=== PATIENT | male | born 1960 | race Hispanic/Latino ===

== ENCOUNTER 2017-04-25 16:45 | Emergency (ER) | payer OTHER ==
[~2017-04-25 16:45] MED LIST: ALBU4TAB6 PO; ASPI-1197 PO; ESOM20CA34 PO; FLUT1DIS3 IH; HYDR200T82 PO; ISOS20TA9 PO; ISOS60TA4 PO; LISI-617 PO; METF10004 PO; METH2.5T6 PO; METO-408 PO; NAPR-1180 PO; NITR0.4T50 SL; NITRS4 SL; OLME20TA10 PO; PRED20TA3 PO; RANO500T2 PO; SIMV40TA5 PO; SIMV40TA59 PO
[2017-04-25 17:13] LABS: BASOPHILS % (AUTO) 0.7 % (0.0-5.0); EOSINOPHILS % (AUTO) 1.1 % (0.0-8.0); HEMATOCRIT 40.9 % (42-54); LYMPHOCYTES % (AUTO) 21.1 % (21.0-51.0); MEAN CORPUSCULAR HEMOGLOBIN 31.1 pg (27.0-33.0); MEAN CORPUSCULAR HGB CONC 33.9 g/dL (32.0-36.0); MEAN CORPUSCULAR VOLUME 91.7 fL (79-99); MONOCYTES % (AUTO) 6.2 % (3.0-13.0); NEUTROPHILS % (AUTO) 70.9 % (40.0-77.0); PLATELET COUNT (AUTO) 237 K/uL (130-400); RED BLOOD CELL COUNT(AUTO) 4.46 MIL/uL (4.50-6.20); RED CELL DISTRIBUTION WIDTH 14.8 % (11.0-15.5); WHITE BLOOD COUNT (AUTO) 11.9 K/uL (4.8-10.8)
[2017-04-25] MEDS ORDERED: METHYLPREDNISOLONE SOD SUCC 125MG/2ML VIAL ONE (17:13)
[2017-04-25] MEDS ORDERED: IPRATROPIUM/ALBUTEROL SULFATE 3 ML SOLUTION IH ONE (17:27)
[2017-04-25 17:30] LABS: CREATININE 1.4 mg/dL (0.5-1.5); POTASSIUM 3.4 mmol/L (3.5-5.1)
[2017-04-25 17:38] LABS: B-TYPE NATRIURETIC PEPTIDE 83 pg/mL (0-100)
[2017-04-25] MEDS ORDERED: ACETAMINOPHEN-CODEINE ELIXIR 5 ML UDCUP ONE (19:05)
[2017-04-25] MEDS ORDERED: LEVOFLOXACIN 500 MG/D5W 100 ML 100 ML ONE (19:13)
== END 2017-04-25 21:18 | disposition home or self-care (01) ==
LOC: EDH 16:45
DX: J44.1 Chronic obstructive pulmonary disease with (acute) exacerbation (principal); E78.5 Hyperlipidemia, unspecified; I10 Essential (primary) hypertension; Z88.0 Allergy status to penicillin
CPT/HCPCS: 36415; 71045; 80048; 83880; 84484; 85025; 87804 ×2; 94640; 96365; 96375; 99285; J1956; J2930

== ENCOUNTER → 2017-05-21 | Outpatient (CLI) | payer OTHER ==
[~2017-05-21] MED LIST changes: +VERA180T8 PO
== END | disposition home or self-care (01) ==
LOC: SHCH 10:32
PROVIDERS: ATTEND Internal Medicine Cardiovascular Disease
DX: I87.2 Venous insufficiency (chronic) (peripheral) (principal)
CPT/HCPCS: 93970

== ENCOUNTER 2017-08-15 15:35 | Emergency (ER) | payer OTHER ==
[~2017-08-15 15:35] MED LIST changes: -VERA180T8 PO
[2017-08-15 16:54] LABS: BASOPHILS % (AUTO) 0.8 % (0.0-5.0); EOSINOPHILS % (AUTO) 3.1 % (0.0-8.0); HEMATOCRIT 41.9 % (42-54); LYMPHOCYTES % (AUTO) 19.8 % (21.0-51.0); MEAN CORPUSCULAR HEMOGLOBIN 32.3 pg (27.0-33.0); MEAN CORPUSCULAR HGB CONC 35.5 g/dL (32.0-36.0); MONOCYTES % (AUTO) 8.3 % (3.0-13.0); PLATELET COUNT (AUTO) 278 K/uL (130-400); RED CELL DISTRIBUTION WIDTH 15.1 % (11.0-15.5); WHITE BLOOD COUNT (AUTO) 9.4 K/uL (4.8-10.8)
[2017-08-15 17:11] LABS: INR 1.01 (0.85-1.15); PARTIAL THROMBOPLASTIN TIME 24.7 SEC (26.3-35.5); PROTHROMBIN TIME 10.6 SEC (9.6-11.6)
[2017-08-15 17:12] LABS: CREATININE 1.3 mg/dL (0.5-1.5); POTASSIUM 4.3 mmol/L (3.5-5.1)
[2017-08-15 17:27] LABS: ALBUMIN 3.4 g/dL (3.5-5.0); BILIRUBIN,TOTAL 0.4 mg/dL (0.2-1.0); CREATINE KINASE MB 1.5 ng/mL (0.5-3.6); TOTAL PROTEIN, SERUM 6.6 g/dL (6.0-8.3)
[2017-08-15] MEDS ORDERED: SODIUM CHLORIDE 0.9% 1000ML 1,000 ML IV ONE (17:31)
== END 2017-08-15 19:56 | disposition home or self-care (01) ==
LOC: EDH 15:35
DX: R42 Dizziness and giddiness (principal); J44.9 Chronic obstructive pulmonary disease, unspecified; E78.5 Hyperlipidemia, unspecified; I10 Essential (primary) hypertension; E11.9 Type 2 diabetes mellitus without complications; R79.1 Abnormal coagulation profile; Z79.4 Long term (current) use of insulin; Z95.1 Presence of aortocoronary bypass graft; Z88.0 Allergy status to penicillin; Z88.8 Allergy status to other drugs, medicaments and biological substances
CPT/HCPCS: 36415; 70450; 80053; 82550; 82553; 85025; 85610; 85730; 93005; 93880; 99285; J7030

== ENCOUNTER → 2017-09-23 | Outpatient (CLI) | payer OTHER ==
[~2017-09-23] MED LIST changes: +ISOVUE-370 50ML VIAL IV ONE; +VERA180T8 PO
== END | disposition home or self-care (01) ==
LOC: OIH 10:44
PROVIDERS: ATTEND Nurse Practitioner Family
DX: R91.1 Solitary pulmonary nodule (principal); K44.9 Diaphragmatic hernia without obstruction or gangrene; E65 Localized adiposity
CPT/HCPCS: 71260; Q9967

== ENCOUNTER 2017-10-12 01:42 | Emergency (ER) | payer OTHER ==
[~2017-10-12 01:42] MED LIST changes: -ISOVUE-370 50ML VIAL IV ONE; -VERA180T8 PO
[2017-10-12 02:44] LABS: BASOPHILS % (AUTO) 0.6 % (0.0-5.0); EOSINOPHILS % (AUTO) 1.8 % (0.0-8.0); HEMATOCRIT 40.8 % (42-54); LYMPHOCYTES % (AUTO) 11.5 % (21.0-51.0); MEAN CORPUSCULAR HGB CONC 33.9 g/dL (32.0-36.0); MEAN CORPUSCULAR VOLUME 88.5 fL (79-99); MONOCYTES % (AUTO) 9.6 % (3.0-13.0); NEUTROPHILS % (AUTO) 76.5 % (40.0-77.0); NUCLEATED RED BLOOD CELLS 0.1 % (0.0-0.19); PLATELET COUNT (AUTO) 285 K/uL (130-400); RED BLOOD CELL COUNT(AUTO) 4.61 MIL/uL (4.50-6.20); RED CELL DISTRIBUTION WIDTH 14.7 % (11.0-15.5); WHITE BLOOD COUNT (AUTO) 12.8 K/uL (4.8-10.8)
[2017-10-12 02:52] LABS: INR 1.02 (0.85-1.15); PARTIAL THROMBOPLASTIN TIME 26.9 SEC (26.3-35.5); PROTHROMBIN TIME 10.7 SEC (9.6-11.6)
[2017-10-12 03:16] LABS: CREATININE 1.2 mg/dL (0.5-1.5); POTASSIUM 3.6 mmol/L (3.5-5.1)
[2017-10-12 03:30] LABS: ALBUMIN 3.3 g/dL (3.5-5.0); BILIRUBIN,TOTAL 0.5 mg/dL (0.2-1.0); CREATINE KINASE MB 0.8 ng/mL (0.5-3.6); TOTAL PROTEIN, SERUM 6.8 g/dL (6.0-8.3)
[2017-10-12 03:36] LABS: APPEARANCE,URINE Clear (CLEAR); BILIRUBIN,URINE Negative (NEGATIVE); COLOR,URINE Yellow (YELLOW); GLUCOSE, URINE (UA) Negative (NEGATIVE); KETONES,URINE 15 mg/dL (NEGATIVE); LEUKOCYTE ESTERASE ,URINE Negative (NEGATIVE); NITRATE,URINE Negative (NEGATIVE); OCCULT BLOOD,URINE Negative (NEGATIVE); PH,URINE 7.5 (5.0-8.0); PROTEIN,URINE Negative (NEGATIVE)
[2017-10-12] MEDS ORDERED: LEVOFLOXACIN 500 MG TABLET ONE (03:59)
== END 2017-10-12 04:10 | disposition home or self-care (01) ==
LOC: EDH 01:42 → UNDOADMOB 02:55 → EDHIP 02:55 → EDH 04:10
DX: J20.9 Acute bronchitis, unspecified (principal); D86.9 Sarcoidosis, unspecified; J44.9 Chronic obstructive pulmonary disease, unspecified; E11.9 Type 2 diabetes mellitus without complications; E78.5 Hyperlipidemia, unspecified; I10 Essential (primary) hypertension; Z79.4 Long term (current) use of insulin; Z87.891 Personal history of nicotine dependence; Z88.0 Allergy status to penicillin; Z88.8 Allergy status to other drugs, medicaments and biological substances
CPT/HCPCS: 36415; 71045; 80053; 81003; 82150; 82550; 82553; 83605; 83690; 83880; 84484; 85025; 85610; 85730; 87040; 93005

== ENCOUNTER 2017-10-15 12:38 | Inpatient (IN) | payer OTHER ==
[~2017-10-15] VITALS: Ht 172.7 cm; Wt 88.9 kg
[2017-10-15 13:38] LABS: APPEARANCE,URINE Clear (CLEAR); BILIRUBIN,URINE Negative (NEGATIVE); COLOR,URINE Yellow (YELLOW); GLUCOSE, URINE (UA) Negative (NEGATIVE); KETONES,URINE Trace mg/dL (NEGATIVE); LEUKOCYTE ESTERASE ,URINE Negative (NEGATIVE); NITRATE,URINE Negative (NEGATIVE); OCCULT BLOOD,URINE Trace (NEGATIVE); PROTEIN,URINE POS 1+ (NEGATIVE)
[2017-10-15 13:40] LABS: BASOPHILS % (AUTO) 0.3 % (0.0-5.0); EOSINOPHILS % (AUTO) 0.9 % (0.0-8.0); HEMATOCRIT 38.9 % (42-54); LYMPHOCYTES % (AUTO) 7.7 % (21.0-51.0); MEAN CORPUSCULAR HEMOGLOBIN 30.3 pg (27.0-33.0); MEAN CORPUSCULAR HGB CONC 34.4 g/dL (32.0-36.0); MEAN CORPUSCULAR VOLUME 88.1 fL (79-99); MONOCYTES % (AUTO) 9.9 % (3.0-13.0); NEUTROPHILS % (AUTO) 81.2 % (40.0-77.0); PLATELET COUNT (AUTO) 288 K/uL (130-400); RED BLOOD CELL COUNT(AUTO) 4.42 MIL/uL (4.50-6.20); RED CELL DISTRIBUTION WIDTH 14.6 % (11.0-15.5); WHITE BLOOD COUNT (AUTO) 12.4 K/uL (4.8-10.8)
[2017-10-15] MEDS ORDERED: SODIUM CHLORIDE 0.9% 1000ML 1,000 ML IV ONE ×3 (13:42→17:07)
[2017-10-15] MEDS ORDERED: MEROPENEM 1 GM VIAL ONE (13:42)
[2017-10-15 13:51] LABS: CREATININE 1.3 mg/dL (0.5-1.5); POTASSIUM 5.9 mmol/L (3.5-5.1)
[2017-10-15 13:58] LABS: BACTERIA,URINE Rare /HPF (None Seen); MUCUS,URINE Rare LPF (None Seen); SQUAMOUS EPITHELIAL CELL,UR Rare /HPF (0-2); WBC,URINE 0-1 /HPF (0-1)
[2017-10-15 13:58] LABS: INR 1.02 (0.85-1.15); PROTHROMBIN TIME 10.7 SEC (9.6-11.6)
[2017-10-15 14:04] LABS: ALBUMIN 2.9 g/dL (3.5-5.0); BILIRUBIN,TOTAL 0.8 mg/dL (0.2-1.0); CREATINE KINASE MB 0.7 ng/mL (0.5-3.6); TOTAL PROTEIN, SERUM 7.3 g/dL (6.0-8.3)
[2017-10-15 19:53] VITALS: BP 139/81
[2017-10-15] MEDS ORDERED: ONDANSETRON HCL 4 MG/2 ML VIAL IVP PRN (21:00)
[2017-10-15] MEDS ORDERED: HYDRALAZINE HCL 20 MG/ML VIAL IV PRN (21:00)
[2017-10-15] MEDS ORDERED: GLUCAGON 1MG KIT 1 MG ML IM PRN (21:00)
[2017-10-15] MEDS ORDERED: ACETAMINOPHEN 325 MG TAB PO PRN (21:00)
[2017-10-15] MEDS ORDERED: DEXTROSE 50%-WATER 50 ML DISP.SYRIN IV PRN (21:00)
[2017-10-15 21:53] VITALS: BP 139/81
[2017-10-15] MEDS ORDERED: SODIUM POLYSTYRENE SULFONATE 15 GM/60 ML ML ONE (22:34)
[2017-10-16] MEDS: SODIUM CHLORIDE 0.9% 1000ML 1,000 ML IV SCH ×3 (00:34→15:52)
[2017-10-16] MEDS: SODIUM POLYSTYRENE SULFONATE 15 GM/60 ML ML PO SCH ×2 (00:35→21:00)
[2017-10-16] MEDS: FAMOTIDINE 20MG TAB 20 MG TAB PO SCH ×3 (00:35→22:24)
[2017-10-16] MEDS: INSULIN HUMULIN R 100 UNIT/ML 3ML SQ SCH ×5 (00:35→21:00)
[2017-10-16] MEDS ORDERED: ALBUTEROL SULFATE 4 MG PO SCH (02:30)
[2017-10-16] MEDS ORDERED: PHARMACY COMMUNICATION MISC SCH (04:00)
[2017-10-16 04:20] VITALS: BP 135/80
[2017-10-16 05:14] LABS: BASOPHILS % (AUTO) 0.6 % (0.0-5.0); EOSINOPHILS % (AUTO) 2.8 % (0.0-8.0); HEMATOCRIT 35.3 % (42-54); LYMPHOCYTES % (AUTO) 12.6 % (21.0-51.0); MEAN CORPUSCULAR HEMOGLOBIN 31.5 pg (27.0-33.0); MEAN CORPUSCULAR HGB CONC 35.4 g/dL (32.0-36.0); MEAN CORPUSCULAR VOLUME 88.9 fL (79-99); PLATELET COUNT (AUTO) 291 K/uL (130-400); RED BLOOD CELL COUNT(AUTO) 3.98 MIL/uL (4.50-6.20); RED CELL DISTRIBUTION WIDTH 14.7 % (11.0-15.5)
[2017-10-16 05:33] LABS: ALBUMIN 2.5 g/dL (3.5-5.0); BILIRUBIN,TOTAL 0.5 mg/dL (0.2-1.0); CREATININE 1.3 mg/dL (0.5-1.5); POTASSIUM 3.6 mmol/L (3.5-5.1); TOTAL PROTEIN, SERUM 6.1 g/dL (6.0-8.3)
[2017-10-16 07:54] VITALS: BP 134/85
[2017-10-16] MEDS ORDERED: PREDNISONE 20 MG TABLET PO SCH (09:00)
[2017-10-16] MEDS ORDERED: ISOSORBIDE MONO 60 MG TAB.SR PO SCH (09:00)
[2017-10-16] MEDS ORDERED: METHOTREXATE SODIUM 2.5 MG TABLET PO SCH (09:00)
[2017-10-16] MEDS ORDERED: ISOSORBIDE DINITRATE 20 MG TABLET PO SCH (09:00)
[2017-10-16] MEDS: LEVOFLOXACIN 500 MG/D5W 100 ML 100 ML IV SCH (11:20)
[2017-10-16] MEDS: ASPIRIN 81MG TAB.CHEW PO SCH (11:20)
[2017-10-16] MEDS: LISINOPRIL 5 MG TABLET PO SCH (11:21)
[2017-10-16] MEDS: LOSARTAN 100 MG TABLET PO SCH (11:21)
[2017-10-16] MEDS: NAPROXEN 500 MG TABLET PO SCH ×2 (11:21→22:24)
[2017-10-16] MEDS: METOPROLOL TARTRATE 25 MG TAB PO SCH ×2 (11:21→22:25)
[2017-10-16] MEDS: HYDROXYCHLOROQUINE SULFATE 200 MG TAB PO SCH (11:22)
[2017-10-16] MEDS: RANOLAZINE 500 MG TAB.SR.12H PO SCH ×2 (11:22→22:24)
[2017-10-16] MEDS: ENOXAPARIN SODIUM 40 MG/0.4 ML SYRINGE SQ SCH (11:24)
[2017-10-16 11:38] VITALS: BP 134/77
[2017-10-16] MEDS ORDERED: VERA180T8 PO (14:01)
[2017-10-16] MEDS ORDERED: IOPAMIDOL-370 100 ML VIAL IV ONE (15:01)
[2017-10-16 16:04] VITALS: BP 134/84
[2017-10-16] MEDS ORDERED: KETOROLAC TROMETHAMINE 30MG/ML IV PRN (19:45)
[2017-10-16 20:03] VITALS: BP 139/83
[2017-10-16] MEDS: ZOCOR 40 MG PO SCH (21:00)
[2017-10-17] VITALS (7 sets, daily range): BP systolic 128–143; BP diastolic 74–91
[2017-10-17 04:16] LABS: MEAN CORPUSCULAR HEMOGLOBIN 30.8 pg (27.0-33.0); MEAN CORPUSCULAR HGB CONC 34.8 g/dL (32.0-36.0); MEAN CORPUSCULAR VOLUME 88.4 fL (79-99); PLATELET COUNT (AUTO) 292 K/uL (130-400); RED BLOOD CELL COUNT(AUTO) 4.08 MIL/uL (4.50-6.20); RED CELL DISTRIBUTION WIDTH 14.3 % (11.0-15.5); WHITE BLOOD COUNT (AUTO) 8.4 K/uL (4.8-10.8)
[2017-10-17 04:32] LABS: CREATININE 1.1 mg/dL (0.5-1.5); POTASSIUM 3.5 mmol/L (3.5-5.1)
[2017-10-17] MEDS: INSULIN HUMULIN R 100 UNIT/ML 3ML SQ SCH ×4 (07:30→20:54)
[2017-10-17] MEDS: LEVOFLOXACIN 500 MG/D5W 100 ML 100 ML IV SCH (10:41)
[2017-10-17] MEDS: ASPIRIN 81MG TAB.CHEW PO SCH (10:41)
[2017-10-17] MEDS: RANOLAZINE 500 MG TAB.SR.12H PO SCH ×2 (10:41→20:53)
[2017-10-17] MEDS: LISINOPRIL 5 MG TABLET PO SCH (10:42)
[2017-10-17] MEDS: LOSARTAN 100 MG TABLET PO SCH (10:42)
[2017-10-17] MEDS: NAPROXEN 500 MG TABLET PO SCH ×2 (10:42→20:53)
[2017-10-17] MEDS: METOPROLOL TARTRATE 25 MG TAB PO SCH ×2 (10:42→20:53)
[2017-10-17] MEDS: HYDROXYCHLOROQUINE SULFATE 200 MG TAB PO SCH (10:42)
[2017-10-17] MEDS: FAMOTIDINE 20MG TAB 20 MG TAB PO SCH ×2 (10:43→20:53)
[2017-10-17] MEDS: ENOXAPARIN SODIUM 40 MG/0.4 ML SYRINGE SQ SCH (10:43)
[2017-10-17] MEDS: SODIUM CHLORIDE 0.9% 1000ML 1,000 ML IV SCH (12:20)
[2017-10-17] MEDS: ALBUTEROL SULFATE 0.042% 1.25 MG/3 ML INH IH SCH ×2 (19:01→23:39)
[2017-10-17] MEDS: ZOCOR 40 MG PO SCH (20:56)
[2017-10-18] MEDS: SODIUM CHLORIDE 0.9% 1000ML 1,000 ML IV SCH ×3 (03:00→17:05)
[2017-10-18 04:23] VITALS: BP 127/86
[2017-10-18 05:11] LABS: HEMATOCRIT 32.4 % (42-54); MEAN CORPUSCULAR HEMOGLOBIN 32.9 pg (27.0-33.0); MEAN CORPUSCULAR HGB CONC 37.4 g/dL (32.0-36.0); MEAN CORPUSCULAR VOLUME 87.8 fL (79-99); PLATELET COUNT (AUTO) 318 K/uL (130-400); RED BLOOD CELL COUNT(AUTO) 3.69 MIL/uL (4.50-6.20); RED CELL DISTRIBUTION WIDTH 14.8 % (11.0-15.5); WHITE BLOOD COUNT (AUTO) 7.7 K/uL (4.8-10.8)
[2017-10-18 05:27] LABS: ALBUMIN 2.2 g/dL (3.5-5.0); BILIRUBIN,TOTAL 0.3 mg/dL (0.2-1.0); CREATININE 1.2 mg/dL (0.5-1.5); POTASSIUM 3.6 mmol/L (3.5-5.1); TOTAL PROTEIN, SERUM 5.7 g/dL (6.0-8.3)
[2017-10-18] MEDS: INSULIN HUMULIN R 100 UNIT/ML 3ML SQ SCH ×3 (06:58→16:30)
[2017-10-18] MEDS: ALBUTEROL SULFATE 0.042% 1.25 MG/3 ML INH IH SCH ×4 (07:01→23:15)
[2017-10-18 07:30] VITALS: BP 128/69
[2017-10-18] MEDS: NAPROXEN 500 MG TABLET PO SCH ×2 (08:15→20:40)
[2017-10-18] MEDS: LISINOPRIL 5 MG TABLET PO SCH (08:15)
[2017-10-18] MEDS: PREDNISONE 10 MG TABLET PO SCH (08:15)
[2017-10-18] MEDS: FAMOTIDINE 20MG TAB 20 MG TAB PO SCH ×2 (08:15→20:40)
[2017-10-18] MEDS: RANOLAZINE 500 MG TAB.SR.12H PO SCH ×2 (08:16→20:40)
[2017-10-18] MEDS: METOPROLOL TARTRATE 25 MG TAB PO SCH ×2 (08:16→20:41)
[2017-10-18] MEDS: ENOXAPARIN SODIUM 40 MG/0.4 ML SYRINGE SQ SCH (08:16)
[2017-10-18] MEDS: ASPIRIN 81MG TAB.CHEW PO SCH (08:16)
[2017-10-18] MEDS: LEVOFLOXACIN 500 MG/D5W 100 ML 100 ML IV SCH (08:16)
[2017-10-18] MEDS: LOSARTAN 100 MG TABLET PO SCH (08:16)
[2017-10-18] MEDS: HYDROXYCHLOROQUINE SULFATE 200 MG TAB PO SCH (08:28)
[2017-10-18 11:00] VITALS: BP 125/71
[2017-10-18] MEDS ORDERED: MAG HYDROX/AL HYDROX/SIMETH ES 30 ML SUSP UDCUP PO PRN (15:45)
[2017-10-18] MEDS ORDERED: MAG HYDROX/AL HYDROX/SIMETH ES 30 ML SUSP UDCUP ONE (15:47)
[2017-10-18 16:00] VITALS: BP 147/84
[2017-10-18 19:46] VITALS: BP 127/72
[2017-10-18] MEDS: ZOCOR 40 MG PO SCH (20:42)
[2017-10-18 23:59] VITALS: BP 137/77
[2017-10-19] MEDS: INSULIN HUMULIN R 100 UNIT/ML 3ML SQ SCH ×5 (00:29→20:59)
[2017-10-19 03:46] VITALS: BP 147/89
[2017-10-19 05:37] LABS: HEMATOCRIT 32.8 % (42-54); MEAN CORPUSCULAR HEMOGLOBIN 30.8 pg (27.0-33.0); MEAN CORPUSCULAR HGB CONC 34.9 g/dL (32.0-36.0); MEAN CORPUSCULAR VOLUME 88.5 fL (79-99); PLATELET COUNT (AUTO) 375 K/uL (130-400); RED BLOOD CELL COUNT(AUTO) 3.71 MIL/uL (4.50-6.20); RED CELL DISTRIBUTION WIDTH 14.7 % (11.0-15.5); WHITE BLOOD COUNT (AUTO) 9.3 K/uL (4.8-10.8)
[2017-10-19 05:49] LABS: CREATININE 1.3 mg/dL (0.5-1.5); MAGNESIUM 1.8 mg/dL (1.80-2.40); PHOSPHORUS 3.9 mg/dL (2.5-4.9); POTASSIUM 3.4 mmol/L (3.5-5.1)
[2017-10-19] MEDS: ALBUTEROL SULFATE 0.042% 1.25 MG/3 ML INH IH SCH ×4 (06:40→23:23)
[2017-10-19 08:00] VITALS: BP 139/79
[2017-10-19] MEDS: LISINOPRIL 5 MG TABLET PO SCH (08:56)
[2017-10-19] MEDS: LOSARTAN 100 MG TABLET PO SCH (08:56)
[2017-10-19] MEDS: LEVOFLOXACIN 500 MG/D5W 100 ML 100 ML IV SCH (08:56)
[2017-10-19] MEDS: RANOLAZINE 500 MG TAB.SR.12H PO SCH ×2 (08:57→20:52)
[2017-10-19] MEDS: PREDNISONE 10 MG TABLET PO SCH (08:57)
[2017-10-19] MEDS: FAMOTIDINE 20MG TAB 20 MG TAB PO SCH ×2 (08:58→20:52)
[2017-10-19] MEDS: ASPIRIN 81MG TAB.CHEW PO SCH (08:58)
[2017-10-19] MEDS: METOPROLOL TARTRATE 25 MG TAB PO SCH ×2 (08:58→20:52)
[2017-10-19] MEDS: HYDROXYCHLOROQUINE SULFATE 200 MG TAB PO SCH (08:58)
[2017-10-19] MEDS: NAPROXEN 500 MG TABLET PO SCH ×2 (08:59→20:52)
[2017-10-19] MEDS: ENOXAPARIN SODIUM 40 MG/0.4 ML SYRINGE SQ SCH (08:59)
[2017-10-19] MEDS: SODIUM CHLORIDE 0.9% 1000ML 1,000 ML IV SCH ×3 (09:10→23:30)
[2017-10-19 11:00] VITALS: BP 130/79
[2017-10-19 13:33] LABS: ABG BASE EXCESS -3.1 mmol/L (-2.0-3.0); ABG OXYGEN SATURATION 98.1 % (95.0-99.0); ABG PCO2 27 mmHg (35-48)
[2017-10-19] MEDS: METHYLPREDNISOLONE SOD SUCC 125MG/2ML VIAL IVP SCH (13:44)
[2017-10-19 16:00] VITALS: BP 157/91
[2017-10-19] MEDS: POTASSIUM CHLORIDE 20 MEQ ERTAB PO SCH ×2 (17:44→20:53)
[2017-10-19 20:00] VITALS: BP 136/80
[2017-10-19] MEDS: ZOCOR 40 MG PO SCH (20:53)
[2017-10-20] VITALS: BP 150/76
[2017-10-20] MEDS ORDERED: METHYLPREDNISOLONE SOD SUCC 125MG/2ML VIAL ONE (01:14)
[2017-10-20] MEDS: METHYLPREDNISOLONE SOD SUCC 125MG/2ML VIAL IVP SCH (01:15)
[2017-10-20 04:00] VITALS: BP 138/80
[2017-10-20] MEDS: ALBUTEROL SULFATE 0.042% 1.25 MG/3 ML INH IH SCH ×2 (06:19→11:28)
[2017-10-20 06:46] LABS: HEMATOCRIT 32.8 % (42-54); MEAN CORPUSCULAR HEMOGLOBIN 30.7 pg (27.0-33.0); MEAN CORPUSCULAR HGB CONC 34.7 g/dL (32.0-36.0); MEAN CORPUSCULAR VOLUME 88.3 fL (79-99); PLATELET COUNT (AUTO) 425 K/uL (130-400); RED BLOOD CELL COUNT(AUTO) 3.71 MIL/uL (4.50-6.20); RED CELL DISTRIBUTION WIDTH 14.8 % (11.0-15.5); WHITE BLOOD COUNT (AUTO) 14.1 K/uL (4.8-10.8)
[2017-10-20 06:54] LABS: CREATININE 1.3 mg/dL (0.5-1.5); POTASSIUM 4.1 mmol/L (3.5-5.1)
[2017-10-20] MEDS: INSULIN HUMULIN R 100 UNIT/ML 3ML SQ SCH ×2 (07:14→12:11)
[2017-10-20] MEDS: LEVOFLOXACIN 500 MG/D5W 100 ML 100 ML IV SCH (07:42)
[2017-10-20] MEDS: PREDNISONE 10 MG TABLET PO SCH (07:43)
[2017-10-20] MEDS: HYDROXYCHLOROQUINE SULFATE 200 MG TAB PO SCH (07:43)
[2017-10-20] MEDS: LISINOPRIL 5 MG TABLET PO SCH (07:43)
[2017-10-20] MEDS: ENOXAPARIN SODIUM 40 MG/0.4 ML SYRINGE SQ SCH (07:43)
[2017-10-20] MEDS: NAPROXEN 500 MG TABLET PO SCH (07:43)
[2017-10-20] MEDS: ASPIRIN 81MG TAB.CHEW PO SCH (07:44)
[2017-10-20] MEDS: LOSARTAN 100 MG TABLET PO SCH (07:44)
[2017-10-20] MEDS: METOPROLOL TARTRATE 25 MG TAB PO SCH (07:44)
[2017-10-20] MEDS: FAMOTIDINE 20MG TAB 20 MG TAB PO SCH (07:44)
[2017-10-20 08:00] VITALS: BP 147/77
[2017-10-20 11:00] VITALS: BP 134/78
[2017-10-20] MEDS: RANOLAZINE 500 MG TAB.SR.12H PO SCH (12:09)
[2017-10-20] MEDS: SODIUM CHLORIDE 0.9% 1000ML 1,000 ML IV SCH (12:09)
== END 2017-10-20 16:24 | disposition home or self-care (01) | DRG 871 ==
LOC: EDH 12:38 → EDHIP 17:35 → 3CH 21:32
PROVIDERS: ADMIT Family Medicine; ATTEND Family Medicine
PROC: 5A09357 Assistance with Respiratory Ventilation, Less than 24 Consecutive Hours, Continuous Positive Airway Pressure (ICD-10-PCS; principal; 2017-10-16)
PROC: 5A09357 Assistance with Respiratory Ventilation, Less than 24 Consecutive Hours, Continuous Positive Airway Pressure (ICD-10-PCS; 2017-10-18)
PROC: 5A09357 Assistance with Respiratory Ventilation, Less than 24 Consecutive Hours, Continuous Positive Airway Pressure (ICD-10-PCS; 2017-10-19)
DX: A41.9 Sepsis, unspecified organism (principal); J18.9 Pneumonia, unspecified organism; E43 Unspecified severe protein-calorie malnutrition; J96.20 Acute and chronic respiratory failure, unspecified whether with hypoxia or hypercapnia; J44.0 Chronic obstructive pulmonary disease with (acute) lower respiratory infection; J90 Pleural effusion, not elsewhere classified; E87.5 Hyperkalemia; J20.6 Acute bronchitis due to rhinovirus; I10 Essential (primary) hypertension; E78.5 Hyperlipidemia, unspecified; E11.9 Type 2 diabetes mellitus without complications; D86.9 Sarcoidosis, unspecified; D64.9 Anemia, unspecified; D63.8 Anemia in other chronic diseases classified elsewhere; E66.9 Obesity, unspecified; B97.10 Unspecified enterovirus as the cause of diseases classified elsewhere; B97.89 Other viral agents as the cause of diseases classified elsewhere; J84.10 Pulmonary fibrosis, unspecified; Z95.1 Presence of aortocoronary bypass graft; Z88.0 Allergy status to penicillin; Z99.81 Dependence on supplemental oxygen; Z88.8 Allergy status to other drugs, medicaments and biological substances; Z79.4 Long term (current) use of insulin; Z68.29 Body mass index [BMI] 29.0-29.9, adult
CPT/HCPCS: 36415; 36600; 71046; 71275; 76705; 80048; 80053; 81001; 82550; 82553; 82803; 82948; 83605; 83735; 84100; 84484; 85025; 85027; 85610; 85730; 87040; 87088; 87633; 93005; 94640; 94664; J1650; J1815; J1956; J2185; J2930; J7030; J7512; J8610; Q9967

== ENCOUNTER 2018-05-23 20:45 | Observation (INO) | payer OTHER ==
[~2018-05-23] VITALS: Ht 172.7 cm; Wt 88.9 kg
[~2018-05-23 20:45] MED LIST changes: -ALBU4TAB6 PO; -FLUT1DIS3 IH; -ISOS20TA9 PO; -ISOS60TA4 PO; -LISI-617 PO; +METF-446 PO; -METF10004 PO; -NITRS4 SL; -SIMV40TA59 PO; +VERA180T8 PO
[2018-05-23 21:04] LABS: BASOPHILS % (AUTO) 0.9 % (0.0-5.0); EOSINOPHILS % (AUTO) 2.7 % (0.0-8.0); HEMATOCRIT 39.8 % (42-54); LYMPHOCYTES % (AUTO) 21.3 % (21.0-51.0); MEAN CORPUSCULAR HEMOGLOBIN 27.6 pg (27.0-33.0); MEAN CORPUSCULAR VOLUME 83.5 fL (79-99); MONOCYTES % (AUTO) 9.7 % (3.0-13.0); NEUTROPHILS % (AUTO) 65.4 % (40.0-77.0); NUCLEATED RED BLOOD CELLS 0.1 % (0.0-0.19); PLATELET COUNT (AUTO) 300 K/uL (130-400); RED BLOOD CELL COUNT(AUTO) 4.77 MIL/uL (4.50-6.20); RED CELL DISTRIBUTION WIDTH 15.6 % (11.0-15.5); WHITE BLOOD COUNT (AUTO) 12.2 K/uL (4.8-10.8)
[2018-05-23] MEDS ORDERED: ASPIRIN 325 MG TABLET ONE (21:05)
[2018-05-23 21:25] LABS: CREATININE 1.5 mg/dL (0.5-1.5); INR 0.97 (0.85-1.15); PARTIAL THROMBOPLASTIN TIME 25.1 SEC (26.3-35.5); POTASSIUM 4.3 mmol/L (3.5-5.1); PROTHROMBIN TIME 10.2 SEC (9.6-11.6)
[2018-05-23 21:35] LABS: ALBUMIN 3.5 g/dL (3.5-5.0); BILIRUBIN,TOTAL 0.2 mg/dL (0.2-1.0); TOTAL PROTEIN, SERUM 6.9 g/dL (6.0-8.3)
[2018-05-23 23:17] LABS: APPEARANCE,URINE Clear (CLEAR); BILIRUBIN,URINE Negative (NEGATIVE); COLOR,URINE Yellow (YELLOW); GLUCOSE, URINE (UA) Negative (NEGATIVE); KETONES,URINE Trace mg/dL (NEGATIVE); LEUKOCYTE ESTERASE ,URINE Negative (NEGATIVE); NITRATE,URINE Negative (NEGATIVE); OCCULT BLOOD,URINE Negative (NEGATIVE); PROTEIN,URINE Negative (NEGATIVE)
[2018-05-24] MEDS ORDERED: ACETAMINOPHEN 325 MG TAB PO PRN (00:15)
[2018-05-24] MEDS ORDERED: ONDANSETRON HCL 4 MG/2 ML VIAL IV PRN (00:15)
[2018-05-24] MEDS: NITROGLYCERIN 1GM/1 INCH PACKET TD SCH ×3 (00:15→16:15)
[2018-05-24] MEDS ORDERED: MORPHINE SULFATE 2 MG/ML 1ML SYG IV PRN (00:15)
[2018-05-24] MEDS ORDERED: NITROGLYCERIN 1GM/1 INCH PACKET TD ONE (00:43)
--- NOTE | 2018-05-24 01:30 | NUR ---
Patient arrived on unit. Alert and oriented. Chest pressure 1/10 radiating to R side and to the back. States it originated in epigastric area. States he experiences SOB when ambulating and at rest. Also states he occasionally has episodes of dizziness with change in position and while ambulating. Patient is on 2L NC, 02 Sats at 98%. Patient is 02 dependent at home. Advised patient to use urinal and or to call for assistance. Oriented patient to call light and oriented to new environment. at bedside. Will continue to monitor labs. New Consult for Dr Leeann Wadsworth for 0800, Steel Finisher aware.
[2018-05-24 01:32] VITALS: BP 121/74
[2018-05-24 03:41] VITALS: BP 124/65
[2018-05-24] MEDS ORDERED: GLUCAGON 1MG KIT 1 MG ML IM PRN (04:00)
[2018-05-24] MEDS ORDERED: DEXTROSE 50%-WATER 50 ML DISP.SYRIN IV PRN (04:00)
[2018-05-24] MEDS: INSULIN HUMULIN R 100 UNIT/ML 3ML SQ SCH ×3 (07:30→16:29)
[2018-05-24 07:38] VITALS: BP 124/73
[2018-05-24] MEDS ORDERED: ENOXAPARIN SODIUM 30 MG/0.3 ML SQ SCH (09:00)
[2018-05-24] MEDS ORDERED: ASPIRIN 325 MG TABLET PO SCH (09:00)
[2018-05-24] MEDS ORDERED: PREDNISONE 10 MG TABLET PO SCH (09:00)
[2018-05-24] MEDS ORDERED: PANTOPRAZOLE SODIUM 40 MG TABLET.DR PO SCH (09:00)
[2018-05-24] MEDS ORDERED: METHOTREXATE SODIUM 2.5 MG TABLET PO SCH (09:00)
[2018-05-24] MEDS ORDERED: METOPROLOL TARTRATE 25 MG TAB PO SCH (09:00)
[2018-05-24] MEDS ORDERED: VERAPAMIL 180 MG PO SCH (09:00)
[2018-05-24] MEDS ORDERED: RANOLAZINE 500 MG TAB.SR.12H PO SCH (09:00)
[2018-05-24] MEDS ORDERED: HYDROXYCHLOROQUINE SULFATE 200 MG TAB PO SCH (09:00)
[2018-05-24] MEDS ORDERED: ***HM***Metoprolol Succinate 25 MG PO SCH (09:00)
[2018-05-24] MEDS ORDERED: OLMESARTAN MEDOXOMIL 20 MG PO SCH (09:00)
--- NOTE | 2018-05-24 11:40 | NUR ---
Altagracia BUCHANAN NP, IN ROOM FOR CONSULT ASSESSING/SPEAKING WITH PT. QUESTIONS ANSWERED BY MAIL MESSENGER.
[2018-05-24 11:57] VITALS: BP 126/84
--- NOTE | 2018-05-24 14:45 | NUR ---
DR. Carolyn ZHAO IN ROOM WITH PT. FOR CONSULT; PT.'S FAMILY MEMBERS AT BEDSIDE.
[2018-05-24 16:14] VITALS: BP 105/64
--- NOTE | 2018-05-24 16:16 | NUR ---
Status Notified PMD that cardio cleared patient. CT of Chest negative. CD
--- NOTE | 2018-05-24 16:45 | NUR ---
DR. CHARLES, AT NURSE'S STATION, MADE AWARE OF CT CHEST RESULTS AND [facility] ORDER FOR DISCHARGE; VERBALIZED UNDERSTANDING AND STATES WILL PLACE ORDERS.
--- NOTE | 2018-05-24 17:53 | NUR ---
GIVEN DISMISSAL INSTRUCTIONS, NO NEW SCRIPTS. VERBALIZED UNDERSTANDING. REMOVED SALINE LOCK FROM RIGHT HAND, IV SITE WITHOUT REDNESS NOTED. REMOVED TELE PACK. WENT HOME TO [employer] CLOTHES FOR PATIENT. INSTRUCTED TO CALL ONCE HE'S READY AND WILL BE TAKEN TO PRIVATE CAR VIA WHEELCHAIR.
[2018-05-24] MEDS ORDERED: SIMVASTATIN 40 MG PO SCH (21:00)
[2018-05-26] MEDS ORDERED: METHOTREXATE SODIUM 2.5 MG TABLET PO SCH (09:00)
== END 2018-05-24 18:50 | disposition home or self-care (01) ==
LOC: EDH 20:45 → EDHIP 23:20 → 2AH 05-24 01:42
PROVIDERS: ADMIT Hospitalist; ATTEND Hospitalist
DX: I25.110 Atherosclerotic heart disease of native coronary artery with unstable angina pectoris (principal); D86.0 Sarcoidosis of lung; E11.9 Type 2 diabetes mellitus without complications; E78.5 Hyperlipidemia, unspecified; G47.33 Obstructive sleep apnea (adult) (pediatric); I10 Essential (primary) hypertension; I45.10 Unspecified right bundle-branch block; I47.1 Supraventricular tachycardia; I51.7 Cardiomegaly; I87.2 Venous insufficiency (chronic) (peripheral); J44.9 Chronic obstructive pulmonary disease, unspecified; Z99.81 Dependence on supplemental oxygen; Z95.1 Presence of aortocoronary bypass graft; Z79.899 Other long term (current) drug therapy; Z80.1 Family history of malignant neoplasm of trachea, bronchus and lung; Z80.3 Family history of malignant neoplasm of breast; Z82.0 Family history of epilepsy and other diseases of the nervous system; Z82.49 Family history of ischemic heart disease and other diseases of the circulatory system; Z82.5 Family history of asthma and other chronic lower respiratory diseases; Z83.3 Family history of diabetes mellitus; Z82.3 Family history of stroke
CPT/HCPCS: 36415 ×2; 71045; 71250; 76705; 80053; 81003; 82550; 82948 ×3; 83690 ×2; 83874; 84484 ×3; 85025; 85610; 85730; 93005; 96372; 99284; G0378 ×19; J1650; J8610

== ENCOUNTER → 2018-07-08 | Outpatient (CLI) | payer OTHER | END | disposition home or self-care (01) | LOC: SHCH 13:34 | PROVIDERS: ATTEND Internal Medicine Cardiovascular Disease | DX: R06.02 Shortness of breath (principal) | CPT/HCPCS: 93306 ==

== ENCOUNTER 2018-09-22 18:05 | Emergency (ER) | payer OTHER ==
[~2018-09-22 18:05] MED LIST changes: -METH2.5T6 PO; -NAPR-1180 PO; +PRED10TA3 PO; -PRED20TA3 PO; -RANO500T2 PO; +VERA180T12 PO; -VERA180T8 PO
[2018-09-22 18:53] LABS: BASOPHILS % (AUTO) 0.3 % (0.0-5.0); EOSINOPHILS % (AUTO) 1.8 % (0.0-8.0); HEMATOCRIT 36.5 % (42-54); LYMPHOCYTES % (AUTO) 14.6 % (21.0-51.0); MEAN CORPUSCULAR HGB CONC 33.3 g/dL (32.0-36.0); MEAN CORPUSCULAR VOLUME 84.1 fL (79-99); MONOCYTES % (AUTO) 6.5 % (3.0-13.0); NEUTROPHILS % (AUTO) 76.8 % (40.0-77.0); PLATELET COUNT (AUTO) 300 K/uL (130-400); RED BLOOD CELL COUNT(AUTO) 4.34 MIL/uL (4.50-6.20); RED CELL DISTRIBUTION WIDTH 16.6 % (11.0-15.5); WHITE BLOOD COUNT (AUTO) 14.5 K/uL (4.8-10.8)
[2018-09-22 19:01] LABS: CREATININE 1.4 mg/dL (0.5-1.5); POTASSIUM 3.8 mmol/L (3.5-5.1)
== END 2018-09-22 19:45 | disposition home or self-care (01) ==
LOC: EDH 18:05
DX: I95.2 Hypotension due to drugs (principal); R42 Dizziness and giddiness; E11.9 Type 2 diabetes mellitus without complications; E78.5 Hyperlipidemia, unspecified; J44.9 Chronic obstructive pulmonary disease, unspecified; Z88.0 Allergy status to penicillin; Z88.8 Allergy status to other drugs, medicaments and biological substances; Z79.4 Long term (current) use of insulin
CPT/HCPCS: 36415; 80048; 82948; 85025; 93005

== ENCOUNTER 2019-01-03 18:22 | Emergency (ER) | payer OTHER ==
[2019-01-03 20:12] LABS: BASOPHILS % (AUTO) 0.2 % (0.0-5.0); EOSINOPHILS % (AUTO) 0.1 % (0.0-8.0); HEMATOCRIT 37.4 % (42-54); LYMPHOCYTES % (AUTO) 4.8 % (21.0-51.0); MEAN CORPUSCULAR HEMOGLOBIN 27.6 pg (27.0-33.0); MEAN CORPUSCULAR HGB CONC 32.8 g/dL (32.0-36.0); MEAN CORPUSCULAR VOLUME 84.1 fL (79-99); MONOCYTES % (AUTO) 4.8 % (3.0-13.0); NEUTROPHILS % (AUTO) 90.1 % (40.0-77.0); PLATELET COUNT (AUTO) 249 K/uL (130-400); RED BLOOD CELL COUNT(AUTO) 4.44 MIL/uL (4.50-6.20); RED CELL DISTRIBUTION WIDTH 16.5 % (11.0-15.5); WHITE BLOOD COUNT (AUTO) 13.8 K/uL (4.8-10.8)
[2019-01-03 20:30] LABS: CREATININE 1.9 mg/dL (0.5-1.5); POTASSIUM 5.2 mmol/L (3.5-5.1)
[2019-01-03 20:37] LABS: APPEARANCE,URINE Clear (CLEAR); BILIRUBIN,URINE Negative (NEGATIVE); COLOR,URINE Dark Yellow (YELLOW); GLUCOSE, URINE (UA) Negative (NEGATIVE); KETONES,URINE Trace mg/dL (NEGATIVE); LEUKOCYTE ESTERASE ,URINE Trace (NEGATIVE); NITRATE,URINE Negative (NEGATIVE); OCCULT BLOOD,URINE Negative (NEGATIVE); PROTEIN,URINE POS 1+ mg/dL (NEGATIVE)
[2019-01-03 20:38] LABS: ALBUMIN 3.5 g/dL (3.5-5.0); BILIRUBIN,TOTAL 0.2 mg/dL (0.2-1.0); TOTAL PROTEIN, SERUM 6.7 g/dL (6.0-8.3)
[2019-01-03 20:58] LABS: BACTERIA,URINE Few /HPF (None Seen); MUCUS,URINE Few LPF (None Seen)
== END 2019-01-03 21:35 | disposition home or self-care (01) ==
LOC: EDH 18:22
DX: S20.211A Contusion of right front wall of thorax, initial encounter (principal); M54.6 Pain in thoracic spine; R42 Dizziness and giddiness; W18.39XA Other fall on same level, initial encounter; Y93.89 Activity, other specified; Y92.89 Other specified places as the place of occurrence of the external cause; Y99.8 Other external cause status
CPT/HCPCS: 36415; 71045; 71250; 80053; 81001; 84484; 85025; 93005

== ENCOUNTER 2019-01-19 16:50 | Inpatient (IN) | payer OTHER ==
[~2019-01-19] VITALS: Ht 172.7 cm; Wt 84.9 kg
[2019-01-19] MEDS ORDERED: ZOSYN 3.375GM+NS 50ML 50 ML IV ONE (17:34)
[2019-01-19 17:35] LABS: BASOPHILS % (AUTO) 0.6 % (0.0-5.0); EOSINOPHILS % (AUTO) 0.8 % (0.0-8.0); HEMATOCRIT 37.4 % (42-54); LYMPHOCYTES % (AUTO) 12.7 % (21.0-51.0); MEAN CORPUSCULAR HEMOGLOBIN 27.9 pg (27.0-33.0); MEAN CORPUSCULAR HGB CONC 33.6 g/dL (32.0-36.0); MONOCYTES % (AUTO) 4.8 % (3.0-13.0); NEUTROPHILS % (AUTO) 81.1 % (40.0-77.0); PLATELET COUNT (AUTO) 255 K/uL (130-400); RED CELL DISTRIBUTION WIDTH 16.7 % (11.0-15.5); WHITE BLOOD COUNT (AUTO) 16.2 K/uL (4.8-10.8)
[2019-01-19 17:47] LABS: CARBON DIOXIDE 25 mmol/L (21-32); CHLORIDE 101 mmol/L (101-111); CREATININE 1.4 mg/dL (0.5-1.5); GLOMERULAR FILTR. RATE CALC 55 mL/min (>60); GLUCOSE,RANDOM 98 mg/dL (70-105); SODIUM SERUM 138 mmol/L (136-145); UREA NITROGEN, BLOOD 21 mg/dL (7-18)
[2019-01-19 17:51] LABS: INR 1.01 (0.85-1.15); PARTIAL THROMBOPLASTIN TIME 23.2 SEC (26.3-35.5); PROTHROMBIN TIME 10.6 SEC (9.6-11.6)
[2019-01-19 17:58] LABS: ALANINE AMINOTRANSFERASE 27 U/L (12-78); ALBUMIN 3.5 g/dL (3.5-5.0); ASPARTATE AMINOTRANSFERASE 15 U/L (10-37); BILIRUBIN,TOTAL 0.4 mg/dL (0.2-1.0); CREATINE KINASE, TOTAL 109 U/L (21-232); MYOGLOBIN 81 ng/mL (10-92); TOTAL PROTEIN, SERUM 7.5 g/dL (6.0-8.3); TROPONIN I < 0.04 ng/mL (0.00-0.06)
[2019-01-19 18:03] LABS: APPEARANCE,URINE Clear (CLEAR); BILIRUBIN,URINE Negative (NEGATIVE); COLOR,URINE Yellow (YELLOW); GLUCOSE, URINE (UA) Negative (NEGATIVE); KETONES,URINE Negative (NEGATIVE); LEUKOCYTE ESTERASE ,URINE Negative (NEGATIVE); NITRATE,URINE Negative (NEGATIVE); OCCULT BLOOD,URINE Negative (NEGATIVE); PROTEIN,URINE Negative (NEGATIVE)
[2019-01-19] MEDS ORDERED: VANCOMYCIN 1GM+NS 250ML 250 ML IV ONE (18:25)
[2019-01-19] MEDS ORDERED: METHYLPREDNISOLONE SOD SUCC 125MG/2ML VIAL ONE (18:25)
[2019-01-19] MEDS ORDERED: IPRATROPIUM/ALBUTEROL SULFATE 3 ML SOLUTION IH ONE ×2 (18:49→20:16)
[2019-01-19] MEDS ORDERED: VANCOMYCIN 1GM+NS 250ML 250 ML IV SCH (21:15)
[2019-01-19] MEDS ORDERED: ONDANSETRON HCL 4 MG/2 ML VIAL IV PRN (21:15)
[2019-01-19] MEDS ORDERED: GUAIFENESIN-DM 200/20 MG 10 ML PO PRN (21:15)
[2019-01-19] MEDS ORDERED: ACETAMINOPHEN 325 MG TAB PO PRN ×2 (21:15)
[2019-01-19] MEDS ORDERED: VANCOMYCIN PROTOCOL PER PHARMACY IV SCH (21:45)
[2019-01-19 22:45] VITALS: BP 109/70
[2019-01-20] MEDS ORDERED: GUAIFENESIN-CODEINE 5 ML SYRUP PO PRN (00:45)
[2019-01-20 04:00] VITALS: BP 116/74
[2019-01-20] MEDS: METHYLPREDNISOLONE SOD SUCC 40MG/ML 1ML IVP SCH ×3 (05:16→20:58)
[2019-01-20 06:16] LABS: BASOPHILS % (AUTO) 0.3 % (0.0-5.0); HEMATOCRIT 36.9 % (42-54); LYMPHOCYTES % (AUTO) 3.5 % (21.0-51.0); MEAN CORPUSCULAR HEMOGLOBIN 27.7 pg (27.0-33.0); MEAN CORPUSCULAR HGB CONC 32.5 g/dL (32.0-36.0); MEAN CORPUSCULAR VOLUME 85.2 fL (79-99); MONOCYTES % (AUTO) 1.7 % (3.0-13.0); NEUTROPHILS % (AUTO) 94.5 % (40.0-77.0); PLATELET COUNT (AUTO) 241 K/uL (130-400); RED BLOOD CELL COUNT(AUTO) 4.33 MIL/uL (4.50-6.20); RED CELL DISTRIBUTION WIDTH 17.4 % (11.0-15.5); WHITE BLOOD COUNT (AUTO) 12.3 K/uL (4.8-10.8)
[2019-01-20 06:28] LABS: ALBUMIN 3.2 g/dL (3.5-5.0); BILIRUBIN,TOTAL 0.4 mg/dL (0.2-1.0); CREATININE 1.3 mg/dL (0.5-1.5); TOTAL PROTEIN, SERUM 6.9 g/dL (6.0-8.3)
[2019-01-20] MEDS ORDERED: COMPOUND IV REFRIGERATED 1 EACH IVSOLN MISC PRN (06:30)
[2019-01-20] MEDS: INSULIN HUMULIN R 100 UNIT/ML 3ML SQ SCH ×4 (06:49→19:57)
[2019-01-20 07:00] VITALS: BP 126/80
[2019-01-20] MEDS: VANCOMYCIN 1.25 GM in SODIUM CHLORIDE 0.9% 250 ML IV SCH ×2 (08:44→19:19)
--- NOTE | 2019-01-20 08:46 | NUR ---
NOTIFIED MARCO ANTONIO MADDOX NP OF [facility] OF THE CONSULT FOR THE PATIENT.
[2019-01-20] MEDS: FAMOTIDINE/PF 20 MG/2 ML VIAL IV SCH ×2 (09:43→20:58)
[2019-01-20] MEDS: ENOXAPARIN SODIUM 30 MG/0.3 ML SQ SCH (09:43)
[2019-01-20 11:00] VITALS: BP 128/76
[2019-01-20] MEDS: LEVOFLOXACIN 750 MG/D5W 150 ML 150 ML IV SCH (11:50)
--- NOTE | 2019-01-20 12:25 | NUR ---
DCP CM met with pt discussed dc plans. Pt is independent prior to admission, lives at home w/spouse. Pt has oxygen equipments stationary and portable at home, nebulizer machine. Denies any other equipments/services. Pt feels safe to go back home, spouse able to assist with transportation and needs as necessary. DC plan to home once stable. CM to cont to follow up. Addendum: 01/20/19 at 1227 by SINA LI LVN CM Amended: Links added.
[2019-01-20 16:00] VITALS: BP 136/72
[2019-01-20] MEDS ORDERED: SITA50TA PO (18:45)
[2019-01-20] MEDS ORDERED: TRAM50TA4 PO (18:45)
[2019-01-20] MEDS ORDERED: ERGO800010 PO (18:45)
[2019-01-20] MEDS ORDERED: ALEN70TA10 PO (18:45)
[2019-01-20] MEDS ORDERED: PRED20TA3 PO (18:45)
[2019-01-20] MEDS ORDERED: INSU100V12 SQ (18:45)
[2019-01-20] MEDS ORDERED: OMEP40CA13 PO (18:45)
[2019-01-20 20:00] VITALS: BP 140/84
[2019-01-21] VITALS (7 sets, daily range): BP systolic 118–157; BP diastolic 67–92
[2019-01-21] MEDS ORDERED: TRAMADOL HCL 50 MG TABLET PO PRN (02:00)
[2019-01-21 05:54] LABS: HEMATOCRIT 35.1 % (42-54); MEAN CORPUSCULAR HEMOGLOBIN 27.6 pg (27.0-33.0); MEAN CORPUSCULAR HGB CONC 32.9 g/dL (32.0-36.0); MEAN CORPUSCULAR VOLUME 83.9 fL (79-99); PLATELET COUNT (AUTO) 263 K/uL (130-400); RED BLOOD CELL COUNT(AUTO) 4.18 MIL/uL (4.50-6.20); RED CELL DISTRIBUTION WIDTH 16.9 % (11.0-15.5); WHITE BLOOD COUNT (AUTO) 18.1 K/uL (4.8-10.8)
[2019-01-21 06:13] LABS: CREATININE 1.4 mg/dL (0.5-1.5); POTASSIUM 4.7 mmol/L (3.5-5.1)
[2019-01-21] MEDS: ALENDRONATE SODIUM 35 MG TAB PO SCH (06:41)
[2019-01-21] MEDS: INSULIN HUMULIN R 100 UNIT/ML 3ML SQ SCH ×4 (06:42→22:05)
[2019-01-21] MEDS: VANCOMYCIN 1.25 GM in SODIUM CHLORIDE 0.9% 250 ML IV SCH ×2 (07:00→20:53)
[2019-01-21] MEDS: FAMOTIDINE/PF 20 MG/2 ML VIAL IV SCH ×2 (08:52→22:04)
[2019-01-21] MEDS: PANTOPRAZOLE SODIUM 40 MG TABLET.DR PO SCH (08:52)
[2019-01-21] MEDS: LINAGLIPTIN 5 MG TABLET PO SCH (08:52)
[2019-01-21] MEDS: ASPIRIN 81MG TAB.CHEW PO SCH (08:52)
[2019-01-21] MEDS: METHYLPREDNISOLONE SOD SUCC 40MG/ML 1ML IVP SCH (08:52)
[2019-01-21] MEDS: ENOXAPARIN SODIUM 30 MG/0.3 ML SQ SCH (08:52)
[2019-01-21] MEDS: METFORMIN HCL 500 MG TABLET PO SCH ×2 (08:52→17:00)
[2019-01-21] MEDS: LEVOFLOXACIN 750 MG/D5W 150 ML 150 ML IV SCH (08:53)
[2019-01-21] MEDS: VERAPAMIL 180 MG PO SCH (09:00)
[2019-01-21] MEDS: OLMESARTAN MEDOXOMIL 20 MG PO SCH (09:00)
[2019-01-21] MEDS ORDERED: ERGOCALCIFEROL (VITAMIN D2) 50,000 UNIT CAPSULE PO SCH (09:00)
[2019-01-21] MEDS: HYDROXYCHLOROQUINE SULFATE 200 MG TAB PO SCH ×2 (09:21→22:04)
[2019-01-21 13:32] LABS: ABG BASE EXCESS -4.7 mmol/L (-2.0-3.0); ABG HCO3 18.6 mmol/L (21.0-28.0); ABG OXYGEN SATURATION 98.2 % (95.0-99.0); ABG PCO2 29 mmHg (35-48)
[2019-01-21] MEDS ORDERED: SIMVASTATIN 20 MG TABLET PO SCH (21:00)
[2019-01-22 04:33] VITALS: BP 136/77
[2019-01-22] MEDS: INSULIN HUMULIN R 100 UNIT/ML 3ML SQ SCH ×3 (06:10→16:30)
[2019-01-22] MEDS: VANCOMYCIN 1.25 GM in SODIUM CHLORIDE 0.9% 250 ML IV SCH (06:21)
[2019-01-22] MEDS: ALENDRONATE SODIUM 35 MG TAB PO SCH ×2 (06:22→06:23)
[2019-01-22 08:00] VITALS: BP 143/90
[2019-01-22] MEDS ORDERED: PREDNISONE 20 MG TABLET PO SCH (09:00)
[2019-01-22] MEDS: VERAPAMIL 180 MG PO SCH (09:00)
[2019-01-22] MEDS: OLMESARTAN MEDOXOMIL 20 MG PO SCH (09:00)
[2019-01-22] MEDS: ENOXAPARIN SODIUM 30 MG/0.3 ML SQ SCH (09:00)
[2019-01-22] MEDS ORDERED: METHYLPREDNISOLONE SOD SUCC 40MG/ML 1ML IVP SCH (09:00)
[2019-01-22] MEDS: ASPIRIN 81MG TAB.CHEW PO SCH (09:24)
[2019-01-22] MEDS: LINAGLIPTIN 5 MG TABLET PO SCH (09:24)
[2019-01-22] MEDS: HYDROXYCHLOROQUINE SULFATE 200 MG TAB PO SCH (09:24)
[2019-01-22] MEDS: PANTOPRAZOLE SODIUM 40 MG TABLET.DR PO SCH (09:24)
[2019-01-22] MEDS: FAMOTIDINE/PF 20 MG/2 ML VIAL IV SCH (09:24)
[2019-01-22] MEDS: METFORMIN HCL 500 MG TABLET PO SCH ×2 (09:24→17:03)
[2019-01-22] MEDS: LEVOFLOXACIN 750 MG/D5W 150 ML 150 ML IV SCH (09:31)
[2019-01-22 12:00] VITALS: BP 127/75
[2019-01-22] MEDS ORDERED: BENZ-17 PO (15:18)
[2019-01-22] MEDS ORDERED: LEVO500T89 PO (15:18)
[2019-01-22 16:00] VITALS: BP 102/60
[2019-01-23] MEDS ORDERED: ALENDRONATE SODIUM 35 MG TAB PO SCH (07:30)
== END 2019-01-22 18:10 | disposition home or self-care (01) | DRG 189 ==
LOC: EDH 16:50 → EDHIP 21:51 → 3CH 22:48
PROVIDERS: ADMIT Internal Medicine; ATTEND Internal Medicine
PROC: 5A09357 Assistance with Respiratory Ventilation, Less than 24 Consecutive Hours, Continuous Positive Airway Pressure (ICD-10-PCS; principal; 2019-01-20)
PROC: 5A09357 Assistance with Respiratory Ventilation, Less than 24 Consecutive Hours, Continuous Positive Airway Pressure (ICD-10-PCS; 2019-01-21)
DX: J96.01 Acute respiratory failure with hypoxia (principal); J44.1 Chronic obstructive pulmonary disease with (acute) exacerbation; D72.829 Elevated white blood cell count, unspecified; E11.9 Type 2 diabetes mellitus without complications; E78.5 Hyperlipidemia, unspecified; I10 Essential (primary) hypertension; I25.10 Atherosclerotic heart disease of native coronary artery without angina pectoris; Z80.1 Family history of malignant neoplasm of trachea, bronchus and lung; Z99.81 Dependence on supplemental oxygen; Z87.01 Personal history of pneumonia (recurrent); Z80.3 Family history of malignant neoplasm of breast; Z82.0 Family history of epilepsy and other diseases of the nervous system; Z82.3 Family history of stroke; Z82.49 Family history of ischemic heart disease and other diseases of the circulatory system; Z82.5 Family history of asthma and other chronic lower respiratory diseases; Z83.3 Family history of diabetes mellitus; Z95.1 Presence of aortocoronary bypass graft; Z88.0 Allergy status to penicillin; Z88.8 Allergy status to other drugs, medicaments and biological substances
CPT/HCPCS: 36415; 36600; 71045; 80048; 80053; 80202; 81003; 82435; 82550; 82803; 82947; 82948; 83605; 83874; 84132; 84145; 84295; 84484; 85018; 85025; 85027; 85610; 85730; 87040; 87088; 87804; 93005; 94640; 94660; G0378; J1650; J1815; J1956; J2543; J2920; J2930; J3370; J3490; J7030

== ENCOUNTER → 2019-02-15 | Outpatient (CLI) | payer OTHER ==
[~2019-02-15] MED LIST changes: +ALEN70TA10 PO; +BENZ-17 PO; +ERGO800010 PO; -ESOM20CA34 PO; +INSU100V12 SQ; +LEVO500T89 PO; -METO-408 PO; +OMEP40CA13 PO; -PRED10TA3 PO; +PRED20TA3 PO; +SITA50TA PO; +TRAM50TA4 PO
[2019-02-15 16:59] LABS: ABG BASE EXCESS -0.6 mmol/L (-2.0-3.0); ABG HCO3 21.9 mmol/L (21.0-28.0); ABG OXYGEN SATURATION 98.3 % (95.0-99.0); ABG PCO2 30 mmHg (35-48)
== END | disposition home or self-care (01) ==
LOC: LAB 14:42
PROVIDERS: ATTEND Internal Medicine
DX: J44.9 Chronic obstructive pulmonary disease, unspecified (principal)
CPT/HCPCS: 36600; 82803

== ENCOUNTER 2019-02-24 14:03 | Observation (INO) | payer OTHER ==
[~2019-02-24] VITALS: Ht 172.7 cm; Wt 82.1 kg
[~2019-02-24 14:03] MED LIST changes: -LEVO500T89 PO; +SIMV-46 PO; -SIMV40TA5 PO
[2019-02-24 14:55] LABS: BASOPHILS % (AUTO) 0.8 % (0.0-5.0); HEMATOCRIT 32.2 % (42-54); LYMPHOCYTES % (AUTO) 15.4 % (21.0-51.0); MEAN CORPUSCULAR HEMOGLOBIN 27.5 pg (27.0-33.0); MEAN CORPUSCULAR HGB CONC 33.1 g/dL (32.0-36.0); MEAN CORPUSCULAR VOLUME 83.3 fL (79-99); MONOCYTES % (AUTO) 7.4 % (3.0-13.0); NEUTROPHILS % (AUTO) 75.4 % (40.0-77.0); NUCLEATED RED BLOOD CELLS 0.1 % (0.0-0.19); PLATELET COUNT (AUTO) 233 K/uL (130-400); RED BLOOD CELL COUNT(AUTO) 3.87 MIL/uL (4.50-6.20); RED CELL DISTRIBUTION WIDTH 16.3 % (11.0-15.5); WHITE BLOOD COUNT (AUTO) 10.1 K/uL (4.8-10.8)
[2019-02-24 15:09] LABS: CARBON DIOXIDE 27 mmol/L (21-32); CHLORIDE 104 mmol/L (101-111); CREATININE 1.2 mg/dL (0.5-1.5); GLOMERULAR FILTR. RATE CALC 66 mL/min (>60); GLUCOSE,RANDOM 106 mg/dL (70-105); POTASSIUM 3.8 mmol/L (3.5-5.1); SODIUM SERUM 142 mmol/L (136-145); UREA NITROGEN, BLOOD 18 mg/dL (7-18)
[2019-02-24 15:11] LABS: INR 1.04 (0.85-1.15); PARTIAL THROMBOPLASTIN TIME 23.4 SEC (26.3-35.5); PROTHROMBIN TIME 10.9 SEC (9.6-11.6)
[2019-02-24 15:13] LABS: ALANINE AMINOTRANSFERASE 33 U/L (12-78); ALBUMIN 3.7 g/dL (3.5-5.0); ASPARTATE AMINOTRANSFERASE 14 U/L (10-37); BILIRUBIN,DIRECT < 0.1 mg/dL (0.0-0.3); BILIRUBIN,TOTAL 0.3 mg/dL (0.2-1.0); CREATINE KINASE, TOTAL 82 U/L (21-232); LIPASE 261 U/L (114-286); TOTAL PROTEIN, SERUM 7.3 g/dL (6.0-8.3)
[2019-02-24] MEDS ORDERED: HYDRALAZINE HCL 20 MG/ML VIAL IV PRN (18:30)
[2019-02-24] MEDS ORDERED: ACETAMINOPHEN 325 MG TAB PO PRN (18:30)
[2019-02-24] MEDS ORDERED: ONDANSETRON HCL 4 MG/2 ML VIAL IV PRN (18:30)
[2019-02-24] MEDS ORDERED: ACETAMINOPHEN 325 MG TAB ONE ×2 (18:42→23:13)
[2019-02-24 18:54] LABS: HEMOGLOBIN A1C 7.6 % (4.0-6.0)
[2019-02-24 18:56] LABS: MAGNESIUM 1.4 mg/dL (1.80-2.40); PHOSPHORUS 4.1 mg/dL (2.5-4.9)
[2019-02-24] MEDS ORDERED: PHARMACY COMMUNICATION MISC SCH (19:00)
[2019-02-24] MEDS ORDERED: IOHEXOL-350 75 ML VIAL IV ONE (19:21)
[2019-02-24] MEDS ORDERED: ATORVASTATIN CALCIUM 20 MG TABLET PO SCH (21:00)
[2019-02-24] MEDS ORDERED: FAMOTIDINE/PF 20 MG/2 ML VIAL IV ONE (22:36)
[2019-02-25 07:02] LABS: CHOLESTEROL 138 mg/dL (<200); HDL CHOLESTEROL 39 mg/dL (29-71); LDL DIRECT 79 mg/dL (0-99); TRIGLYCERIDES 146 mg/dL (30-200)
[2019-02-25] MEDS ORDERED: ASPIRIN 81MG TAB.CHEW ONE (08:14)
[2019-02-25] MEDS ORDERED: FAMOTIDINE/PF 20 MG/2 ML VIAL IV ONE (08:15)
[2019-02-25] MEDS ORDERED: LEVAHFA IH (08:31)
[2019-02-25] MEDS ORDERED: LATA2.5D15 OU (08:31)
[2019-02-25] MEDS ORDERED: ERGO500014 PO (08:31)
[2019-02-25] MEDS ORDERED: FAMOTIDINE/PF 20 MG/2 ML VIAL IV SCH (09:00)
[2019-02-25] MEDS: ASPIRIN 325 MG TABLET PO SCH (09:00)
[2019-02-25] MEDS ORDERED: BUTALB/ACETAMINOPHEN/CAFFEINE 1 EACH TABLET PO ONE (13:07)
[2019-02-25 14:22] LABS: APPEARANCE,URINE Clear (CLEAR); BILIRUBIN,URINE Negative (NEGATIVE); COLOR,URINE Yellow (YELLOW); GLUCOSE, URINE (UA) Negative (NEGATIVE); KETONES,URINE Negative (NEGATIVE); LEUKOCYTE ESTERASE ,URINE Moderate (NEGATIVE); NITRATE,URINE Positive (NEGATIVE); OCCULT BLOOD,URINE Negative (NEGATIVE); PROTEIN,URINE Negative (NEGATIVE); UROBILINOGEN,URINE 0.2 mg/dL (0.2-1.0)
[2019-02-25 14:33] LABS: BACTERIA,URINE Many /HPF (None Seen); RBC,URINE 0-1 /HPF (0-1); WBC,URINE 0-1 /HPF (0-1)
[2019-02-25 14:50] VITALS: BP 185/82
[2019-02-25 16:00] VITALS: BP 129/81
[2019-02-25 19:31] VITALS: BP 127/78
[2019-02-25 23:26] VITALS: BP 115/80
[2019-02-26] MEDS ORDERED: FAMOTIDINE/PF 20 MG/2 ML VIAL IV ONE (00:23)
[2019-02-26] MEDS ORDERED: FAMOTIDINE/PF 20 MG/2 ML VIAL IV SCH ×2 (00:30→09:00)
[2019-02-26 03:43] VITALS: BP 127/74
[2019-02-26] MEDS: ACETAMINOPHEN 325 MG TAB PO PRN ×2 (05:11→13:33)
[2019-02-26] MEDS ORDERED: BUTALB/ACETAMINOPHEN/CAFFEINE 1 EACH TABLET PO PRN (05:15)
--- NOTE | 2019-02-26 07:00 | NUR ---
AM NOTE Awake, alert, and oriented x3. Does not appear in distress. NIH 0. Instructed on use of call light for any assistance, verbalized understanding. Plan of care discussed, spouse at bedside.
[2019-02-26 07:55] VITALS: BP 137/98
[2019-02-26] MEDS: ASPIRIN 325 MG TABLET PO SCH ×2 (08:17→08:30)
[2019-02-26] MEDS ORDERED: PREDNISONE 20 MG TABLET PO SCH (09:00)
[2019-02-26 11:36] VITALS: BP 124/87
[2019-02-26] MEDS ORDERED: TRAMADOL HCL 50 MG TABLET PO PRN (12:30)
[2019-02-26] MEDS ORDERED: NITROGLYCERIN 0.4 MG SL TAB SL SCH (12:30)
[2019-02-26] MEDS ORDERED: LINAGLIPTIN 5 MG TABLET PO SCH (13:00)
[2019-02-26 15:33] VITALS: BP 132/76
[2019-02-26] MEDS ORDERED: METFORMIN HCL 500 MG TABLET PO SCH (17:00)
--- NOTE | 2019-02-26 17:32 | NUR ---
DISCHARGE Pt is discharged as ordered by , IV catheter removed, intact upon removal. Telemetry discontinued. All belongings given to pt. Awaiting family to pick him up.
[2019-02-26] MEDS ORDERED: HYDROXYCHLOROQUINE SULFATE 200 MG TAB PO SCH (21:00)
[2019-02-26] MEDS ORDERED: INSULIN GLARGINE 100 UNITS/ML 10 ML VIAL SQ SCH (21:00)
[2019-02-26] MEDS ORDERED: SIMVASTATIN 20 MG TABLET PO SCH (21:00)
[2019-02-26] MEDS ORDERED: LATANOPROST 2.5 ML DROPS OU SCH (21:00)
[2019-02-27] MEDS ORDERED: ERGOCALCIFEROL (VITAMIN D2) 50,000 UNIT CAPSULE PO SCH (08:00)
[2019-02-27] MEDS ORDERED: PANTOPRAZOLE SODIUM 40 MG TABLET.DR PO SCH (09:00)
[2019-02-27] MEDS ORDERED: LEVALBUTEROL TARTRATE IH SCH (09:00)
[2019-02-27] MEDS ORDERED: VERAPAMIL HCL 180 MG PO SCH (09:00)
[2019-02-27] MEDS ORDERED: LOSARTAN 50 MG TABLET PO SCH (09:00)
[2019-02-27] MEDS ORDERED: ASPIRIN 325 MG TABLET PO SCH (14:00)
[2019-03-06] MEDS ORDERED: ASPIRIN 325 MG TABLET PO SCH (09:00)
== END 2019-02-26 18:34 | disposition home or self-care (01) ==
LOC: EDH 14:03 → EDHIP 18:16 → 2CH 02-25 14:38
PROVIDERS: ADMIT Internal Medicine; ATTEND Internal Medicine
DX: R20.2 Paresthesia of skin (principal); R51 Headache; R53.1 Weakness; M54.2 Cervicalgia; E11.9 Type 2 diabetes mellitus without complications; I10 Essential (primary) hypertension; E78.5 Hyperlipidemia, unspecified; D86.9 Sarcoidosis, unspecified; J44.9 Chronic obstructive pulmonary disease, unspecified; Z95.1 Presence of aortocoronary bypass graft; Z87.891 Personal history of nicotine dependence; Z79.4 Long term (current) use of insulin; Z98.890 Other specified postprocedural states; Z88.0 Allergy status to penicillin; Z88.8 Allergy status to other drugs, medicaments and biological substances
CPT/HCPCS: 36415 ×2; 70450; 70490; 70496; 70498; 70551; 71046; 80048; 80061; 80076; 81001; 82550; 82948 ×3; 83036; 83690; 83735; 84100; 84484; 85025; 85610; 85651; 85730; 93005; 93306; 93971; 96374; 96376; 99284; G0378 ×48; J3490 ×4; Q9967

== ENCOUNTER → 2019-03-01 | Outpatient (CLI) | payer OTHER ==
[~2019-03-01] VITALS: Ht 172.7 cm; Wt 87.6 kg
[~2019-03-01] MED LIST changes: +ERGO500014 PO; -ERGO800010 PO; +LATA2.5D15 OU; +LEVAHFA IH; +SODIUM CHLORIDE 0.9% 1000ML 1,000 ML IV SCH
[2019-03-01 14:15] VITALS: BP 114/64
[2019-03-01 14:20] LABS: BASOPHILS % (AUTO) 0.5 % (0.0-5.0); EOSINOPHILS % (AUTO) 1.5 % (0.0-8.0); HEMATOCRIT 37.1 % (42-54); LYMPHOCYTES % (AUTO) 17.9 % (21.0-51.0); MEAN CORPUSCULAR HEMOGLOBIN 27.4 pg (27.0-33.0); MEAN CORPUSCULAR HGB CONC 32.8 g/dL (32.0-36.0); MEAN CORPUSCULAR VOLUME 83.5 fL (79-99); MONOCYTES % (AUTO) 9.3 % (3.0-13.0); NEUTROPHILS % (AUTO) 70.8 % (40.0-77.0); PLATELET COUNT (AUTO) 307 K/uL (130-400); RED BLOOD CELL COUNT(AUTO) 4.44 MIL/uL (4.50-6.20); RED CELL DISTRIBUTION WIDTH 16.9 % (11.0-15.5); WHITE BLOOD COUNT (AUTO) 12.6 K/uL (4.8-10.8)
[2019-03-01 14:27] LABS: CREATININE 1.4 mg/dL (0.5-1.5); POTASSIUM 4.3 mmol/L (3.5-5.1)
[2019-03-01 14:29] LABS: INR 0.98 (0.85-1.15); PARTIAL THROMBOPLASTIN TIME 23.1 SEC (26.3-35.5); PROTHROMBIN TIME 10.3 SEC (9.6-11.6)
[2019-03-01 15:31] LABS: APPEARANCE,URINE Clear (CLEAR); BILIRUBIN,URINE Negative (NEGATIVE); COLOR,URINE Yellow (YELLOW); GLUCOSE, URINE (UA) TRACE mg/dL (NEGATIVE); KETONES,URINE Negative (NEGATIVE); LEUKOCYTE ESTERASE ,URINE Negative (NEGATIVE); NITRATE,URINE Negative (NEGATIVE); OCCULT BLOOD,URINE Negative (NEGATIVE); PROTEIN,URINE Negative (NEGATIVE); UROBILINOGEN,URINE 0.2 mg/dL (0.2-1.0)
[2019-03-01 15:56] LABS: BACTERIA,URINE Rare /HPF (None Seen); MUCUS,URINE Few LPF (None Seen); SQUAMOUS EPITHELIAL CELL,UR 0-2 /HPF (0-2)
== END ==
LOC: DAH 10:00 → EDSTATUS 13:00
PROVIDERS: ATTEND Internal Medicine Cardiovascular Disease
DX: Z01.818 Encounter for other preprocedural examination (principal); I25.118 Atherosclerotic heart disease of native coronary artery with other forms of angina pectoris; I10 Essential (primary) hypertension; Z88.0 Allergy status to penicillin; Z88.8 Allergy status to other drugs, medicaments and biological substances; Z79.82 Long term (current) use of aspirin; Z79.899 Other long term (current) drug therapy; Z79.4 Long term (current) use of insulin; Z87.891 Personal history of nicotine dependence; Z82.5 Family history of asthma and other chronic lower respiratory diseases; Z82.49 Family history of ischemic heart disease and other diseases of the circulatory system
CPT/HCPCS: 36415; 80048; 81001; 85025; 85610; 85730; 93005

== ENCOUNTER 2019-04-11 20:29 | Emergency (ER) | payer OTHER ==
[~2019-04-11 20:29] MED LIST changes: -SODIUM CHLORIDE 0.9% 1000ML 1,000 ML IV SCH
[2019-04-11 22:03] LABS: BASOPHILS % (AUTO) 0.2 % (0.0-5.0); EOSINOPHILS % (AUTO) 0.2 % (0.0-8.0); HEMATOCRIT 35.2 % (42-54); LYMPHOCYTES % (AUTO) 5.5 % (21.0-51.0); MEAN CORPUSCULAR HEMOGLOBIN 26.3 pg (27.0-33.0); MEAN CORPUSCULAR HGB CONC 31.8 g/dL (32.0-36.0); MEAN CORPUSCULAR VOLUME 82.6 fL (79-99); MONOCYTES % (AUTO) 2.8 % (3.0-13.0); NEUTROPHILS % (AUTO) 90.8 % (40.0-77.0); PLATELET COUNT (AUTO) 326 K/uL (130-400); RED BLOOD CELL COUNT(AUTO) 4.26 MIL/uL (4.50-6.20); RED CELL DISTRIBUTION WIDTH 14.7 % (11.0-15.5); WHITE BLOOD COUNT (AUTO) 8.7 K/uL (4.8-10.8)
[2019-04-11 22:16] LABS: CREATININE 1.5 mg/dL (0.5-1.5); POTASSIUM 4.7 mmol/L (3.5-5.1)
[2019-04-11 22:20] LABS: ALBUMIN 3.8 g/dL (3.5-5.0); BILIRUBIN,TOTAL 0.2 mg/dL (0.2-1.0); TOTAL PROTEIN, SERUM 7.4 g/dL (6.0-8.3)
== END 2019-04-11 22:33 | disposition home or self-care (01) ==
LOC: EDH 20:29
DX: B35.3 Tinea pedis (principal); J44.9 Chronic obstructive pulmonary disease, unspecified; E11.9 Type 2 diabetes mellitus without complications; I10 Essential (primary) hypertension; E78.5 Hyperlipidemia, unspecified; Z88.0 Allergy status to penicillin; Z88.8 Allergy status to other drugs, medicaments and biological substances; Z95.1 Presence of aortocoronary bypass graft
CPT/HCPCS: 36415; 80053; 85025

== ENCOUNTER 2019-05-16 08:14 | Day surgery (SDC) | payer OTHER ==
[2019-05-11 11:55] LABS: BASOPHILS % (AUTO) 0.2 % (0.0-5.0); EOSINOPHILS % (AUTO) 0.8 % (0.0-8.0); HEMATOCRIT 37.3 % (42-54); LYMPHOCYTES % (AUTO) 20.1 % (21.0-51.0); MEAN CORPUSCULAR HEMOGLOBIN 25.3 pg (27.0-33.0); MEAN CORPUSCULAR HGB CONC 30.3 g/dL (32.0-36.0); MEAN CORPUSCULAR VOLUME 83.4 fL (79-99); MONOCYTES % (AUTO) 7.5 % (3.0-13.0); NEUTROPHILS % (AUTO) 70.6 % (40.0-77.0); PLATELET COUNT (AUTO) 301 K/uL (130-400); RED BLOOD CELL COUNT(AUTO) 4.47 MIL/uL (4.50-6.20); RED CELL DISTRIBUTION WIDTH 15.5 % (11.0-15.5); WHITE BLOOD COUNT (AUTO) 16.2 K/uL (4.8-10.8)
[2019-05-11 12:01] LABS: APPEARANCE,URINE Clear (CLEAR); BILIRUBIN,URINE Negative (NEGATIVE); COLOR,URINE Yellow (YELLOW); GLUCOSE, URINE (UA) Negative (NEGATIVE); KETONES,URINE Negative (NEGATIVE); LEUKOCYTE ESTERASE ,URINE Negative (NEGATIVE); NITRATE,URINE Negative (NEGATIVE); OCCULT BLOOD,URINE Negative (NEGATIVE); PROTEIN,URINE Negative (NEGATIVE)
[2019-05-11 12:05] LABS: CREATININE 1.5 mg/dL (0.5-1.5); POTASSIUM 3.8 mmol/L (3.5-5.1)
[2019-05-11 12:16] LABS: INR 1.01 (0.85-1.15); PARTIAL THROMBOPLASTIN TIME 22.7 SEC (26.3-35.5); PROTHROMBIN TIME 10.6 SEC (9.6-11.6)
[2019-05-11 12:48] VITALS: BP 147/69
--- NOTE | 2019-05-13 20:14 | NUR ---
NOTIFIED DR. KIM OF PT ABNORMAL LABS NO NEW ORDERS, OK TO PROCEED.
[~2019-05-16] VITALS: Ht 172.7 cm; Wt 88.6 kg
[2019-05-16] VITALS (10 sets, daily range): BP systolic 111–137; BP diastolic 65–78
[~2019-05-16 08:14] MED LIST changes: +SODIUM CHLORIDE 0.9% 1000ML 1,000 ML IV ONE; +SODIUM CHLORIDE 0.9% 500ML 500 ML IV SCH
[2019-05-16] MEDS ORDERED: CHOL400C9 PO (09:41)
[2019-05-16] MEDS ORDERED: PRED10TA3 PO (09:41)
[2019-05-16] MEDS ORDERED: SIMV80TA91 PO (09:41)
[2019-05-16] MEDS ORDERED: OXAPROZIN PO (09:41)
--- NOTE | 2019-05-16 09:42 | NUR ---
PROCEDURE PT HERE FOR PROCEDURE. DENIES ANY PAIN.
[2019-05-16] MEDS ORDERED: NITROGLYCERIN 1 MG/VIAL VIAL IV ONE (10:20)
[2019-05-16] MEDS ORDERED: IOHEXOL 350 MG/ML 100ML INFUS..BTL IV ONE (10:20)
[2019-05-16] MEDS ORDERED: FENTANYL CITRATE PF 50 MCG/1 ML 2ML VIAL ONE (10:20)
[2019-05-16] MEDS ORDERED: MIDAZOLAM HCL 1 MG/ML 2ML VIAL ONE (10:20)
[2019-05-16] MEDS ORDERED: HEPARIN SODIUM 1000UNIT/ML 10ML VIAL ONE (10:20)
[2019-05-16] MEDS ORDERED: IOHEXOL-350 50ML VIAL IV ONE ×2 (10:20→11:10)
[2019-05-16] MEDS ORDERED: LIDOCAINE HCL 2% 20ML ONE (10:22)
[2019-05-16] MEDS ORDERED: SODIUM CHLORIDE 0.9% 1000ML 1,000 ML IV SCH (11:38)
[2019-05-16] MEDS ORDERED: GLUCAGON 1MG KIT 1 MG ML IM PRN (11:45)
[2019-05-16] MEDS ORDERED: DEXTROSE 50%-WATER 50 ML DISP.SYRIN IV PRN (11:45)
[2019-05-16] MEDS ORDERED: HYDRALAZINE HCL 20 MG/ML VIAL IV PRN (11:45)
[2019-05-16] MEDS ORDERED: METOPROLOL TARTRATE 1 MG/ML 5ML VIAL IV PRN (11:45)
[2019-05-16] MEDS ORDERED: NITROGLYCERIN 0.4 MG SL TAB SL PRN (11:45)
--- NOTE | 2019-05-16 14:52 | NUR ---
DISCHARGE ORAL AND WRITTEN DISCHARGE INSTRUCTIONS GIVEN TO PT AND PTS ALONG WITH PRESCRIPTION. INSTRUCTED ON IMPORTANCE OF FOLLOWING INSTRUCTIONS GIVEN BY DR. KIM. VERBALIZED UNDERSTANDING.
--- NOTE | 2019-05-16 16:15 | NUR ---
DISCHARGE PT DISCHARGED VIA WHEELCHAIR WITH , PT STABLE. NO COMPLAINTS MADE. CATH SITE REMAINS SOFT, DRESSING DRY AND INTACT, NO OOZING NO HEMATOMA NOTED. VOIDED PRIOR TO DISCHARGE, TOLERATED DIET WELL.
[2019-05-16] MEDS ORDERED: INSULIN HUMULIN R 100 UNIT/ML 3ML SQ SCH (16:30)
== END 2019-05-16 16:15 | disposition home or self-care (01) ==
LOC: DAH 08:14
PROVIDERS: ATTEND Internal Medicine Cardiovascular Disease
DX: I25.810 Atherosclerosis of coronary artery bypass graft(s) without angina pectoris (principal); I10 Essential (primary) hypertension; E78.5 Hyperlipidemia, unspecified; J44.9 Chronic obstructive pulmonary disease, unspecified; Z98.890 Other specified postprocedural states; Z87.891 Personal history of nicotine dependence; Z88.0 Allergy status to penicillin; Z88.8 Allergy status to other drugs, medicaments and biological substances; Z79.4 Long term (current) use of insulin; Z79.01 Long term (current) use of anticoagulants; Z79.899 Other long term (current) drug therapy; Z79.82 Long term (current) use of aspirin; Z82.49 Family history of ischemic heart disease and other diseases of the circulatory system; Z83.3 Family history of diabetes mellitus
CPT/HCPCS: 36415; 71045; 80048; 81003; 82948 ×2; 85025; 85610; 85730; 93005; 93461; A4215; A4216; A4221; A4222; A4223 ×3; A4606; A4615; A4663; C1760; C1769; C1894 ×3; J1644; J2250; J3010; J3490 ×2; J7030; Q9965; Q9967 ×2; 99156; 99157

== ENCOUNTER 2019-05-22 18:30 | Observation (INO) | payer OTHER ==
[~2019-05-22 18:30] MED LIST changes: -ALEN70TA10 PO; -BENZ-17 PO; +CHOL400C9 PO; -ERGO500014 PO; -LATA2.5D15 OU; -LEVAHFA IH; +OXAPROZIN PO; +PRED10TA3 PO; -PRED20TA3 PO; -SIMV-46 PO; +SIMV80TA91 PO; -SODIUM CHLORIDE 0.9% 1000ML 1,000 ML IV ONE; -SODIUM CHLORIDE 0.9% 500ML 500 ML IV SCH
[2019-05-22] MEDS ORDERED: IOHEXOL-350 75 ML VIAL IV ONE (18:50)
[2019-05-22 19:00] LABS: BASOPHILS % (AUTO) 0.3 % (0.0-5.0); EOSINOPHILS % (AUTO) 0.6 % (0.0-8.0); HEMATOCRIT 34.9 % (42-54); LYMPHOCYTES % (AUTO) 6.6 % (21.0-51.0); MEAN CORPUSCULAR HEMOGLOBIN 25.4 pg (27.0-33.0); MEAN CORPUSCULAR HGB CONC 30.9 g/dL (32.0-36.0); MEAN CORPUSCULAR VOLUME 82.1 fL (79-99); MONOCYTES % (AUTO) 4.5 % (3.0-13.0); NEUTROPHILS % (AUTO) 87.2 % (40.0-77.0); PLATELET COUNT (AUTO) 312 K/uL (130-400); RED BLOOD CELL COUNT(AUTO) 4.25 MIL/uL (4.50-6.20); RED CELL DISTRIBUTION WIDTH 16.1 % (11.0-15.5); WHITE BLOOD COUNT (AUTO) 10.6 K/uL (4.8-10.8)
[2019-05-22 19:11] LABS: POTASSIUM 4.2 mmol/L (3.5-5.1)
[2019-05-22 19:17] LABS: ALBUMIN 3.4 g/dL (3.5-5.0); BILIRUBIN,TOTAL 0.2 mg/dL (0.2-1.0)
[2019-05-22 19:49] LABS: INR 1.01 (0.85-1.15); PARTIAL THROMBOPLASTIN TIME 22.7 SEC (26.3-35.5); PROTHROMBIN TIME 10.6 SEC (9.6-11.6)
[2019-05-22 22:28] LABS: APPEARANCE,URINE Clear (CLEAR); BILIRUBIN,URINE Negative (NEGATIVE); COLOR,URINE Yellow (YELLOW); GLUCOSE, URINE (UA) TRACE mg/dL (NEGATIVE); KETONES,URINE Trace mg/dL (NEGATIVE); LEUKOCYTE ESTERASE ,URINE Negative (NEGATIVE); NITRATE,URINE Negative (NEGATIVE); OCCULT BLOOD,URINE Negative (NEGATIVE); PH,URINE 6.5 (5.0-8.0); PROTEIN,URINE Negative (NEGATIVE)
[2019-05-22] MEDS ORDERED: DEXTROSE 50%-WATER 50 ML DISP.SYRIN IV PRN (22:30)
[2019-05-22] MEDS ORDERED: GLUCAGON 1MG KIT 1 MG ML IM PRN (22:30)
[2019-05-22 22:36] LABS: AMPHET/METH SCREEN,URINE NEGATIVE (NEGATIVE); BARBITURATE SCREEN, URINE NEGATIVE (NEGATIVE); BENZODIAZEPINES SCREEN,URINE POSITIVE (NEGATIVE); CANNABINOID SCREEN,URINE NEGATIVE (NEGATIVE); COCAINE SCREEN,URINE NEGATIVE (NEGATIVE); OPIATE SCREEN,URINE NEGATIVE (NEGATIVE); PHENCYCLIDINE SCREEN,URINE NEGATIVE (NEGATIVE)
[2019-05-22 22:42] LABS: BACTERIA,URINE None Seen /HPF (None Seen); RBC,URINE 0-1 /HPF (0-1); SQUAMOUS EPITHELIAL CELL,UR 0-2 /HPF (0-2); WBC,URINE 0-1 /HPF (0-1)
[2019-05-22] MEDS ORDERED: HYDRALAZINE HCL 20 MG/ML VIAL IV PRN (23:45)
[2019-05-22] MEDS ORDERED: ONDANSETRON HCL 4 MG/2 ML VIAL IVP PRN (23:45)
[2019-05-23] MEDS ORDERED: SIMV-46 PO (04:04)
[2019-05-23] MEDS ORDERED: PRED20TA3 PO (04:04)
[2019-05-23 04:38] VITALS: BP 146/87
[2019-05-23 06:14] LABS: BASOPHILS % (AUTO) 0.2 % (0.0-5.0); EOSINOPHILS % (AUTO) 0.9 % (0.0-8.0); HEMATOCRIT 33.6 % (42-54); LYMPHOCYTES % (AUTO) 10.1 % (21.0-51.0); MEAN CORPUSCULAR HEMOGLOBIN 25.3 pg (27.0-33.0); MEAN CORPUSCULAR VOLUME 81.8 fL (79-99); MONOCYTES % (AUTO) 7.9 % (3.0-13.0); NEUTROPHILS % (AUTO) 80.3 % (40.0-77.0); PLATELET COUNT (AUTO) 273 K/uL (130-400); RED BLOOD CELL COUNT(AUTO) 4.11 MIL/uL (4.50-6.20); RED CELL DISTRIBUTION WIDTH 15.9 % (11.0-15.5); WHITE BLOOD COUNT (AUTO) 10.4 K/uL (4.8-10.8)
[2019-05-23] MEDS: INSULIN HUMULIN R 100 UNIT/ML 3ML SQ SCH ×2 (06:23→11:30)
[2019-05-23 06:56] LABS: ALBUMIN 3.3 g/dL (3.5-5.0); BILIRUBIN,TOTAL 0.2 mg/dL (0.2-1.0); CREATININE 1.5 mg/dL (0.5-1.5); POTASSIUM 4.1 mmol/L (3.5-5.1); TOTAL PROTEIN, SERUM 6.4 g/dL (6.0-8.3)
[2019-05-23 07:00] VITALS: BP 118/73
[2019-05-23] MEDS ORDERED: TRAMADOL HCL 50 MG TABLET PO PRN (08:45)
[2019-05-23] MEDS ORDERED: NITROGLYCERIN 0.4 MG SL TAB SL SCH (08:45)
[2019-05-23] MEDS ORDERED: HYDROXYCHLOROQUINE SULFATE 200 MG TAB PO SCH (09:00)
[2019-05-23] MEDS ORDERED: CHOLECALCIFEROL 400 UNIT PO SCH (09:00)
[2019-05-23] MEDS ORDERED: ASPIRIN 81MG TAB.CHEW PO SCH ×2 (09:00→21:00)
[2019-05-23] MEDS ORDERED: FAMOTIDINE/PF 20 MG/2 ML VIAL IV SCH (09:00)
[2019-05-23] MEDS ORDERED: PANTOPRAZOLE SODIUM 40 MG TABLET.DR PO SCH (09:10)
[2019-05-23] MEDS ORDERED: LINAGLIPTIN 5 MG TABLET PO SCH (09:15)
[2019-05-23 10:55] VITALS: BP 124/73
[2019-05-23 10:56] VITALS: BP 122/77
[2019-05-23 10:57] VITALS: BP 116/79
--- NOTE | 2019-05-23 13:39 | NUR ---
Initial Assessment BO spoke with patient and spouse. Patient lives with spouse. No home services. DME: BPM, glucometer (uses insulin), CPAP, cane, shower chair, nebulizer, O2 concentrator/portable. O2 is thru [facility] with [facility]. Patient needs help with ADL's but is able to drive. PCP is [facility] , Dr. Laughlin. Patient is on the Gold Team. Pharmacy is [facility] and [facility] located on [address] [place] [address]. Patient is not Service Connected for SNF placement as per [facility] Inpatient Contract Anjana SORIANO. DCP is home. Patient informed BO that he is still completing tests and paperwork to be referred for a Lung Transplant thru [facility]. He is pending a psychiatric evaluation and other exams. Addendum: 05/23/19 at 1345 by BERYL BENTON SS Amended: Links added.
[2019-05-23] MEDS ORDERED: SIMVASTATIN 20 MG TABLET PO SCH (17:00)
[2019-05-23] MEDS ORDERED: METFORMIN HCL 500 MG TABLET PO SCH (17:00)
[2019-05-23] MEDS ORDERED: PREDNISONE 20 MG TABLET PO SCH (17:00)
[2019-05-23] MEDS ORDERED: VERAPAMIL 180 MG PO SCH (21:00)
[2019-05-24] MEDS ORDERED: LOSARTAN 100 MG TABLET PO SCH (09:00)
== END 2019-05-23 14:10 | disposition home or self-care (01) ==
LOC: EDH 18:30 → EDHIP 22:17 → INTOOBSV 22:17 → 2AH 05-23 02:19
PROVIDERS: ADMIT Internal Medicine; ATTEND Internal Medicine
DX: G45.9 Transient cerebral ischemic attack, unspecified (principal); I10 Essential (primary) hypertension; I45.10 Unspecified right bundle-branch block; E11.65 Type 2 diabetes mellitus with hyperglycemia; N17.9 Acute kidney failure, unspecified; E66.9 Obesity, unspecified; D86.9 Sarcoidosis, unspecified; I25.10 Atherosclerotic heart disease of native coronary artery without angina pectoris; E78.5 Hyperlipidemia, unspecified; J44.9 Chronic obstructive pulmonary disease, unspecified; D68.9 Coagulation defect, unspecified; Z87.891 Personal history of nicotine dependence; Z95.1 Presence of aortocoronary bypass graft; Z99.81 Dependence on supplemental oxygen; Z79.82 Long term (current) use of aspirin; Z79.84 Long term (current) use of oral hypoglycemic drugs; Z79.899 Other long term (current) drug therapy; Z79.4 Long term (current) use of insulin; Z88.0 Allergy status to penicillin; Z88.8 Allergy status to other drugs, medicaments and biological substances
CPT/HCPCS: 36415 ×2; 70450; 70496; 70498; 70551; 71045; 80053 ×2; 80061; 80305; 81001; 82550; 82607; 82948 ×2; 83036; 83721; 84443; 84484 ×2; 85025 ×2; 85610; 85730; 93005; 96374; 97161; 99284; G0378 ×14; G8978; G8979; G8980; G8981; G8982; G8983; J3490; Q9967

== ENCOUNTER 2019-07-25 15:54 | Observation (INO) | payer OTHER ==
[~2019-07-25] VITALS: Ht 172.7 cm; Wt 86.2 kg
[~2019-07-25 15:54] MED LIST changes: +INSLAN SQ; -INSU100V12 SQ; +LEVO500T2 PO; -OLME20TA10 PO; +OLME20TA22 PO; -OXAPROZIN PO; -PRED10TA3 PO; +PRED20TA3 PO; +SIMV-46 PO; -SIMV80TA91 PO
[2019-07-25 16:50] VITALS: BP 106/64
[2019-07-25] MEDS ORDERED: LACTATED RINGERS 1000ML 1,000 ML IV SCH (17:00)
[2019-07-25] MEDS ORDERED: DEXTROSE 50%-WATER 50 ML DISP.SYRIN IV PRN (17:15)
[2019-07-25] MEDS ORDERED: GLUCAGON 1MG KIT 1 MG ML IM PRN (17:15)
[2019-07-25] MEDS ORDERED: DIATR MEGLU/DIATRIZOATE SODIUM 30 ML BOTTLE ONE (17:29)
[2019-07-25] MEDS ORDERED: PHARMACY COMMUNICATION MISC SCH (17:30)
[2019-07-25 17:31] LABS: BASOPHILS % (AUTO) 0.2 % (0.0-5.0); EOSINOPHILS % (AUTO) 0.1 % (0.0-8.0); HEMATOCRIT 34.7 % (42-54); LYMPHOCYTES % (AUTO) 4.9 % (21.0-51.0); MEAN CORPUSCULAR HEMOGLOBIN 25.2 pg (27.0-33.0); MEAN CORPUSCULAR HGB CONC 30.5 g/dL (32.0-36.0); MEAN CORPUSCULAR VOLUME 82.6 fL (79-99); MONOCYTES % (AUTO) 3.6 % (3.0-13.0); NEUTROPHILS % (AUTO) 89.5 % (40.0-77.0); NUCLEATED RED BLOOD CELLS 0.2 % (0.0-0.19); PLATELET COUNT (AUTO) 303 K/uL (130-400); RED CELL DISTRIBUTION WIDTH 17.1 % (11.0-15.5); WHITE BLOOD COUNT (AUTO) 13.2 K/uL (4.8-10.8)
--- NOTE | 2019-07-25 17:35 | NUR ---
LACTIC ACID 5.1 REPORTED LACTIC ACID TO [facility], NO NEW ORDERS AT THIS TIME.
[2019-07-25 17:37] LABS: INR 0.99 (0.85-1.15); PARTIAL THROMBOPLASTIN TIME 22.1 SEC (26.3-35.5); PROTHROMBIN TIME 10.7 SEC (9.6-11.6)
[2019-07-25 17:42] LABS: ABG HCO3 16.7 mmol/L (21.0-28.0); ABG OXYGEN SATURATION 98.9 % (95.0-99.0); ABG PCO2 24 mmHg (35-48)
[2019-07-25 17:47] LABS: APPEARANCE,URINE Clear (CLEAR); BILIRUBIN,URINE Negative (NEGATIVE); COLOR,URINE Yellow (YELLOW); GLUCOSE, URINE (UA) 250 mg/dL (NEGATIVE); KETONES,URINE Trace mg/dL (NEGATIVE); LEUKOCYTE ESTERASE ,URINE Negative (NEGATIVE); NITRATE,URINE Negative (NEGATIVE); OCCULT BLOOD,URINE Negative (NEGATIVE); PROTEIN,URINE Trace mg/dL (NEGATIVE)
[2019-07-25 17:54] LABS: ALANINE AMINOTRANSFERASE 35 U/L (12-78); ALBUMIN 3.6 g/dL (3.5-5.0); ASPARTATE AMINOTRANSFERASE 17 U/L (10-37); B-TYPE NATRIURETIC PEPTIDE 108 pg/mL (0-100); BILIRUBIN,TOTAL 0.2 mg/dL (0.2-1.0); CARBON DIOXIDE 24 mmol/L (21-32); CHLORIDE 102 mmol/L (101-111); CREATININE 1.7 mg/dL (0.5-1.5); GLOMERULAR FILTR. RATE CALC 44 mL/min (>60); GLUCOSE,RANDOM 171 mg/dL (70-105); POTASSIUM 4.6 mmol/L (3.5-5.1); SODIUM SERUM 139 mmol/L (136-145); TOTAL PROTEIN, SERUM 6.8 g/dL (6.0-8.3); UREA NITROGEN, BLOOD 22 mg/dL (7-18)
[2019-07-25 17:58] LABS: BACTERIA,URINE Rare /HPF (None Seen); MUCUS,URINE Few LPF (None Seen); RBC,URINE 0-1 /HPF (0-1); SQUAMOUS EPITHELIAL CELL,UR Rare /HPF (0-2); WBC,URINE 0-1 /HPF (0-1)
[2019-07-25] MEDS ORDERED: LEVOFLOXACIN 500 MG/D5W 100 ML 100 ML IV SCH (18:00)
[2019-07-25] MEDS ORDERED: MORPHINE SULFATE 2 MG/ML 1ML SYG IM PRN (18:00)
[2019-07-25 18:03] LABS: BILIRUBIN,DIRECT < 0.1 mg/dL (0.0-0.3)
--- NOTE | 2019-07-25 19:00 | NUR ---
CLARIFICATION FOR ZOSYN DR SANCHEZ SAID TO HOLD ZOSYN PATIENT HAS ALLERGY TO PENICILLIN.
[2019-07-25 20:00] VITALS: BP 120/76
--- NOTE | 2019-07-25 20:32 | NUR ---
RADIOLOGY CALLED THAT PT'S CREATINE IS TOO ELEVATED TO HAVE CONTRAST. INFORMED TECH THAT I AM PENDING A CALL BACK FROM THE DR TO SEE IF IT CAN BE DONE WITHOUT CONTRAST.
[2019-07-25] MEDS ORDERED: METHYLPREDNISOLONE SOD SUCC 40MG/ML 1ML IVP SCH (21:00)
[2019-07-25] MEDS: HYDROXYCHLOROQUINE 200 MG PO SCH (21:00)
[2019-07-25] MEDS: INSULIN REGULAR SQ SCH (21:00)
--- NOTE | 2019-07-25 21:02 | NUR ---
PAGE RETURNED ESTHER RETURNED PAGE FOR [facility]. INFORMED HIM OF CR 1.[address] ORDERED WITH CONTRAST. HE SAID TO DO THE CT WITHOUT CONTRAST. UPDATED THE ORDER IN [facility] AND CALLED RADIOLOGY TO INFORM THEM OF THE CHANGE.
[2019-07-25] MEDS: FAMOTIDINE/PF 20 MG/2 ML VIAL IV SCH (22:16)
[2019-07-26] VITALS: BP 125/78
[2019-07-26 04:00] VITALS: BP 120/70
[2019-07-26] MEDS ORDERED: FERR325T22 PO (06:05)
[2019-07-26] MEDS ORDERED: SITA50TA PO (06:05)
[2019-07-26] MEDS ORDERED: FOLI0.8T PO (06:05)
[2019-07-26] MEDS ORDERED: CYAN100099 PO (06:05)
[2019-07-26] MEDS: INSULIN REGULAR SQ SCH ×4 (06:30→21:00)
[2019-07-26 07:30] VITALS: BP 170/82
--- NOTE | 2019-07-26 07:53 | NUR ---
PAGED [facility] TO UPDATE ON CT RESULTS. SPOKE WITH MER VANCE. SHE STATED SHE WOULD BE IN TO VISIT WITH THE PATIENT THIS AM.
[2019-07-26] MEDS ORDERED: SODIUM CHLORIDE 0.9% 1000ML 1,000 ML IV SCH (08:30)
[2019-07-26] MEDS ORDERED: METHYLPREDNISOLONE SOD SUCC 40MG/ML 1ML ONE (08:31)
[2019-07-26] MEDS: FAMOTIDINE/PF 20 MG/2 ML VIAL IV SCH ×2 (08:35→21:37)
[2019-07-26] MEDS: HYDROXYCHLOROQUINE 200 MG PO SCH ×2 (08:56→21:00)
[2019-07-26] MEDS ORDERED: CYANOCOBALAMIN (VITAMIN B-12) 1,000 MCG TABLET PO SCH (09:00)
[2019-07-26] MEDS ORDERED: PREDNISONE 10 MG TABLET PO SCH ×2 (09:00)
[2019-07-26] MEDS ORDERED: FOLIC ACID 1 MG TABLET PO SCH (09:00)
--- NOTE | 2019-07-26 09:59 | NUR ---
INITIAL Patient lives with spouse, Jeanne Bruner, [phone]. No home services. DME: BPM, glucometer (uses insulin), shower chair, walker with a seat, CPAP, nebulizer, cane, O2 concentrator/portable. All DME arranged thru [place]. Patient states he needs help to complete ADL's. Patient does drive. PCP is Dr. Rubi [place] at [facility]. [facility]acy [facility]. DCP is home. Patient was last in the hospital from 06/11/2019-06/15/2019. Addendum: 07/26/19 at 1000 by BERYL BENTON SS Amended: Links added.
[2019-07-26 11:00] VITALS: BP 122/76
--- NOTE | 2019-07-26 12:53 | NUR ---
NOTIFIED KRISTINE THAT DR. GARDNER WILL SEE PT. IN 1 WEEK IN OFFICE. NO NEED OR REASON TO SEE IN HOSP.
[2019-07-26] MEDS ORDERED: METR500T PO (14:45)
[2019-07-26 16:00] VITALS: BP 134/72
--- NOTE | 2019-07-26 16:05 | NUR ---
DISCHARGE ORDERS NOW IN PLACE.
--- NOTE | 2019-07-26 19:10 | NUR ---
UNABLE TO PICK PT. UP UNTIL 10PM TRACY. DISCHARGE PAPERS IN CHART AND REPORT HAS BEEN ENDORSED TO PM NURSE.
[2019-07-26 20:00] VITALS: BP 130/82
--- NOTE | 2019-07-26 21:52 | NUR ---
DISCHARGE: 2137:REMOVED SALINE LOCK WITH CATHETER INTACT, PATIENT TOLERATED WELL. AGAIN WITH OVER DISCHARGE INSTRUCTIONS WITH PATIENT, VERBALIZED UNDERSTANDING 2151: TAKEN VIA W/C TO PRIVATE CAR, WAITING FOR PATIENT DOWNSTAIRS, TAKEN DOWN BY SYED THOMSON.
== END 2019-07-26 21:55 | disposition home or self-care (01) ==
LOC: EDH 15:54 → INTOOBSV 15:55 → EDHIP 15:55 → 3DH 16:44
PROVIDERS: ADMIT Internal Medicine Critical Care Medicine; ATTEND Internal Medicine Critical Care Medicine
DX: K63.1 Perforation of intestine (nontraumatic) (principal); D72.829 Elevated white blood cell count, unspecified; I25.810 Atherosclerosis of coronary artery bypass graft(s) without angina pectoris; E11.9 Type 2 diabetes mellitus without complications; E78.5 Hyperlipidemia, unspecified; Z87.891 Personal history of nicotine dependence; Z88.0 Allergy status to penicillin; Z79.52 Long term (current) use of systemic steroids; Z79.4 Long term (current) use of insulin
CPT/HCPCS: 36415 ×2; 36600; 71046; 74176; 80048; 80076; 81001; 82803; 82948 ×5; 83605 ×2; 83880; 85025; 85610; 85730; 87040 ×2; 87077 ×2; 87088; 87186 ×2; 93005; 96365; 96372; 96375; 96376; 99285; G0378 ×10; J1815; J1956; J2920 ×2; J3490 ×3; J7120; J7512; Q9963

== ENCOUNTER 2020-06-15 18:44 | Inpatient (IN) | payer MEDICARE, OTHER ==
[~2020-06-15] VITALS: Ht 172.7 cm; Wt 82.1 kg
[~2020-06-15 18:44] MED LIST changes: +CYAN100099 PO; +FERR325T22 PO; +FOLI0.8T3 PO; +METR500T PO; -OMEP40CA13 PO; +OMEP40CA21 PO; -VERA180T12 PO; +VERA180T61 PO
[2020-06-15 19:15] LABS: BASOPHILS % (AUTO) 0.3 % (0.0-5.0); HEMATOCRIT 39.8 % (42-54); LYMPHOCYTES % (AUTO) 8.3 % (21.0-51.0); MEAN CORPUSCULAR HEMOGLOBIN 29.8 pg (27.0-33.0); MEAN CORPUSCULAR HGB CONC 32.4 g/dL (32.0-36.0); MEAN CORPUSCULAR VOLUME 91.9 fL (79-99); MONOCYTES % (AUTO) 4.2 % (3.0-13.0); NEUTROPHILS % (AUTO) 86.1 % (40.0-77.0); PLATELET COUNT (AUTO) 285 K/uL (130-400); RED BLOOD CELL COUNT(AUTO) 4.33 MIL/uL (4.50-6.20); RED CELL DISTRIBUTION WIDTH 14.7 % (11.0-15.5); WHITE BLOOD COUNT (AUTO) 11.8 K/uL (4.8-10.8)
[2020-06-15 19:22] LABS: INR 1.06 (0.85-1.15); PROTHROMBIN TIME 11.5 SEC (9.6-11.6)
[2020-06-15 19:23] LABS: PARTIAL THROMBOPLASTIN TIME 23.4 SEC (26.3-35.5)
[2020-06-15 19:28] LABS: CREATININE 1.3 mg/dL (0.5-1.5); POTASSIUM 4.7 mmol/L (3.5-5.1)
[2020-06-15 19:38] LABS: ALBUMIN 3.4 g/dL (3.5-5.0); BILIRUBIN,TOTAL 0.2 mg/dL (0.2-1.0); TOTAL PROTEIN, SERUM 6.7 g/dL (6.0-8.3)
[2020-06-15 19:46] LABS: B-TYPE NATRIURETIC PEPTIDE 59 pg/mL (0-100)
[2020-06-15 21:39] LABS: APPEARANCE,URINE Clear (CLEAR); BILIRUBIN,URINE Negative (NEGATIVE); COLOR,URINE Yellow (YELLOW); GLUCOSE, URINE (UA) Negative (NEGATIVE); KETONES,URINE Negative (NEGATIVE); LEUKOCYTE ESTERASE ,URINE Negative (NEGATIVE); NITRATE,URINE Negative (NEGATIVE); OCCULT BLOOD,URINE Negative (NEGATIVE); PROTEIN,URINE Negative (NEGATIVE); UROBILINOGEN,URINE 0.2 mg/dL (0.2-1.0)
[2020-06-15] MEDS ORDERED: ACETAMINOPHEN 500 MG TABLET ONE (23:04)
[2020-06-15] MEDS ORDERED: ACETAMINOPHEN 325 MG TAB PO PRN ×2 (23:30)
[2020-06-15] MEDS ORDERED: NITROGLYCERIN 0.4 MG SL TAB SL PRN (23:30)
[2020-06-15] MEDS ORDERED: LACTULOSE 20 GM/30 ML UDCUP PO PRN (23:30)
[2020-06-15] MEDS ORDERED: ONDANSETRON 4MG INJ IV PRN (23:30)
[2020-06-16 00:06] LABS: AMPHET/METH SCREEN,URINE NEGATIVE (NEGATIVE); BARBITURATE SCREEN, URINE NEGATIVE (NEGATIVE); BENZODIAZEPINES SCREEN,URINE NEGATIVE (NEGATIVE); CANNABINOID SCREEN,URINE NEGATIVE (NEGATIVE); COCAINE SCREEN,URINE NEGATIVE (NEGATIVE); OPIATE SCREEN,URINE NEGATIVE (NEGATIVE); PHENCYCLIDINE SCREEN,URINE NEGATIVE (NEGATIVE)
[2020-06-16 00:09] LABS: CRP QUANTITATIVE 14.4 mg/L (0.00-9.0); MAGNESIUM 1.5 mg/dL (1.80-2.40); PHOSPHORUS 2.9 mg/dL (2.5-4.9); THYROID STIMULATING HORMONE 0.64 uIU/mL (0.36-3.74)
[2020-06-16 00:16] LABS: HEMOGLOBIN A1C 7.8 % (4.0-6.0)
[2020-06-16 01:37] LABS: CREATINE KINASE, TOTAL 105 U/L (21-232); MYOGLOBIN 81 ng/mL (10-92); TROPONIN I < 0.04 ng/mL (0.00-0.06)
[2020-06-16 03:50] VITALS: BP 141/79
[2020-06-16 08:00] VITALS: BP 134/76
[2020-06-16] MEDS ORDERED: IOHEXOL-350 75 ML VIAL IV ONE (08:06)
[2020-06-16] MEDS ORDERED: ASPIRIN 81MG CHEW TAB PO SCH (09:00)
[2020-06-16] MEDS ORDERED: METOPROLOL TARTRATE 25 MG TAB PO SCH (09:00)
[2020-06-16 09:06] LABS: CREATINE KINASE, TOTAL 103 U/L (21-232); MYOGLOBIN 125 ng/mL (10-92); TROPONIN I < 0.04 ng/mL (0.00-0.06)
[2020-06-16 09:07] LABS: CHOLESTEROL 113 mg/dL (<200); HDL CHOLESTEROL 90 mg/dL (29-71); LDL DIRECT 54 mg/dL (0-99); TRIGLYCERIDES 133 mg/dL (30-200)
[2020-06-16] MEDS: ASPIRIN 81 MG EC TAB PO SCH (09:36)
[2020-06-16] MEDS: METOPROLOL TARTRATE 25 MG TAB PO SCH ×2 (09:36→20:30)
[2020-06-16] MEDS: PREDNISONE 20 MG TABLET PO SCH (09:36)
[2020-06-16] MEDS: HYDROXYCHLOROQUINE SULFATE 200 MG TAB PO SCH ×2 (09:36→20:24)
[2020-06-16] MEDS: FAMOTIDINE 20MG VIAL IV SCH ×2 (09:36→20:25)
[2020-06-16] MEDS: LOSARTAN 50 MG TABLET PO SCH (09:37)
[2020-06-16] MEDS: 0.9%NACL 1000ML 1,000 ML IV SCH ×2 (09:39→20:30)
[2020-06-16 12:00] VITALS: BP 142/81
[2020-06-16 16:00] VITALS: BP 124/93
[2020-06-16 17:00] LABS: CREATINE KINASE, TOTAL 103 U/L (21-232); MYOGLOBIN 103 ng/mL (10-92); TROPONIN I < 0.04 ng/mL (0.00-0.06)
[2020-06-16] MEDS: IPRATROPIUM/ALBUTEROL SULFATE 3 ML SOLUTION IH SCH (19:36)
[2020-06-16 20:05] VITALS: BP 126/72
[2020-06-16] MEDS: SIMVASTATIN 20 MG TABLET PO SCH (20:29)
[2020-06-16] MEDS: INSULIN GLARGINE 100 UNITS/ML 10 ML VIAL SQ SCH (23:00)
[2020-06-16 23:54] VITALS: BP 130/80
[2020-06-17] MEDS: IPRATROPIUM/ALBUTEROL SULFATE 3 ML SOLUTION IH SCH ×4 (00:08→19:22)
[2020-06-17 04:00] VITALS: BP 125/74
[2020-06-17] MEDS: 0.9%NACL 1000ML 1,000 ML IV SCH ×2 (04:38→23:34)
[2020-06-17] MEDS: INSULIN HUMULIN R 100 UNIT/ML 3ML SQ SCH ×4 (05:35→20:39)
[2020-06-17 06:57] LABS: BASOPHILS % (AUTO) 0.3 % (0.0-5.0); EOSINOPHILS % (AUTO) 0.7 % (0.0-8.0); HEMATOCRIT 36.4 % (42-54); LYMPHOCYTES % (AUTO) 21.8 % (21.0-51.0); MEAN CORPUSCULAR HEMOGLOBIN 29.5 pg (27.0-33.0); MEAN CORPUSCULAR HGB CONC 32.7 g/dL (32.0-36.0); MEAN CORPUSCULAR VOLUME 90.1 fL (79-99); MONOCYTES % (AUTO) 8.5 % (3.0-13.0); NEUTROPHILS % (AUTO) 68.1 % (40.0-77.0); PLATELET COUNT (AUTO) 234 K/uL (130-400); RED BLOOD CELL COUNT(AUTO) 4.04 MIL/uL (4.50-6.20); RED CELL DISTRIBUTION WIDTH 14.7 % (11.0-15.5)
[2020-06-17 07:09] LABS: CREATININE 1.2 mg/dL (0.5-1.5); POTASSIUM 3.6 mmol/L (3.5-5.1)
[2020-06-17 08:03] VITALS: BP 129/67
[2020-06-17] MEDS: HYDROXYCHLOROQUINE SULFATE 200 MG TAB PO SCH ×2 (08:52→20:40)
[2020-06-17] MEDS: LEVOFLOXACIN 500 MG TABLET PO SCH (08:52)
[2020-06-17] MEDS: ASPIRIN 81 MG EC TAB PO SCH (08:52)
[2020-06-17] MEDS: METOPROLOL TARTRATE 25 MG TAB PO SCH ×2 (08:52→20:40)
[2020-06-17] MEDS: PREDNISONE 20 MG TABLET PO SCH (08:53)
[2020-06-17] MEDS: CYANOCOBALAMIN (VITAMIN B-12) 1,000 MCG TABLET PO SCH (08:53)
[2020-06-17] MEDS: FOLIC ACID 1 MG TABLET PO SCH (08:53)
[2020-06-17] MEDS: LOSARTAN 50 MG TABLET PO SCH (08:53)
[2020-06-17] MEDS: FAMOTIDINE 20MG VIAL IV SCH ×2 (08:53→20:40)
[2020-06-17 11:38] VITALS: BP 124/78
[2020-06-17] MEDS: ZINC SULFATE 220 CAPSULE PO SCH (11:56)
[2020-06-17 16:00] VITALS: BP 124/70
[2020-06-17 19:00] VITALS: BP 136/80
[2020-06-17] MEDS: INSULIN GLARGINE 100 UNITS/ML 10 ML VIAL SQ SCH (20:38)
[2020-06-17] MEDS: SIMVASTATIN 20 MG TABLET PO SCH (20:40)
[2020-06-18] VITALS (7 sets, daily range): BP systolic 102–131; BP diastolic 64–77
[2020-06-18] MEDS: IPRATROPIUM/ALBUTEROL SULFATE 3 ML SOLUTION IH SCH ×4 (01:27→18:53)
[2020-06-18] MEDS: INSULIN HUMULIN R 100 UNIT/ML 3ML SQ SCH ×4 (06:26→20:55)
[2020-06-18 08:26] LABS: BASOPHILS % (AUTO) 0.4 % (0.0-5.0); EOSINOPHILS % (AUTO) 1.3 % (0.0-8.0); HEMATOCRIT 38.2 % (42-54); LYMPHOCYTES % (AUTO) 22.2 % (21.0-51.0); MEAN CORPUSCULAR HEMOGLOBIN 28.9 pg (27.0-33.0); MEAN CORPUSCULAR HGB CONC 31.9 g/dL (32.0-36.0); MEAN CORPUSCULAR VOLUME 90.5 fL (79-99); MONOCYTES % (AUTO) 7.2 % (3.0-13.0); NEUTROPHILS % (AUTO) 67.9 % (40.0-77.0); PLATELET COUNT (AUTO) 255 K/uL (130-400); RED BLOOD CELL COUNT(AUTO) 4.22 MIL/uL (4.50-6.20); WHITE BLOOD COUNT (AUTO) 10.6 K/uL (4.8-10.8)
[2020-06-18 08:35] LABS: CREATININE 1.3 mg/dL (0.5-1.5); POTASSIUM 3.2 mmol/L (3.5-5.1)
[2020-06-18] MEDS: ASPIRIN 81 MG EC TAB PO SCH (09:01)
[2020-06-18] MEDS: METOPROLOL TARTRATE 25 MG TAB PO SCH ×2 (09:01→20:57)
[2020-06-18] MEDS: PREDNISONE 20 MG TABLET PO SCH (09:02)
[2020-06-18] MEDS: LOSARTAN 50 MG TABLET PO SCH (09:02)
[2020-06-18] MEDS: HYDROXYCHLOROQUINE SULFATE 200 MG TAB PO SCH ×2 (09:02→20:57)
[2020-06-18] MEDS: FAMOTIDINE 20MG VIAL IV SCH ×2 (09:02→20:57)
[2020-06-18] MEDS: LEVOFLOXACIN 500 MG TABLET PO SCH (09:02)
[2020-06-18] MEDS: CYANOCOBALAMIN (VITAMIN B-12) 1,000 MCG TABLET PO SCH (09:02)
[2020-06-18] MEDS: FOLIC ACID 1 MG TABLET PO SCH (09:02)
[2020-06-18] MEDS: ZINC SULFATE 220 CAPSULE PO SCH (11:42)
[2020-06-18] MEDS ORDERED: HEPARIN 10,000 UNIT/10ML (1,000 UNIT/ML) VIAL IV SCH (12:15)
[2020-06-18] MEDS: SIMVASTATIN 20 MG TABLET PO SCH (20:57)
[2020-06-18] MEDS: INSULIN GLARGINE 100 UNITS/ML 10 ML VIAL SQ SCH (20:58)
[2020-06-19] MEDS: IPRATROPIUM/ALBUTEROL SULFATE 3 ML SOLUTION IH SCH ×3 (00:01→11:07)
[2020-06-19] MEDS: INSULIN HUMULIN R 100 UNIT/ML 3ML SQ SCH ×2 (05:41→11:30)
[2020-06-19 06:23] VITALS: BP 140/77
[2020-06-19 07:43] VITALS: BP 131/71
[2020-06-19] MEDS: METOPROLOL TARTRATE 25 MG TAB PO SCH (09:09)
[2020-06-19] MEDS: FOLIC ACID 1 MG TABLET PO SCH (09:10)
[2020-06-19] MEDS: PREDNISONE 20 MG TABLET PO SCH (09:10)
[2020-06-19] MEDS: FAMOTIDINE 20MG VIAL IV SCH (09:10)
[2020-06-19] MEDS: LEVOFLOXACIN 500 MG TABLET PO SCH (09:10)
[2020-06-19] MEDS: LOSARTAN 50 MG TABLET PO SCH (09:10)
[2020-06-19] MEDS: ASPIRIN 81 MG EC TAB PO SCH (09:10)
[2020-06-19] MEDS: HYDROXYCHLOROQUINE SULFATE 200 MG TAB PO SCH (09:10)
[2020-06-19] MEDS: CYANOCOBALAMIN (VITAMIN B-12) 1,000 MCG TABLET PO SCH (09:10)
[2020-06-19 11:30] VITALS: BP 113/72
[2020-06-19] MEDS: ZINC SULFATE 220 CAPSULE PO SCH (12:36)
[2020-06-22] MEDS ORDERED: METHOTREXATE SODIUM 2.5 MG TABLET PO SCH (09:00)
== END 2020-06-19 15:26 | disposition home or self-care (01) | DRG 69 ==
LOC: EDH 18:44 → OBSVTOIN 23:16 → EDHIP 23:16 → 4DH 06-16 03:56
PROVIDERS: ADMIT Internal Medicine; ATTEND Internal Medicine
DX: G45.9 Transient cerebral ischemic attack, unspecified (principal); J15.6 Pneumonia due to other Gram-negative bacteria; E87.2 Acidosis; J96.11 Chronic respiratory failure with hypoxia; R47.01 Aphasia; I25.10 Atherosclerotic heart disease of native coronary artery without angina pectoris; R47.1 Dysarthria and anarthria; D86.9 Sarcoidosis, unspecified; Z20.822 Contact with and (suspected) exposure to COVID-19; E11.9 Type 2 diabetes mellitus without complications; E66.9 Obesity, unspecified; E78.5 Hyperlipidemia, unspecified; G47.33 Obstructive sleep apnea (adult) (pediatric); I11.9 Hypertensive heart disease without heart failure; M47.815 Spondylosis without myelopathy or radiculopathy, thoracolumbar region; J44.9 Chronic obstructive pulmonary disease, unspecified; D86.0 Sarcoidosis of lung; Z79.82 Long term (current) use of aspirin; Z79.84 Long term (current) use of oral hypoglycemic drugs; Z79.899 Other long term (current) drug therapy; Z80.1 Family history of malignant neoplasm of trachea, bronchus and lung; Z80.3 Family history of malignant neoplasm of breast; Z82.0 Family history of epilepsy and other diseases of the nervous system; Z82.3 Family history of stroke; Z82.49 Family history of ischemic heart disease and other diseases of the circulatory system; Z82.5 Family history of asthma and other chronic lower respiratory diseases; Z83.3 Family history of diabetes mellitus; Z87.891 Personal history of nicotine dependence; Z95.1 Presence of aortocoronary bypass graft; Z99.81 Dependence on supplemental oxygen; Z88.0 Allergy status to penicillin; Z88.8 Allergy status to other drugs, medicaments and biological substances; Z68.27 Body mass index [BMI] 27.0-27.9, adult
CPT/HCPCS: 36415; 70450; 70496; 70498; 70551; 71045; 80048; 80053; 80061; 80305; 81003; 82550; 82948; 83036; 83605; 83735; 83874; 83880; 84100; 84145; 84443; 84484; 85025; 85610; 85651; 85730; 86140; 87426; 87804; 92522; 92610; 93005; 93306; 93356; 94640; 94664; 94667; 94668; 97039; 99291; G0378; J1644; J1815; J3490; Q9967; U0003

== ENCOUNTER 2020-07-30 16:27 | Inpatient (IN) | payer OTHER ==
[~2020-07-30] VITALS: Ht 172.7 cm; Wt 80.0 kg
[~2020-07-30 16:27] MED LIST changes: -LEVO500T2 PO; -METR500T PO
[2020-07-30 18:00] VITALS: BP 113/65
[2020-07-30 19:56] VITALS: BP 118/66
[2020-07-30] MEDS ORDERED: METH2.5T7 PO (22:47)
[2020-07-30] MEDS ORDERED: IPRNEB NEB (22:47)
[2020-07-30] MEDS ORDERED: ASPI-1012 PO (22:47)
[2020-07-30] MEDS ORDERED: BUSP15 PO (22:47)
[2020-07-30] MEDS ORDERED: FAMO40TA7 PO (22:47)
[2020-07-30] MEDS ORDERED: EMPA10TA PO (22:47)
[2020-07-30] MEDS ORDERED: BRIM5DRO4 OU (22:47)
[2020-07-30] MEDS ORDERED: IBUP-2076 PO (22:47)
[2020-07-30] MEDS ORDERED: LIRA0.6P SQ (22:47)
[2020-07-30] MEDS ORDERED: METO25 PO (22:47)
[2020-07-30 23:14] LABS: HEMATOCRIT 38.6 % (42-54); MEAN CORPUSCULAR HEMOGLOBIN 28.7 pg (27.0-33.0); MEAN CORPUSCULAR HGB CONC 32.4 g/dL (32.0-36.0); MEAN CORPUSCULAR VOLUME 88.7 fL (79-99); RED BLOOD CELL COUNT(AUTO) 4.35 MIL/uL (4.50-6.20); WHITE BLOOD COUNT (AUTO) 10.4 K/uL (4.8-10.8)
[2020-07-30 23:21] LABS: CARBON DIOXIDE 29 mmol/L (21-32); CHLORIDE 103 mmol/L (101-111); CREATININE 1.5 mg/dL (0.5-1.5); GLOMERULAR FILTR. RATE CALC 51 mL/min (>60); GLUCOSE,RANDOM 106 mg/dL (70-105); POTASSIUM 4.2 mmol/L (3.5-5.1); SODIUM SERUM 141 mmol/L (136-145); UREA NITROGEN, BLOOD 14 mg/dL (7-18)
[2020-07-30 23:33] LABS: ALANINE AMINOTRANSFERASE 37 U/L (12-78); ALBUMIN 3.4 g/dL (3.5-5.0); ASPARTATE AMINOTRANSFERASE 18 U/L (10-37); BILIRUBIN,TOTAL 1.6 mg/dL (0.2-1.0); CHOLESTEROL 107 mg/dL (<200); CREATINE KINASE, TOTAL 121 U/L (21-232); HDL CHOLESTEROL 42 mg/dL (29-71); LDL DIRECT 56 mg/dL (0-99); MYOGLOBIN 112 ng/mL (10-92); THYROID STIMULATING HORMONE 0.91 uIU/mL (0.36-3.74); TOTAL PROTEIN, SERUM 6.7 g/dL (6.0-8.3); TRIGLYCERIDES 120 mg/dL (30-200); TROPONIN I < 0.04 ng/mL (0.00-0.06)
[2020-07-30 23:41] VITALS: BP 148/71
[2020-07-30 23:42] LABS: HEMOGLOBIN A1C 7.6 % (4.0-6.0)
[2020-07-30] MEDS ORDERED: BENZONATATE 100 MG CAPSULE PO PRN (23:45)
[2020-07-30] MEDS ORDERED: HYDRALAZINE 20MG/ML VIAL IV PRN (23:45)
[2020-07-30] MEDS ORDERED: ACETAMINOPHEN 325 MG TAB PO PRN (23:45)
[2020-07-31] MEDS ORDERED: NITROGLYCERIN 0.4 MG SL TAB SL SCH (00:15)
[2020-07-31] MEDS ORDERED: TRAMADOL HCL 50 MG TABLET PO PRN (00:15)
[2020-07-31] MEDS ORDERED: DEXTROSE 50%-WATER 50 ML DISP.SYRIN IV PRN (00:15)
[2020-07-31] MEDS ORDERED: IBUPROFEN 400 MG TABLET PO PRN (00:15)
[2020-07-31] MEDS ORDERED: GLUCAGON 1MG KIT 1 MG ML IM PRN (00:15)
[2020-07-31 03:18] VITALS: BP 117/64
[2020-07-31] MEDS: INSULIN HUMULIN R 100 UNIT/ML 3ML SQ SCH ×4 (06:37→20:54)
[2020-07-31] MEDS: FERROUS SULFATE 325 MG TABLET.DR PO SCH ×3 (06:37→18:38)
[2020-07-31] MEDS: IPRATROPIUM 0.5 MG/2.5 ML INH IH SCH ×4 (07:02→19:08)
[2020-07-31 07:38] VITALS: BP 121/81
[2020-07-31] MEDS ORDERED: METOPROLOL TARTRATE 25 MG TAB PO SCH (09:00)
[2020-07-31] MEDS ORDERED: ENOXAPARIN SODIUM 40 MG/0.4 ML SYRINGE SQ SCH (09:00)
[2020-07-31] MEDS: EMPAGLIFLOZIN 10 MG PO SCH (09:00)
[2020-07-31] MEDS: BRIMONIDINE TARTRATE 0.2% 5 ML BOTTLE OU SCH ×2 (09:00→20:54)
[2020-07-31] MEDS ORDERED: METHOTREXATE SODIUM 2.5 MG TABLET PO SCH (09:00)
[2020-07-31] MEDS: ***HM***Cholecalciferol (Vitamin D3) 400 UNIT PO SCH (09:00)
[2020-07-31] MEDS: LIRAGLUTIDE 1.8 MG SQ SCH (09:00)
[2020-07-31] MEDS: METFORMIN HCL 500 MG TABLET PO SCH ×2 (10:31→18:38)
[2020-07-31] MEDS: ASPIRIN 325 MG TABLET PO SCH (10:32)
[2020-07-31] MEDS: LOSARTAN 50 MG TABLET PO SCH (10:32)
[2020-07-31] MEDS: BUSPIRONE HCL 5 MG TABLET PO SCH ×2 (10:32→20:54)
[2020-07-31] MEDS: FOLIC ACID 1 MG TABLET PO SCH (10:32)
[2020-07-31] MEDS: PANTOPRAZOLE 40 MG TAB DR PO SCH (10:33)
[2020-07-31] MEDS: METOPROLOL TARTRATE 25 MG TAB PO SCH ×2 (10:33→20:54)
[2020-07-31] MEDS: HYDROXYCHLOROQUINE SULFATE 200 MG TAB PO SCH ×2 (10:33→20:54)
[2020-07-31 10:53] VITALS: BP 104/75
[2020-07-31 16:18] VITALS: BP 114/61
[2020-07-31] MEDS: PREDNISONE 20 MG TABLET PO SCH (18:38)
[2020-07-31 20:00] VITALS: BP 105/61
[2020-07-31] MEDS: SIMVASTATIN 20 MG TABLET PO SCH (20:54)
[2020-07-31] MEDS: INSULIN GLARGINE 100 UNITS/ML 10 ML VIAL SQ SCH (20:55)
[2020-07-31] MEDS: ENOXAPARIN SODIUM 80 MG/0.8 ML SQ SCH (20:56)
[2020-08-01] VITALS: BP 111/60
[2020-08-01 03:54] VITALS: BP 142/85
[2020-08-01] MEDS: IPRATROPIUM 0.5 MG/2.5 ML INH IH SCH ×4 (06:32→19:11)
[2020-08-01] MEDS: FERROUS SULFATE 325 MG TABLET.DR PO SCH ×3 (07:19→15:53)
[2020-08-01] MEDS: INSULIN HUMULIN R 100 UNIT/ML 3ML SQ SCH ×4 (07:20→21:00)
[2020-08-01 08:45] LABS: BASOPHILS % (AUTO) 0.4 % (0.0-5.0); EOSINOPHILS % (AUTO) 1.5 % (0.0-8.0); HEMATOCRIT 42.8 % (42-54); LYMPHOCYTES % (AUTO) 13.1 % (21.0-51.0); MEAN CORPUSCULAR HEMOGLOBIN 28.6 pg (27.0-33.0); MEAN CORPUSCULAR HGB CONC 31.8 g/dL (32.0-36.0); MEAN CORPUSCULAR VOLUME 89.9 fL (79-99); MONOCYTES % (AUTO) 7.3 % (3.0-13.0); NEUTROPHILS % (AUTO) 77.2 % (40.0-77.0); PLATELET COUNT (AUTO) 248 K/uL (130-400); RED BLOOD CELL COUNT(AUTO) 4.76 MIL/uL (4.50-6.20); RED CELL DISTRIBUTION WIDTH 15.2 % (11.0-15.5); WHITE BLOOD COUNT (AUTO) 10.5 K/uL (4.8-10.8)
[2020-08-01 08:47] VITALS: BP 128/71
[2020-08-01 08:56] LABS: CREATININE 1.5 mg/dL (0.5-1.5); POTASSIUM 4.7 mmol/L (3.5-5.1)
[2020-08-01 08:59] LABS: MAGNESIUM 1.7 mg/dL (1.80-2.40)
[2020-08-01] MEDS: ENOXAPARIN SODIUM 80 MG/0.8 ML SQ SCH ×2 (09:24→21:35)
[2020-08-01] MEDS: METFORMIN HCL 500 MG TABLET PO SCH ×2 (09:24→15:54)
[2020-08-01] MEDS: FOLIC ACID 1 MG TABLET PO SCH (09:25)
[2020-08-01] MEDS: PANTOPRAZOLE 40 MG TAB DR PO SCH (09:25)
[2020-08-01] MEDS: LOSARTAN 50 MG TABLET PO SCH (09:25)
[2020-08-01] MEDS: ASPIRIN 325 MG TABLET PO SCH (09:25)
[2020-08-01] MEDS: BUSPIRONE HCL 5 MG TABLET PO SCH ×2 (09:26→21:35)
[2020-08-01] MEDS: HYDROXYCHLOROQUINE SULFATE 200 MG TAB PO SCH ×2 (09:26→21:35)
[2020-08-01] MEDS: METOPROLOL TARTRATE 25 MG TAB PO SCH ×2 (09:26→21:35)
[2020-08-01] MEDS ORDERED: MAGNESIUM 2GM PREMIX 50ML 50 ML IV SCH (09:30)
[2020-08-01] MEDS: LIRAGLUTIDE 1.8 MG SQ SCH (09:33)
[2020-08-01] MEDS: EMPAGLIFLOZIN 10 MG PO SCH (11:50)
[2020-08-01] MEDS: BRIMONIDINE TARTRATE 0.2% 5 ML BOTTLE OU SCH ×2 (11:50→21:00)
[2020-08-01 12:09] VITALS: BP 135/76
[2020-08-01] MEDS: ***HM***Cholecalciferol (Vitamin D3) 400 UNIT PO SCH (12:51)
[2020-08-01] MEDS: PREDNISONE 20 MG TABLET PO SCH (15:54)
[2020-08-01 16:49] VITALS: BP 116/75
[2020-08-01 20:13] VITALS: BP 103/71
[2020-08-01] MEDS: SIMVASTATIN 20 MG TABLET PO SCH (21:35)
[2020-08-01] MEDS: INSULIN GLARGINE 100 UNITS/ML 10 ML VIAL SQ SCH (22:14)
[2020-08-02 00:04] VITALS: BP 102/64
[2020-08-02 04:16] VITALS: BP 106/77
[2020-08-02] MEDS: IPRATROPIUM 0.5 MG/2.5 ML INH IH SCH ×2 (06:00→10:00)
[2020-08-02] MEDS: FERROUS SULFATE 325 MG TABLET.DR PO SCH ×2 (06:01→10:55)
[2020-08-02] MEDS: INSULIN HUMULIN R 100 UNIT/ML 3ML SQ SCH ×2 (06:01→11:30)
[2020-08-02 06:23] LABS: BASOPHILS % (AUTO) 0.5 % (0.0-5.0); EOSINOPHILS % (AUTO) 2.4 % (0.0-8.0); HEMATOCRIT 41.9 % (42-54); LYMPHOCYTES % (AUTO) 13.1 % (21.0-51.0); MEAN CORPUSCULAR HEMOGLOBIN 28.9 pg (27.0-33.0); MEAN CORPUSCULAR VOLUME 90.3 fL (79-99); MONOCYTES % (AUTO) 10.9 % (3.0-13.0); NEUTROPHILS % (AUTO) 72.4 % (40.0-77.0); PLATELET COUNT (AUTO) 263 K/uL (130-400); RED BLOOD CELL COUNT(AUTO) 4.64 MIL/uL (4.50-6.20); RED CELL DISTRIBUTION WIDTH 15.3 % (11.0-15.5); WHITE BLOOD COUNT (AUTO) 10.4 K/uL (4.8-10.8)
[2020-08-02 06:40] LABS: CREATININE 1.6 mg/dL (0.5-1.5); POTASSIUM 4.5 mmol/L (3.5-5.1)
[2020-08-02 07:30] VITALS: BP 124/81
[2020-08-02] MEDS: EMPAGLIFLOZIN 10 MG PO SCH (09:00)
[2020-08-02] MEDS: ASPIRIN 325 MG TABLET PO SCH (10:53)
[2020-08-02] MEDS: FOLIC ACID 1 MG TABLET PO SCH (10:53)
[2020-08-02] MEDS: METFORMIN HCL 500 MG TABLET PO SCH (10:53)
[2020-08-02] MEDS: PREDNISONE 20 MG TABLET PO SCH (10:54)
[2020-08-02] MEDS: HYDROXYCHLOROQUINE SULFATE 200 MG TAB PO SCH (10:54)
[2020-08-02] MEDS: PANTOPRAZOLE 40 MG TAB DR PO SCH (10:54)
[2020-08-02] MEDS: METOPROLOL TARTRATE 25 MG TAB PO SCH (10:54)
[2020-08-02] MEDS: BUSPIRONE HCL 5 MG TABLET PO SCH (10:55)
[2020-08-02 11:00] VITALS: BP 108/78
[2020-08-02] MEDS: ***HM***Cholecalciferol (Vitamin D3) 400 UNIT PO SCH (11:03)
[2020-08-02] MEDS: LIRAGLUTIDE 1.8 MG SQ SCH (11:06)
[2020-08-02] MEDS: BRIMONIDINE TARTRATE 0.2% 5 ML BOTTLE OU SCH (11:07)
[2020-08-02] MEDS: LOSARTAN 50 MG TABLET PO SCH (11:08)
== END 2020-08-02 16:53 | disposition home or self-care (01) | DRG 206 ==
LOC: 4CH 17:43
PROVIDERS: ADMIT Internal Medicine; ATTEND Internal Medicine
DX: M94.0 Chondrocostal junction syndrome [Tietze] (principal); D86.0 Sarcoidosis of lung; M19.90 Unspecified osteoarthritis, unspecified site; K29.70 Gastritis, unspecified, without bleeding; M81.0 Age-related osteoporosis without current pathological fracture; E78.5 Hyperlipidemia, unspecified; I25.10 Atherosclerotic heart disease of native coronary artery without angina pectoris; E11.22 Type 2 diabetes mellitus with diabetic chronic kidney disease; I12.9 Hypertensive chronic kidney disease with stage 1 through stage 4 chronic kidney disease, or unspecified chronic kidney disease; N18.30 Chronic kidney disease, stage 3 unspecified; I69.321 Dysphasia following cerebral infarction; Z99.81 Dependence on supplemental oxygen; Z95.1 Presence of aortocoronary bypass graft; Z88.0 Allergy status to penicillin; Z88.8 Allergy status to other drugs, medicaments and biological substances; Z80.3 Family history of malignant neoplasm of breast; Z82.5 Family history of asthma and other chronic lower respiratory diseases; Z83.3 Family history of diabetes mellitus; Z82.3 Family history of stroke; Z80.1 Family history of malignant neoplasm of trachea, bronchus and lung; Z82.0 Family history of epilepsy and other diseases of the nervous system; Z82.49 Family history of ischemic heart disease and other diseases of the circulatory system; R09.1 Pleurisy
CPT/HCPCS: 36415; 71046; 78582; 80048; 80053; 80061; 82550; 82948; 83036; 83735; 83874; 83880; 84443; 84484; 85025; 85027; 85378; 93970; 94640; 94664; A9540; A9558; G0378; J1650; J3475; J8610

== ENCOUNTER 2020-11-10 20:42 | Emergency (ER) | payer OTHER ==
[~2020-11-10] VITALS: Ht 172.7 cm; Wt 81.6 kg
[~2020-11-10 20:42] MED LIST changes: +ASPI-1012 PO; -ASPI-1197 PO; +BRIM5DRO4 OU; +BUSP15 PO; -CYAN100099 PO; +EMPA10TA PO; +FAMO40TA7 PO; +IPRNEB NEB; +LIRA0.6P SQ; -METF-446 PO; +METH2.5T7 PO; +METO25 PO; -VERA180T61 PO
[2020-11-10 21:54] VITALS: BP 169/81
[2020-11-10 22:05] LABS: BASOPHILS % (AUTO) 0.3 % (0.0-5.0); HEMATOCRIT 44.6 % (42-54); LYMPHOCYTES % (AUTO) 18.2 % (21.0-51.0); MEAN CORPUSCULAR HEMOGLOBIN 29.1 pg (27.0-33.0); MEAN CORPUSCULAR HGB CONC 32.3 g/dL (32.0-36.0); MEAN CORPUSCULAR VOLUME 90.3 fL (79-99); MONOCYTES % (AUTO) 8.2 % (3.0-13.0); NEUTROPHILS % (AUTO) 71.5 % (40.0-77.0); PLATELET COUNT (AUTO) 164 K/uL (130-400); RED BLOOD CELL COUNT(AUTO) 4.94 MIL/uL (4.50-6.20); RED CELL DISTRIBUTION WIDTH 15.7 % (11.0-15.5)
[2020-11-10 22:15] LABS: CREATININE 1.3 mg/dL (0.5-1.5); POTASSIUM 3.8 mmol/L (3.5-5.1)
[2020-11-10 22:26] LABS: ALBUMIN 3.9 g/dL (3.5-5.0); BILIRUBIN,TOTAL 0.4 mg/dL (0.2-1.0); TOTAL PROTEIN, SERUM 7.3 g/dL (6.0-8.3)
[2020-11-10 22:28] LABS: AMPHET/METH SCREEN,URINE NEGATIVE (NEGATIVE); BARBITURATE SCREEN, URINE NEGATIVE (NEGATIVE); BENZODIAZEPINES SCREEN,URINE NEGATIVE (NEGATIVE); CANNABINOID SCREEN,URINE NEGATIVE (NEGATIVE); COCAINE SCREEN,URINE NEGATIVE (NEGATIVE); OPIATE SCREEN,URINE NEGATIVE (NEGATIVE); PHENCYCLIDINE SCREEN,URINE NEGATIVE (NEGATIVE)
[2020-11-10 23:55] VITALS: BP 129/82
== END 2020-11-11 01:41 | disposition home or self-care (01) ==
LOC: EDH 20:42
DX: R07.89 Other chest pain (principal); R51.9 Headache, unspecified; R42 Dizziness and giddiness; I10 Essential (primary) hypertension; J44.9 Chronic obstructive pulmonary disease, unspecified; E11.9 Type 2 diabetes mellitus without complications; Z79.52 Long term (current) use of systemic steroids; Z79.899 Other long term (current) drug therapy; Z79.82 Long term (current) use of aspirin; Z88.0 Allergy status to penicillin; Z86.73 Personal history of transient ischemic attack (TIA), and cerebral infarction without residual deficits
CPT/HCPCS: 36415; 71045; 80053; 80305; 82550; 84484; 85025; 93005

== ENCOUNTER 2020-12-25 06:54 | Day surgery (SDC) | payer OTHER ==
[~2020-12-25] VITALS: Ht 172.7 cm; Wt 80.3 kg
[2020-12-25 07:30] VITALS: BP 135/77
[2020-12-25] MEDS ORDERED: INSU100V12 SQ (08:41)
[2020-12-25] MEDS ORDERED: vitamin d PO (08:41)
[2020-12-25] MEDS ORDERED: EMPA25TA PO (08:41)
[2020-12-25] MEDS ORDERED: SEMA1PEN3 SQ (08:41)
[2020-12-25] MEDS ORDERED: BIFI4CAP PO (08:41)
[2020-12-25] MEDS ORDERED: PRED5DRO25 OD (08:41)
[2020-12-25] MEDS ORDERED: SIMV-46 PO (08:41)
[2020-12-25] MEDS ORDERED: ASPI-1026 PO (08:41)
[2020-12-25] MEDS ORDERED: methotrexate PO (08:41)
[2020-12-25] MEDS ORDERED: METF-446 PO (08:41)
[2020-12-25] MEDS ORDERED: LATA2.5D14 OD (08:41)
[2020-12-25] MEDS ORDERED: METO-408 PO (08:41)
[2020-12-25] MEDS ORDERED: benefiber PO (08:41)
[2020-12-25] MEDS ORDERED: VIT1CAPS5 PO (08:41)
[2020-12-25] MEDS ORDERED: OMEP40CA21 PO (08:41)
[2020-12-25] MEDS ORDERED: PROPOFOL 10 MG/ML 20ML VIAL IV ONE (09:45)
[2020-12-25 09:55] VITALS: BP 103/53
[2020-12-25 10:00] VITALS: BP 113/59
[2020-12-25 10:05] VITALS: BP 119/63
[2020-12-25 10:10] VITALS: BP 123/67
[2020-12-25 10:25] VITALS: BP 136/76
== END 2020-12-25 10:40 | disposition home or self-care (01) ==
LOC: ENDO 06:54 → DAH 06:54 → ENDO 10:40
PROVIDERS: ATTEND Internal Medicine Gastroenterology
DX: K21.9 Gastro-esophageal reflux disease without esophagitis (principal); K31.89 Other diseases of stomach and duodenum; Z20.822 Contact with and (suspected) exposure to COVID-19; K29.50 Unspecified chronic gastritis without bleeding; K76.0 Fatty (change of) liver, not elsewhere classified; R19.4 Change in bowel habit; I10 Essential (primary) hypertension; J44.9 Chronic obstructive pulmonary disease, unspecified; E11.9 Type 2 diabetes mellitus without complications; E78.5 Hyperlipidemia, unspecified; D86.0 Sarcoidosis of lung; I25.2 Old myocardial infarction; Z79.899 Other long term (current) drug therapy; Z98.890 Other specified postprocedural states; Z88.0 Allergy status to penicillin; Z95.1 Presence of aortocoronary bypass graft; Z86.73 Personal history of transient ischemic attack (TIA), and cerebral infarction without residual deficits; Z79.82 Long term (current) use of aspirin
CPT/HCPCS: 43239; 82948 ×2; 87635; 88305; 88342; 93005; A4215 ×2; A4221; A4222; A4223; A4606; A4620; A4657; A4663; C9803; J2704

== ENCOUNTER 2022-01-03 13:18 | Emergency (ER) | payer OTHER ==
[~2022-01-03] VITALS: Ht 172.7 cm; Wt 74.4 kg
[~2022-01-03 13:18] MED LIST changes: +ASPI-1026 PO; +BIFI4CAP PO; -BRIM5DRO4 OU; -BUSP15 PO; -CHOL400C9 PO; -EMPA10TA PO; +EMPA25TA PO; -FAMO40TA7 PO; -FERR325T22 PO; -FOLI0.8T3 PO; -INSLAN SQ; +INSU100V12 SQ; +LATA2.5D14 OD; -LIRA0.6P SQ; +METF-446 PO; +METO-408 PO; +PRED5DRO25 OD; +SEMA1PEN3 SQ; -SITA50TA PO; +VIT1CAPS5 PO; +benefiber PO; +methotrexate PO; +vitamin d PO
[2022-01-03 13:42] LABS: BASOPHILS % (AUTO) 0.2 % (0.0-5.0); EOSINOPHILS % (AUTO) 0.3 % (0.0-8.0); HEMATOCRIT 41.8 % (42-54); LYMPHOCYTES % (AUTO) 8.8 % (21.0-51.0); MEAN CORPUSCULAR HEMOGLOBIN 28.5 pg (27.0-33.0); MEAN CORPUSCULAR VOLUME 86.4 fL (79-99); MONOCYTES % (AUTO) 5.6 % (3.0-13.0); NEUTROPHILS % (AUTO) 84.3 % (40.0-77.0); PLATELET COUNT (AUTO) 232 K/uL (130-400); RED BLOOD CELL COUNT(AUTO) 4.84 MIL/uL (4.50-6.20); RED CELL DISTRIBUTION WIDTH 16.8 % (11.0-15.5)
[2022-01-03 13:54] LABS: CREATININE 1.2 mg/dL (0.5-1.5); POTASSIUM 3.5 mmol/L (3.5-5.1)
[2022-01-03 13:58] LABS: APPEARANCE,URINE CLEAR (CLEAR); BILIRUBIN,URINE NEGATIVE (NEGATIVE); COLOR,URINE LIGHT-YELLOW (YELLOW); GLUCOSE, URINE (UA) >=1000 mg/dL (NEGATIVE); KETONES,URINE NEGATIVE (NEGATIVE); LEUKOCYTE ESTERASE ,URINE NEGATIVE Leu/uL (NEGATIVE); NITRATE,URINE NEGATIVE (NEGATIVE); PH,URINE 5.5 (5.0-8.0); PROTEIN,URINE NEGATIVE (NEGATIVE); UROBILINOGEN,URINE 0.2 mg/dL (0.2-1.0)
[2022-01-03 13:58] LABS: ALBUMIN 3.6 g/dL (3.5-5.0); TOTAL PROTEIN, SERUM 6.9 g/dL (6.0-8.3)
[2022-01-03 14:33] LABS: MUCUS,URINE RARE LPF (None Seen); SQUAMOUS EPITHELIAL CELL,UR RARE /HPF (0-2)
[2022-01-03] MEDS ORDERED: MAGNESIUM 2GM PREMIX 50ML 50 ML IV ONE ×2 (16:00)
[2022-01-03] MEDS ORDERED: MAGN400T51 PO (16:17)
[2022-01-03 16:57] VITALS: BP 150/77
== END 2022-01-03 18:25 | disposition home or self-care (01) ==
LOC: EDH 13:18
DX: R20.2 Paresthesia of skin (principal); E83.42 Hypomagnesemia; I11.0 Hypertensive heart disease with heart failure; I50.9 Heart failure, unspecified; J44.9 Chronic obstructive pulmonary disease, unspecified; E11.9 Type 2 diabetes mellitus without complications; I25.2 Old myocardial infarction; F43.10 Post-traumatic stress disorder, unspecified; Z86.73 Personal history of transient ischemic attack (TIA), and cerebral infarction without residual deficits; Z79.899 Other long term (current) drug therapy; Z79.82 Long term (current) use of aspirin; Z88.0 Allergy status to penicillin; Z88.8 Allergy status to other drugs, medicaments and biological substances
CPT/HCPCS: 99285; 96365; 70450; 96366; 83735; 84484; 80053; 85025; 81001; 36415; 93005; J3475

== ENCOUNTER 2022-01-26 23:21 | Emergency (ER) | payer OTHER ==
[~2022-01-26] VITALS: Ht 172.7 cm; Wt 75.7 kg
[~2022-01-26 23:21] MED LIST changes: +MAGN400T51 PO
[2022-01-26 23:58] LABS: BASOPHILS % (AUTO) 0.1 % (0.0-5.0); HEMATOCRIT 43.3 % (42-54); LYMPHOCYTES % (AUTO) 6.2 % (21.0-51.0); MEAN CORPUSCULAR HEMOGLOBIN 28.6 pg (27.0-33.0); MEAN CORPUSCULAR HGB CONC 32.3 g/dL (32.0-36.0); MEAN CORPUSCULAR VOLUME 88.5 fL (79-99); MONOCYTES % (AUTO) 5.9 % (3.0-13.0); NEUTROPHILS % (AUTO) 87.1 % (40.0-77.0); PLATELET COUNT (AUTO) 228 K/uL (130-400); RED BLOOD CELL COUNT(AUTO) 4.89 MIL/uL (4.50-6.20); RED CELL DISTRIBUTION WIDTH 17.4 % (11.0-15.5); WHITE BLOOD COUNT (AUTO) 8.9 K/uL (4.8-10.8)
[2022-01-27] MEDS ORDERED: IPRATROPIUM/ALBUTEROL SULFATE 3 ML SOLUTION IH ONE
[2022-01-27] MEDS ORDERED: SOLU-MEDROL 125MG VIAL IVP ONE
[2022-01-27 00:19] LABS: CREATININE 1.2 mg/dL (0.5-1.5); POTASSIUM 4.6 mmol/L (3.5-5.1)
[2022-01-27 00:23] LABS: ALBUMIN 3.5 g/dL (3.5-5.0); MAGNESIUM 1.8 mg/dL (1.80-2.40); TOTAL PROTEIN, SERUM 7.1 g/dL (6.0-8.3)
[2022-01-27 00:52] LABS: B-TYPE NATRIURETIC PEPTIDE 83 pg/mL (0-100)
[2022-01-27 01:13] VITALS: BP 132/73
[2022-01-27] MEDS ORDERED: PRED20TA3 PO (01:47)
[2022-01-30] MEDS ORDERED: NITR0.4T50 SL (15:10)
[2022-01-30] MEDS ORDERED: BENZ-70 PO (15:10)
[2022-01-30] MEDS ORDERED: PRED20TA3 PO (15:10)
[2022-01-30] MEDS ORDERED: BUSP15TA3 PO (15:10)
[2022-01-30] MEDS ORDERED: GABA600T10 PO (15:10)
[2022-01-30] MEDS ORDERED: METO-391 PO (15:10)
[2022-01-30] MEDS ORDERED: ROPI0.257 PO (15:10)
[2022-01-30] MEDS ORDERED: METF-446 PO (15:10)
[2022-01-30] MEDS ORDERED: FOLI0.8T43 PO (15:10)
[2022-01-30] MEDS ORDERED: OMEP40CA21 PO (15:10)
[2022-01-30] MEDS ORDERED: METH2.5T7 PO (15:10)
[2022-02-02] MEDS ORDERED: PRED20TA3 PO (21:22)
[2022-02-02] MEDS ORDERED: LEVO750T68 PO (21:31)
[2022-02-02] MEDS ORDERED: DOXY100T2 PO (21:31)
== END 2022-01-27 02:00 | disposition home or self-care (01) ==
LOC: EDH 23:21
DX: J44.1 Chronic obstructive pulmonary disease with (acute) exacerbation (principal); E11.9 Type 2 diabetes mellitus without complications; I11.0 Hypertensive heart disease with heart failure; I50.9 Heart failure, unspecified; Z79.52 Long term (current) use of systemic steroids; Z79.82 Long term (current) use of aspirin; Z79.84 Long term (current) use of oral hypoglycemic drugs; Z86.73 Personal history of transient ischemic attack (TIA), and cerebral infarction without residual deficits; Z88.0 Allergy status to penicillin; Z95.1 Presence of aortocoronary bypass graft
CPT/HCPCS: 99285; 71045; 83735; 84484; 80053; 83880; 85025; 87804 ×2; 36415; 93005; 96374; 94640; J2930

== ENCOUNTER 2022-04-27 16:16 | Emergency (ER) | payer OTHER ==
[~2022-04-27] VITALS: Ht 172.7 cm; Wt 75.7 kg
[~2022-04-27 16:16] MED LIST changes: -ASPI-1012 PO; +BENZ-70 PO; +BUSP15TA3 PO; +DOXY100T2 PO; +FOLI0.8T43 PO; +GABA600T10 PO; +LEVO750T68 PO; -MAGN400T51 PO; +METO-391 PO; -METO-408 PO; -METO25 PO; -OLME20TA22 PO; +ROPI0.257 PO; -methotrexate PO
[2022-04-27 16:35] LABS: BASOPHILS % (AUTO) 0.3 % (0.0-5.0); EOSINOPHILS % (AUTO) 1.1 % (0.0-8.0); HEMATOCRIT 40.3 % (42-54); LYMPHOCYTES % (AUTO) 18.7 % (21.0-51.0); MEAN CORPUSCULAR HEMOGLOBIN 28.4 pg (27.0-33.0); MEAN CORPUSCULAR HGB CONC 32.5 g/dL (32.0-36.0); MEAN CORPUSCULAR VOLUME 87.2 fL (79-99); MONOCYTES % (AUTO) 8.6 % (3.0-13.0); NEUTROPHILS % (AUTO) 70.7 % (40.0-77.0); PLATELET COUNT (AUTO) 247 K/uL (130-400); RED BLOOD CELL COUNT(AUTO) 4.62 MIL/uL (4.50-6.20)
[2022-04-27 17:10] LABS: CREATININE 1.3 mg/dL (0.5-1.5); POTASSIUM 3.4 mmol/L (3.5-5.1)
[2022-04-27 17:14] LABS: ALBUMIN 3.5 g/dL (3.5-5.0); TOTAL PROTEIN, SERUM 6.3 g/dL (6.0-8.3)
[2022-04-27] MEDS ORDERED: ACETAMINOPHEN 500 MG TABLET ONE (18:09)
[2022-04-27 18:39] VITALS: BP 122/70
[2022-04-27] MEDS ORDERED: POTASSIUM BICARB/CIT AC 25 MEQ TABLET.EFF PO STA (18:42)
== END 2022-04-27 19:00 | disposition home or self-care (01) ==
LOC: EDH 16:16
DX: M25.551 Pain in right hip (principal); I50.9 Heart failure, unspecified; E78.00 Pure hypercholesterolemia, unspecified; E11.9 Type 2 diabetes mellitus without complications; J44.9 Chronic obstructive pulmonary disease, unspecified; Z88.0 Allergy status to penicillin; Z79.52 Long term (current) use of systemic steroids; Z79.899 Other long term (current) drug therapy; Z79.84 Long term (current) use of oral hypoglycemic drugs; Z86.73 Personal history of transient ischemic attack (TIA), and cerebral infarction without residual deficits
CPT/HCPCS: 36415; 71045; 73501; 80053; 84484; 85025; 93005

== ENCOUNTER → 2022-07-15 | Outpatient (CLI) | payer OTHER ==
[~2022-07-15] MED LIST changes: +BENZ-226 PO; -BENZ-70 PO; +IOHEXOL 350 MG/ML 100ML INFUS..BTL IV ONE
[2022-07-15 11:16] LABS: CREATININE 1.1 mg/dL (0.5-1.5)
== END | disposition home or self-care (01) ==
LOC: RAH 10:00
PROVIDERS: ATTEND Internal Medicine
DX: K44.9 Diaphragmatic hernia without obstruction or gangrene (principal); J44.9 Chronic obstructive pulmonary disease, unspecified; I25.9 Chronic ischemic heart disease, unspecified; G47.33 Obstructive sleep apnea (adult) (pediatric); I10 Essential (primary) hypertension
CPT/HCPCS: 71275; 84520; 82565; 36415; Q9967

== ENCOUNTER 2022-09-10 20:30 | Observation (INO) | payer OTHER ==
[~2022-09-10] VITALS: Ht 172.7 cm; Wt 77.8 kg
[~2022-09-10 20:30] MED LIST changes: -ASPI-1026 PO; +ASPI-1197 PO; -BIFI4CAP PO; +BRIM5DRO5 OU; +CARB15DR81 OU; +CLOP-31 PO; +CYAN100084 PO; +DORZ10DR19 OU; -DOXY100T2 PO; +FERR-72 PO; +FLUT1BLS12 IH; +FOLI0.8T41 PO; -FOLI0.8T43 PO; -HYDR200T82 PO; -IOHEXOL 350 MG/ML 100ML INFUS..BTL IV ONE; -LATA2.5D14 OD; +LEVA1.255 IH; +LEVALBUTEROL IH; -LEVO750T68 PO; +LOSA25TA41 PO; -METH2.5T7 PO; -PRED5DRO25 OD; +SERT-440 PO; -SIMV-46 PO; +SIMV80TA91 PO; +TIOT4MIS5 IH; -TRAM50TA4 PO; +TRIA15CR48 TP; -VIT1CAPS5 PO; +XALA2.5OS OU; +[UNRECOGNIZED DRUG - CODE] PO; +[UNRECOGNIZED DRUG - OTHER]; -benefiber PO; +menthol/m-salicylate TP; -vitamin d PO
[2022-09-10 21:11] LABS: APPEARANCE,URINE CLEAR (CLEAR); BILIRUBIN,URINE NEGATIVE (NEGATIVE); COLOR,URINE COLORLESS (YELLOW); GLUCOSE, URINE (UA) >=1000 mg/dL (NEGATIVE); KETONES,URINE NEGATIVE (NEGATIVE); LEUKOCYTE ESTERASE ,URINE 250 Leu/uL (NEGATIVE); NITRATE,URINE NEGATIVE (NEGATIVE); OCCULT BLOOD,URINE NEGATIVE (NEGATIVE); PROTEIN,URINE NEGATIVE (NEGATIVE); UROBILINOGEN,URINE 0.2 mg/dL (0.2-1.0)
[2022-09-10 21:21] LABS: BACTERIA,URINE RARE /HPF (None Seen); YEAST,URINE BUDDING FEW /HPF (None Seen)
[2022-09-10 21:32] LABS: BASOPHILS % (AUTO) 0.2 % (0.0-5.0); EOSINOPHILS % (AUTO) 0.2 % (0.0-8.0); HEMATOCRIT 43.7 % (42-54); LYMPHOCYTES % (AUTO) 6.8 % (21.0-51.0); MEAN CORPUSCULAR HEMOGLOBIN 28.2 pg (27.0-33.0); MEAN CORPUSCULAR HGB CONC 31.8 g/dL (32.0-36.0); MEAN CORPUSCULAR VOLUME 88.6 fL (79-99); MONOCYTES % (AUTO) 3.9 % (3.0-13.0); NEUTROPHILS % (AUTO) 88.1 % (40.0-77.0); PLATELET COUNT (AUTO) 317 K/uL (130-400); RED BLOOD CELL COUNT(AUTO) 4.93 MIL/uL (4.50-6.20); RED CELL DISTRIBUTION WIDTH 15.8 % (11.0-15.5); WHITE BLOOD COUNT (AUTO) 11.8 K/uL (4.8-10.8)
[2022-09-10 21:44] LABS: INR 0.98 (0.85-1.15); PROTHROMBIN TIME 10.7 SEC (9.6-11.6)
[2022-09-10 21:45] LABS: CREATININE 1.5 mg/dL (0.5-1.5); POTASSIUM 4.7 mmol/L (3.5-5.1)
[2022-09-10 21:55] LABS: ALBUMIN 3.7 g/dL (3.5-5.0); MAGNESIUM 1.7 mg/dL (1.80-2.40); TOTAL PROTEIN, SERUM 7.1 g/dL (6.0-8.3)
[2022-09-10 21:58] LABS: B-TYPE NATRIURETIC PEPTIDE 76 pg/mL (0-100)
[2022-09-10] MEDS ORDERED: CEFTRIAXONE 1G VIAL IVPB ONE (22:30)
[2022-09-10] MEDS ORDERED: IPRATROPIUM/ALBUTEROL SULFATE 3 ML SOLUTION IH PRN (23:30)
[2022-09-10] MEDS ORDERED: ACETAMINOPHEN 325 MG TAB PO PRN ×2 (23:30)
[2022-09-10] MEDS ORDERED: GLUCAGON 1MG KIT 1 MG ML IM PRN (23:30)
[2022-09-10] MEDS ORDERED: DEXTROSE 50%-WATER 50 ML DISP.SYRIN IV PRN (23:30)
[2022-09-10] MEDS ORDERED: NITROGLYCERIN 0.4 MG SL TAB SL PRN (23:30)
[2022-09-10] MEDS: INSULIN HUMULIN R 100 UNIT/ML 3ML SQ SCH (23:30)
[2022-09-10] MEDS ORDERED: ONDANSETRON 4MG INJ IV PRN (23:30)
[2022-09-10] MEDS ORDERED: MAGNESIUM 2GM PREMIX 50ML 50 ML IV ONE (23:30)
[2022-09-11] MEDS: IPRATROPIUM/ALBUTEROL SULFATE 3 ML SOLUTION IH SCH ×3 (01:07→10:06)
[2022-09-11 03:10] VITALS: BP 129/70
[2022-09-11] MEDS: INSULIN HUMULIN R 100 UNIT/ML 3ML SQ SCH (05:50)
[2022-09-11 06:38] LABS: BASOPHILS % (AUTO) 0.4 % (0.0-5.0); EOSINOPHILS % (AUTO) 0.4 % (0.0-8.0); HEMATOCRIT 41.4 % (42-54); LYMPHOCYTES % (AUTO) 14.2 % (21.0-51.0); MEAN CORPUSCULAR HEMOGLOBIN 28.1 pg (27.0-33.0); MEAN CORPUSCULAR HGB CONC 31.6 g/dL (32.0-36.0); MEAN CORPUSCULAR VOLUME 88.7 fL (79-99); MONOCYTES % (AUTO) 8.7 % (3.0-13.0); NEUTROPHILS % (AUTO) 75.5 % (40.0-77.0); PLATELET COUNT (AUTO) 250 K/uL (130-400); RED BLOOD CELL COUNT(AUTO) 4.67 MIL/uL (4.50-6.20); RED CELL DISTRIBUTION WIDTH 15.8 % (11.0-15.5); WHITE BLOOD COUNT (AUTO) 11.2 K/uL (4.8-10.8)
[2022-09-11 06:47] LABS: MAGNESIUM 2.3 mg/dL (1.80-2.40)
[2022-09-11 07:09] LABS: ALBUMIN 3.2 g/dL (3.5-5.0); CREATININE 1.2 mg/dL (0.5-1.5); POTASSIUM 3.8 mmol/L (3.5-5.1); TOTAL PROTEIN, SERUM 6.5 g/dL (6.0-8.3)
[2022-09-11 07:59] VITALS: BP 128/76
[2022-09-11] MEDS ORDERED: ENOXAPARIN SODIUM 40 MG/0.4 ML SYRINGE SQ SCH (09:00)
[2022-09-11] MEDS ORDERED: ASPIRIN 325MG EC TAB PO SCH (09:00)
[2022-09-11] MEDS ORDERED: METOPROLOL SUCCINATE 50 MG TAB.SR.24H PO SCH (09:00)
[2022-09-11] MEDS ORDERED: ASPIRIN 81 MG EC TAB PO SCH (09:00)
[2022-09-11] MEDS ORDERED: NITROFURANTOIN MONOHYD/M-CRYST 100 MG CAPSULE PO SCH (09:00)
[2022-09-11] MEDS ORDERED: FAMOTIDINE 20MG TAB PO SCH (09:00)
[2022-09-11] MEDS ORDERED: CLOPIDOGREL 75MG TAB PO SCH (09:00)
[2022-09-11] MEDS ORDERED: NITR100C PO (09:45)
[2022-09-11] MEDS ORDERED: SIMVASTATIN 20 MG TABLET PO SCH (21:00)
== END 2022-09-11 10:40 | disposition home or self-care (01) ==
LOC: EDH 20:30 → INTOOBSV 23:30 → EDHIP 23:30 → 4CH 09-11 02:50
PROVIDERS: ADMIT Internal Medicine; ATTEND Internal Medicine
DX: I25.110 Atherosclerotic heart disease of native coronary artery with unstable angina pectoris (principal); Z20.822 Contact with and (suspected) exposure to COVID-19; N39.0 Urinary tract infection, site not specified; D72.829 Elevated white blood cell count, unspecified; E83.42 Hypomagnesemia; E78.00 Pure hypercholesterolemia, unspecified; F43.10 Post-traumatic stress disorder, unspecified; G47.33 Obstructive sleep apnea (adult) (pediatric); I11.0 Hypertensive heart disease with heart failure; I50.32 Chronic diastolic (congestive) heart failure; E11.9 Type 2 diabetes mellitus without complications; F41.9 Anxiety disorder, unspecified; Z87.891 Personal history of nicotine dependence; Z79.82 Long term (current) use of aspirin; Z86.73 Personal history of transient ischemic attack (TIA), and cerebral infarction without residual deficits; Z88.0 Allergy status to penicillin; Z99.81 Dependence on supplemental oxygen; Z95.1 Presence of aortocoronary bypass graft; Z79.52 Long term (current) use of systemic steroids; Z79.899 Other long term (current) drug therapy
CPT/HCPCS: 99285; 83036; 83735 ×2; 84484 ×2; 80053 ×2; 83880; 85025 ×2; 85610; 87040 ×2; 87088; 81001; 36415 ×2; 87635; 71045; 93005; 84145; 82550; 83874; 80061; 82948 ×2; 94640 ×3; 94664; G0378 ×11; J0696; J3475; J1650; 96365; 96366; 96367; 96372

== ENCOUNTER → 2022-10-09 | Outpatient (CLI) | payer OTHER ==
[~2022-10-09] MED LIST changes: +IOHEXOL 350 MG/ML 100ML INFUS..BTL IV ONE; +METOPROLOL TARTRATE 1 MG/ML 5ML VIAL IV ONE; +NITR100C PO
== END | disposition home or self-care (01) ==
LOC: RAH 13:18
PROVIDERS: ATTEND Internal Medicine Cardiovascular Disease
DX: K44.9 Diaphragmatic hernia without obstruction or gangrene (principal); I25.10 Atherosclerotic heart disease of native coronary artery without angina pectoris; M47.815 Spondylosis without myelopathy or radiculopathy, thoracolumbar region
CPT/HCPCS: 75574; J3490 ×2; Q9967

== ENCOUNTER 2022-10-19 16:43 | Emergency (ER) | payer OTHER ==
[~2022-10-19] VITALS: Ht 172.7 cm; Wt 76.7 kg
[~2022-10-19 16:43] MED LIST changes: -IOHEXOL 350 MG/ML 100ML INFUS..BTL IV ONE; -METOPROLOL TARTRATE 1 MG/ML 5ML VIAL IV ONE; +ROPI0.2535 PO; -ROPI0.257 PO
[2022-10-19] MEDS ORDERED: FLUORESCEIN SODIUM 1 STRIP STRIP OP SCH (17:30)
[2022-10-19] MEDS ORDERED: TETRACAINE HCL 0.5% 4 ML OPHTH SOLN OU ONE (17:30)
[2022-10-19] MEDS ORDERED: ERYT1OIN7 OP (18:18)
[2022-10-19] MEDS ORDERED: ERYTHROMYCIN BASE 0.5% OPHTH OINT 1 GM TUBE OU ONE (18:30)
[2022-10-19 18:54] VITALS: BP 128/71
== END 2022-10-19 18:55 | disposition home or self-care (01) ==
LOC: EDH 16:43
DX: H10.9 Unspecified conjunctivitis (principal); E11.9 Type 2 diabetes mellitus without complications; I50.9 Heart failure, unspecified; E78.00 Pure hypercholesterolemia, unspecified; I25.10 Atherosclerotic heart disease of native coronary artery without angina pectoris; J44.9 Chronic obstructive pulmonary disease, unspecified; Z79.02 Long term (current) use of antithrombotics/antiplatelets; Z79.4 Long term (current) use of insulin; Z79.51 Long term (current) use of inhaled steroids; Z79.52 Long term (current) use of systemic steroids; Z79.82 Long term (current) use of aspirin; Z79.84 Long term (current) use of oral hypoglycemic drugs; Z79.899 Other long term (current) drug therapy; Z86.73 Personal history of transient ischemic attack (TIA), and cerebral infarction without residual deficits; Z88.0 Allergy status to penicillin; Z95.1 Presence of aortocoronary bypass graft

== ENCOUNTER 2023-02-27 20:51 | Observation (INO) | payer OTHER ==
[~2023-02-27] VITALS: Ht 172.7 cm; Wt 76.3 kg
[~2023-02-27 20:51] MED LIST changes: +ERYT1OIN7 OP
[2023-02-27 21:25] LABS: BASOPHILS # (AUTO) 0.05 K/uL (0.00-0.20); BASOPHILS % (AUTO) 0.2 % (0.0-5.0); EOSINOPHILS # (AUTO) 0.02 K/uL (0.00-0.70); EOSINOPHILS % (AUTO) 0.1 % (0.0-8.0); HEMATOCRIT 45.9 % (42-54); IMMATURE GRANULOCYTE ABSOLUTE 0.17 K/uL (0-1); LYMPHOCYTES # (AUTO) 0.8 K/uL (1.0-4.8); LYMPHOCYTES % (AUTO) 3.6 % (21.0-51.0); MEAN CORPUSCULAR HEMOGLOBIN 28.2 pg (27.0-33.0); MEAN CORPUSCULAR HGB CONC 32.7 g/dL (32.0-36.0); MEAN CORPUSCULAR VOLUME 86.3 fL (79-99); MONOCYTES # (AUTO) 0.9 K/uL (0.1-1.0); MONOCYTES % (AUTO) 4.1 % (3.0-13.0); NEUTROPHILS % (AUTO) 91.2 % (40.0-77.0); PLATELET COUNT (AUTO) 322 K/uL (130-400); RED BLOOD CELL COUNT(AUTO) 5.32 MIL/uL (4.50-6.20); RED CELL DISTRIBUTION WIDTH 16.3 % (11.0-15.5); WHITE BLOOD COUNT (AUTO) 20.8 K/uL (4.8-10.8)
[2023-02-27 21:33] LABS: CREATININE 1.3 mg/dL (0.5-1.5); POTASSIUM 4.5 mmol/L (3.5-5.1)
[2023-02-27 21:35] LABS: INR < 0.93 (0.85-1.15); PROTHROMBIN TIME 10.8 SEC (9.6-11.6)
[2023-02-27 21:40] LABS: MAGNESIUM 1.6 mg/dL (1.80-2.40)
[2023-02-27 21:48] LABS: B-TYPE NATRIURETIC PEPTIDE 50 pg/mL (0-100)
[2023-02-27] MEDS ORDERED: LEVOFLOXACIN 750 MG/D5W 150ML BAG IV ONE (22:00)
[2023-02-27] MEDS ORDERED: 0.9%NACL 1000ML 2,052 ML IV ONE (22:00)
[2023-02-27] MEDS ORDERED: ASPIRIN 325MG TAB PO ONE (22:30)
[2023-02-27 22:49] LABS: PARTIAL THROMBOPLASTIN TIME 25.3 SEC (26.3-35.5)
[2023-02-27] MEDS ORDERED: MAGNESIUM OXIDE 400 MG TABLET PO ONE (23:00)
[2023-02-27 23:02] LABS: ADD UA MICROSCOPIC YES; APPEARANCE,URINE CLEAR (CLEAR); BILIRUBIN,URINE NEGATIVE (NEGATIVE); COLOR,URINE LIGHT-YELLOW (YELLOW); GLUCOSE, URINE (UA) >=1000 mg/dL (NEGATIVE); KETONES,URINE NEGATIVE (NEGATIVE); LEUKOCYTE ESTERASE ,URINE 500 Leu/uL (NEGATIVE); NITRATE,URINE NEGATIVE (NEGATIVE); PROTEIN,URINE NEGATIVE (NEGATIVE); UROBILINOGEN,URINE 0.2 mg/dL (0.2-1.0)
[2023-02-27 23:17] LABS: BACTERIA,URINE RARE /HPF (None Seen); MUCUS,URINE RARE LPF (None Seen); SQUAMOUS EPITHELIAL CELL,UR FEW /HPF (0-2)
[2023-02-27 23:18] LABS: YEAST,URINE BUDDING Rare /HPF (None Seen)
[2023-02-27] MEDS ORDERED: ACETAMINOPHEN 325 MG TAB PO PRN ×2 (23:30)
[2023-02-27] MEDS ORDERED: ONDANSETRON 4MG INJ IV PRN (23:30)
[2023-02-27] MEDS: 0.9%NACL 1000ML 1,000 ML IV SCH (23:39)
[2023-02-28] VITALS (10 sets, daily range): BP systolic 93–126; BP diastolic 45–74; PULSE 72–83; RESP 16–20; O2SAT 98–99
[2023-02-28] MEDS ORDERED: NITROGLYCERIN 0.4 MG SL TAB SL PRN (00:30)
[2023-02-28 05:51] LABS: BASOPHILS # (AUTO) 0.03 K/uL (0.00-0.20); BASOPHILS % (AUTO) 0.2 % (0.0-5.0); EOSINOPHILS # (AUTO) 0.07 K/uL (0.00-0.70); EOSINOPHILS % (AUTO) 0.5 % (0.0-8.0); HEMATOCRIT 43.3 % (42-54); IMMATURE GRANULOCYTE ABSOLUTE 0.09 K/uL (0-1); LYMPHOCYTES # (AUTO) 1.6 K/uL (1.0-4.8); LYMPHOCYTES % (AUTO) 11.8 % (21.0-51.0); MEAN CORPUSCULAR HEMOGLOBIN 27.8 pg (27.0-33.0); MEAN CORPUSCULAR HGB CONC 31.9 g/dL (32.0-36.0); MEAN CORPUSCULAR VOLUME 87.3 fL (79-99); MONOCYTES # (AUTO) 0.9 K/uL (0.1-1.0); MONOCYTES % (AUTO) 6.5 % (3.0-13.0); NEUTROPHILS # (AUTO) 10.6 K/uL (1.8-7.7); NEUTROPHILS % (AUTO) 80.3 % (40.0-77.0); PLATELET COUNT (AUTO) 257 K/uL (130-400); RED BLOOD CELL COUNT(AUTO) 4.96 MIL/uL (4.50-6.20); RED CELL DISTRIBUTION WIDTH 16.3 % (11.0-15.5); WHITE BLOOD COUNT (AUTO) 13.2 K/uL (4.8-10.8)
[2023-02-28] MEDS: INSULIN HUMULIN R 100 UNIT/ML 3ML SQ SCH ×4 (06:00→20:55)
[2023-02-28] MEDS ORDERED: METRONIDAZOLE 500MG/100ML BAG 100 ML IVPB SCH (06:00)
[2023-02-28] MEDS ORDERED: DEXTROSE 50%-WATER 50 ML DISP.SYRIN IV PRN (06:00)
[2023-02-28] MEDS ORDERED: GLUCAGON 1MG KIT 1 MG ML IM PRN (06:00)
[2023-02-28 06:18] LABS: ALBUMIN 3.1 g/dL (3.5-5.0); BILIRUBIN,TOTAL 0.6 mg/dL (0.2-1.0); CREATININE 1.2 mg/dL (0.5-1.5); MAGNESIUM 1.6 mg/dL (1.80-2.40); POTASSIUM 3.6 mmol/L (3.5-5.1); TOTAL PROTEIN, SERUM 6.7 g/dL (6.0-8.3)
[2023-02-28] MEDS ORDERED: ALBUTEROL 0.083% 2.5 MG/3 ML INH IH PRN (08:30)
[2023-02-28] MEDS ORDERED: FLUTICASONE PROPIONATE 50MCG/SPRAY 16 GM BOTTLE EN PRN (09:00)
[2023-02-28] MEDS: TIOTROPIUM BROMIDE 5 MCG IH SCH (09:00)
[2023-02-28] MEDS ORDERED: LEVOFLOXACIN 750 MG/D5W 150 ML 150 ML IV SCH (09:00)
[2023-02-28] MEDS ORDERED: ASPIRIN 81 MG EC TAB PO SCH (09:00)
[2023-02-28] MEDS: INSULIN GLARGINE 100 UNITS/ML 10 ML VIAL SQ SCH (09:00)
[2023-02-28] MEDS: BUSPIRONE HCL 5 MG TABLET PO SCH ×2 (09:19→21:02)
[2023-02-28] MEDS: ROPINIROLE HCL 0.25 MG TABLET PO SCH ×3 (09:19→21:03)
[2023-02-28] MEDS: SERTRALINE HCL 50 MG TABLET PO SCH ×2 (09:20→21:02)
[2023-02-28] MEDS: METOPROLOL SUCCINATE 50 MG TAB.SR.24H PO SCH (09:20)
[2023-02-28] MEDS: FAMOTIDINE 20MG VIAL IV SCH ×2 (09:20→21:01)
[2023-02-28] MEDS: PREDNISONE 20 MG TABLET PO SCH (09:20)
[2023-02-28] MEDS: CLOPIDOGREL 75MG TAB PO SCH (09:20)
[2023-02-28] MEDS: GABAPENTIN 300 MG CAPSULE PO SCH ×3 (09:20→21:02)
[2023-02-28] MEDS: BRIMONIDINE TARTRATE 0.2% 5 ML BOTTLE OU SCH ×2 (09:22→21:05)
[2023-02-28] MEDS: LEVOFLOXACIN 500 MG/D5W 100 ML 100 ML IV SCH (09:22)
[2023-02-28] MEDS: MAGNESIUM 2GM PREMIX 50ML 50 ML IV PRN ×2 (15:42→15:55)
[2023-02-28] MEDS: 0.9%NACL 1000ML 1,000 ML IV SCH (15:56)
[2023-02-28] MEDS ORDERED: LOSARTAN 25 MG TABLET PO SCH (21:00)
[2023-02-28] MEDS ORDERED: LATANOPROST 2.5 ML DROPS OU SCH (21:00)
[2023-03-01] MEDS: 0.9%NACL 1000ML 1,000 ML IV SCH ×2 (01:26→05:30)
[2023-03-01 04:21] VITALS: BP 116/70; PULSE 66; RESP 18
[2023-03-01 04:45] LABS: BASOPHILS # (AUTO) 0.01 K/uL (0.00-0.20); BASOPHILS % (AUTO) 0.1 % (0.0-5.0); EOSINOPHILS # (AUTO) 0.11 K/uL (0.00-0.70); EOSINOPHILS % (AUTO) 1.4 % (0.0-8.0); HEMATOCRIT 41.1 % (42-54); IMMATURE GRANULOCYTE ABSOLUTE 0.08 K/uL (0-1); LYMPHOCYTES # (AUTO) 1.2 K/uL (1.0-4.8); LYMPHOCYTES % (AUTO) 15.2 % (21.0-51.0); MEAN CORPUSCULAR HGB CONC 32.1 g/dL (32.0-36.0); MEAN CORPUSCULAR VOLUME 87.1 fL (79-99); MONOCYTES # (AUTO) 0.9 K/uL (0.1-1.0); NEUTROPHILS # (AUTO) 5.5 K/uL (1.8-7.7); NEUTROPHILS % (AUTO) 71.3 % (40.0-77.0); PLATELET COUNT (AUTO) 219 K/uL (130-400); RED BLOOD CELL COUNT(AUTO) 4.72 MIL/uL (4.50-6.20); RED CELL DISTRIBUTION WIDTH 16.3 % (11.0-15.5); WHITE BLOOD COUNT (AUTO) 7.7 K/uL (4.8-10.8)
[2023-03-01 05:00] LABS: CREATININE 1.2 mg/dL (0.5-1.5); MAGNESIUM 2.2 mg/dL (1.80-2.40); PHOSPHORUS 3.1 mg/dL (2.5-4.9); POTASSIUM 3.8 mmol/L (3.5-5.1)
[2023-03-01] MEDS: INSULIN HUMULIN R 100 UNIT/ML 3ML SQ SCH ×2 (05:57→11:30)
[2023-03-01 07:41] VITALS: PULSE 74; RESP 18; O2SAT 96
[2023-03-01 08:00] VITALS: BP 108/64; PULSE 65; RESP 18; O2SAT 97
[2023-03-01] MEDS: CLOPIDOGREL 75MG TAB PO SCH (08:47)
[2023-03-01] MEDS: LEVOFLOXACIN 500 MG/D5W 100 ML 100 ML IV SCH (08:47)
[2023-03-01] MEDS: BUSPIRONE HCL 5 MG TABLET PO SCH (08:47)
[2023-03-01] MEDS: METOPROLOL SUCCINATE 50 MG TAB.SR.24H PO SCH (08:47)
[2023-03-01] MEDS: ROPINIROLE HCL 0.25 MG TABLET PO SCH ×2 (08:47→14:27)
[2023-03-01] MEDS: PREDNISONE 20 MG TABLET PO SCH (08:47)
[2023-03-01] MEDS: SERTRALINE HCL 50 MG TABLET PO SCH (08:47)
[2023-03-01] MEDS: GABAPENTIN 300 MG CAPSULE PO SCH ×2 (08:47→14:27)
[2023-03-01] MEDS: FAMOTIDINE 20MG VIAL IV SCH (08:48)
[2023-03-01] MEDS: INSULIN GLARGINE 100 UNITS/ML 10 ML VIAL SQ SCH (08:48)
[2023-03-01] MEDS: TIOTROPIUM BROMIDE 5 MCG IH SCH (08:49)
[2023-03-01] MEDS: BRIMONIDINE TARTRATE 0.2% 5 ML BOTTLE OU SCH (08:50)
[2023-03-01 12:00] VITALS: BP 97/58; PULSE 74; RESP 18
[2023-03-01] MEDS ORDERED: LEVO-70 PO (13:58)
== END 2023-03-01 16:15 | disposition home or self-care (01) ==
LOC: EDH 20:51 → EDHIP 23:24 → 3BH 02-28 00:54
PROVIDERS: ADMIT Hospitalist; ATTEND Hospitalist
DX: A41.9 Sepsis, unspecified organism (principal); N39.0 Urinary tract infection, site not specified; E83.42 Hypomagnesemia; D72.829 Elevated white blood cell count, unspecified; E86.0 Dehydration; E11.9 Type 2 diabetes mellitus without complications; I25.10 Atherosclerotic heart disease of native coronary artery without angina pectoris; J44.9 Chronic obstructive pulmonary disease, unspecified; E78.00 Pure hypercholesterolemia, unspecified; I95.1 Orthostatic hypotension; K44.9 Diaphragmatic hernia without obstruction or gangrene; I45.10 Unspecified right bundle-branch block; K21.9 Gastro-esophageal reflux disease without esophagitis; I11.0 Hypertensive heart disease with heart failure; I50.9 Heart failure, unspecified; G47.33 Obstructive sleep apnea (adult) (pediatric); F43.10 Post-traumatic stress disorder, unspecified; Z86.73 Personal history of transient ischemic attack (TIA), and cerebral infarction without residual deficits; Z95.1 Presence of aortocoronary bypass graft; Z88.0 Allergy status to penicillin; Z88.8 Allergy status to other drugs, medicaments and biological substances; Z79.84 Long term (current) use of oral hypoglycemic drugs; Z79.4 Long term (current) use of insulin; Z79.82 Long term (current) use of aspirin
CPT/HCPCS: 96376 ×4; 96361 ×4; 99285; 82550; 83735 ×3; 84484 ×4; 80048 ×2; 83880; 85025 ×3; 85610; 85730; 87040 ×2; 87088; 83605 ×3; 81001; 36415 ×3; 71045; 93005; 96365; 96366; 96375; 96367 ×2; 80053; 82948 ×6; 93880; 97161; 97116 ×2; 94664; 84145; 96372; 84100; 92610; G0378 ×39; J1956 ×3; J3475; J3490 ×4

== ENCOUNTER → 2023-03-18 | Outpatient (CLI) | payer OTHER ==
[~2023-03-18] MED LIST changes: +ALBUTEROL 0.083% 2.5 MG/3 ML INH IH ONE; +ALEN70SO4 PO; +APIX5TAB PO; +CEFD300C3 PO; +CHOLECALCIFEROL; -EMPA25TA PO; -ERYT1OIN7 OP; +ESOM20CA31 PO; +HYDR200T75 PO; +ISOS10TA8 PO; +LEVO-70 PO; -NITR100C PO; +OLME20TA68 PO; +SIMV40TA59 PO; -SIMV80TA91 PO; +SITA50TA PO; +TRAM50TA4 PO
== END | disposition home or self-care (01) ==
LOC: RESP 08:42
PROVIDERS: ATTEND Chiropractor
DX: J44.9 Chronic obstructive pulmonary disease, unspecified (principal); D86.9 Sarcoidosis, unspecified; K44.9 Diaphragmatic hernia without obstruction or gangrene; Z98.890 Other specified postprocedural states
CPT/HCPCS: 71046; 94060

== ENCOUNTER 2023-03-23 18:42 | Emergency (ER) | payer OTHER ==
[~2023-03-23 18:42] MED LIST changes: -ALBUTEROL 0.083% 2.5 MG/3 ML INH IH ONE; -ALEN70SO4 PO; -APIX5TAB PO; -ASPI-1197 PO; -CEFD300C3 PO; -CHOLECALCIFEROL; -ESOM20CA31 PO; -HYDR200T75 PO; -ISOS10TA8 PO; -OLME20TA68 PO; -OMEP40CA21 PO; -SIMV40TA59 PO; -SITA50TA PO; -TRAM50TA4 PO
[2023-03-26] MEDS ORDERED: APIX5TAB PO (21:00)
[2023-03-26] MEDS ORDERED: ALEN70SO4 PO (21:00)
[2023-03-26] MEDS ORDERED: ASPI-1197 PO (21:00)
[2023-03-26] MEDS ORDERED: CEFD300C3 PO (21:00)
[2023-03-26] MEDS ORDERED: CHOLECALCIFEROL (21:00)
[2023-03-26] MEDS ORDERED: TRAM50TA4 PO (21:12)
[2023-03-26] MEDS ORDERED: SIMV40TA59 PO (21:12)
[2023-03-26] MEDS ORDERED: ISOS10TA8 PO (21:12)
[2023-03-26] MEDS ORDERED: OMEP40CA21 PO (21:12)
[2023-03-26] MEDS ORDERED: OLME20TA68 PO (21:12)
[2023-03-26] MEDS ORDERED: HYDR200T75 PO (21:12)
[2023-03-26] MEDS ORDERED: SITA50TA PO (21:12)
[2023-03-26] MEDS ORDERED: ESOM20CA31 PO (21:12)
[2023-03-30] MEDS ORDERED: PRED20TA3 PO (10:08)
== END 2023-03-23 19:11 | disposition left against medical advice (07) ==
LOC: EDH 18:42
DX: R50.9 Fever, unspecified (principal); R06.02 Shortness of breath; Z53.21 Procedure and treatment not carried out due to patient leaving prior to being seen by health care provider

== ENCOUNTER 2023-04-27 23:48 | Emergency (ER) | payer OTHER ==
[~2023-04-27] VITALS: Ht 172.7 cm; Wt 77.1 kg
[~2023-04-27 23:48] MED LIST changes: +ALEN70SO4 PO; +APIX5TAB PO; +ASPI-1197 PO; -BENZ-226 PO; -CLOP-31 PO; +ESOM20CA31 PO; -FERR-72 PO; -FLUT1BLS12 IH; -GABA600T10 PO; +HYDR200T75 PO; -INSU100V12 SQ; -IPRNEB NEB; +ISOS10TA8 PO; -LEVA1.255 IH; -LEVALBUTEROL IH; -LEVO-70 PO; -LOSA25TA41 PO; -METF-446 PO; -METO-391 PO; -NITR0.4T50 SL; +OLME20TA68 PO; -ROPI0.2535 PO; -SEMA1PEN3 SQ; -SERT-440 PO; +SIMV40TA59 PO; -TIOT4MIS5 IH; +TRAM50TA4 PO; -TRIA15CR48 TP; -[UNRECOGNIZED DRUG - CODE] PO; -[UNRECOGNIZED DRUG - OTHER]; -menthol/m-salicylate TP
[2023-04-28] MEDS ORDERED: HYDROCODONE/ACETAMINOPHEN 5/325 MG TAB PO ONE (00:30)
[2023-04-28] MEDS ORDERED: TRAM50TA4 PO (02:23)
[2023-04-28 02:33] VITALS: BP 124/64; PULSE 68; RESP 16; O2SAT 98
== END 2023-04-28 02:34 | disposition home or self-care (01) ==
LOC: EDH 23:48
DX: M79.651 Pain in right thigh (principal); M25.551 Pain in right hip; I10 Essential (primary) hypertension; E11.9 Type 2 diabetes mellitus without complications; E78.00 Pure hypercholesterolemia, unspecified; J44.9 Chronic obstructive pulmonary disease, unspecified; Z79.82 Long term (current) use of aspirin; Z79.899 Other long term (current) drug therapy; Z98.890 Other specified postprocedural states; Z88.0 Allergy status to penicillin; Z91.010 Allergy to peanuts; Z88.8 Allergy status to other drugs, medicaments and biological substances
CPT/HCPCS: 73502; 73552

== ENCOUNTER 2023-07-30 04:00 | Emergency (ER) | payer OTHER ==
[~2023-07-30] VITALS: Ht 172.7 cm; Wt 78.9 kg
[2023-07-30 04:47] LABS: BASOPHILS % (AUTO) 0.4 % (0.0-5.0); EOSINOPHILS # (AUTO) 0.03 K/uL (0.00-0.70); EOSINOPHILS % (AUTO) 0.1 % (0.0-8.0); HEMATOCRIT 48.7 % (42-54); IMMATURE GRANULOCYTE ABSOLUTE 0.27 K/uL (0-1); LYMPHOCYTES # (AUTO) 0.7 K/uL (1.0-4.8); MEAN CORPUSCULAR HEMOGLOBIN 26.2 pg (27.0-33.0); MEAN CORPUSCULAR HGB CONC 31.6 g/dL (32.0-36.0); MEAN CORPUSCULAR VOLUME 82.8 fL (79-99); MONOCYTES # (AUTO) 1.1 K/uL (0.1-1.0); MONOCYTES % (AUTO) 4.3 % (3.0-13.0); NEUTROPHILS # (AUTO) 22.5 K/uL (1.8-7.7); NEUTROPHILS % (AUTO) 91.1 % (40.0-77.0); PLATELET COUNT (AUTO) 327 K/uL (130-400); RED BLOOD CELL COUNT(AUTO) 5.88 MIL/uL (4.50-6.20); RED CELL DISTRIBUTION WIDTH 16.9 % (11.0-15.5); WHITE BLOOD COUNT (AUTO) 24.6 K/uL (4.8-10.8)
[2023-07-30 04:56] LABS: POTASSIUM 5.1 mmol/L (3.5-5.1)
[2023-07-30 05:00] LABS: RAPID GROUP A STREP negative (NEGATIVE)
[2023-07-30] MEDS: LACTATED RINGERS 1000ML 2,052 ML IV ONE (05:01)
[2023-07-30] MEDS: ONDANSETRON 4MG INJ IVP ONE (05:02)
[2023-07-30] MEDS: FAMOTIDINE 20MG VIAL IV ONE (05:02)
[2023-07-30] MEDS: METRONIDAZOLE 500MG/100ML BAG 100 ML IVPB SCH (05:03)
[2023-07-30 05:08] LABS: COVID19 (SARS ANTIGEN RAPID) PRESUMPTIVE NEGATIVE (NEGATIVE); INFLUENZA TYPE A Negative For Type A (NEGATIVE); INFLUENZA TYPE B Negative For Type B (NEGATIVE)
[2023-07-30 06:17] LABS: APPEARANCE,URINE CLOUDY (CLEAR); BILIRUBIN,URINE NEGATIVE (NEGATIVE); COLOR,URINE YELLOW (YELLOW); GLUCOSE, URINE (UA) 50 mg/dL (NEGATIVE); KETONES,URINE NEGATIVE (NEGATIVE); LEUKOCYTE ESTERASE ,URINE 500 Leu/uL (NEGATIVE); NITRATE,URINE NEGATIVE (NEGATIVE); OCCULT BLOOD,URINE SMALL (NEGATIVE); PH,URINE 5.5 (5.0-8.0); PROTEIN,URINE 100 mg/dL (NEGATIVE)
[2023-07-30 06:27] LABS: ADD UA MICROSCOPIC YES
[2023-07-30] MEDS ORDERED: IOHEXOL 350 MG/ML 100ML INFUS..BTL IV ONE (06:36)
[2023-07-30 06:40] LABS: BACTERIA,URINE RARE /HPF (None Seen); MUCUS,URINE RARE LPF (None Seen); OTHER CASTS, URINE 5 /LPF (None Seen); SQUAMOUS EPITHELIAL CELL,UR MOD /HPF (0-2); UNCLASSIFIED CRYSTAL 2 /HPF (None Seen)
[2023-07-30 06:47] LABS: ALBUMIN 4.1 g/dL (3.5-5.0); BILIRUBIN,DIRECT 0.1 mg/dL (0.0-0.3); BILIRUBIN,TOTAL 0.5 mg/dL (0.2-1.0); TOTAL PROTEIN, SERUM 8.4 g/dL (6.0-8.3)
[2023-07-30] MEDS: LEVOFLOXACIN 750 MG/D5W 150ML BAG IV ONE (09:42)
[2023-07-30] MEDS ORDERED: ONDA4TAB10 PO (10:04)
[2023-07-30] MEDS ORDERED: CIPR750T17 PO (10:04)
[2023-07-30] MEDS ORDERED: LOPE2TAB26 PO (10:04)
[2023-07-30 10:34] VITALS: BP 98/56; PULSE 78; RESP 18; O2SAT 100
== END 2023-07-30 10:44 | disposition home or self-care (01) ==
LOC: EDH 04:00
DX: K52.9 Noninfective gastroenteritis and colitis, unspecified (principal); I10 Essential (primary) hypertension; E11.9 Type 2 diabetes mellitus without complications; J44.9 Chronic obstructive pulmonary disease, unspecified; Z20.822 Contact with and (suspected) exposure to COVID-19; Z79.82 Long term (current) use of aspirin; Z79.84 Long term (current) use of oral hypoglycemic drugs; Z79.899 Other long term (current) drug therapy; Z98.890 Other specified postprocedural states; Z88.0 Allergy status to penicillin; Z91.010 Allergy to peanuts; Z88.8 Allergy status to other drugs, medicaments and biological substances
CPT/HCPCS: 99285; 74178; 96365; 96366; 96375; 96367; 87426; 82550; 80076; 80048; 85025; 87077; 87088; 87186; 87880; 87420; 87804 ×2; 83605 ×2; 81001; 36415; J7120; J1956; J2405; J3490; Q9967

== ENCOUNTER 2023-08-05 17:46 | Inpatient (IN) | payer OTHER ==
[~2023-08-05] VITALS: Ht 172.7 cm; Wt 73.8 kg
[~2023-08-05 17:46] MED LIST changes: +CIPR750T17 PO; +LOPE2TAB26 PO; +ONDA4TAB10 PO
[2023-08-05 18:25] LABS: BASOPHILS # (AUTO) 0.02 K/uL (0.00-0.20); BASOPHILS % (AUTO) 0.1 % (0.0-5.0); EOSINOPHILS # (AUTO) 0.01 K/uL (0.00-0.70); EOSINOPHILS % (AUTO) 0.1 % (0.0-8.0); HEMATOCRIT 38.1 % (42-54); IMMATURE GRANULOCYTE ABSOLUTE 0.14 K/uL (0-1); LYMPHOCYTES # (AUTO) 0.8 K/uL (1.0-4.8); LYMPHOCYTES % (AUTO) 5.3 % (21.0-51.0); MEAN CORPUSCULAR HEMOGLOBIN 25.9 pg (27.0-33.0); MEAN CORPUSCULAR HGB CONC 32.3 g/dL (32.0-36.0); MEAN CORPUSCULAR VOLUME 80.4 fL (79-99); MONOCYTES # (AUTO) 0.6 K/uL (0.1-1.0); MONOCYTES % (AUTO) 3.8 % (3.0-13.0); NEUTROPHILS % (AUTO) 89.8 % (40.0-77.0); PLATELET COUNT (AUTO) 271 K/uL (130-400); RED BLOOD CELL COUNT(AUTO) 4.74 MIL/uL (4.50-6.20); RED CELL DISTRIBUTION WIDTH 16.5 % (11.0-15.5); WHITE BLOOD COUNT (AUTO) 15.6 K/uL (4.8-10.8)
[2023-08-05 18:48] LABS: CREATININE 1.3 mg/dL (0.5-1.3); POTASSIUM 3.8 mmol/L (3.5-5.1)
[2023-08-05 18:53] LABS: ALBUMIN 3.3 g/dL (3.5-5.0); BILIRUBIN,TOTAL 0.4 mg/dL (0.2-1.0); TOTAL PROTEIN, SERUM 6.7 g/dL (6.0-8.3)
[2023-08-05 20:18] LABS: APPEARANCE,URINE CLEAR (CLEAR); BILIRUBIN,URINE NEGATIVE (NEGATIVE); COLOR,URINE LIGHT-YELLOW (YELLOW); GLUCOSE, URINE (UA) >=1000 mg/dL (NEGATIVE); KETONES,URINE NEGATIVE (NEGATIVE); LEUKOCYTE ESTERASE ,URINE 500 Leu/uL (NEGATIVE); NITRATE,URINE NEGATIVE (NEGATIVE); OCCULT BLOOD,URINE SMALL (NEGATIVE); PROTEIN,URINE NEGATIVE (NEGATIVE); UROBILINOGEN,URINE 0.2 mg/dL (0.2-1.0)
[2023-08-05 20:19] LABS: ADD UA MICROSCOPIC YES
[2023-08-05 20:25] LABS: BACTERIA,URINE FEW /HPF (None Seen); MUCUS,URINE RARE LPF (None Seen); OTHER CASTS, URINE 1 /LPF (None Seen); SQUAMOUS EPITHELIAL CELL,UR RARE /HPF (0-2); WBC,URINE 26-50 /HPF (0-1); YEAST,URINE BUDDING RARE /HPF (None Seen); YEAST,URINE HYPHAE RARE /HPF (None Seen)
[2023-08-05] MEDS: CEFTRIAXONE 1G VIAL IVPB ONE (21:29)
[2023-08-06] VITALS (8 sets, daily range): BP systolic 114–133; BP diastolic 61–78; PULSE 64–81; RESP 16–20; O2SAT 98–99
[2023-08-06] MEDS ORDERED: ACETAMINOPHEN 325 MG TAB PO PRN ×2
[2023-08-06] MEDS ORDERED: MORPHINE 2 MG SYG IV PRN
[2023-08-06] MEDS ORDERED: NITROGLYCERIN 0.4 MG SL TAB SL PRN
[2023-08-06] MEDS ORDERED: ONDANSETRON 4MG INJ IV PRN
[2023-08-06] MEDS: 0.9%NACL 1000ML 1,000 ML IV SCH (00:26)
[2023-08-06 01:42] LABS: HEMOGLOBIN A1C 7.2 % (4.0-6.0)
[2023-08-06] MEDS: LEVOFLOXACIN 750 MG/D5W 150ML BAG IV SCH (03:42)
[2023-08-06 04:37] LABS: BASOPHILS # (AUTO) 0.01 K/uL (0.00-0.20); BASOPHILS % (AUTO) 0.1 % (0.0-5.0); EOSINOPHILS # (AUTO) 0.07 K/uL (0.00-0.70); EOSINOPHILS % (AUTO) 0.7 % (0.0-8.0); HEMATOCRIT 40.3 % (42-54); IMMATURE GRANULOCYTE ABSOLUTE 0.09 K/uL (0-1); LYMPHOCYTES # (AUTO) 1.8 K/uL (1.0-4.8); LYMPHOCYTES % (AUTO) 16.7 % (21.0-51.0); MEAN CORPUSCULAR HEMOGLOBIN 26.5 pg (27.0-33.0); MEAN CORPUSCULAR HGB CONC 31.5 g/dL (32.0-36.0); MEAN CORPUSCULAR VOLUME 84.1 fL (79-99); MONOCYTES # (AUTO) 0.8 K/uL (0.1-1.0); MONOCYTES % (AUTO) 7.2 % (3.0-13.0); NEUTROPHILS # (AUTO) 7.8 K/uL (1.8-7.7); NEUTROPHILS % (AUTO) 74.4 % (40.0-77.0); PLATELET COUNT (AUTO) 236 K/uL (130-400); RED BLOOD CELL COUNT(AUTO) 4.79 MIL/uL (4.50-6.20); RED CELL DISTRIBUTION WIDTH 16.4 % (11.0-15.5); WHITE BLOOD COUNT (AUTO) 10.5 K/uL (4.8-10.8)
[2023-08-06 05:05] LABS: ALBUMIN 2.8 g/dL (3.5-5.0); BILIRUBIN,TOTAL 0.3 mg/dL (0.2-1.0); CREATININE 1.2 mg/dL (0.5-1.3); POTASSIUM 3.7 mmol/L (3.5-5.1); TOTAL PROTEIN, SERUM 6.3 g/dL (6.0-8.3)
[2023-08-06] MEDS: INSULIN HUMULIN R 100 UNIT/ML 3ML SQ SCH (05:40)
[2023-08-06 06:38] LABS: ERYTHROCYTE SEDIMENTATION RATE 19 MM/HR (0-20)
[2023-08-06] MEDS ORDERED: CHOL-34 PO (07:00)
[2023-08-06] MEDS ORDERED: LOSA25TA41 PO (07:00)
[2023-08-06] MEDS ORDERED: INSU100V51 SQ (07:00)
[2023-08-06] MEDS ORDERED: TIOT18CA3 IH (07:00)
[2023-08-06] MEDS ORDERED: METO-391 PO (07:00)
[2023-08-06] MEDS ORDERED: SERT-440 PO (07:00)
[2023-08-06] MEDS ORDERED: LACT-461 PO (07:00)
[2023-08-06] MEDS ORDERED: FLUT1BLS12 IH (07:00)
[2023-08-06] MEDS ORDERED: FOLI0.8T43 PO (07:00)
[2023-08-06] MEDS ORDERED: FAMO40TA7 PO (07:00)
[2023-08-06] MEDS ORDERED: ROSU20TA73 PO (07:00)
[2023-08-06] MEDS ORDERED: PANT40TA54 PO (07:00)
[2023-08-06] MEDS ORDERED: ROPI0.2535 PO (07:00)
[2023-08-06] MEDS ORDERED: LATA2.5D14 OP (07:00)
[2023-08-06] MEDS ORDERED: CICL15CR15 TP (07:00)
[2023-08-06] MEDS ORDERED: MENT120C2 TP (07:00)
[2023-08-06] MEDS ORDERED: SEMA1PEN3 SQ (07:00)
[2023-08-06] MEDS ORDERED: LEVA15HF3 IH (07:00)
[2023-08-06] MEDS ORDERED: IPRA0.2S54 IH (07:00)
[2023-08-06] MEDS ORDERED: METF-446 PO (07:00)
[2023-08-06] MEDS ORDERED: CLOP75TA32 PO (07:00)
[2023-08-06] MEDS ORDERED: PSYL0.4C7 PO (07:00)
[2023-08-06] MEDS ORDERED: EMPA25TA PO (07:00)
[2023-08-06] MEDS ORDERED: CEFTRIAXONE 1G VIAL 1 GM in 0.9%NACL 50ML 50 ML IV SCH (09:00)
[2023-08-06] MEDS: INSULIN GLARGINE 100 UNITS/ML 10 ML VIAL SQ SCH (09:00)
[2023-08-06] MEDS: CLOPIDOGREL 75MG TAB PO SCH (09:04)
[2023-08-06] MEDS: PREDNISONE 20 MG TABLET PO SCH (09:04)
[2023-08-06] MEDS: METOPROLOL SUCCINATE 50 MG TAB.SR.24H PO SCH (09:04)
[2023-08-06] MEDS: LOSARTAN 25 MG TABLET PO SCH (09:04)
[2023-08-06] MEDS: CEFTRIAXONE 1G VIAL IVPB SCH (09:04)
[2023-08-06] MEDS: FAMOTIDINE 20MG VIAL IV SCH (09:04)
[2023-08-06] MEDS: ENOXAPARIN SODIUM 30 MG/0.3 ML SQ SCH (09:04)
[2023-08-06] MEDS: APIXABAN 5 MG TABLET PO SCH (19:51)
[2023-08-07 03:33] VITALS: BP 118/74; PULSE 64; RESP 18
[2023-08-07 04:54] LABS: BASOPHILS # (AUTO) 0.03 K/uL (0.00-0.20); BASOPHILS % (AUTO) 0.3 % (0.0-5.0); EOSINOPHILS % (AUTO) 0.9 % (0.0-8.0); HEMATOCRIT 38.3 % (42-54); LYMPHOCYTES % (AUTO) 18.8 % (21.0-51.0); MEAN CORPUSCULAR HGB CONC 32.9 g/dL (32.0-36.0); MEAN CORPUSCULAR VOLUME 82.2 fL (79-99); MONOCYTES # (AUTO) 0.8 K/uL (0.1-1.0); MONOCYTES % (AUTO) 7.4 % (3.0-13.0); NEUTROPHILS # (AUTO) 7.8 K/uL (1.8-7.7); NEUTROPHILS % (AUTO) 71.7 % (40.0-77.0); PLATELET COUNT (AUTO) 245 K/uL (130-400); RED BLOOD CELL COUNT(AUTO) 4.66 MIL/uL (4.50-6.20); RED CELL DISTRIBUTION WIDTH 16.8 % (11.0-15.5); WHITE BLOOD COUNT (AUTO) 10.9 K/uL (4.8-10.8)
[2023-08-07 05:13] LABS: CREATININE 1.1 mg/dL (0.5-1.3); MAGNESIUM 1.7 mg/dL (1.80-2.40); POTASSIUM 3.4 mmol/L (3.5-5.1)
[2023-08-07] MEDS: KCL 20 MEQ ERTAB PO ONE (05:57)
[2023-08-07] MEDS: MAGNESIUM 2GM PREMIX 50ML 50 ML IV ONE (05:57)
[2023-08-07] MEDS ORDERED: POTASSIUM CHLORIDE 20MEQ/100ML 100 ML IV PRN (06:00)
[2023-08-07] MEDS ORDERED: POTASSIUM CHLORIDE 10% ELIXIR 20 MEQ/15 ML UDCUP PO PRN (06:00)
[2023-08-07] MEDS ORDERED: MAGNESIUM 2GM PREMIX 50ML 50 ML IV PRN (06:00)
[2023-08-07 07:54] VITALS: BP 132/77; PULSE 84; RESP 18
[2023-08-07] MEDS ORDERED: CIPR500T10 PO (07:55)
[2023-08-07] MEDS: KCL 20 MEQ ERTAB PO PRN (09:11)
[2023-08-07 10:30] VITALS: O2SAT 99
[2023-08-07] MEDS ORDERED: NITR100C PO (11:00)
== END 2023-08-07 12:34 | disposition home or self-care (01) | DRG 638 ==
LOC: EDH 17:46 → EDHIP 23:52 → 4CH 08-06 01:32
PROVIDERS: ADMIT Internal Medicine; ATTEND Internal Medicine
DX: E11.65 Type 2 diabetes mellitus with hyperglycemia (principal); D68.59 Other primary thrombophilia; N39.0 Urinary tract infection, site not specified; E44.1 Mild protein-calorie malnutrition; J96.11 Chronic respiratory failure with hypoxia; I50.32 Chronic diastolic (congestive) heart failure; D84.9 Immunodeficiency, unspecified; I24.9 Acute ischemic heart disease, unspecified; D86.0 Sarcoidosis of lung; G47.33 Obstructive sleep apnea (adult) (pediatric); R07.89 Other chest pain; J44.9 Chronic obstructive pulmonary disease, unspecified; E78.5 Hyperlipidemia, unspecified; F43.10 Post-traumatic stress disorder, unspecified; I11.0 Hypertensive heart disease with heart failure; T38.0X5A Adverse effect of glucocorticoids and synthetic analogues, initial encounter; I25.10 Atherosclerotic heart disease of native coronary artery without angina pectoris; Z99.81 Dependence on supplemental oxygen; Z95.1 Presence of aortocoronary bypass graft; I25.2 Old myocardial infarction; Z88.0 Allergy status to penicillin; Z79.01 Long term (current) use of anticoagulants; Z79.4 Long term (current) use of insulin; Z79.52 Long term (current) use of systemic steroids; Z86.73 Personal history of transient ischemic attack (TIA), and cerebral infarction without residual deficits; Y92.89 Other specified places as the place of occurrence of the external cause; Z79.899 Other long term (current) drug therapy; Z68.24 Body mass index [BMI] 24.0-24.9, adult
CPT/HCPCS: 36415; 71045; 76705; 80048; 80053; 81001; 82948; 83036; 83735; 84484; 85025; 85651; 87088; 93005; 93306; 96365; G0378; J0696; J1650; J1956; J3475; J3490; J7030

== ENCOUNTER 2023-11-21 13:28 | Emergency (ER) | payer OTHER ==
[~2023-11-21] VITALS: Ht 172.7 cm; Wt 54.4 kg
[~2023-11-21 13:28] MED LIST changes: -ALEN70SO4 PO; -ASPI-1197 PO; -BRIM5DRO5 OU; +CHOL-34 PO; +CICL15CR15 TP; -CIPR750T17 PO; +CLOP75TA32 PO; -DORZ10DR19 OU; +EMPA25TA PO; -ESOM20CA31 PO; +FAMO40TA7 PO; +FLUT1BLS12 IH; -FOLI0.8T41 PO; +FOLI0.8T43 PO; -HYDR200T75 PO; +INSU100V51 SQ; +IPRA0.2S54 IH; -ISOS10TA8 PO; +LACT-461 PO; +LATA2.5D14 OP; +LEVA15HF3 IH; -LOPE2TAB26 PO; +LOSA25TA41 PO; +MENT120C2 TP; +METF-446 PO; +METO-391 PO; +NITR100C PO; -OLME20TA68 PO; -ONDA4TAB10 PO; +PANT40TA54 PO; -PRED20TA3 PO; +PSYL0.4C7 PO; +ROPI0.2535 PO; +ROSU20TA73 PO; +SEMA1PEN3 SQ; +SERT-440 PO; -SIMV40TA59 PO; +TIOT18CA3 IH; -TRAM50TA4 PO; -XALA2.5OS OU
[2023-11-21 14:41] LABS: BASOPHILS # (AUTO) 0.07 K/uL (0.00-0.20); BASOPHILS % (AUTO) 0.5 % (0.0-5.0); EOSINOPHILS # (AUTO) 0.04 K/uL (0.00-0.70); EOSINOPHILS % (AUTO) 0.3 % (0.0-8.0); HEMATOCRIT 49.8 % (42-54); IMMATURE GRANULOCYTE ABSOLUTE 0.08 K/uL (0-1); LYMPHOCYTES # (AUTO) 0.7 K/uL (1.0-4.8); LYMPHOCYTES % (AUTO) 4.4 % (21.0-51.0); MEAN CORPUSCULAR HEMOGLOBIN 28.4 pg (27.0-33.0); MEAN CORPUSCULAR HGB CONC 32.7 g/dL (32.0-36.0); MEAN CORPUSCULAR VOLUME 86.8 fL (79-99); MONOCYTES # (AUTO) 0.7 K/uL (0.1-1.0); MONOCYTES % (AUTO) 4.8 % (3.0-13.0); NEUTROPHILS # (AUTO) 13.5 K/uL (1.8-7.7); NEUTROPHILS % (AUTO) 89.5 % (40.0-77.0); PLATELET COUNT (AUTO) 215 K/uL (130-400); RED BLOOD CELL COUNT(AUTO) 5.74 MIL/uL (4.50-6.20); WHITE BLOOD COUNT (AUTO) 15.1 K/uL (4.8-10.8)
[2023-11-21 14:51] LABS: CREATININE 1.5 mg/dL (0.5-1.3); POTASSIUM 4.5 mmol/L (3.5-5.1)
[2023-11-21 14:55] LABS: ALBUMIN 3.5 g/dL (3.5-5.0); BILIRUBIN,TOTAL 0.3 mg/dL (0.2-1.0); TOTAL PROTEIN, SERUM 7.4 g/dL (6.0-8.3)
[2023-11-21 15:06] LABS: BAND NEUTROPHILS % (MANUAL) 24 % (0-2); LYMPHOCYTES % (MANUAL) 7 % (22-44); MAN.DIFF COMMENT-IMPRESSION MANUAL DIFFERENTIAL; MONOCYTES % (MANUAL) 2 % (2-9); PLATELET MORPHOLOGY COMMENT ADEQUATE; SEGMENTED NEUTROPHILS % 67 % (40-70); TOTAL CELLS COUNTED 100
[2023-11-21 15:07] LABS: WBC MORPHOLOGY CONSISTENT W/DIFF
[2023-11-21 16:30] LABS: ADD UA MICROSCOPIC YES; APPEARANCE,URINE CLEAR (CLEAR); BILIRUBIN,URINE NEGATIVE (NEGATIVE); COLOR,URINE YELLOW (YELLOW); GLUCOSE, URINE (UA) >=1000 mg/dL (NEGATIVE); KETONES,URINE NEGATIVE (NEGATIVE); LEUKOCYTE ESTERASE ,URINE 75 Leu/uL (NEGATIVE); NITRATE,URINE NEGATIVE (NEGATIVE); PH,URINE 5.5 (5.0-8.0); PROTEIN,URINE 30 mg/dL (NEGATIVE); UROBILINOGEN,URINE 0.2 mg/dL (0.2-1.0)
[2023-11-21 16:32] LABS: BACTERIA,URINE FEW /HPF (None Seen); MUCUS,URINE RARE LPF (None Seen); SQUAMOUS EPITHELIAL CELL,UR FEW /HPF (0-2)
[2023-11-21] MEDS: DiphenhydrAMINE HCL 50 MG/ML VIAL ONE (18:51)
[2023-11-21] MEDS: EPINEPHRINE PF 1MG (1:1,000) 1 MG/ML AMP ONE (18:51)
[2023-11-21] MEDS: SOLU-MEDROL 125MG VIAL ONE (18:51)
[2023-11-21] MEDS: ONDANSETRON 4MG INJ IV ONE (18:56)
[2023-11-21] MEDS: 0.9%NACL 1000ML 1,000 ML IV ONE (18:56)
[2023-11-21] MEDS: DEXAMETHASONE SOD PHOSPHATE 4 MG/ML 1ML VIAL IVP ONE (18:56)
[2023-11-21] MEDS ORDERED: LEVOFLOXACIN 500 MG/D5W 100 ML 100 ML IV ONE (19:00)
[2023-11-21] MEDS: METRONIDAZOLE 500MG/100ML BAG IV SCH (19:05)
[2023-11-21 19:30] VITALS: BP 100/55; PULSE 97; RESP 18; O2SAT 98
[2023-11-21] MEDS ORDERED: METR-172 PO (19:35)
[2023-11-21] MEDS ORDERED: CIPR-278 PO (19:35)
[2023-11-21] MEDS ORDERED: PROM25TA7 PO (19:35)
== END 2023-11-21 20:03 | disposition home or self-care (01) ==
LOC: EDH 13:28
DX: A09 Infectious gastroenteritis and colitis, unspecified (principal); D86.0 Sarcoidosis of lung; I25.10 Atherosclerotic heart disease of native coronary artery without angina pectoris; J44.9 Chronic obstructive pulmonary disease, unspecified; E11.9 Type 2 diabetes mellitus without complications; E78.00 Pure hypercholesterolemia, unspecified; I10 Essential (primary) hypertension; Z88.0 Allergy status to penicillin; Z88.8 Allergy status to other drugs, medicaments and biological substances; Z91.010 Allergy to peanuts; Z79.2 Long term (current) use of antibiotics; Z79.899 Other long term (current) drug therapy; Z79.4 Long term (current) use of insulin; Z79.84 Long term (current) use of oral hypoglycemic drugs; Z79.01 Long term (current) use of anticoagulants; Z79.02 Long term (current) use of antithrombotics/antiplatelets; Z95.1 Presence of aortocoronary bypass graft; Z86.73 Personal history of transient ischemic attack (TIA), and cerebral infarction without residual deficits; Z98.890 Other specified postprocedural states; Z86.711 Personal history of pulmonary embolism; R11.2 Nausea with vomiting, unspecified
CPT/HCPCS: 99285; 74176; 96365; 96375; 80053; 83690; 85025; 87086; 81001; 36415; J1100; J1200; J7030; J2919; J0171; J2405; J3490; 96374

== ENCOUNTER 2023-12-16 09:22 | Day surgery (SDC) | payer OTHER ==
[~2023-12-16] VITALS: Ht 172.7 cm; Wt 75.7 kg
[2023-12-16] VITALS (17 sets, daily range): BP systolic 102–122; BP diastolic 43–66; PULSE 84–94; RESP 14–18; TEMP 98.1–98.4
[~2023-12-16 09:22] MED LIST changes: +CIPR-278 PO; +METR-172 PO; +PROM25TA7 PO
[2023-12-16] MEDS: 0.9%NACL 1000ML 1,000 ML IV ONE (11:52)
[2023-12-16] MEDS ORDERED: proPOFol 10 MG/ML 20ML VIAL IV ONE ×2 (12:18)
[2023-12-16] MEDS ORDERED: TIOT4MIS2 IH (12:28)
[2023-12-16] MEDS ORDERED: INSU100V12 SQ (12:28)
[2023-12-16] MEDS ORDERED: LEVAHFA IH (12:28)
[2023-12-16] MEDS ORDERED: MAGN400T51 PO (12:28)
[2023-12-16] MEDS ORDERED: GABA-1405 PO (12:28)
[2023-12-16] MEDS ORDERED: PRED20TA3 PO (12:28)
[2023-12-16] MEDS ORDERED: MULT-1367 PO (12:28)
[2023-12-17] MEDS ORDERED: LEVO750T68 PO (01:13)
== END 2023-12-16 15:05 | disposition home or self-care (01) ==
LOC: DAH 09:22 → ENDO 09:22
PROVIDERS: ATTEND Internal Medicine Gastroenterology
DX: R19.5 Other fecal abnormalities (principal); K57.30 Diverticulosis of large intestine without perforation or abscess without bleeding; K29.50 Unspecified chronic gastritis without bleeding; K44.9 Diaphragmatic hernia without obstruction or gangrene; K21.9 Gastro-esophageal reflux disease without esophagitis; K29.80 Duodenitis without bleeding; J44.9 Chronic obstructive pulmonary disease, unspecified; R93.421 Abnormal radiologic findings on diagnostic imaging of right kidney; I48.91 Unspecified atrial fibrillation; E78.5 Hyperlipidemia, unspecified; K76.0 Fatty (change of) liver, not elsewhere classified; D86.0 Sarcoidosis of lung; F41.9 Anxiety disorder, unspecified; F32.A Depression, unspecified; K26.9 Duodenal ulcer, unspecified as acute or chronic, without hemorrhage or perforation; E11.9 Type 2 diabetes mellitus without complications; I25.2 Old myocardial infarction; R15.9 Full incontinence of feces; Z86.73 Personal history of transient ischemic attack (TIA), and cerebral infarction without residual deficits; Z95.1 Presence of aortocoronary bypass graft; Z88.0 Allergy status to penicillin; Z79.84 Long term (current) use of oral hypoglycemic drugs; Z79.01 Long term (current) use of anticoagulants; Z79.899 Other long term (current) drug therapy
CPT/HCPCS: 82948 ×2; 43239; 45378; J7030 ×2; J2704 ×2; A4620; A7002; 44394; J3490

== ENCOUNTER 2023-12-16 16:18 | Emergency (ER) | payer OTHER ==
[~2023-12-16] VITALS: Ht 172.7 cm; Wt 81.6 kg
[~2023-12-16 16:18] MED LIST changes: +GABA-1405 PO; +INSU100V12 SQ; +LEVAHFA IH; +MAGN400T51 PO; +MULT-1367 PO; +PRED20TA3 PO; +TIOT4MIS2 IH
[2023-12-16 17:19] LABS: BASOPHILS # (AUTO) 0.02 K/uL (0.00-0.20); BASOPHILS % (AUTO) 0.1 % (0.0-5.0); EOSINOPHILS % (AUTO) 1.3 % (0.0-8.0); HEMATOCRIT 44.2 % (42-54); IMMATURE GRANULOCYTE ABSOLUTE 0.06 K/uL (0-1); LYMPHOCYTES # (AUTO) 1.1 K/uL (1.0-4.8); LYMPHOCYTES % (AUTO) 7.3 % (21.0-51.0); MEAN CORPUSCULAR HEMOGLOBIN 28.6 pg (27.0-33.0); MEAN CORPUSCULAR VOLUME 86.5 fL (79-99); MONOCYTES % (AUTO) 6.7 % (3.0-13.0); NEUTROPHILS # (AUTO) 12.6 K/uL (1.8-7.7); NEUTROPHILS % (AUTO) 84.2 % (40.0-77.0); PLATELET COUNT (AUTO) 164 K/uL (130-400); RED BLOOD CELL COUNT(AUTO) 5.11 MIL/uL (4.50-6.20); RED CELL DISTRIBUTION WIDTH 16.9 % (11.0-15.5)
[2023-12-16 17:28] LABS: CREATININE 1.1 mg/dL (0.5-1.3); POTASSIUM 3.7 mmol/L (3.5-5.1)
[2023-12-16] MEDS: ceFEPime HCL 1 GM VIAL IVPB STA (19:21)
[2023-12-16 20:38] LABS: APPEARANCE,URINE CLEAR (CLEAR); BILIRUBIN,URINE NEGATIVE (NEGATIVE); COLOR,URINE LIGHT-YELLOW (YELLOW); GLUCOSE, URINE (UA) 30 mg/dL (NEGATIVE); KETONES,URINE 20 mg/dL (NEGATIVE); LEUKOCYTE ESTERASE ,URINE 75 Leu/uL (NEGATIVE); NITRATE,URINE NEGATIVE (NEGATIVE); PROTEIN,URINE NEGATIVE (NEGATIVE); UROBILINOGEN,URINE 0.2 mg/dL (0.2-1.0)
[2023-12-16 20:39] LABS: ADD UA MICROSCOPIC YES
[2023-12-16 20:44] LABS: MUCUS,URINE RARE LPF (None Seen); SQUAMOUS EPITHELIAL CELL,UR FEW /HPF (0-2)
[2023-12-16] MEDS: morPHINE 4 MG SYG IVP ONE (23:04)
[2023-12-17] MEDS ORDERED: LEVO750T68 PO (01:13)
[2023-12-17] MEDS: levoFLOXacin 500 MG TABLET PO SCH (01:20)
[2023-12-17 01:22] VITALS: BP 124/66; PULSE 74; RESP 20; TEMP 98.2; O2SAT 97
== END 2023-12-17 01:24 | disposition home or self-care (01) ==
LOC: EDH 16:18
DX: J18.9 Pneumonia, unspecified organism (principal); J44.0 Chronic obstructive pulmonary disease with (acute) lower respiratory infection; I10 Essential (primary) hypertension; E11.9 Type 2 diabetes mellitus without complications; I48.91 Unspecified atrial fibrillation; K44.9 Diaphragmatic hernia without obstruction or gangrene; Z79.84 Long term (current) use of oral hypoglycemic drugs; Z79.899 Other long term (current) drug therapy; Z98.890 Other specified postprocedural states; Z88.0 Allergy status to penicillin; Z91.018 Allergy to other foods; Z95.1 Presence of aortocoronary bypass graft; Z86.73 Personal history of transient ischemic attack (TIA), and cerebral infarction without residual deficits; Z88.8 Allergy status to other drugs, medicaments and biological substances
CPT/HCPCS: 99285; 71250; 96365; 71045; 96375; 84484; 80048; 83690; 85025; 85378; 87040; 87086; 83605 ×2; 81001; 36415; 74018; 74177; 93005; J2270; J0692

== ENCOUNTER 2024-04-06 12:33 | Inpatient (IN) | payer MEDICARE, OTHER ==
[~2024-04-06] VITALS: Ht 172.7 cm; Wt 78.0 kg
[~2024-04-06 12:33] MED LIST changes: -APIX5TAB PO; -CARB15DR81 OU; -CICL15CR15 TP; -CIPR-278 PO; -FOLI0.8T43 PO; -INSU100V51 SQ; -LATA2.5D14 OP; -LEVA15HF3 IH; +LEVA15HF6 IH; -LEVAHFA IH; +LEVO-70 PO; +LEVO750T68 PO; -MENT120C2 TP; -METR-172 PO; -NITR100C PO; -PROM25TA7 PO; -PSYL0.4C7 PO; -ROSU20TA73 PO; +ROSU20TA98 PO; -SEMA1PEN3 SQ; -TIOT18CA3 IH
--- NOTE | 2024-04-06 13:14 | ERN ---
General Chief Complaint: Nausea,Vomiting,Diarrhea Stated Complaint: VOMITING, UNABLE TO KEEP ANYTHING DOWN Time Seen by MD: 12:34 History of Present Illness Initial Comments 63-year-old male presents to the ED for evaluation of vomiting times 10 onset this morning. Patient reports weakness and 2 episodes of diarrhea, but denies any abdominal pain or any other associated symptoms at this time. Patient states he and his ate the same thing yesterday but only he is on the got sick. Allergies: Coded Allergies: atorvastatin (Verified Allergy, Severe, RASH, 10/15/17) Penicillins (Verified Allergy, Unknown, 12/22/14) peanut (Unverified Allergy, Unknown, 03/26/23) Home Meds Active Scripts Levofloxacin (Levofloxacin) 500 Mg Tablet, 1 TAB PO DAILY for 5 Days, #5 TAB 0 Refills Prov:BRAYDEN PEREZ MD 02/28/24 Levofloxacin (Levaquin 750Mg Tabs) 750 Mg Tablet, 750 MG PO DAILY for pneumonia for 7 Days, #7 TAB Prov:PAUL GOMEZ MD 12/17/23 Reported Medications Insulin Detemir (Levemir) 100 Unit/Ml Vial, 35 UNIT SQ DAILY, VIAL 12/16/23 Levalbuterol Tartrate (Xopenex Hfa) 45 Mcg/Actuation Hfa.aer.ad, 15 GM IH DAILY 12/16/23 Tiotropium [place] (Spiriva Respimat) 2.5 Mcg/Actuation Mist.inhal, 4 GM IH DAILY 12/16/23 Gabapentin (Gabapentin) 600 Mg Tablet, 600 MG PO TID, TAB 12/16/23 Magnesium Oxide (Magnesium Oxide) 400 Mg Magnesium Tablet, 400 MG PO QODAY, TAB 12/16/23 Prednisone (Prednisone) 20 Mg Tablet, 20 MG PO DAILY, TAB 12/16/23 Multivitamin (Multivitamin) 1 Each Tablet, 1 EACH PO DAILY, TAB 12/16/23 Sertraline HCl (Sertraline HCl) 100 Mg Tablet, 100 MG PO DAILY, TAB 08/06/23 Rosuvastatin Calcium (Rosuvastatin Calcium) 20 Mg Tablet, 20 MG PO HS, TAB 08/06/23 Ropinirole HCl (Ropinirole HCl) 0.25 Mg Tablet, 0.25 MG PO TID, TAB 08/06/23 Pantoprazole Sodium (Pantoprazole Sodium) 40 Mg Tablet.dr, 40 MG PO DAILY, TAB 08/06/23 Metoprolol Succinate (Metoprolol Succinate) 50 Mg Tab.er.24h, 50 MG PO DAILY, TAB 08/06/23 Metformin HCl (Metformin HCl) 1,000 Mg Tablet, 1000 MG PO BID, TAB 08/06/23 Losartan Potassium (Losartan Potassium) 25 Mg Tablet, 25 MG PO DAILY, TAB 08/06/23 Lactobacillus Acidophilus (Lactobacillus Acidophilus) 25 Million Cell Capsule, 1 EACH PO DAILY, CAP 08/06/23 Ipratropium [place] (Ipratropium [place]) 0.2 Mg/Ml (0.02 %) Solution, 0.2 MG IH Q6HPRN PRN for BREATHING, ML 08/06/23 Fluticasone Propion/Salmeterol (Fluticasone-Salmeterol 250-50) 250 Mcg-50 Mcg/Dose Blst.w.dev, 1 EACH IH BID 08/06/23 Famotidine (Famotidine) 40 Mg Tablet, 40 MG PO DAILY, TAB 08/06/23 Empagliflozin (Jardiance) 25 Mg Tablet, 25 MG PO DAILY, TAB 08/06/23 Clopidogrel Bisulfate (Clopidogrel) 75 Mg Tablet, 75 MG PO DAILY, TAB 08/06/23 Cholecalciferol (Vitamin D3) (Vitamin D3) 25 Mcg (1000 Unit) Tablet, 25 MCG PO DAILY, TAB 08/06/23 Cyanocobalamin (Vitamin B-12) (B-12) 1,000 Mcg Tablet.er, 1000 MCG PO DAILY, TAB 09/03/22 Buspirone HCl (Buspirone HCl) 15 Mg Tablet, 15 MG PO BID, TAB 09/03/22 Past Medical History Past Medical History: COPD, CVA, Diabetes-Type II, Hypertension Medical History Other: SARCODOSIS, P.E., CVA 2003,PTSD Past Surgical History: Other Surgical History Other: HERNIA, LYMPH NODE REMOVAL Family History Family History: Negative Social History Social History: Negative, Lives with family ROS Dictation Constitutional: Positive for weakness Negative for fever,chills, and weight loss Eyes: Negative for injury, pain,redness, and discharge ENT: Negative for injury,pain or swelling Cardiovascular: Negative for chest pain, palpitations, and edema Respiratory: Negative for shortness of breath, cough, and wheezing, Abdomen/GI: Positive for nausea, vomiting, diarrhea negative for abdominal pain Back: Negative for injury and pain : Negative for injury, bleeding and discharge MS/Extremity: Negative for injury and deformity Skin: Negative for rash, and discoloration Neuro: Negative for headache, weakness, numbness, tingling, and seizure Psych: Negative for suicide ideation, homicidal ideation, and hallucinations Physical Exam Physical Exam Dictation General: awake, alert, NAD Head/Face: Normocephalic, atraumatic Eyes: PERRL, EOMI, vision at baseline ENT: oral cavity clear, TMs clear, no signs of infection Neck: Trachea midline, supple, no nuchal rigidity Cardiovascular: RRR, normal S1/S2, No MRGs, no JVD Respiratory: CTAB, no respiratory distress, No rales or wheezes Abdomen: Soft, non-tender, non-distended, normal bowel sounds, no guarding or rebound. Skin: Warm, dry, normal turgor, no rash MS/Extremity: Pulses equal, no cyanosis, neurovascular intact, FROM Neuro: COAx4, GCS 15, strength 5/5, CN 2-12 intact, normal cerebellar exam, normal gait, Psych: Normal behavior, mood, and affect normal Results Laboratory and Microbiology Lab and Micro Result Laboratory Tests Test 04/06/24 13:34 04/06/24 13:37 04/06/24 13:45 04/06/24 14:25 White Blood Count 19.1 K/uL (4.8-10.8) H Red Blood Count 5.63 MIL/uL (4.50-6.20) Hemoglobin 16.2 g/dL (14.0-18.0) Hematocrit 50.6 % (42-54) Mean Corpuscular Volume 89.9 fL (79-99) Mean Corpuscular Hemoglobin 28.8 pg (27.0-33.0) Mean Corpuscular Hemoglobin Concent 32.0 g/dL (32.0-36.0) Red Cell Distribution Width 15.0 % (11.0-15.5) Platelet Count 225 K/uL (130-400) Mean Platelet Volume 9.6 fL (7.5-10.5) Immature Granulocyte % (Auto) 0.5 % (0-1) Neutrophils (%) (Auto) 88.3 % (40.0-77.0) H Lymphocytes (%) (Auto) 5.2 % (21.0-51.0) L Monocytes (%) (Auto) 4.9 % (3.0-13.0) Eosinophils (%) (Auto) 0.8 % (0.0-8.0) Basophils (%) (Auto) 0.3 % (0.0-5.0) Neutrophils # (Auto) 16.9 K/uL (1.8-7.7) H Lymphocytes # (Auto) 1.0 K/uL (1.0-4.8) Monocytes # (Auto) 0.9 K/uL (0.1-1.0) Eosinophils # (Auto) 0.15 K/uL (0.00-0.70) Basophils # (Auto) 0.05 K/uL (0.00-0.20) Absolute Immature Granulocyte (auto 0.10 K/uL (0-1) Nucleated Red Blood Cells 0.0 % (0.0-0.19) White Cell Morphology Comment See comments Sodium Level 140 mmol/L (136-145) Potassium Level 4.1 mmol/L (3.5-5.1) Chloride Level 103 mmol/L (101-111) Carbon Dioxide Level 31 mmol/L (21-32) Blood Urea Nitrogen 25 mg/dL (7-18) H Creatinine 1.4 mg/dL (0.5-1.3) H Glomerular Filtration Rate Calc 56 mL/min (>90) Random Glucose 134 mg/dL (70-105) H Total Calcium 9.5 mg/dL (8.5-10.1) Total Bilirubin 0.6 mg/dL (0.2-1.0) Aspartate Amino Transf (AST/SGOT) 20 U/L (10-37) Alanine Aminotransferase (ALT/SGPT) 46 U/L (12-78) Alkaline Phosphatase 55 U/L (50-136) Total Creatine Kinase 90 U/L (21-232) # 88 U/L (21-232) Troponin I High Sensitivity 9 ng/L (4-75) 8 ng/L (4-75) Total Protein 7.3 g/dL (6.0-8.3) Albumin 3.8 g/dL (3.5-5.0) Lipase 100 U/L (16-77) H Influenza Type A Antigen Negative For Type A Influenza Type B Antigen Negative For Type B SARS-CoV-2, RNA, NAAT NEGATIVE SARS CoV-2 Group A Streptococcus Rapid negative (NEGATIVE) Urine Color YELLOW (YELLOW) Urine Appearance CLEAR (CLEAR) Urine pH 5.5 (5.0-8.0) Urine Specific [place] 1.035 (1.001-1.031) Urine Protein 20 mg/dL (NEGATIVE) H Urine Glucose (UA) >=1000 mg/dL (NEGATIVE) H Urine Ketones 10 mg/dL (NEGATIVE) H Urine Occult Blood SMALL (NEGATIVE) H Urine Nitrate NEGATIVE (NEGATIVE) Urine Bilirubin NEGATIVE mg/dL (NEGATIVE) Urine Urobilinogen 0.2 mg/dL (0.2-1.0) Urine Leukocyte Esterase 25 Kary/uL (NEGATIVE) H Urine RBC 6-10 /HPF (0-1) H Urine WBC 2-5 /HPF (0-1) H Urine Squamous Epithelial Cells RARE /HPF (0-2) Urine Bacteria RARE /HPF (None Seen) Lactic Acid Level 2.7 mmol/L (0.8-2.5) H Labs Reviewed?: Yes EKG/XRAY/US/CT/MRI EKG Comment EKG 04/06/2024 time 1:29 p.m. ventricular rate 103, CT 123, QRS D 108 QT 355. Sinus tachycardia, abnormal T consider ischemia, lateral leads. No STEMI X-RAY Comment REASON: cp ORDERING PHYSICIAN: EVELIN YUSUF MD PROCEDURE: CXR1VW - CHEST 1VW CHEST 1VW HISTORY: Chest pain COMPARISON: 02/25/2024 FINDINGS: A frontal projection of the chest was obtained. No acute pulmonary infiltrates is seen. The heart is borderline enlarged. Degenerative changes are seen. Retrocardiac density seen may be related to hiatal hernia. Degenerative changes are seen. Aortic calcifications are seen. IMPRESSION: 1. No acute pulmonary infiltrate is seen. DICTATED BY: JASON PASTOR MD DATE: 04/06/24 9139 MDM MDM: Differential diagnosis: Food poisoning, sepsis, gastroenteritis, vomiting, dehydration Previous outside records reviewed: Old ER visits. Need for hospitalization: Patient does meet criteria for hospitalization. Need for emergency major/minor surgery: No Patient's prior external medical records from other ER visits were reviewed by me as indicated. Prior testing and results from previous visits were reviewed. Prior tests were taken into account with medical decision making and resource utilization, independent historian/historians were used to obtain complete medical history. I independently interpreted the test that were performed, results were reviewed by me and considered findings on radiology if ordered. Medical management and examination interpretation discussions were had by me with other qualified healthcare professionals as indicated for the patient's care. I attest that I performed a sepsis focused exam including review of vitals, cardiopulmonary exam, capillary refill evaluation, peripheral pulse evaluation and Skin exam. 1900-patient care is being transferred to ED Course Orders Procedure Category Date Status Time Cbc With Differential LAB 04/06/24 Complete 13:04 Comprehensive LAB 04/06/24 Complete Metabolic Panel 13:04 Troponin I High LAB 04/06/24 Complete Sensitivity 13:04 Urinalysis Profile LAB 04/06/24 Complete 13:04 12 Lead Ekg Tracing- EKG 04/06/24 Resulted Technical 13:04 Lactated Ringers PHA 04/06/24 Complete 1000ml (Lactated 13:30 Creatine Kinase, Total LAB 04/06/24 Complete 13:04 Chest 1vw RAD 04/06/24 Resulted 13:04 Lipase LAB 04/06/24 Complete 13:04 Basic Metabolic Panel LAB 04/06/24 Complete 13:04 Covid Rna Naat LAB 04/06/24 Complete 13:04 Influenza Type A & B, LAB 04/06/24 Complete Rapid 13:04 Rapid (Group A Strep) LAB 04/06/24 Complete 13:04 Blood Cult ANGEL 04/06/24 In Process 14:07 0.9%Nacl 1000ml (Ns PHA 04/06/24 Complete 1000ml) 14:30 Creatine Kinase, Total LAB 04/06/24 Complete 14:07 Troponin I High LAB 04/06/24 Complete Sensitivity 14:07 Lactic Acid LAB 04/06/24 Complete 14:07 Lactic Acid (Removed) LAB 04/06/24 Logged 17:39 Levofloxacin 500 PHA 04/06/24 In Process Mg/D5w 100 Ml 18:31 Current Medications Medications (Trade) Dose Ordered Sig/Michael Route PRN Reason Start Time Stop Time Status Last Admin Dose Admin Lactated Ringer's 1,000 ml @ 0 mls/hr ONCE ONCE IV 04/06/24 13:30 04/06/24 13:31 DC Levofloxacin/ Dextrose 100 ml @ 100 mls/hr Q24H STAT IV 04/06/24 18:31 04/06/24 19:30 Sodium Chloride 2,328 ml @ 776 mls/hr ONCE ONCE IV 04/06/24 14:30 04/06/24 17:29 DC Vital Signs Date Time Temp Pulse Resp B/P (MAP) Pulse Ox O2 Delivery O2 Flow Rate FiO2 04/06/24 13:05 98.1 107 20 152/75 100 Room Air 0 Critical Care Note Critical Time: other (Total critical care time was 33 minutes. Excluding time for procedures. Management of critically ill patient with concern for acute decompensation. Management included interpretation of laboratory values and imaging, hemodynamics, time for consultation with consultants and admitting physician.) DX & DISP Disposition: Other(Comment) (CARE TRANSITIONED TO DR. PADILLA) Decision to Admit Date: Apr 06, 2024 Decision to Admit Time: 18:26 Departure Impression: Primary Impression: Sepsis Condition: Stable Referrals: BONY MITCHELL MD (PCP) I have reviewed, & agreed with my scribe's, documentation. (Entered by Nava Barbour, acting as a scribe for Dr. Yusuf) I personally scribed for EVELIN YUSUF MD (TRIP) on 04/06/24 at 13:14. Electronically submitted by Nava Barbour (Appature). I personally scribed for EVELIN YUSUF MD (TRIP) on 04/06/24 at 13:58. Electronically submitted by Nava Barbour (Appature). I personally scribed for EVELIN YUSUF MD (TRIP) on 04/06/24 at 14:41. Electronically submitted by Nava Barbour (Appature). I personally scribed for EVELIN YUSUF MD (TRIP) on 04/06/24 at 16:05. E lectronically submitted by Nava Barbour (Appature). I personally scribed for EVELIN YUSUF MD) on 04/06/24 at 18:26. Electronically submitted by Nava Barbour (Appature). I personally scribed for EVELIN YUSUF MD (TRIP) on 04/06/24 at 18:45. Electronically submitted by Nava Barbour ([email or web address]). EVELIN YUSUF MD Apr 06, 2024 13:14
[2024-04-06] MEDS: LACTATED RINGERS 1000ML 1,000 ML IV ONE (13:30)
--- NOTE | 2024-04-06 13:32 | EKG ---
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
[2024-04-06 13:55] LABS: BASOPHILS # (AUTO) 0.05 K/uL (0.00-0.20); BASOPHILS % (AUTO) 0.3 % (0.0-5.0); EOSINOPHILS # (AUTO) 0.15 K/uL (0.00-0.70); EOSINOPHILS % (AUTO) 0.8 % (0.0-8.0); HEMATOCRIT 50.6 % (42-54); LYMPHOCYTES % (AUTO) 5.2 % (21.0-51.0); MEAN CORPUSCULAR HEMOGLOBIN 28.8 pg (27.0-33.0); MEAN CORPUSCULAR VOLUME 89.9 fL (79-99); MONOCYTES # (AUTO) 0.9 K/uL (0.1-1.0); MONOCYTES % (AUTO) 4.9 % (3.0-13.0); NEUTROPHILS # (AUTO) 16.9 K/uL (1.8-7.7); NEUTROPHILS % (AUTO) 88.3 % (40.0-77.0); PLATELET COUNT (AUTO) 225 K/uL (130-400); RED BLOOD CELL COUNT(AUTO) 5.63 MIL/uL (4.50-6.20); WHITE BLOOD COUNT (AUTO) 19.1 K/uL (4.8-10.8)
--- NOTE | 2024-04-06 13:58 | HMCIMG ---
CHEST 1VW HISTORY: Chest pain COMPARISON: 02/25/2024 FINDINGS: A frontal projection of the chest was obtained. No acute pulmonary infiltrates is seen. The heart is borderline enlarged. Degenerative changes are seen. Retrocardiac density seen may be related to hiatal hernia. Degenerative changes are seen. Aortic calcifications are seen. IMPRESSION: 1. No acute pulmonary infiltrate is seen.
[2024-04-06 14:18] LABS: RAPID GROUP A STREP negative (NEGATIVE)
[2024-04-06 14:22] LABS: SARS-CoV-2, RNA, NAAT NEGATIVE SARS CoV-2 (NEGATIVE)
[2024-04-06 14:24] LABS: ADD UA MICROSCOPIC YES; APPEARANCE,URINE CLEAR (CLEAR); BILIRUBIN,URINE NEGATIVE (NEGATIVE); COLOR,URINE YELLOW (YELLOW); GLUCOSE, URINE (UA) >=1000 mg/dL (NEGATIVE); KETONES,URINE 10 mg/dL (NEGATIVE); LEUKOCYTE ESTERASE ,URINE 25 Leu/uL (NEGATIVE); NITRATE,URINE NEGATIVE (NEGATIVE); OCCULT BLOOD,URINE SMALL (NEGATIVE); PH,URINE 5.5 (5.0-8.0); PROTEIN,URINE 20 mg/dL (NEGATIVE); UROBILINOGEN,URINE 0.2 mg/dL (0.2-1.0)
[2024-04-06 14:25] LABS: CREATININE 1.4 mg/dL (0.5-1.3); POTASSIUM 4.1 mmol/L (3.5-5.1)
[2024-04-06 14:28] LABS: INFLUENZA TYPE A Negative For Type A (NEGATIVE); INFLUENZA TYPE B Negative For Type B (NEGATIVE)
[2024-04-06 14:29] LABS: BACTERIA,URINE RARE /HPF (None Seen); MUCUS,URINE RARE LPF (None Seen); SQUAMOUS EPITHELIAL CELL,UR RARE /HPF (0-2)
[2024-04-06 14:35] LABS: ALBUMIN 3.8 g/dL (3.5-5.0); BILIRUBIN,TOTAL 0.6 mg/dL (0.2-1.0); TOTAL PROTEIN, SERUM 7.3 g/dL (6.0-8.3)
[2024-04-06] MEDS: levoFLOXacin 500 MG/D5W 100 ML 100 ML IV STA (19:19)
[2024-04-06] MEDS: 0.9%NACL 1000ML 2,328 ML IV ONE (19:19)
[2024-04-06] MEDS ORDERED: hydrALAZine 20MG/ML VIAL IV PRN (22:30)
[2024-04-06] MEDS ORDERED: GLUCAGON 1MG KIT 1 MG ML IM PRN (22:30)
[2024-04-06] MEDS: levoFLOXacin 500 MG/D5W 100 ML 100 ML IV SCH (22:30)
[2024-04-06] MEDS ORDERED: PoTASSium chloRIDE 20MEQ/100ML 100 ML IV PRN (22:30)
[2024-04-06] MEDS ORDERED: ondanSETRON 4MG INJ IV PRN (22:30)
[2024-04-06] MEDS ORDERED: DEXTROSE 50%-WATER 50 ML DISP.SYRIN IV PRN (22:30)
--- NOTE | 2024-04-06 22:36 | HP ---
[facility] HISTORY AND PHYSICAL Date of Service: Apr 06, 2024 Time of Service: 21:56 PCP: Dr. Lyons from [place] HISTORY OF PRESENT ILLNESS: This is a 63-year-old male with past medical history of hypertension, diabetes, hyperlipidemia, Chronic obstructive pulmonary disease on home O2, pulmonary sarcoidosis, obstructive sleep apnea on CPAP at home, pulmonary embolism, CVA 2002 and coronary artery disease with CABG x3 who presents to the ED for complaints of nausea and persistent vomiting more than 10 episodes which started around 0700 am today.Patient states he had a chicken salad sandwich last night for dinner together with his and was doing okay until today after waking up he feels nauseated and started vomiting every 10-15 minutes he said and he can feel the soreness on his abdomen he said due to vomiting.Patient states he had soft stool x 2 today and it was dark in color .Patient reports he was on Eliquis before for his P.E but was already stopped 5 months ago and now he is on Plavix.Patient was recently admitted here in this facility for shortness of breath and acute kidney injury and was discharged home on 02/28/2024 and so far he was doing okay until this morning he said. Patient had a CT chest without contrast done previously on 12/17/2023 showed a large hiatal hernia. Seen and examined patient in the ED awake,alert and coherent.Patient appears comfortable.Patient states he feels much better as of now he said.Patient denies,fever,chills,abdominal pain,dysuria,diarrhea,chest pain,palpitation,cough and shortness of breath. Latest vital signs temperature 97.9, heart rate 84, blood pressure 122/66 and saturation 100% on room air. Labs: WBC 19.1 with neg. ative left shift of neutrophils 88.3. BUN 25, creatinine 1.4, GFR 56, glucose 134, lactic acid 2.7 to 2.1 lipase 100. Urinalysis positive with esterase RBC 10 WBC. Influenza a and B negative, SARs COVID negative, with strep throat negative. Chest x-ray is unremarkable. While in the ER patient was given with resuscitation of NS at 30 mL/kilogram over 3 hours, 1 L LR and Levaquin IV. We will admit patient for further medical management. REVIEW OF SYSTEMS CONSTITUTIONAL: Denies fevers, chills, or night sweats. No unintentional weight loss reported. NEUROLOGICAL: Denies headache, amaurosis fugax, motor weakness, sensory deficit, vertigo/spinning sensation, gait abnormalities, or tremors. ENT: No hearing loss, otalgia, otorrhea, rhinitis, rhinorrhea, hoarseness, or sore throat. CARDIOVASCULAR: Denies any exertional angina, dyspnea on exertion, orthopnea, paroxysmal nocturnal dyspnea, palpitations, life-threatening arrhythmias, claudication. PULMONARY: Denies any shortness of breath, cough, phlegm/sputum, hemoptysis, pleuritic chest pain. SLEEP: Denies morning headaches, daytime somnolence or napping. Denies difficulty falling asleep, staying asleep, waking from sleep. Denies knowledge of snoring. GASTROINTESTINAL: Complain of nausea and vomiting with dark stool Denies any type of dysphagia to either liquids or solids. Denies pyrosis, early satiety, abdominal pain, diarrhea, constipation, or changes in stool consistency or caliber. Denies coffee-ground emesis, hematemesis, hematochezia. GENITOURINARY: Denies frequency, urgency, nocturia, hematuria or incontinence (Storage/Irritative symptoms.) Low urinary stream, straining to void, urinary intermittency or hesitancy, splitting of the voiding stream, terminal dribbling. ENDOCRINOLOGIC: Denies polyuria, polydipsia, polyphagia or heat/cold intolerances. HEMATOLOGIC: Denies thrombophilia/previous clots, or coagulopathy/bleeding disorders. ONCOLOGIC: Denies personal history of malignancy. DERMATOLOGIC: Denies rashes or pruritus. PSYCHIATRIC: Denies any suicidal or homicidal ideation. Denies hallucinations. PAST MEDICAL HISTORY: [ CVA 2003 , PTSD, Hypertension, diabetes, hyperlipidemia, Chronic obstructive pulmonary disease, pulmonary sarcoidosis, sleep sleep apnea on CPAP, on oxygen at home 2 L , pulmonary embolism and coronary artery disease ] PAST SURGICAL HISTORY: [ EGD, colonoscopy, CABG x3, bilateral inguinal hernia repair, lymph node removal to left neck ] PAST SOCIAL HISTORY: [Patient lives with . Patient denies alcohol tobacco and recreational drug use ] FAMILY HISTORY: [Noncontributory ] Coded Allergies: atorvastatin (Verified Allergy, Severe, RASH, 10/15/17) Penicillins (Verified Allergy, Unknown, 12/22/14) peanut (Unverified Allergy, Unknown, 03/26/23) PHYSICAL EXAM GENERAL APPEARANCE: The patient is awake, alert, and oriented, in no acute cardiopulmonary distress. NEUROLOGICAL: Cranial nerves II-XII grossly intact. Motor is 5/5 in bilateral upper and lower extremities proximal to distal. No sensory deficits. HEENT: Face is symmetric. Pupils are equal and reactive. Extraocular movements are intact. NECK: Supple. No JVD. No thyromegaly. No submental, submandibular, pre- /postauricular, occipital or supraclavicular lymphadenopathy. CHEST: Normal chest expansion. No Telemetry. LUNGS: Absence of any rales, rhonchi or any wheezing. CARDIOVASCULAR: Regular. S1 and S2 normal. No appreciable rubs, murmurs or gallops. ABDOMEN: Soft, nontender, and nondistended. There is no rebound, voluntary guarding, or rigidity. : Deferred. No Pantoja. EXTREMITIES: Non-edematous and not cyanotic. No clubbing. Good capillary refill. SKIN: No skin breakdown. Vital Sign (Last 24 Hours) 04/06/24 19:30 Temp 97.9 Pulse 84 Resp 18 B/P (MAP) 122/66 Pulse Ox 100 O2 Delivery Room Air* O2 Flow Rate 0 FiO2 21 LABS: Laboratory: Test 04/06/24 19:05 04/06/24 14:25 04/06/24 13:45 04/06/24 13:37 Range/Units Lactic Acid Level 2.1 0.8-2.5 mmol/L Total Creatine Kinase 88 21-232 U/L Troponin I High Sensitivity 8 4-75 ng/L Urine Color YELLOW YELLOW Urine Appearance CLEAR CLEAR Urine pH 5.5 5.0-8.0 Urine Specific [place] 1.035 H 1.001-1.031 Urine Protein 20 H NEGATIVE mg/dL Urine Glucose (UA) >=1000 H NEGATIVE mg/dL Urine Ketones 10 H NEGATIVE mg/dL Urine Occult Blood SMALL H NEGATIVE Urine Nitrate NEGATIVE NEGATIVE Urine Bilirubin NEGATIVE NEGATIVE mg/dL Urine Urobilinogen 0.2 0.2-1.0 mg/dL Urine Leukocyte Esterase 25 H NEGATIVE Kary/uL Urine RBC 6-10 H 0-1 /HPF Urine WBC 2-5 H 0-1 /HPF Urine Squamous Epithelial Cells RARE 0-2 /HPF Urine Bacteria RARE None Seen /HPF Influenza Type A Antigen Negative For Type A NEGATIVE Influenza Type B Antigen Negative For Type B NEGATIVE SARS-CoV-2, RNA, NAAT NEGATIVE SARS CoV-2 NEGATIVE Group A Streptococcus Rapid negative NEGATIVE Test 04/06/24 13:34 Range/Units White Blood Count 19.1 H 4.8-10.8 K/uL Red Blood Count 5.63 4.50-6.20 MIL/uL Hemoglobin 16.2 14.0-18.0 g/dL Hematocrit 50.6 42-54 % Mean Corpuscular Volume 89.9 79-99 fL Mean Corpuscular Hemoglobin 28.8 27.0-33.0 pg Mean Corpuscular Hemoglobin Concent 32.0 32.0-36.0 g/dL Red Cell Distribution Width 15.0 11.0-15.5 % Platelet Count 225 130-400 K/uL Mean Platelet Volume 9.6 7.5-10.5 fL Immature Granulocyte % (Auto) 0.5 0-1 % Neutrophils (%) (Auto) 88.3 H 40.0-77.0 % Lymphocytes (%) (Auto) 5.2 L 21.0-51.0 % Monocytes (%) (Auto) 4.9 3.0-13.0 % Eosinophils (%) (Auto) 0.8 0.0-8.0 % Basophils (%) (Auto) 0.3 0.0-5.0 % Neutrophils # (Auto) 16.9 H 1.8-7.7 K/uL Lymphocytes # (Auto) 1.0 1.0-4.8 K/uL Monocytes # (Auto) 0.9 0.1-1.0 K/uL Eosinophils # (Auto) 0.15 0.00-0.70 K/uL Basophils # (Auto) 0.05 0.00-0.20 K/uL Absolute Immature Granulocyte (auto 0.10 0-1 K/uL Nucleated Red Blood Cells 0.0 0.0-0.19 % White Cell Morphology Comment See comments Sodium Level 140 136-145 mmol/L Potassium Level 4.1 3.5-5.1 mmol/L Chloride Level 103 101-111 mmol/L Carbon Dioxide Level 31 21-32 mmol/L Blood Urea Nitrogen 25 H 7-18 mg/dL Creatinine 1.4 H 0.5-1.3 mg/dL Glomerular Filtration Rate Calc 56 >90 mL/min Random Glucose 134 H 70-105 mg/dL Total Calcium 9.5 8.5-10.1 mg/dL Total Bilirubin 0.6 0.2-1.0 mg/dL Aspartate Amino Transf (AST/SGOT) 20 10-37 U/L Alanine Aminotransferase (ALT/SGPT) 46 12-78 U/L Alkaline Phosphatase 55 50-136 U/L Total Protein 7.3 6.0-8.3 g/dL Albumin 3.8 3.5-5.0 g/dL Lipase 100 H 16-77 U/L Current Medications Medications (Trade) Dose Ordered Sig/Michael Route PRN Reason Start Time Stop Time Status Last Admin Dose Admin Levofloxacin/ Dextrose 100 ml @ 100 mls/hr Q24H STAT IV 04/06/24 18:31 04/06/24 19:30 DC 04/06/24 19:19 100 MLS/HR DIAGNOSTICS / RADIOLOGY: [ ] ASSESSMENT: Sepsis due to UTI POA Acute urinary tract infection POA Acute kidney injury POA Diabetes POA Elevated lipase POA Hypertension POA Hyperlipidemia POA Intractable nausea and vomiting POA Large hiatal hernia per CT on 12/17/2023 POA Coronary artery disease with CABG x3 PLAN: We will admit patient in medical floor We will keep patient nothing by mouth We will start NS @ 100 ml / hr x2 bags and re evaluate We will continue on Levaquin 500 mg IV daily for empiric coverage We will start on Protonix 40 mg IV daily for GI prophylaxis We will replace electrolytes as needed per protocol We will start on insulin sliding scale AC & HS with hypoglycemia protocol We will add prn medication for fever,pain,nausea and vomiting We will reconcile home meds once medlist available We will obtain fecal occult blood x1 We will request labs in am Further orders to follow depending on above results Case discussed with attending physician and came up with above treatment and plan of care ADVANCED CARE PLANNING 1. Which of the following were discussed? Hospice Care - No Therapeutic options - Yes Advance Directives - No Other discussions - 2. Discussed with who? Patient 3. Voluntary nature of this service was explained to the patient? Yes 4. Amount of time spent - __20 5. Reviewed by Physician? (if this service was performed by NPP) Yes Patient seen and examined by me. Agree with note by PICKLE PUMPER SEE ADDITIONAL ORDERS PER CHART DISCUSSED WITH NURSING STAFF RACIEL WAGONERP Apr 06, 2024 22:36
[2024-04-07] VITALS (9 sets, daily range): BP systolic 124–136; BP diastolic 60–74; PULSE 69–77; RESP 18–20; TEMP 97.7–98.4; O2SAT 98–99
[2024-04-07] MEDS: 0.9%NACL 1000ML 1,000 ML IV SCH (01:52)
[2024-04-07 07:01] LABS: BASOPHILS # (AUTO) 0.01 K/uL (0.00-0.20); BASOPHILS % (AUTO) 0.1 % (0.0-5.0); EOSINOPHILS # (AUTO) 0.18 K/uL (0.00-0.70); EOSINOPHILS % (AUTO) 2.1 % (0.0-8.0); HEMATOCRIT 42.5 % (42-54); IMMATURE GRANULOCYTE ABSOLUTE 0.04 K/uL (0-1); LYMPHOCYTES # (AUTO) 1.7 K/uL (1.0-4.8); LYMPHOCYTES % (AUTO) 19.9 % (21.0-51.0); MEAN CORPUSCULAR HEMOGLOBIN 28.8 pg (27.0-33.0); MEAN CORPUSCULAR HGB CONC 31.8 g/dL (32.0-36.0); MEAN CORPUSCULAR VOLUME 90.8 fL (79-99); MONOCYTES # (AUTO) 0.7 K/uL (0.1-1.0); MONOCYTES % (AUTO) 8.5 % (3.0-13.0); NEUTROPHILS % (AUTO) 68.9 % (40.0-77.0); PLATELET COUNT (AUTO) 165 K/uL (130-400); RED BLOOD CELL COUNT(AUTO) 4.68 MIL/uL (4.50-6.20); RED CELL DISTRIBUTION WIDTH 15.3 % (11.0-15.5); WHITE BLOOD COUNT (AUTO) 8.7 K/uL (4.8-10.8)
[2024-04-07 07:20] LABS: ALBUMIN 2.8 g/dL (3.5-5.0); BILIRUBIN,TOTAL 0.5 mg/dL (0.2-1.0); CREATININE 1.1 mg/dL (0.5-1.3); MAGNESIUM 1.8 mg/dL (1.80-2.40); POTASSIUM 3.7 mmol/L (3.5-5.1); TOTAL PROTEIN, SERUM 5.5 g/dL (6.0-8.3)
[2024-04-07 07:22] LABS: HEMOGLOBIN A1C 6.8 % (4.0-6.0)
[2024-04-07] MEDS: INSULIN humuLIN R 100 UNIT/ML 3ML SQ SCH (07:30)
[2024-04-07] MEDS: PANTOPrazole 40 MG/VIAL IVP SCH (09:17)
[2024-04-07] MEDS ORDERED: METO-408 PO (10:56)
[2024-04-07] MEDS ORDERED: FOLI0.4T6 PO (10:56)
[2024-04-07] MEDS ORDERED: FAMOTIDINE 20 MG PO PRN (11:00)
--- NOTE | 2024-04-07 11:09 | PN ---
[facility] PROGRESS NOTE Date of Service: Apr 07, 2024 Time of Service: 10:48 SUBJECTIVE: [63 year old male presented to the ED as he has "not been able to keep anything down." Today, he was evaluated in the ED room 5, patient offers no complaints. Advance his diet to clear liquid today as his blood sugar is downtrending. Continue with IV antibiotics, currently on Levaquin. ] REVIEW OF SYSTEMS CONSTITUTIONAL: Denies fevers, chills, or night sweats. No unintentional weight loss reported. NEUROLOGICAL: Denies headache, amaurosis fugax, motor weakness, sensory deficit, vertigo/spinning sensation, gait abnormalities, or tremors. ENT: No hearing loss, otalgia, otorrhea, rhinitis, rhinorrhea, hoarseness, or sore throat. CARDIOVASCULAR: Denies any exertional angina, dyspnea on exertion, orthopnea, paroxysmal nocturnal dyspnea, palpitations, life-threatening arrhythmias, claudication. PULMONARY: Denies any shortness of breath, cough, phlegm/sputum, hemoptysis, pleuritic chest pain. SLEEP: Denies morning headaches, daytime somnolence or napping. Denies difficulty falling asleep, staying asleep, waking from sleep. Denies knowledge of snoring. GASTROINTESTINAL: Complain of nausea and vomiting with dark stool Denies any type of dysphagia to either liquids or solids. Denies pyrosis, early satiety, abdominal pain, diarrhea, constipation, or changes in stool consistency or caliber. Denies coffee-ground emesis, hematemesis, hematochezia. GENITOURINARY: Denies frequency, urgency, nocturia, hematuria or incontinence (Storage/Irritative symptoms.) Low urinary stream, straining to void, urinary intermittency or hesitancy, splitting of the voiding stream, terminal dribbling. ENDOCRINOLOGIC: Denies polyuria, polydipsia, polyphagia or heat/cold intolerances. HEMATOLOGIC: Denies thrombophilia/previous clots, or coagulopathy/bleeding disorders. ONCOLOGIC: Denies personal history of malignancy. DERMATOLOGIC: Denies rashes or pruritus. PSYCHIATRIC: Denies any suicidal or homicidal ideation. Denies hallucinations. PHYSICAL EXAM GENERAL APPEARANCE: The patient is awake, alert, and oriented, in no acute cardiopulmonary distress. NEUROLOGICAL: Cranial nerves II-XII grossly intact. Motor is 5/5 in bilateral upper and lower extremities proximal to distal. No sensory deficits. HEENT: Face is symmetric. Pupils are equal and reactive. Extraocular movements are intact. NECK: Supple. No JVD. No thyromegaly. No submental, submandibular, pre- /postauricular, occipital or supraclavicular lymphadenopathy. CHEST: Normal chest expansion. No Telemetry. LUNGS: Absence of any rales, rhonchi or any wheezing. CARDIOVASCULAR: Regular. S1 and S2 normal. No appreciable rubs, murmurs or gallops. ABDOMEN: Soft, nontender, and nondistended. There is no rebound, voluntary guarding, or rigidity. : Deferred. No Pantoja. EXTREMITIES: Non-edematous and not cyanotic. No clubbing. Good capillary refill. SKIN: No skin breakdown. Vital Signs (last 8hr) Date Time Temp Pulse Resp B/P (MAP) Pulse Ox O2 Delivery O2 Flow Rate FiO2 04/07/24 07:44 97.9 69 18 124/60 98 Room Air 21 04/07/24 05:30 97.7 70 18 116/78 98 Room Air* 0 21 LABS: Laboratory: Test 04/07/24 06:45 04/06/24 14:25 04/06/24 13:45 04/06/24 13:37 Range/Units White Blood Count 8.7 # 4.8-10.8 K/uL Red Blood Count 4.68 4.50-6.20 MIL/uL Hemoglobin 13.5 L 14.0-18.0 g/dL Hematocrit 42.5 42-54 % Mean Corpuscular Volume 90.8 79-99 fL Mean Corpuscular Hemoglobin 28.8 27.0-33.0 pg Mean Corpuscular Hemoglobin Concent 31.8 L 32.0-36.0 g/dL Red Cell Distribution Width 15.3 11.0-15.5 % Platelet Count 165 # 130-400 K/uL Mean Platelet Volume 9.8 7.5-10.5 fL Immature Granulocyte % (Auto) 0.5 0-1 % Neutrophils (%) (Auto) 68.9 40.0-77.0 % Lymphocytes (%) (Auto) 19.9 L 21.0-51.0 % Monocytes (%) (Auto) 8.5 3.0-13.0 % Eosinophils (%) (Auto) 2.1 0.0-8.0 % Basophils (%) (Auto) 0.1 0.0-5.0 % Neutrophils # (Auto) 6.0 1.8-7.7 K/uL Lymphocytes # (Auto) 1.7 1.0-4.8 K/uL Monocytes # (Auto) 0.7 0.1-1.0 K/uL Eosinophils # (Auto) 0.18 0.00-0.70 K/uL Basophils # (Auto) 0.01 0.00-0.20 K/uL Absolute Immature Granulocyte (auto 0.04 0-1 K/uL Nucleated Red Blood Cells 0.0 0.0-0.19 % Sodium Level 148 H 136-145 mmol/L Potassium Level 3.7 3.5-5.1 mmol/L Chloride Level 114 H 101-111 mmol/L Carbon Dioxide Level 28 21-32 mmol/L Blood Urea Nitrogen 13 7-18 mg/dL Creatinine 1.1 0.5-1.3 mg/dL Glomerular Filtration Rate Calc 75 >90 mL/min Random Glucose 73 70-105 mg/dL Hemoglobin A1c 6.8 H 4.0-6.0 % Estimated Average Glucose (eAG) 148 H 70-126 mg/dL Lactic Acid Level 1.4 0.8-2.5 mmol/L Total Calcium 7.8 L 8.5-10.1 mg/dL Magnesium Level 1.80 1.80-2.40 mg/dL Total Bilirubin 0.5 0.2-1.0 mg/dL Aspartate Amino Transf (AST/SGOT) 15 10-37 U/L Alanine Aminotransferase (ALT/SGPT) 28 # 12-78 U/L Alkaline Phosphatase 40 #L 50-136 U/L Total Protein 5.5 #L 6.0-8.3 g/dL Albumin 2.8 #L 3.5-5.0 g/dL Triglycerides Level 77 30-200 mg/dL Cholesterol Level 92 # <200 mg/dL LDL Cholesterol 44 0-99 mg/dL HDL Cholesterol 40 29-71 mg/dL Procalcitonin 0.35 0.05-0.5 ng/mL Total Creatine Kinase 88 21-232 U/L Troponin I High Sensitivity 8 4-75 ng/L Urine Color YELLOW YELLOW Urine Appearance CLEAR CLEAR Urine pH 5.5 5.0-8.0 Urine Specific [place] 1.035 H 1.001-1.031 Urine Protein 20 H NEGATIVE mg/dL Urine Glucose (UA) >=1000 H NEGATIVE mg/dL Urine Ketones 10 H NEGATIVE mg/dL Urine Occult Blood SMALL H NEGATIVE Urine Nitrate NEGATIVE NEGATIVE Urine Bilirubin NEGATIVE NEGATIVE mg/dL Urine Urobilinogen 0.2 0.2-1.0 mg/dL Urine Leukocyte Esterase 25 H NEGATIVE Kary/uL Urine RBC 6-10 H 0-1 /HPF Urine WBC 2-5 H 0-1 /HPF Urine Squamous Epithelial Cells RARE 0-2 /HPF Urine Bacteria RARE None Seen /HPF Influenza Type A Antigen Negative For Type A NEGATIVE Influenza Type B Antigen Negative For Type B NEGATIVE SARS-CoV-2, RNA, NAAT NEGATIVE SARS CoV-2 NEGATIVE Group A Streptococcus Rapid negative NEGATIVE Test 04/06/24 13:34 Range/Units White Cell Morphology Comment See comments Lipase 100 H 16-77 U/L Current Medications Medications (Trade) Dose Ordered Sig/Michael Route PRN Reason Start Time Stop Time Status Last Admin Dose Admin Dextrose (D50w) 50 ml AD PRN IV HYPOGLYCEMIA PROTOCOL 04/06/24 22:30 05/06/24 22:29 Glucagon (Glucagon 1mg Kit) 1 mg AD PRN IM HYPOGLYCEMIA PROTOCOL 04/06/24 22:30 05/06/24 22:29 Hydralazine HCl (APRESOLine 20MG INJ) 10 mg Q6H PRN IV For:SBP above 160;DBP above 90 04/06/24 22:30 05/06/24 22:29 Insulin Human Regular (humuLIN R 100 UNIT/ML 3ML) INSULIN SLIDING SCAL... ACHS SQ 04/07/24 07:30 05/07/24 07:29 Levofloxacin/ Dextrose 100 ml @ 100 mls/hr Q24H IV 04/06/24 22:30 04/16/24 22:29 Levofloxacin/ Dextrose 100 ml @ 100 mls/hr Q24H STAT IV 04/06/24 18:31 04/06/24 19:30 DC 04/06/24 19:19 100 MLS/HR Magnesium Sulfate 50 ml @ 0 mls/hr PROTOCOL PRN IV OTHER [SEE ORDER COMMENTS] 04/06/24 22:30 05/06/24 22:29 Ondansetron HCl (zoFRAN 4MG INJ) 4 mg Q6H PRN IV NAUSEA/VOMITING 04/06/24 22:30 05/06/24 22:29 Pantoprazole Sodium (PROTonix 40MG INJ) 40 mg DAILY IVP 04/07/24 09:00 05/07/24 08:59 04/07/24 09:17 40 MG Potassium Chloride 100 ml @ 50 mls/hr AD PRN IV POTASSIUM PROTOCOL 04/06/24 22:30 05/06/24 22:29 Sodium Chloride 1,000 ml @ 100 mls/hr Q10H IV 04/06/24 22:30 05/06/24 22:29 04/07/24 09:17 100 MLS/HR DIAGNOSTICS / RADIOLOGY: [ ] ASSESSMENT: Sepsis due to UTI POA Acute urinary tract infection POA Acute kidney injury POA Diabetes POA Elevated lipase POA Hypertension POA Hyperlipidemia POA Intractable nausea and vomiting POA Large hiatal hernia per CT on 12/17/2023 POA Coronary artery disease with CABG x3 PLAN: Continue with medical floor admission Patient will be started with clear liquid diet advanced as tolerated with soft/diabetic Continue NS @ 100 ml / hr x2 bags and re evaluate We will continue on Levaquin 500 mg IV daily for empiric coverage Continue Protonix 40 mg IV daily for GI prophylaxis We will replace electrolytes as needed per protocol We will start on insulin sliding scale AC & HS with hypoglycemia protocol We will add prn medication for fever,pain,nausea and vomiting We will reconcile home meds once medlist available We will obtain fecal occult blood x1 We will request labs in am Further orders to follow depending on above results Case discussed with attending physician and came up with above treatment and plan of care ATTESTATION BY PHYSICIAN I have seen and examined the patient. I reviewed the documentation, medical decision making, and treatment plan as noted by the mid-level provider above. I agree with the findings and plan of care. BRAYDEN PEREZ MD, [facility] Apr 07, 2024 11:09
[2024-04-07] MEDS: MAGNESIUM 2GM PREMIX 50ML 50 ML IV PRN (11:21)
--- NOTE | 2024-04-07 11:37 | NUR ---
DCP-Home Pt awake, alert, oriented sitting up at bedside. Pt lives with spouse Esmer Bruner [phone]. Lives in mobile home with four steps and has a ramp available. Pt states has not had home health services, has not been to [facility], and anticipates discharge plan is for home. Addendum: 04/07/24 at 1140 by JULIO CESAR SHEA RN CM Amended: Links added.
[2024-04-07] MEDS: ropiNIRole HCL 0.25 MG TABLET PO SCH (14:00)
[2024-04-07] MEDS ORDERED: PoTASSium chl 10% ELIXIR 20MEQ 20 MEQ/15 ML UDCUP PO PRN (16:30)
[2024-04-07] MEDS: PoTASSium chloRIDE 20MEQ ER 20 MEQ ERTAB PO PRN (16:57)
[2024-04-07] MEDS: IpraTROPium 0.5 MG/2.5 ML INH IH PRN (19:08)
[2024-04-07] MEDS: SALMETEROL IH SCH (21:00)
[2024-04-07] MEDS: FLUTICASONE PROPION IH SCH (21:00)
[2024-04-07] MEDS: (Rosuvastatin Calcium 20 MG) PO SCH (21:00)
[2024-04-07] MEDS: metOPROLol sucCINATE 25 MG TAB.SR.24H PO SCH (21:29)
[2024-04-07] MEDS: busPIRone HCL 5 MG TABLET PO SCH (21:29)
[2024-04-08 04:00] VITALS: BP 125/70; PULSE 69; RESP 18; TEMP 98.2
[2024-04-08 05:55] LABS: HEMATOCRIT 41.6 % (42-54); MEAN CORPUSCULAR HEMOGLOBIN 29.3 pg (27.0-33.0); MEAN CORPUSCULAR HGB CONC 32.5 g/dL (32.0-36.0); MEAN CORPUSCULAR VOLUME 90.4 fL (79-99); RED BLOOD CELL COUNT(AUTO) 4.6 MIL/uL (4.50-6.20); RED CELL DISTRIBUTION WIDTH 15.1 % (11.0-15.5); WHITE BLOOD COUNT (AUTO) 9.5 K/uL (4.8-10.8)
[2024-04-08 06:11] LABS: CREATININE 1.1 mg/dL (0.5-1.3); POTASSIUM 3.9 mmol/L (3.5-5.1)
[2024-04-08 08:00] VITALS: BP 128/76; PULSE 73; RESP 19; TEMP 97.7
[2024-04-08] MEDS: LACTOBACILLUS ACIDOPHILUS PO SCH (09:00)
[2024-04-08] MEDS: TIOTROPIUM BROMIDE 4 GM IH SCH (09:00)
[2024-04-08] MEDS ORDERED: LEVALBUTEROL TARTRATE IH SCH (09:00)
[2024-04-08] MEDS: MULTIVITAMIN TABLET PO SCH (09:15)
[2024-04-08] MEDS: cloPIDOgrel 75MG TAB PO SCH (09:15)
[2024-04-08] MEDS: SERTraline HCL 50 MG TABLET PO SCH (09:15)
[2024-04-08] MEDS: CYANOCOBALAMIN (VITAMIN B-12) 1,000 MCG TABLET PO SCH (09:15)
[2024-04-08] MEDS: predniSONE 20 MG TABLET PO SCH (09:15)
[2024-04-08] MEDS: metOPROLol sucCINATE 50 MG TAB.SR.24H PO SCH (09:15)
[2024-04-08] MEDS: FOLic ACID 1 MG TABLET PO SCH (09:20)
[2024-04-08 11:12] VITALS: PULSE 72; RESP 18; O2SAT 99
[2024-04-08 12:00] VITALS: BP 106/74; PULSE 73; RESP 19; TEMP 97.7
[2024-04-08] MEDS ORDERED: LEVO-70 PO (12:14)
--- NOTE | 2024-04-08 13:40 | DS ---
Discharge Summary Hospital Course Summary: 63-year-old male with past medical history of hypertension, diabetes, hyperlipidemia, Chronic obstructive pulmonary disease on home O2, pulmonary sarcoidosis, obstructive sleep apnea on CPAP at home, pulmonary embolism, CVA 2002 and coronary artery disease with CABG x3 who presents to the ED for complaints of nausea and persistent vomiting more than 10 episodes which started around 0700 am today.Patient states he had a chicken salad sandwich last night for dinner together with his and was doing okay until today after waking up he feels nauseated and started vomiting every 10-15 minutes he said and he can feel the soreness on his abdomen he said due to vomiting.Patient states he had soft stool x 2 today and it was dark in color .Patient reports he was on Eliquis before for his P.E but was already stopped 5 months ago and now he is on Plavix.Patient was recently admitted here in this facility for shortness of breath and acute kidney injury and was discharged home on 02/28/2024 and so far he was doing okay until this morning he said. Patient had a CT chest without contrast done previously on 12/17/2023 showed a large hiatal hernia. Seen and examined patient in the ED awake,alert and coherent.Patient appears comfortable.Patient states he feels much better as of now he said.Patient denies,fever,chills,abdominal pain,dysuria,diarrhea,chest pain,palpitation,cough and shortness of breath. Latest vital signs temperature 97.9, heart rate 84, blood pressure 122/66 and saturation 100% on room air. Labs: WBC 19.1 with neg. ative left shift of neutrophils 88.3. BUN 25, creatinine 1.4, GFR 56, glucose 134, lactic acid 2.7 to 2.1 lipase 100. Urinalysis positive with esterase RBC 10 WBC. Influenza a and B negative, SARs COVID negative, with strep throat negative. Chest x-ray is unremarkable. While in the ER patient was given with resuscitation of NS at 30 mL/kilogram over 3 hours, 1L LR and Levaquin IV. We will admit patient for further medical management. While in the hospital, patient received IV antbx with levaquin, his urine culture came back positive with strep agalactiae group B. he will continue with current antibiotics with Levaquin 500 mg p.o. daily x5 days. Blood culture remained unremarkable times24 hours. Patient has been afebrile. His symptoms improved, patient stated that he could not keep anything down previously but now patient is able to tolerate his diet. Patient is hemodynamically stable hence patient can be discharged home. We recommend patient to follow up with his PCP in 2-3 days. Procedure(s): [facility] [address] [place] [address] IMAGING REPORT Signed PATIENT: MADISON EUBANKS MR#: [id number] : 1960 SEX: M AGE: 63 LOCATION: [facility] ORDER 1306 STATUS: REG REPORT#: [id number] SERVICE 130 REASON: cp ORDERING PHYSICIAN: EVELIN YUSUF MD PROCEDURE: CXR1VW - CHEST 1VW CHEST 1VW HISTORY: Chest pain COMPARISON: 02/25/2024 FINDINGS: A frontal projection of the chest was obtained. No acute pulmonary infiltrates is seen. The heart is borderline enlarged. Degenerative changes are seen. Retrocardiac density seen may be related to hiatal hernia. Degenerative changes are seen. Aortic calcifications are seen. IMPRESSION: 1. No acute pulmonary infiltrate is seen. DICTATED BY: JASON PASTOR MD DATE: 04/06/24 135 ELECTRONICALLY SIGNED BY: JASON PASTOR MD DATE: 04/06/24 135 Assessment/Plan: Discharge Diagnoses: Sepsis due to UTI POA- improved Acute urinary tract infection POA- c/w Levaquin 500 mg po daily x 5 days Acute kidney injury POA - improve Diabetes POA Elevated lipase POA Hypertension POA Hyperlipidemia POA Intractable nausea and vomiting POA Large hiatal hernia per CT on 12/17/2023 POA Coronary artery disease with CABG x3 Admitting Diagnoses: Sepsis due to UTI POA Acute urinary tract infection POA Acute kidney injury POA Diabetes POA Elevated lipase POA Hypertension POA Hyperlipidemia POA Intractable nausea and vomiting POA Large hiatal hernia per CT on 12/17/2023 POA Coronary artery disease with CABG x3 Discharge Instructions: Follow up with PCP in 2-3 days Home Medications: Reported Medications Folic Acid (Folic Acid) 0.4 Mg Tablet, 1 MG PO DAILY, TAB 04/07/24 Metoprolol Succinate (Metoprolol Succinate) 25 Mg Tab.er.24h, 25 MG PO HS, TAB 04/07/24 Insulin Detemir (Levemir) 100 Unit/Ml Vial, 45 UNIT SQ DAILY, VIAL 12/16/23 Levalbuterol Tartrate (Xopenex Hfa) 45 Mcg/Actuation Hfa.aer.ad, 15 GM IH DAILY 12/16/23 Tiotropium [place] (Spiriva Respimat) 2.5 Mcg/Actuation Mist.inhal, 4 GM IH ROSELINE LY 12/16/23 Gabapentin (Gabapentin) 600 Mg Tablet, 300 MG PO BID, TAB 12/16/23 Magnesium Oxide (Magnesium Oxide) 400 Mg Magnesium Tablet, 400 MG PO QODAY, TAB 12/16/23 Prednisone (Prednisone) 20 Mg Tablet, 20 MG PO DAILY, TAB 12/16/23 Multivitamin (Multivitamin) 1 Each Tablet, 1 EACH PO DAILY, TAB 12/16/23 Sertraline HCl (Sertraline HCl) 100 Mg Tablet, 100 MG PO DAILY, TAB 08/06/23 Rosuvastatin Calcium (Rosuvastatin Calcium) 20 Mg Tablet, 20 MG PO HS, TAB 08/06/23 Ropinirole HCl (Ropinirole HCl) 0.25 Mg Tablet, 0.25 MG PO TID, TAB 08/06/23 Pantoprazole Sodium (Pantoprazole Sodium) 40 Mg Tablet.dr, 40 MG PO DAILY, TAB 08/06/23 Metoprolol Succinate (Metoprolol Succinate) 50 Mg Tab.er.24h, 50 MG PO DAILY, TAB 08/06/23 Metformin HCl (Metformin HCl) 1,000 Mg Tablet, 1000 MG PO BID, TAB 08/06/23 Losartan Potassium (Losartan Potassium) 25 Mg Tablet, 25 MG PO DAILY, TAB 08/06/23 Lactobacillus Acidophilus (Lactobacillus Acidophilus) 25 Million Cell Capsule, 1 EACH PO DAILY, CAP 08/06/23 Ipratropium [place] (Ipratropium [place]) 0.2 Mg/Ml (0.02 %) Solution, 0.2 MG IH Q6HPRN PRN for BREATHING, ML 08/06/23 Fluticasone Propion/Salmeterol (Fluticasone-Salmeterol 250-50) 250 Mcg-50 Mcg/Dose Blst.w.dev, 1 EACH IH BID 08/06/23 Famotidine (Famotidine) 40 Mg Tablet, 20 MG PO DAILY PRN for GERD, TAB 08/06/23 Empagliflozin (Jardiance) 25 Mg Tablet, 25 MG PO DAILY, TAB 08/06/23 Clopidogrel Bisulfate (Clopidogrel) 75 Mg Tablet, 75 MG PO DAILY, TAB 08/06/23 Cyanocobalamin (Vitamin B-12) (B-12) 1,000 Mcg Tablet.er, 1000 MCG PO DAILY, TAB 09/03/22 Buspirone HCl (Buspirone HCl) 15 Mg Tablet, 15 MG PO BID, TAB 09/03/22 Discontinued Reported Medications Cholecalciferol (Vitamin D3) (Vitamin D3) 25 Mcg (1000 Unit) Tablet, 25 MCG PO DAILY, TAB 08/06/23 Discontinued Scripts Levofloxacin (Levofloxacin) 500 Mg Tablet, 1 TAB PO DAILY for 5 Days, #5 TAB 0 Refills Prov:BRAYDEN PEREZ MD 02/28/24 Levofloxacin (Levaquin 750Mg Tabs) 750 Mg Tablet, 750 MG PO DAILY for pneumonia for 7 Days, #7 TAB Prov:PAUL GOMEZ MD 12/17/23 Time spent arranging discharge: 31-60 minutes ATTESTATION BY PHYSICIAN I have seen and examined the patient. I reviewed the documentation, medical d ecision making, and treatment plan as noted by the mid-level provider above. I agree with the findings and plan of care. BRAYDEN PEREZ MD, [facility] Apr 08, 2024 13:40
--- NOTE | 2024-04-08 14:09 | NUR ---
DC INSTRUCTION PROVIDED TO PATIENT ALONG WITH SCRIPT SENT TO [facility] . PATIENT VERBALIZED UNDERSTANDING ..
[2024-04-09] MEDS ORDERED: MAGNESIUM OXIDE 400 MG TABLET PO SCH (09:00)
[2024-04-10 05:41] LABS: C DIFFICILE TOXIN A/B Not Detected (Not Detected); ENTEROAGGREGATIVE ECOLI Not Detected (Not Detected); GIARDIA LAMBLIA Not Detected (Not Detected); PLESIOMONAS SHIGELOIDES Not Detected (Not Detected); SAPOVIRUS Not Detected (Not Detected); SHIGELLA/ENTEROINVASIVE E COLI Not Detected (Not Detected); VIBRIO Not Detected (Not Detected); VIBRIO CHOLERAE Not Detected (Not Detected)
== END 2024-04-08 14:30 | disposition home or self-care (01) | DRG 872 ==
LOC: EDH 12:33 → EDHIP 20:32 → 4CH 04-07 22:03
PROVIDERS: ADMIT Internal Medicine; ATTEND Internal Medicine
DX: A41.9 Sepsis, unspecified organism (principal); N39.0 Urinary tract infection, site not specified; N17.9 Acute kidney failure, unspecified; E11.9 Type 2 diabetes mellitus without complications; E78.5 Hyperlipidemia, unspecified; F43.10 Post-traumatic stress disorder, unspecified; I10 Essential (primary) hypertension; I25.10 Atherosclerotic heart disease of native coronary artery without angina pectoris; J44.9 Chronic obstructive pulmonary disease, unspecified; K44.9 Diaphragmatic hernia without obstruction or gangrene; Z79.02 Long term (current) use of antithrombotics/antiplatelets; Z86.711 Personal history of pulmonary embolism; Z86.73 Personal history of transient ischemic attack (TIA), and cerebral infarction without residual deficits; Z95.1 Presence of aortocoronary bypass graft; Z99.81 Dependence on supplemental oxygen; Z88.0 Allergy status to penicillin; Z91.010 Allergy to peanuts; Z88.8 Allergy status to other drugs, medicaments and biological substances; Z79.899 Other long term (current) drug therapy
CPT/HCPCS: 36415; 71045; 80048; 80053; 80061; 81001; 82270; 82550; 82948; 83036; 83605; 83690; 83735; 84145; 84484; 85025; 85027; 87040; 87086; 87507; 87635; 87804; 87880; 93005; 94640; 94664; G0378; J1956; J2470; J3475; J7030

== ENCOUNTER → 2024-05-21 | Outpatient (CLI) | payer OTHER ==
[~2024-05-21] MED LIST changes: -CHOL-34 PO; +FOLI0.4T6 PO; -LEVO750T68 PO; +METO-408 PO
--- NOTE | 2024-05-23 09:04 | HMCSR ---
APPROVED REPORT Bilateral Lower Extremity Venous Study for DVT., Venous Competence. Indications i87.2, i87.1 Vein Imaging CFV (R): Normal flow, augmentation and compression. No evidence of DVT. 11.0mm 0.0ms of reflux. SFJ (R): Normal flow, augmentation and compression. No evidence of DVT. FEM (R): Normal flow, augmentation and compression. No evidence of DVT. POP (R): Normal flow, augmentation and compression. No evidence of DVT. DFV (R): Normal flow, augmentation and compression. No evidence of DVT. PTV (R): Normal flow, augmentation and compression. No evidence of DVT. Peroneals (R): Normal flow, augmentation and compression. No evidence of DVT. CFV (L): Normal flow, augmentation and compression. No evidence of DVT. 10.0mm 617ms of reflux. SFJ (L): Normal flow, augmentation and compression. No evidence of DVT. FEM (L): Normal flow, augmentation and compression. No evidence of DVT. POP (L): Normal flow, augmentation and compression. No evidence of DVT. DFV (L): Normal flow, augmentation and compression. No evidence of DVT. PTV (L): Normal flow, augmentation and compression. No evidence of DVT. Peroneals (L): Normal flow, augmentation and compression. No evidence of DVT. Technologist Impression Deep veins of the bilateral lower extremities appear patent and compressible without thrombus. No deep venous reflux seen. Superficial venous insufficiency noted in the RGSV at thigh. RGSV junction 5.1mm 317ms thigh 2.1mm 528ms knee 2.2mm 0.0mns calf 2.5mm 0.0ms RSSV prox 2.9mm 433ms mid 2.7mm 0.0ms LGSV junction 5.3mm 0.0ms thigh - not seen knee - not seen calf 2.5mm 0.0ms LSSV prox 3.4mm 0.0ms mid 2.8mm 0.0ms Conclusion Severe superficial venous reflux of right greater saphenous vein No DVT Conclusion Severe superficial venous reflux of right greater saphenous vein No DVT
== END | disposition home or self-care (01) ==
LOC: SHCH 13:46
PROVIDERS: ATTEND Internal Medicine Cardiovascular Disease
DX: I87.2 Venous insufficiency (chronic) (peripheral) (principal)
CPT/HCPCS: 93970

== ENCOUNTER 2024-06-16 08:09 | Day surgery (SDC) | payer OTHER ==
[~2024-06-16] VITALS: Ht 172.7 cm; Wt 81.6 kg
[2024-06-16] VITALS (9 sets, daily range): BP systolic 110–141; BP diastolic 60–71; PULSE 62–74; RESP 12–18; TEMP 97.6–208.2
[~2024-06-16 08:09] MED LIST changes: +CHOL-34 PO; +FLUC150T48 PO; -IPRA0.2S54 IH; -LACT-461 PO; +LATA2.5D14 OU; +LEVA15HF3 IH; -LEVO-70 PO; +SEMA2PEN SQ; +[UNRECOGNIZED DRUG - OTHER] OU
[2024-06-16] MEDS: 0.9%NACL 1000ML 1,000 ML IV ONE (08:39)
[2024-06-16] MEDS ORDERED: METO-391 PO (09:00)
[2024-06-16] MEDS ORDERED: proPOFol 10 MG/ML 20ML VIAL IV ONE (09:46)
[2024-06-16] MEDS ORDERED: DEXTROSE 50%-WATER 50 ML DISP.SYRIN IV ONE (10:04)
== END 2024-06-16 11:11 | disposition home or self-care (01) ==
LOC: DAH 08:09 → ENDO 08:09
PROVIDERS: ATTEND Internal Medicine Gastroenterology
DX: R19.5 Other fecal abnormalities (principal); D12.3 Benign neoplasm of transverse colon; K64.8 Other hemorrhoids; I10 Essential (primary) hypertension; K21.9 Gastro-esophageal reflux disease without esophagitis; G47.33 Obstructive sleep apnea (adult) (pediatric); E11.9 Type 2 diabetes mellitus without complications; I25.2 Old myocardial infarction; E78.5 Hyperlipidemia, unspecified; K26.9 Duodenal ulcer, unspecified as acute or chronic, without hemorrhage or perforation; K44.9 Diaphragmatic hernia without obstruction or gangrene; K31.A19 Gastric intestinal metaplasia without dysplasia, unspecified site; R15.9 Full incontinence of feces; K57.30 Diverticulosis of large intestine without perforation or abscess without bleeding; K64.9 Unspecified hemorrhoids; K76.0 Fatty (change of) liver, not elsewhere classified; D86.0 Sarcoidosis of lung; R93.421 Abnormal radiologic findings on diagnostic imaging of right kidney; I48.91 Unspecified atrial fibrillation; F41.9 Anxiety disorder, unspecified; F32.A Depression, unspecified; J44.9 Chronic obstructive pulmonary disease, unspecified; Z86.73 Personal history of transient ischemic attack (TIA), and cerebral infarction without residual deficits; Z99.89 Dependence on other enabling machines and devices; Z88.0 Allergy status to penicillin; Z88.8 Allergy status to other drugs, medicaments and biological substances; Z95.1 Presence of aortocoronary bypass graft; Z98.890 Other specified postprocedural states; Z79.899 Other long term (current) drug therapy
CPT/HCPCS: 45385; 82948 ×3; J7030 ×2; J7070; J2704; A4620; A4215 ×2; A4223; A4222; A4221; A4663; A4606; J3490

== ENCOUNTER 2024-07-17 11:20 | Emergency (ER) | payer OTHER ==
[~2024-07-17] VITALS: Ht 177.8 cm; Wt 81.6 kg
[~2024-07-17 11:20] MED LIST changes: -METO-408 PO
[2024-07-17 11:32] VITALS: BP 111/72; PULSE 74; RESP 16; TEMP 98; O2SAT 98
--- NOTE | 2024-07-17 11:59 | HMCIMG ---
RIGHT WRIST RADIOGRAPHS - 3 VIEWS INDICATION: Pain after fall COMPARISON: None FINDINGS: AP, lateral, and oblique views. No evidence for acute fracture or subluxation. Scaphoid bone is intact. Chronic degenerative miniscule calcification projecting near the tip of the radial styloid process and additional subtle calcifications projecting near the distal radioulnar joint, some or all of which may be vascular in origin Ulnar variance is within normal limits. Carpal alignment is well maintained. No radiopaque foreign body noted. IMPRESSION: No evidence for fracture or dislocation.
--- NOTE | 2024-07-17 12:16 | ERN ---
General Chief Complaint: Mechanical Fall Stated Complaint: FALL Time Seen by MD: 11:22 Time Seen by Midlevel: 11:22 Source: patient History of Present Illness Initial Comments The patient is a 63-year-old male with a past medical history of a stroke affecting his speech presents to the emergency department following a mechanical ground level fall. Patient states he bent over to pick something up when he lost balance and fell forward. He was able to outstretched his right arm to b reak the fall. He denies any head injury or loss of consciousness. He reports pain to his right wrist. This occurred one day ago. He initially took Tylenol and thought the pain would go away but the pain worsened there was increase in swelling so he decided to come in for further evaluation. Allergies: Coded Allergies: atorvastatin (Verified Allergy, Severe, RASH, 10/15/17) Penicillins (Verified Allergy, Unknown, 12/22/14) peanut (Unverified Allergy, Unknown, 03/26/23) Home Meds Reported Medications Metoprolol Succinate (Metoprolol Succinate) 50 Mg Tab.er.24h, 50 MG PO AM, TAB 06/16/24 Levalbuterol Tartrate (Levalbuterol Tartrate Hfa) 45 Mcg/Actuation Hfa.aer.ad, 2 PUFF IH Q6HPRN for 30 Days, #15 GM 0 Refills 06/15/24 Latanoprost (Latanoprost) 0.005 % Drops, 1 DROP OU HS, ML 0 Refills 06/15/24 [Ketotisen] No Conflict Check, 0.25 % OU BID 06/15/24 Fluconazole (Fluconazole) 150 Mg Tablet, 150 MG PO DAILY, TAB 06/15/24 Cholecalciferol (Vitamin D3) (Vitamin D3) 25 Mcg (1000 Unit) Tablet, 25 MCG PO DAILYBKFST, TAB 06/15/24 Semaglutide (Ozempic) 2 Mg/0.75 Ml (8 Mg/3 Ml) Pen.injctr, 2 MG SQ QWEEK for 30 Days, #3 ML 0 Refills 06/15/24 Folic Acid (Folic Acid) 0.4 Mg Tablet, 1 MG PO DAILY, TAB 04/07/24 Insulin Detemir (Levemir) 100 Unit/Ml Vial, 45 UNIT SQ DAILY, VIAL 12/16/23 Levalbuterol Tartrate (Xopenex Hfa) 45 Mcg/Actuation Hfa.aer.ad, 15 GM IH DAILY 12/16/23 Tiotropium [place] (Spiriva Respimat) 2.5 Mcg/Actuation Mist.inhal, 4 GM IH DAILY 12/16/23 Gabapentin (Gabapentin) 600 Mg Tablet, 300 MG PO BID, TAB 12/16/23 Magnesium Oxide (Magnesium Oxide) 400 Mg Magnesium Tablet, 400 MG PO QODAY, TAB 12/16/23 Prednisone (Prednisone) 20 Mg Tablet, 20 MG PO DAILY, TAB 12/16/23 Multivitamin (Multivitamin) 1 Each Tablet, 1 EACH PO DAILY, TAB 12/16/23 Sertraline HCl (Sertraline HCl) 100 Mg Tablet, 100 MG PO DAILY, TAB 08/06/23 Rosuvastatin Calcium (Rosuvastatin Calcium) 20 Mg Tablet, 20 MG PO HS, TAB 08/06/23 Ropinirole HCl (Ropinirole HCl) 0.25 Mg Tablet, 0.25 MG PO TID, TAB 08/06/23 Pantoprazole Sodium (Pantoprazole Sodium) 40 Mg Tablet.dr, 40 MG PO DAILY, TAB 08/06/23 Metoprolol Succinate (Metoprolol Succinate) 50 Mg Tab.er.24h, 50 MG PO DAILY, TAB 08/06/23 Metformin HCl (Metformin HCl) 1,000 Mg Tablet, 1000 MG PO BID, TAB 08/06/23 Losartan Potassium (Losartan Potassium) 25 Mg Tablet, 25 MG PO DAILY, TAB 08/06/23 Fluticasone Propion/Salmeterol (Fluticasone-Salmeterol 250-50) 250 Mcg-50 M cg/Dose Blst.w.dev, 1 EACH IH BID 08/06/23 Famotidine (Famotidine) 40 Mg Tablet, 20 MG PO DAILY PRN for GERD, TAB 08/06/23 Empagliflozin (Jardiance) 25 Mg Tablet, 25 MG PO DAILY, TAB 08/06/23 Clopidogrel Bisulfate (Clopidogrel) 75 Mg Tablet, 75 MG PO DAILY, TAB 08/06/23 Cyanocobalamin (Vitamin B-12) (B-12) 1,000 Mcg Tablet.er, 1000 MCG PO DAILY, TAB 09/03/22 Buspirone HCl (Buspirone HCl) 15 Mg Tablet, 15 MG PO BID, TAB 09/03/22 Past Medical History Past Medical History: COPD, CVA, Diabetes-Type II, Hypertension Medical History Other: SARCODOSIS, P.E., CVA 2003,PTSD Past Surgical History: Other Surgical History Other: HERNIA, LYMPH NODE REMOVAL Family History Family History: Negative Social History Social History: Negative, Lives with family ROS Dictation CONSTITUTIONAL: Negative except for HPI HEAD/FACE: Negative except for HPI EENT: Negative except for HPI RESPIRATORY: Negative except for HPI GASTROINTESTINAL/ABDOMINAL: Negative except for HPI GENITOURINARY: Negative except for HPI MUSCULOSKELETAL: Negative except for HPI INTEGUMENTARY: Negative except for HPI NEUROLOGICAL/PSYCH: Negative except for HPI HEMATOLOGIC/LYMPHATIC: Negative except for HPI All Systems Negative, Except as noted above. 13 point review of systems assessed and all negative except for above. Physical Exam Physical Exam Dictation Vital Signs reviewed General Appearance: Alert, oriented x 3, no acute distress, well developed, nourished. Head and Face: non-traumatic. Eyes: PERRL, pink conjunctivas, eyelid no trauma, anterior chamber with arcus senilis. Ears: Pinnas intact and no signs of trauma or erythema ear canals clear and no discharge TM no erythema Nose: No discharge, no bleeding. Oropharynx: Mouth normal, tongue pink, pharynx clear,no erythema, tonsils no exudates, no abscesses noted, mucous membrane moist Neck: Supple, non-tender, no thyromegaly, no masses, no JVD, no bruits Breast:Deferred Chest:No tenderness, no crepitus, no paradoxical movement, no retractions Lungs:Clear, well-ventilated, symmetric, no rales, no wheezing, no rhonchi, no stridor, good breath sounds bilaterally Heart: Regular rate, regular rhythm, no murmur, no gallops Vascular: no peripheral edema, Abdomen: Soft, positive bowel sounds, nondistended, no guarding, nontender, no rebound, no masses no hepatomegaly, no splenomegaly, no Jiang's sign, no hernias. Rectal: Deferred Genital: Deferred Neurological: Normal speech, motor function intact, sensory function intact Musculoskeletal: Neck nontender, full range of motion, back nontender, full range of motion, Extremities: Tenderness over the right distal radius, radial pulses intact Skin: Color pink, dry, no turgor, no rash, no lacerations, no abrasions, no contusions. Lymphatic: Deferred MDM MDM: Differential diagnosis: Fracture, contusion, dislocation There are no social concerns with this patient. Prescription drug management Prescriptions will include: None Medical management and examination interpretation discussions were had by me with other qualified healthcare professionals as indicated for the patient's care. ED Course Orders Procedure Category Date Status Time Wrist Comp 3+Vws Rt RAD 07/17/24 Resulted 11:29 Vital Signs Date Time Temp Pulse Resp B/P (MAP) Pulse Ox O2 Delivery O2 Flow Rate FiO2 07/17/24 11:32 98.1 74 16 111/72 98 Room Air* 0 21 07/17/24 11:22 98.1 74 16 111/72 98 Room Air 0 [place] [address] [address] IMAGING REPORT Signed PATIENT: MADISON EUBANKS MR#: [id number] : 1960 SEX: M AGE: 63 LOCATION: [facility] ORDER 1130 STATUS: REG ER REPORT#: [id number] SERVICE 1129 REASON: fall ORDERING PHYSICIAN: KG WOODRUFF PROCEDURE: WRST 3V RT - WRIST COMP 3+VWS RT RIGHT WRIST RADIOGRAPHS - 3 VIEWS INDICATION: Pain after fall COMPARISON: None FINDINGS: AP, lateral, and oblique views. No evidence for acute fracture or subluxation. Scaphoid bone is intact. Chronic degenerative miniscule calcification projecting near the tip of the radial styloid process and additional subtle calcifications projecting near the distal radioulnar joint, some or all of which may be vascular in origin Ulnar variance is within normal limits. Carpal alignment is well maintained. No radiopaque foreign body noted. IMPRESSION: No evidence for fracture or dislocation. DICTATED BY: DEBORAH HARVEY MD DATE: 07/17/241155 ELECTRONICALLY SIGNED BY: DEBORAH HARVEY MD DATE: 07/17/24 115 DX & DISP Disposition: Discharge Departure Impression: Primary Impression: Right wrist sprain Condition: Stable Additional Instructions: Your x-ray does not show any evidence of an acute fracture or dislocation. However given the amount of pain you RN we will go ahead and immobilizer wrist with a velcro wrist splint. In some occasions a fracture may not appear on the initial x-ray. If your symptoms persist for over one week you will need a repeat x-ray. Please follow up with your primary care doctor for repeat evaluation in one week. Referrals: BONY MITCHELL MD (PCP) Time of Disposition: 12:13 I have reviewed the case, and I agree with, Diagnosis and Plan I performed the substantive portion of the visit. I have reviewed and personally made and approve the management plan that is documented in the note by myself or the WILL. I acknowledge for responsibility for the patient's management plan. KG WOODRUFF Jul 17, 2024 12:16
--- NOTE | 2024-07-17 12:23 | NUR ---
SPLINT APPLIED TO RT WRIST, PT TOLERATED WELL
== END 2024-07-17 12:24 | disposition home or self-care (01) ==
LOC: EDH 11:20
DX: S63.501A Unspecified sprain of right wrist, initial encounter (principal); J44.9 Chronic obstructive pulmonary disease, unspecified; E11.9 Type 2 diabetes mellitus without complications; I10 Essential (primary) hypertension; F43.10 Post-traumatic stress disorder, unspecified; Z79.02 Long term (current) use of antithrombotics/antiplatelets; Z79.4 Long term (current) use of insulin; Z79.51 Long term (current) use of inhaled steroids; Z79.52 Long term (current) use of systemic steroids; Z79.84 Long term (current) use of oral hypoglycemic drugs; Z79.85 Long-term (current) use of injectable non-insulin antidiabetic drugs; Z79.899 Other long term (current) drug therapy; Z86.73 Personal history of transient ischemic attack (TIA), and cerebral infarction without residual deficits; Z88.0 Allergy status to penicillin; W01.0XXA Fall on same level from slipping, tripping and stumbling without subsequent striking against object, initial encounter; Y93.89 Activity, other specified; Y92.89 Other specified places as the place of occurrence of the external cause; Y99.8 Other external cause status
CPT/HCPCS: 29125; 73110; 99283

== ENCOUNTER → 2024-10-18 | Outpatient (CLI) | payer OTHER ==
--- NOTE | 2024-10-18 16:43 | HMCIMG ---
Procedure: Double contrast upper GI series CLINICAL HISTORY: Diaphragmatic hernia without obstruction or gangrene PROCEDURE: After the patient was given effervescent crystals and thick barium study demonstrates esophagus has no intrinsic or extrinsic lesion seen. There is a large hiatal hernia. There is grade 2 esophageal reflux. The stomach is normal size and configuration. The rugal fold appears to be normal. The duodenal bulb and duodenal sweep and upper jejunum appears normal. Status post median sternotomy IMPRESSION: Moderate to large hiatal hernia with esophageal reflux
== END | disposition home or self-care (01) ==
LOC: RAH 09:15
PROVIDERS: ATTEND Internal Medicine Gastroenterology
DX: K21.9 Gastro-esophageal reflux disease without esophagitis (principal); K44.9 Diaphragmatic hernia without obstruction or gangrene
CPT/HCPCS: 74240

== ENCOUNTER 2024-11-29 17:24 | Inpatient (IN) | payer OTHER, MEDICARE ==
[~2024-11-29] VITALS: Ht 167.6 cm; Wt 83.4 kg
[~2024-11-29 17:24] MED LIST changes: -LATA2.5D14 OU; +LATA2.5D7 OU
[2024-11-29 18:12] LABS: IMMATURE GRANULOCYTE ABSOLUTE 0.07 K/uL (0-1); NUCLEATED RED BLOOD CELLS 0.0 % (0.0-0.19); PLATELET COUNT (AUTO) 195 K/uL (130-400); RED BLOOD CELL COUNT(AUTO) 4.84 MIL/uL (4.50-6.20); RED CELL DISTRIBUTION WIDTH 15.4 % (11.0-15.5); WHITE BLOOD COUNT (AUTO) 13.4 K/uL (4.8-10.8)
[2024-11-29 18:22] LABS: CREATININE 1.3 mg/dL (0.5-1.3); GLOMERULAR FILTR. RATE CALC 61.0 mL/min (>90); GLUCOSE,RANDOM 147.0 mg/dL (70-105); SODIUM SERUM 141.0 mmol/L (136-145); UREA NITROGEN, BLOOD 18.0 mg/dL (7-18)
--- NOTE | 2024-11-29 18:28 | HMCIMG ---
CLINICAL INFORMATION Ankle pain, cellulitis COMPARISON None. TECHNIQUE 3 view left ankle FINDINGS Bones: Old traumatic changes without acute fracture. Alignment: Normal. Joints: Normal. Soft Tissues: Diffuse soft tissue swelling. IMPRESSION Diffuse soft tissue swelling without acute bony findings. /[place]
--- NOTE | 2024-11-29 18:47 | ERN ---
General Chief Complaint: Cellulitis Stated Complaint: CELLULITIS TO LLE Time Seen by MD: 17:27 Time Seen by Midlevel: 17:27 Source: patient History of Present Illness Initial Comments 64 y/o male presents to the ED due to redness and swelling to the left ankle onset last night. Patient states he is able to bear weight and ambulate with pain. Denies any injuries, trauma, fever or further associated symptoms. PMHx psoriasis, sarcoidosis, PE, HTN, CVA, COPD, DM Allergies: Coded Allergies: atorvastatin (Verified Allergy, Severe, RASH, 10/15/17) Penicillins (Verified Allergy, Unknown, 12/22/14) peanut (Unverified Allergy, Unknown, 03/26/23) Home Meds Reported Medications Metoprolol Succinate (Metoprolol Succinate) 50 Mg Tab.er.24h, 50 MG PO AM, TAB 06/16/24 Levalbuterol Tartrate (Levalbuterol Tartrate Hfa) 45 Mcg/Actuation Hfa.aer.ad, 2 PUFF IH Q6HPRN for 30 Days, #15 GM 0 Refills 06/15/24 Latanoprost (Latanoprost) 0.005 % Drops, 1 DROP OU HS, ML 0 Refills 06/15/24 [Ketotisen] No Conflict Check, 0.25 % OU BID 06/15/24 Fluconazole (Fluconazole) 150 Mg Tablet, 150 MG PO DAILY, TAB 06/15/24 Cholecalciferol (Vitamin D3) (Vitamin D3) 25 Mcg (1000 Unit) Tablet, 25 MCG PO DAILYBKFST, TAB 06/15/24 Semaglutide (Ozempic) 2 Mg/0.75 Ml (8 Mg/3 Ml) Pen.injctr, 2 MG SQ QWEEK for 30 Days, #3 ML 0 Refills 06/15/24 Folic Acid (Folic Acid) 0.4 Mg Tablet, 1 MG PO DAILY, TAB 04/07/24 Insulin Detemir (Levemir) 100 Unit/Ml Vial, 45 UNIT SQ DAILY, VIAL 12/16/23 Levalbuterol Tartrate (Xopenex Hfa) 45 Mcg/Actuation Hfa.aer.ad, 15 GM IH DAILY 12/16/23 Tiotropium [place] (Spiriva Respimat) 2.5 Mcg/Actuation Mist.inhal, 4 GM IH DAILY 12/16/23 Gabapentin (Gabapentin) 600 Mg Tablet, 300 MG PO BID, TAB 12/16/23 Magnesium Oxide (Magnesium Oxide) 400 Mg Magnesium Tablet, 400 MG PO QODAY, TAB 12/16/23 Prednisone (Prednisone) 20 Mg Tablet, 20 MG PO DAILY, TAB 12/16/23 Multivitamin (Multivitamin) 1 Each Tablet, 1 EACH PO DAILY, TAB 12/16/23 Sertraline HCl (Sertraline HCl) 100 Mg Tablet, 100 MG PO DAILY, TAB 08/06/23 Rosuvastatin Calcium (Rosuvastatin Calcium) 20 Mg Tablet, 20 MG PO HS, TAB 08/06/23 Ropinirole HCl (Ropinirole HCl) 0.25 Mg Tablet, 0.25 MG PO TID, TAB 08/06/23 Pantoprazole Sodium (Pantoprazole Sodium) 40 Mg Tablet.dr, 40 MG PO DAILY, TAB 08/06/23 Metoprolol Succinate (Metoprolol Succinate) 50 Mg Tab.er.24h, 50 MG PO DAILY, TAB 08/06/23 Metformin HCl (Metformin HCl) 1,000 Mg Tablet, 1000 MG PO BID, TAB 08/06/23 Losartan Potassium (Losartan Potassium) 25 Mg Tablet, 25 MG PO DAILY, TAB 08/06/23 Fluticasone Propion/Salmeterol (Fluticasone-Salmeterol 250-50) 250 Mcg-50 Mcg/Dose Blst.w.dev, 1 EACH IH BID 08/06/23 Famotidine (Famotidine) 40 Mg Tablet, 20 MG PO DAILY PRN for GERD, TAB 08/06/23 Empagliflozin (Jardiance) 25 Mg Tablet, 25 MG PO DAILY, TAB 08/06/23 Clopidogrel Bisulfate (Clopidogrel) 75 Mg Tablet, 75 MG PO DAILY, TAB 08/06/23 Cyanocobalamin (Vitamin B-12) (B-12) 1,000 Mcg Tablet.er, 1000 MCG PO DAILY, TAB 09/03/22 Buspirone HCl (Buspirone HCl) 15 Mg Tablet, 15 MG PO BID, TAB 09/03/22 Past Medical History Past Medical History: COPD, CVA, Diabetes-Type II, Hypertension Medical History Other: SARCODOSIS, P.E., CVA 2003,PTSD Past Surgical History: Other Surgical History Other: HERNIA, LYMPH NODE REMOVAL Family History Family History: Negative Social History Social History: Negative, Lives with family ROS Dictation Constitutional: Negative for fever,chills, and weight loss Eyes: Negative for injury, pain,redness, and discharge ENT: Negative for injury,pain or swelling Cardiovascular: Negative for chest pain, palpitations, and edema Respiratory: Negative for shortness of breath, cough, and wheezing, Abdomen/GI: Negative for abdominal pain, nausea, vomiting, diarrhea, and constipation Back: Negative for injury and pain : Negative for painful urination, bleeding or discharge MS/Extremity: Negative for injury and deformity Skin: Positive for skin redness and discharge. Negative for rash, and discoloration Neuro: Negative for headache, weakness, numbness, tingling, and seizure Psych: Negative for suicide ideation, homicidal ideation, and hallucinations Physical Exam Physical Exam Dictation General: awake, alert, no acute distress Head/Face: Normocephalic, atraumatic Eyes: PERRL, EOMI, normal conjunctiva ENT: oral cavity clear, oral mucosa moist Neck: Supple, normal range of motion Cardiovascular: RRR, normal S1/S2 Respiratory: CTAB, no respiratory distress, no rales or wheezes Skin: Warm, dry, normal turgor, no rash. Erythema noted to the medial aspect of the left ankle. MS/Extremity: Pulses equal, no cyanosis, neurovascular intact, FROM. Swelling and tenderness to palpation to the medial aspect of the left ankle Neuro: COAx4, GCS 15, strength 5/5, CN 2-12 intact, normal cerebellar exam, normal gait Psych: Normal behavior, mood, and affect normal the ED Results Laboratory and Microbiology Lab and Micro Result Laboratory Tests Test 11/29/24 17:55 White Blood Count 13.4 K/uL (4.8-10.8) H Red Blood Count 4.84 MIL/uL (4.50-6.20) Hemoglobin 13.7 g/dL (14.0-18.0) L Hematocrit 42.4 % (42-54) Mean Corpuscular Volume 87.6 fL (79-99) Mean Corpuscular Hemoglobin 28.3 pg (27.0-33.0) Mean Corpuscular Hemoglobin Concent 32.3 g/dL (32.0-36.0) Red Cell Distribution Width 15.4 % (11.0-15.5) Platelet Count 195 K/uL (130-400) Mean Platelet Volume 9.6 fL (7.5-10.5) Immature Granulocyte % (Auto) 0.5 % (0-1) Neutrophils (%) (Auto) 89.0 % (40.0-77.0) H Lymphocytes (%) (Auto) 6.1 % (21.0-51.0) L Monocytes (%) (Auto) 4.0 % (3.0-13.0) Eosinophils (%) (Auto) 0.2 % (0.0-8.0) Basophils (%) (Auto) 0.2 % (0.0-5.0) Neutrophils # (Auto) 11.9 K/uL (1.8-7.7) H Lymphocytes # (Auto) 0.8 K/uL (1.0-4.8) L Monocytes # (Auto) 0.5 K/uL (0.1-1.0) Eosinophils # (Auto) 0.03 K/uL (0.00-0.70) Basophils # (Auto) 0.03 K/uL (0.00-0.20) Absolute Immature Granulocyte (auto 0.07 K/uL (0-1) Nucleated Red Blood Cells 0.0 % (0.0-0.19) Erythrocyte Sedimentation Rate 14 MM/HR (0-20) Sodium Level 141 mmol/L (136-145) Potassium Level 4.1 mmol/L (3.5-5.1) Chloride Level 108 mmol/L (101-111) Carbon Dioxide Level 22 mmol/L (21-32) Blood Urea Nitrogen 18 mg/dL (7-18) Creatinine 1.3 mg/dL (0.5-1.3) Glomerular Filtration Rate Calc 61 mL/min (>90) Random Glucose 147 mg/dL (70-105) H Lactic Acid Level 3.8 mmol/L (0.8-2.5) H Total Calcium 8.7 mg/dL (8.5-10.1) Labs Reviewed?: Yes EKG/XRAY/US/CT/MRI X-RAY Comment REASON: LLE ORDERING PHYSICIAN: KAREN COREA PROCEDURE: VENOUS UNI - US VENOUS DOPPLER UNILATERAL CLINICAL INFORMATION Left lower extremity edema COMPARISON None. TECHNIQUE Montes scale, color flow, and spectral Doppler sonography of the deep venous system of the left lower extremity FINDINGS LEFT Common femoral vein: Patent and easily compressible without intraluminal thrombus. Femoral vein: Patent and easily compressible without intraluminal thrombus. Popliteal vein: Patent and easily compressible without intraluminal thrombus. Doppler analysis: Normal venous flow including appropriate response to Valsalva, respiratory variation, and calf augmentation. CALF Posterior tibial vein: Patent and easily compressible without intraluminal thrombus. IMPRESSION No deep venous thrombosis. /[place] DICTATED BY: JESSIE LAW MD DATE: 11/29/242033 Ultrasound Comment REASON: left lower leg cellulitis ORDERING PHYSICIAN: DERICK SUMMERS PROCEDURE: [id number] - ANKLE COMP 3VWS LT CLINICAL INFORMATION Ankle pain, cellulitis COMPARISON None. TECHNIQUE 3 view left ankle FINDINGS Bones: Old traumatic changes without acute fracture. Alignment: Normal. Joints: Normal. Soft Tissues: Diffuse soft tissue swelling. IMPRESSION Diffuse soft tissue swelling without acute bony findings. /[place] DICTATED BY: JESSIE LAW MD DATE: 11/29/241926 MDM MDM: Differential diagnosis: Rationale: 64 y/o male presents to the ED due to redness and swelling to the left ankle onset last night. Patient states he is able to bear weight and ambulate with pain. Denies any injuries, trauma, fever or further associated symptoms. PMHx psoriasis, sarcoidosis, PE, HTN, CVA, COPD, DM Per physical examination cellulitis noted to the medial aspect of the left ankle, tenderness to palpation, swelling noted, neurovascularly intact. Labs obtained show leukocytosis of 11.4, ESR 14, lactic acid 3.8, pending wound cultures. X-rays obtained showed soft tissue swelling but no indications of osteomyelitis. Ultrasound of the left lower extremity negative for DVT. Patient was administered doxycycline in the ED. He was educated on findings diagnosis, decision for admission. Patient verbalized understanding agrees with admission. Case discussed with hospitalist who accepts admission. Previous outside records reviewed: Old ER visits. Risk of complication and/or morbidity or mortality of patient management: None Medications-Per medication reconciliation Need for hospitalization: Patient does meet criteria for hospitalization. Need for emergency major/minor surgery: No There are no social concerns with this patient. Prescription drug management Prescriptions will include symptomatic care Patient's prior external medical records from other ER visits were reviewed by me as indicated. Prior testing and results from previous visits were reviewed. Prior tests were taken into account with medical decision making and resource utilization, independent historian/historians were used to obtain complete medical history. I independently interpreted the test that were performed, results were reviewed by me and considered findings on radiology if ordered. Medical management and examination interpretation discussions were had by me with other qualified healthcare professionals as indicated for the patient's care. ED Course Orders Procedure Category Date Status Time Cbc With Differential LAB 11/29/24 In Process 17:48 Basic Metabolic Panel LAB 11/29/24 Complete 17:48 Aerobic Culture ANGEL 11/29/24 Logged 17:48 Anaerobic Culture ANGEL 11/29/24 Logged 17:48 Blood Cult ANGEL 11/29/24 In Process 17:48 Lactic Acid LAB 11/29/24 Complete 17:48 Erythrocyte LAB 11/29/24 In Process Sedimentation Rate 17:48 Ankle Comp 3vws Lt RAD 11/29/24 Resulted 17:48 Us Venous Doppler US 11/29/24 Taken Unilateral 18:40 Vital Signs Date Time Temp Pulse Resp B/P (MAP) Pulse Ox O2 Delivery O2 Flow Rate FiO2 11/29/24 18:53 71 18 111/56 98 Room Air* 0 21 11/29/24 17:40 75 20 129/65 99 Room Air* 0 21 11/29/24 17:26 98.2 83 16 118/60 97 Room Air 0 DX & DISP Disposition: Inpatient Departure Impression: Primary Impression: Cellulitis Condition: Stable Referrals: BONY MITCHELL MD (PCP) I performed the substantive portion of the visit. I have reviewed and personally made and approve the management plan that is documented in the notes by myself or the WILL. I acknowledge full responsibility for the patient's management plan. KAREN COREA Nov 29, 2024 18:47
[2024-11-29 19:17] LABS: ERYTHROCYTE SEDIMENTATION RATE 14 MM/HR (0-20)
--- NOTE | 2024-11-29 19:35 | HMCIMG ---
CLINICAL INFORMATION Left lower extremity edema COMPARISON None. TECHNIQUE Montes scale, color flow, and spectral Doppler sonography of the deep venous system of the left lower extremity FINDINGS LEFT Common femoral vein: Patent and easily compressible without intraluminal thrombus. Femoral vein: Patent and easily compressible without intraluminal thrombus. Popliteal vein: Patent and easily compressible without intraluminal thrombus. Doppler analysis: Normal venous flow including appropriate response to Valsalva, respiratory variation, and calf augmentation. CALF Posterior tibial vein: Patent and easily compressible without intraluminal thrombus. IMPRESSION No deep venous thrombosis. /[place]
--- NOTE | 2024-11-29 20:18 | HP ---
History of Present Illness Reason for Visit: rash Referring MD: [facility], cardiology: Dr. Trenton Wadsworth, pulmonology: Dr. uLis Rosenberg, History of Present Illness Mr. Bruner is a 64-year-old male that was seen and examined today on 11/29/2024. Patient is a good historian and personal health. Patient's , Jeanne Guzman is at bedside Patient came to the emergency department with a chief complaint of rash. Onset was yesterday. Location is to left lower extremity medial aspect. Duration is constant. Character is described as redness. There was no alleviating factors. There was no aggravating factors. Patient denies any associated trauma or fever or chills. Today in the emergency department WBCs 13.4, left shift neutrophils 89.0%, lactic acid 3.8, no urinalysis has been collected or sent to lab left ankle x-ray shows diffuse soft tissue swelling without acute bony findings venous ultrasound is unremarkable for DVT. Emergency room physician recommended that patient be admitted with a diagnosis of left lower extremity cellulitis. Patient is not develops any fever, tachycardia, tachypnea therefore did not meet clinical sepsis criteria. Past Medical History Patient History: Cancer MOTHER, (LUNG CA AND BREAST C.A. AT AGE 35) SISTER (BREAST CA) Chronic obstructive lung disease MOTHER, Family history: Asthma MOTHER, Family history: Cardiovascular disease BROTHER (HEART MURMUR) Family history: Hypertension MOTHER, Stroke MOTHER, (AT AGE 89) FATHER, No Family History of: Family history: Alzheimer's disease Family history: Diabetes mellitus Parkinson's disease Sudden Unknown ADDITIONAL PAST MEDICAL HISTORY: [COPD, CVA, Diabetes mellitius type2, hypertension, sarcoidosis, pulmonary embolism, PTSD] SOCIAL HISTORY: [CABG, hernia repair, lymph node excision] SURGICAL HISTORY: [Patient quit smoking in 1988, negative alcohol use, negative drug use. Patient is typically independent of his ADLs. Patient denies difficulty pain is bills. Patient lives with his , Jeanne Guzman] Review of Systems General: No Fever, No Chills, No Night Sweats, No Fatigue, No Malaise, No Appetite, No Other HEENT: No Head Aches, No Visual Changes, No Eye Pain, No Ear Pain, No Dysphasia, No Sinus Congestion, No Post Nasal Drip, No Sore Throat, No Other Pulmonary: No Dyspnea, No Cough, No Pleuritic Chest Pain, No Other Cardiovascular: No: Chest Pain, Palpitations, Orthopnea, Paroxysmal Noc. Dyspnea, Edema, Lt Headedness, Other Gastrointestinal: No: Nausea, Vomiting, Abdominal Pain, Diarrhea, Constipation, Melena, Hematochezia, Other Genitourinary: No Dysuria, No Frequency, No Incontinence, No Hematuria, No Retention, No Other Musculoskeletal: No: other, neck pain, shoulder pain, arm pain, back pain, hand pain, leg pain, foot pain Skin: No Urticaria; Rash; No Other Neurological: No: Weakness, Numbness, Incoordination, Change in speech, Confusion, Seizures, Other Allergies: Coded Allergies: atorvastatin (Verified Allergy, Severe, RASH, 10/15/17) Penicillins (Verified Allergy, Unknown, 12/22/14) peanut (Unverified Allergy, Unknown, 03/26/23) Scheduled Buspirone HCl (Buspirone HCl), 15 MG PO BID, (Reported) Cholecalciferol (Vitamin D3) (Vitamin D3), 25 MCG PO DAILYBKFST, (Reported) Clopidogrel Bisulfate (Clopidogrel), 75 MG PO DAILY, (Reported) Cyanocobalamin (Vitamin B-12) (B-12), 1,000 MCG PO DAILY, (Reported) Empagliflozin (Jardiance), 25 MG PO DAILY, (Reported) Fluconazole (Fluconazole), 150 MG PO DAILY, (Reported) Fluticasone Propion/Salmeterol (Fluticasone-Salmeterol 250-50), 1 EACH IH BID, (Reported) Folic Acid (Folic Acid), 1 MG PO DAILY, (Reported) Gabapentin (Gabapentin), 300 MG PO BID, (Reported) Insulin Detemir (Levemir), 45 UNIT SQ DAILY, (Reported) Latanoprost (Latanoprost), 1 DROP OU HS, (Reported) Levalbuterol Tartrate (Xopenex Hfa), 15 GM IH DAILY, (Reported) Levalbuterol Tartrate (Levalbuterol Tartrate Hfa), 2 PUFF IH Q6HPRN, (Reported) Losartan Potassium (Losartan Potassium), 25 MG PO DAILY, (Reported) Magnesium Oxide (Magnesium Oxide), 400 MG PO QODAY, (Reported) Metformin HCl (Metformin HCl), 1,000 MG PO BID, (Reported) Metoprolol Succinate (Metoprolol Succinate), 50 MG PO DAILY, (Reported) Metoprolol Succinate (Metoprolol Succinate), 50 MG PO AM, (Reported) Multivitamin (Multivitamin), 1 EACH PO DAILY, (Reported) Pantoprazole Sodium (Pantoprazole Sodium), 40 MG PO DAILY, (Reported) Prednisone (Prednisone), 20 MG PO DAILY, (Reported) Ropinirole HCl (Ropinirole HCl), 0.25 MG PO TID, (Reported) Rosuvastatin Calcium (Rosuvastatin Calcium), 20 MG PO HS, (Reported) Semaglutide (Ozempic), 2 MG SQ QWEEK, (Reported) Sertraline HCl (Sertraline HCl), 100 MG PO DAILY, (Reported) Tiotropium [place] (Spiriva Respimat), 4 GM IH DAILY, (Reported) [Ketotisen], 0.25 % OU BID, (Reported) Scheduled PRN Famotidine (Famotidine), 20 MG PO DAILY PRN for GERD, (Reported) Exam Vital Signs Vital Signs Date Time Temp Pulse Resp B/P (MAP) Pulse Ox O2 Delivery O2 Flow Rate FiO2 11/29/24 18:53 71 18 111/56 98 Room Air* 0 21 11/29/24 17:26 98.2 General Appearance: Alert, Oriented X3, Cooperative HEENT: Atraumatic, EOMI Respiratory: Clear to auscultation, Normal air movement, NL respiratory effort Cardiovascular: Regular rate, Regular rhythm, Normal S1, Normal S2 Abdominal: Normal bowel sounds, Soft, No tenderness Extremities: No edema Skin: Other (Left medial l distal tibial redness) Neuro: Normal gait, Normal speech, Strength at 5/5 X4 ext, Sensation intact, Cranial nerves 3-12 NL Psych/Mental Status: Mental status NL, Mood NL, Thoughts/Content NL Assessment/Plan ASSESSMENT: [ Left lower extremity cellulitis, POA Leukocytosis, POA Hyperlactatemia, POA COPD DM II Hypertension PLAN: [ Admit patient to medical floor as inpatient status. Left lower extremity cellulitis, leukocytosis, hyperlactatemia: Empiric antibiotic therapy with clindamycin. Fluid resuscitation with lactated Ringer's 30 mL/kg Repeat lactic acid in a.m. Check blood culture, follow up with the results Check procalcitonin, follow up with the results Diabetes mellitus type 2: Check hemoglobin A1c in a.m. Glucometer checks a.c. and HS 1800 ADA diet Humulin R sliding scale COPD, hypertension: At time of admission home medications have not been reconciled. Consider resuming home medications once they have been reconciled For now: DuoNebs every 6 hours Pulmicort twice daily Supportive treatment with a guaifenesin, Tylenol Hydralazine 10 mg IV every 4 hours for systolic blood pressure greater than 160 mmHg GI prophylaxis, famotidine DVT prophylaxis, Lovenox ADVANCED CARE PLANNING 1. Which of the following were discussed? Hospice Care - Yes Therapeutic options - yes Advance Directives - Yes - patient states he does not have any advance directives in place at this time, however his can make decisions for him if becomes unable Other discussions - patient wishes to remain a full code 2. Discussed with who? Patient 3. Voluntary nature of this service was explained to the patient? Yes 4. Amount of time spent - ___16 minutes____ 5. Reviewed by Physician? (if this service was performed by NPP) Yes This document was generated in part using voice recognition software, occasional wrong word or sound alike substitutions may have occurred due to the inherent limitations of voice recognition software. Read the chart carefully and recognize using context, where the substitutions have occurred. Although every effort was made to edit the content, corporate staff accountant and typing errors may occur ATTESTATION BY PHYSICIAN I have seen and examined the patient. I reviewed the documentation, medical decision making, and treatment plan as noted by the mid-level provider above. I agree with the findings and plan of care. ] DEANGELO DRAPER [facility] Nov 29, 2024 20:18
[2024-11-29] MEDS: DOXYCYCLINE 100MG+NS 250ML 250 ML IV STA (21:48)
[2024-11-29] MEDS: CLINDAMYCIN IVPB 900MG/50ML 50 ML IV SCH (21:48)
[2024-11-29] MEDS: LACTATED RINGERS IV ONE (21:48)
[2024-11-30] VITALS (12 sets, daily range): BP systolic 117–128; BP diastolic 60–74; PULSE 63–76; RESP 17–20; TEMP 97.3–97.7; O2SAT 97–99
[2024-11-30 01:00] LABS: ADD UA MICROSCOPIC YES; APPEARANCE,URINE CLEAR (CLEAR); GLUCOSE, URINE (UA) >=1000 mg/dL (NEGATIVE); LEUKOCYTE ESTERASE ,URINE 75 Leu/uL (NEGATIVE); NITRATE,URINE NEGATIVE (NEGATIVE); OCCULT BLOOD,URINE +- (TRACE) (NEGATIVE)
[2024-11-30 01:01] LABS: SQUAMOUS EPITHELIAL CELL,UR RARE /HPF (0-2)
[2024-11-30 06:27] LABS: IMMATURE GRANULOCYTE ABSOLUTE 0.04 K/uL (0-1); NUCLEATED RED BLOOD CELLS 0.0 % (0.0-0.19); PLATELET COUNT (AUTO) 155 K/uL (130-400); RED BLOOD CELL COUNT(AUTO) 4.16 MIL/uL (4.50-6.20); RED CELL DISTRIBUTION WIDTH 15.2 % (11.0-15.5); WHITE BLOOD COUNT (AUTO) 10.4 K/uL (4.8-10.8)
[2024-11-30 06:44] LABS: CREATININE 1.2 mg/dL (0.5-1.3); GLOMERULAR FILTR. RATE CALC 67.0 mL/min (>90); GLUCOSE,RANDOM 69.0 mg/dL (70-105); PHOSPHORUS 2.9 mg/dL (2.5-4.9); SODIUM SERUM 143.0 mmol/L (136-145); UREA NITROGEN, BLOOD 17.0 mg/dL (7-18)
[2024-11-30] MEDS: BUDESONIDE 0.5 MG/2 ML INH IH SCH (06:57)
[2024-11-30] MEDS: ENOXAPARIN SODIUM 40 MG/0.4 ML SYRINGE SQ SCH (09:54)
[2024-11-30] MEDS: FAMOTIDINE 20MG TAB PO SCH (09:54)
--- NOTE | 2024-11-30 10:30 | NUR ---
DCP:HOME Pt currently lives with his Esmer Bruner in their home. Pt does have a walker, cane, O2, CPAP, and nebulizer at home. Pt states that he has 2L O2 though [facility]. Pt does state that he requires assistance with ADLs and his sps has been assisting him. PCP is Dr. Kade Aldrich ([facility]. At DC pt will want to go home and family can assist with transportation. Addendum: 11/30/24 at 1033 by LIO ESTEVES SS Amended: Links added.
[2024-11-30] MEDS ORDERED: LACT1CAP90 PO ×2 (11:20)
[2024-11-30] MEDS ORDERED: LATA2.5D7 OP ×2 (11:20)
[2024-11-30] MEDS ORDERED: ROSU40TA88 PO ×2 (11:20)
[2024-11-30] MEDS ORDERED: EMPA25TA PO (11:20)
[2024-11-30] MEDS ORDERED: FOLI1 PO ×2 (11:20)
[2024-11-30] MEDS ORDERED: LOSA50TA64 PO ×2 (11:20)
[2024-11-30] MEDS ORDERED: CHOL100046 PO ×2 (11:20)
[2024-11-30] MEDS ORDERED: PANT40TA54 PO (11:20)
[2024-11-30] MEDS ORDERED: METF-446 PO (11:20)
[2024-11-30] MEDS ORDERED: CLOP75TA32 PO (11:20)
[2024-11-30] MEDS ORDERED: BUSP15TA3 PO (11:20)
[2024-11-30] MEDS ORDERED: BENZ-226 PO ×2 (11:20)
[2024-11-30] MEDS ORDERED: METO-408 PO ×2 (11:20)
[2024-11-30] MEDS ORDERED: NITR0.4T50 SL ×2 (11:20)
[2024-11-30] MEDS ORDERED: BRIM5DRO21 OP ×2 (11:20)
[2024-11-30] MEDS ORDERED: GABA300C PO ×2 (11:20)
[2024-11-30] MEDS ORDERED: SERT-440 PO (11:20)
--- NOTE | 2024-11-30 11:25 | NUR ---
HOME MEDICATIONS HOME MEDICATIONS HAVE BEEN ENTERED PENDING RECONCILIATION. MD HAS BEEN NOTIFIED FOR REVIEW.
[2024-11-30] MEDS ORDERED: NITROGLYCERIN 0.4 MG SL TAB SL PRN (13:00)
[2024-11-30] MEDS ORDERED: BENZONATATE 100 MG CAPSULE PO PRN (13:00)
--- NOTE | 2024-11-30 16:54 | PN ---
[facility] PROGRESS NOTE Date of Service: Nov 30, 2024 Time of Service: 16:52 SUBJECTIVE: The patient has been seen and examined at bedside, case discussed with the RN, no acute events overnight, the time of my visit the patient is comfortably in bed, alert oriented x3, getting supportive care with IV fluids, as well as IV antibiotics. He is getting good pain control with current medical management. Results of Doppler no evidence of DVT, discussed with the patient. At the time of examination the patient with the extensive erythema around the left ankle area, with the associated swollen. X-ray of the left ankle showing diffuse soft tissue swelling without acute bony findings. Infectious Disease consultation requested, we will follow input and recommendation. We will order MRI of the left ankle area. Continue to trend WBC in a.m.. Discussed with the patient, in agreement. REVIEW OF SYSTEMS CONSTITUTIONAL: Denies fevers, chills, or night sweats. No unintentional weight loss reported. NEUROLOGICAL: Denies headache, amaurosis fugax, motor weakness, sensory deficit, vertigo/spinning sensation, gait abnormalities, or tremors. ENT: No hearing loss, otalgia, otorrhea, rhinitis, rhinorrhea, hoarseness, or sore throat. CARDIOVASCULAR: Denies any exertional angina, dyspnea on exertion, orthopnea, paroxysmal nocturnal dyspnea, palpitations, life-threatening arrhythmias, claudication. PULMONARY: Denies any shortness of breath, cough, phlegm/sputum, hemoptysis, pleuritic chest pain. SLEEP: Denies morning headaches, daytime somnolence or napping. Denies difficulty falling asleep, staying asleep, waking from sleep. Denies knowledge of snoring. GASTROINTESTINAL: Denies any type of dysphagia to either liquids or solids. Denies nausea, vomiting, pyrosis, early satiety, abdominal pain, diarrhea, constipation, or changes in stool consistency or caliber. Denies coffee-ground emesis, hematemesis, hematochezia, or melanotic stools. GENITOURINARY: Denies frequency, urgency, nocturia, hematuria or incontinence (Storage/Irritative symptoms.) Low urinary stream, straining to void, urinary intermittency or hesitancy, splitting of the voiding stream, terminal dribbling. ENDOCRINOLOGIC: Denies polyuria, polydipsia, polyphagia or heat/cold intolerances. HEMATOLOGIC: Denies thrombophilia/previous clots, or coagulopathy/bleeding disorders. ONCOLOGIC: Denies personal history of malignancy. DERMATOLOGIC: Denies rashes or pruritus. PSYCHIATRIC: Denies any suicidal or homicidal ideation. Denies hallucinations. PHYSICAL EXAM GENERAL APPEARANCE: The patient is awake, alert, and oriented, in no acute cardiopulmonary distress. NEUROLOGICAL: Cranial nerves II-XII grossly intact. Motor is 5/5 in bilateral upper and lower extremities proximal to distal. No sensory deficits. HEENT: Face is symmetric. Pupils are equal and reactive. Extraocular movements are intact. NECK: Supple. No JVD. No thyromegaly. No submental, submandibular, pre- /postauricular, occipital or supraclavicular lymphadenopathy. CHEST: Normal chest expansion. No Telemetry. LUNGS: Absence of any rales, rhonchi or any wheezing. CARDIOVASCULAR: Regular. S1 and S2 normal. No appreciable rubs, murmurs or gallops. ABDOMEN: Soft, nontender, and nondistended. There is no rebound, voluntary guarding, or rigidity. : Deferred. No [place]. EXTREMITIES: Non-edematous and not cyanotic. No clubbing. Good capillary refill. SKIN: No skin breakdown. Vital Signs (last 8hr) Date Time Temp Pulse Resp B/P (MAP) Pulse Ox O2 Delivery O2 Flow Rate FiO2 11/30/24 16:00 97.7 76 18 117/68 98 Nasal Cannula 2.0 11/30/24 11:58 97.5 63 18 128/74 97 Room Air 11/30/24 11:25 65 18 11/30/24 09:00 98 Room Air* 0 21 LABS: Laboratory: Test 11/30/24 15:18 11/30/24 06:19 11/30/24 00:12 11/29/24 18:13 Range/Units Whole Blood Glucose 96 70-110 MG/DL White Blood Count 10.4 4.8-10.8 K/uL Red Blood Count 4.16 L 4.50-6.20 MIL/uL Hemoglobin 12.0 L 14.0-18.0 g/dL Hematocrit 36.6 L 42-54 % Mean Corpuscular Volume 88.0 79-99 fL Mean Corpuscular Hemoglobin 28.8 27.0-33.0 pg Mean Corpuscular Hemoglobin Concent 32.8 32.0-36.0 g/dL Red Cell Distribution Width 15.2 11.0-15.5 % Platelet Count 155 130-400 K/uL Mean Platelet Volume 9.4 7.5-10.5 fL Immature Granulocyte % (Auto) 0.4 0-1 % Neutrophils (%) (Auto) 75.0 40.0-77.0 % Lymphocytes (%) (Auto) 15.1 L 21.0-51.0 % Monocytes (%) (Auto) 8.8 3.0-13.0 % Eosinophils (%) (Auto) 0.5 0.0-8.0 % Basophils (%) (Auto) 0.2 0.0-5.0 % Neutrophils # (Auto) 7.8 H 1.8-7.7 K/uL Lymphocytes # (Auto) 1.6 1.0-4.8 K/uL Monocytes # (Auto) 0.9 0.1-1.0 K/uL Eosinophils # (Auto) 0.05 0.00-0.70 K/uL Basophils # (Auto) 0.02 0.00-0.20 K/uL Absolute Immature Granulocyte (auto 0.04 0-1 K/uL Nucleated Red Blood Cells 0.0 0.0-0.19 % Sodium Level 143 136-145 mmol/L Potassium Level 3.9 3.5-5.1 mmol/L Chloride Level 110 101-111 mmol/L Carbon Dioxide Level 26 21-32 mmol/L Blood Urea Nitrogen 17 7-18 mg/dL Creatinine 1.2 0.5-1.3 mg/dL Glomerular Filtration Rate Calc 67 >90 mL/min Random Glucose 69 #L 70-105 mg/dL Lactic Acid Level 1.5 0.8-2.5 mmol/L Total Calcium 8.6 8.5-10.1 mg/dL Phosphorus Level 2.9 2.5-4.9 mg/dL Magnesium Level 1.60 L 1.80-2.40 mg/dL Urine Color LIGHT-YELLOW YELLOW Urine Appearance CLEAR CLEAR Urine pH 6.5 5.0-8.0 Urine Specific [place] 1.022 1.001-1.031 Urine Protein NEGATIVE NEGATIVE mg/dL Urine Glucose (UA) >=1000 H NEGATIVE mg/dL Urine Ketones NEGATIVE NEGATIVE mg/dL Urine Occult Blood +- (TRACE) H NEGATIVE Urine Nitrate NEGATIVE NEGATIVE Urine Bilirubin NEGATIVE NEGATIVE mg/dL Urine Urobilinogen 0.2 0.2-1.0 mg/dL Urine Leukocyte Esterase 75 H NEGATIVE Kary/uL Urine RBC 2-5 H 0-1 /HPF Urine WBC 6-10 H 0-1 /HPF Urine Squamous Epithelial Cells RARE 0-2 /HPF Urine Bacteria None None Seen /HPF Procalcitonin < 0.05 L 0.05-0.5 ng/mL Test 11/29/24 17:55 Range/Units White Cell Morphology Comment See comments Erythrocyte Sedimentation Rate 14 0-20 MM/HR Hemoglobin A1c 6.9 H 4.0-6.0 % Estimated Average Glucose (eAG) 151 H 70-126 mg/dL Current Medications Medications (Trade) Dose Ordered Sig/Michael Route PRN Reason Start Time Stop Time Status Last Admin Dose Admin Acetaminophen (TYLenol 325MG TAB) 650 mg Q6H PRN PO TEMPERATURE GREATER THAN 101.5 11/29/24 21:30 12/29/24 21:29 Albuterol (DUOneb) 1 UDVIAL [id number] IH 11/30/24 00:00 12/30/24 00:00 11/30/24 11:24 1 UDVIAL Benzonatate (Tessalon 100mg Caps) 100 mg TID PRN PO ANXIETY/AGITATION 11/30/24 13:00 12/30/24 12:59 Budesonide (Pulmicort 0.5 Mg/2ml) 0.5 mg BIDRESP IH 11/30/24 06:00 12/30/24 05:59 11/30/24 06:57 0.5 MG Buspirone HCl (BUspar) 15 mg BID PO 11/30/24 21:00 12/30/24 20:59 Clindamycin HCl/ Dextrose 50 ml @ 100 mls/hr Q8H IV 11/29/24 20:30 12/09/24 20:29 11/30/24 11:55 100 MLS/HR Clopidogrel Bisulfate (plaVIX 75MG) 75 mg DAILY PO 12/01/24 09:00 12/31/24 08:59 Doxycycline Hyclate 250 ml @ 125 mls/hr ONCE STAT IV 11/29/24 19:45 11/29/24 21:44 DC 11/29/24 21:48 125 MLS/HR Empaglifozin (Jardiance 25mg) 25 mg DAILY PO 12/01/24 09:00 12/31/24 08:59 Enoxaparin Sodium (Lovenox) 40 mg DAILY SQ 11/30/24 09:00 12/30/24 08:59 11/30/24 09:54 40 MG Famotidine (Pepcid 20mg Tab) 20 mg DAILY PO 11/30/24 09:00 11/30/24 12:45 DC 11/30/24 09:54 20 MG Folic Acid (FOLic ACID 1 MG TABLET) 1 mg DAILY PO 12/01/24 09:00 12/31/24 08:59 Gabapentin (NEURontin 300 MG CAP) 300 mg BID PO 11/30/24 21:00 12/30/24 20:59 Guaifenesin (RobiTUSSin SUGAR-FREE 100 MG/ 5 ML UDCUP) 400 mg Q4H PRN PO cough 11/29/24 21:30 12/29/24 21:29 Home Med (Home Medication) (Brimonidine Tartrate/Timolol (Brimonidine-Marin... BID OP 11/30/24 21:00 12/30/24 20:59 Home Med (Home Medication) (Cholecalciferol (Vitamin D3) (Vitamin ... DAILY PO 12/01/24 09:00 12/31/24 08:59 Home Med (Home Medication) (Rosuvastatin Calcium 40MG TAB) HS PO 11/30/24 21:00 12/30/24 20:59 Hydralazine HCl (APRESOLine 20MG INJ) 10 mg Q6H PRN IV For:SBP above 160;DBP above 90 11/29/24 21:30 12/29/24 21:29 Insulin Human Regular (humuLIN R 100 UNIT/ML 3ML) INSULIN SLIDING SCAL... ACHS SQ 11/30/24 07:30 12/30/24 07:29 Lactobacillus Rhamnosus ([facility] [employer]) 1 each DAILY PO 12/01/24 09:00 12/31/24 08:59 Latanoprost (Xalatan) 1 DROP TO AFFECTED EYE(S) HS OP 11/30/24 21:00 12/30/24 20:59 Losartan Potassium (CozAAR 50 mg TAB) 50 mg DAILY PO 12/01/24 09:00 12/31/24 08:59 Magnesium Sulfate 50 ml @ 0 mls/hr PROTOCOL IV 11/30/24 12:00 12/30/24 11:59 Metformin HCl (glucoPHAGE) 1,000 mg BIDMEALS PO 11/30/24 17:00 12/30/24 16:59 Metoprolol Succinate (TopROL XL) 50 mg DAILY PO 12/01/24 09:00 12/31/24 08:59 Morphine Sulfate (morPHINE 2MG SYG) 2 mg Q4H PRN IVP SEVERE PAIN (7-10) 11/29/24 21:30 12/06/24 21:29 Nitroglycerin (Nitrostat) 0.4 mg AD PRN SL CHEST PAIN 11/30/24 13:00 12/30/24 12:59 Ondansetron HCl (zoFRAN 4MG INJ) 4 mg Q6H PRN IV NAUSEA/VOMITING 11/29/24 21:30 12/29/24 21:29 Pantoprazole Sodium (PROTonix 40MG TAB) 40 mg DAILY PO 12/01/24 09:00 12/31/24 08:59 Sertraline HCl (ZOloft 50 mg tab) 150 mg DAILY PO 12/01/24 09:00 12/31/24 08:59 DIAGNOSTICS / RADIOLOGY: [ ] ASSESSMENT: Left lower extremity cellulitis, POA Leukocytosis, POA Hyperlactatemia, POA COPD DM II Hypertension PLAN: The patient has been seen and examined at bedside, case discussed with the RN, no acute events overnight, the time of my visit the patient is comfortably in bed, alert oriented x3, getting supportive care with IV fluids, as well as IV antibiotics. He is getting good pain control with current medical management. Results of Doppler no evidence of DVT, discussed with the patient. At the time of examination the patient with the extensive erythema around the left ankle area, with the associated swollen. X-ray of the left ankle showing diffuse soft tissue swelling without acute bony findings. Infectious Disease consultation requested, we will follow input and recommendation. We will order MRI of the left ankle area. Continue to trend WBC in a.m.. Discussed with the patient, in agreement. NEURO: Minimize central acting medications as possible. Fall Precautions. Well lighted room through the day and minimize interruptions through the night to prevent acute delirium. PULMONARY: Supplemental 02 as needed BiPAP as necessary, for respiratory distress Titrate Fio2 to keep Spo2 > or = 90% DuoNebs and CPT as needed IS hourly while awake for pulmonary hygiene prn Out of bed to chair as tolerated Maintain aspiration precautions at all times CARDIOVASCULAR: Follow hemodynamics. Vital signs per facility protocol GI & NUTRITION: Continue nutritional support Aspirations precautions Prokinetic agents and laxatives as needed KIDNEYS & ELECTROLYTES: Strict monitoring of intake and output Daily weights Avoid nephrotoxic agents Monitor electrolytes and replace as needed Goal urine output of 30mL/hr or 0.5mL/kg/hr Medications to be dosed according to renal function. Avoid contrast if possible ENDOCRINE: Maintain blood glucose between 100-180 at all times. Insulin sliding scale for blood glucose management Hypoglycemia and hyperglycemia protocol in place INFECTIOUS DISEASE: Trend temperature, WBC and procalcitonin level Follow cultures, deescalate antibiotics as soon as possible. Panculture if new onset fever HEMATOLOGY & COAGULATION: Monitor H&H. Keep Hgb > 7 Transfuse 1 unit of PRBC for Hgb < 7 Transfuse 1 pack of platelets of platelets < 20, 000 Watch for any signs and symptoms of bleeding SKIN: Pressure ulcer prevention per facility protocol Specialty mattress as needed ORTHO/REHAB Continue PT/OT PRN: MEDICATIONS Tylenol 650 mg po every 4 hrs for fever zofran 4 mg IV every 6 hrs for n/v Hydralazine 5 mg IV every 4 hrs systolic pressure > 160 bowel regiment: lactulose 20 gm PO BID PRN constipation Supportive measures: Continue GI and DVT prophylaxis All questions answered time spent: > 35 min BRAYDEN PEREZ MD Nov 30, 2024 16:54
[2024-11-30] MEDS: GABAPENTIN 300 MG CAPSULE PO SCH (19:57)
[2024-11-30] MEDS: LATANOPROST 2.5 ML DROPS OP SCH (20:04)
[2024-11-30] MEDS: ROSUVASTATIN CALCIUM 40 MG PO SCH (20:04)
[2024-11-30] MEDS: BRIMONIDINE TARTRATE OP SCH (20:04)
[2024-11-30] MEDS: TIMOLOL OP SCH (20:04)
--- NOTE | 2024-11-30 20:37 | CONS ---
INFECTIOUS DISEASE CONSULTATION DATE OF SERVICE: 11/30/2024 REQUESTING PHYSICIAN: Moe Severino MD REASON FOR CONSULTATION: Lower extremity cellulitis. HISTORY OF PRESENT ILLNESS: The patient is a 64-year-old male with a history of diabetes mellitus, COPD, CVA and hypertension, presented to the hospital with left leg pain, swelling, and redness. No history of trauma or fall. Venous Doppler came back negative. The patient was found with cellulitis. Initial WBC was 13.4, ____ lactic acid was elevated at 3.5. The patient has been started on clindamycin. No trauma. No headache or dizziness. PAST MEDICAL HISTORY: * Diabetes mellitus. * COPD. * CVA. * Hypertension. * Sarcoidosis. * Pulmonary embolism. * PTSD. PAST SURGICAL HISTORY: * CABG. * Hernia repair. * Cardiac catheterization. ALLERGIES: PENICILLIN. CURRENT MEDICATIONS: Reviewed. SOCIAL HISTORY: No alcohol, tobacco, or illicit drug use. FAMILY HISTORY: Positive for diabetes mellitus. REVIEW OF SYSTEMS: CONSTITUTIONAL: No fever or chills. No weight loss or night sweats. EYES: No eye pain. No photophobia or diplopia. HENT: No sore throat. No rhinorrhea or earache. NECK: No neck pain or neck swelling. RESPIRATORY: No cough. No hemoptysis or pleuritic pain. CARDIOVASCULAR: No chest pain. No palpitation or orthopnea. GASTROINTESTINAL: Denies nausea, vomiting, or abdominal pain. GENITOURINARY: No dysuria, urgency, or urinary frequency. CENTRAL NERVOUS SYSTEM: No headache, dyspnea, or slurred speech. PSYCHIATRY: No depression. No suicidal ideation. EXTREMITIES: Positive for left lower leg cellulitis. PHYSICAL EXAMINATION: GENERAL: Elderly male, awake. VITAL SIGNS: Temperature 97.5, pulse 63, respiratory rate 18, BP 128/74. EYES: No icterus. Pupils equal and reactive. HENT: No oral thrush seen. Moist oral mucosa. NECK: Supple. No JVD or thyromegaly. LUNGS: Good air entry. No rales. No rhonchi. CARDIOVASCULAR SYSTEM: S1 and S2, regular. No murmur heard. ABDOMEN: Full, soft, nontender. Bowel sound is present. CENTRAL NERVOUS SYSTEM: Awake, alert, oriented x 3. No focal deficits. SKIN: No rashes. No itchiness. LYMPHATIC: No peripheral lymphadenopathy. BACK: No deformity. No pressure ulcer. EXTREMITIES: Cellulitis involving left lower leg with area of ____. LABORATORY DATA: Sodium 143, potassium 3.9, BUN 17, creatinine 1.2. WBC 10.5, hemoglobin 12.0, platelets 155. RADIOLOGY: Venous Doppler of lower extremity unremarkable. X-ray shows soft tissue swelling. ASSESSMENT: A 64-year-old male presented with left leg pain, swelling, and redness. Current problems include: * Left lower extremity cellulitis. * Diabetes mellitus. * Leukocytosis. * Hypertension. * History of CVA. PLAN: * Continue pain management. * Continue on clindamycin. * Keep legs elevated. * Continue nutritional support. * Continue antiemetic. * Continue DVT prophylaxis. * The patient will be followed up closely. Thank you for allowing me to participate in the care of this patient. TID: [id number] RECEIPT: [id number]
[2024-12-01] VITALS (12 sets, daily range): BP systolic 119–130; BP diastolic 63–67; PULSE 70–95; RESP 17–20; TEMP 97.5–98.5; O2SAT 95–99
[2024-12-01] MEDS: LACTOBACILLUS RHAMNOSUS GG 1 EACH CAP.SPRINK PO SCH (08:21)
[2024-12-01] MEDS: EMPAGLIFLOZIN 25MG TABLET PO SCH (08:22)
[2024-12-01] MEDS: CHOLECALCIFEROL 25 MCG PO SCH (08:23)
[2024-12-01] MEDS ORDERED: PRED20TA3 PO (08:29)
--- NOTE | 2024-12-01 08:30 | NUR ---
HOME MEDICATIONS PATIENT REPORTED TAKING PREDNISONE MEDICATION PRIOR TO NURSE DOING MED PASS. EDUCATED PATIENT NOT TO TAKE ANY MEDICATIONS UNLESS GIVEN BY THE NURSE DUE TO NEEDING AN ORDER FROM MD TO ADMINISTER AND PREVENT ANY COMPLICATIONS. PATIENT VOICED UNDERSTANDING AND STATED FORGOT TO ADVISE YESTERDAY PART OF HOME MEDICATION REGIMEN. MEDICATION ADDED TO REGIMEN. PROVIDER NOTIFIED FOR APPROVAL. PENDING CALLBACK.
--- NOTE | 2024-12-01 09:23 | NUR ---
[facility] Care Coordination Call Discussed discharge planning with the [facility] Team. Patient has mandatory eligibility for SNF (service connected) if needed. Patient currently on Clindamycin IV and pending culture result to ankle. Anticipate dcp to home. CM to follow up on cultures and antibiotic recommendations.
--- NOTE | 2024-12-01 11:36 | PN ---
[facility] PROGRESS NOTE Date of Service: Dec 01, 2024 Time of Service: 11:32 SUBJECTIVE: The patient has been seen and examined at bedside, case discussed with the RN, no acute events overnight, the time of my visit the patient is comfortably in bed, alert oriented x3, getting supportive care with IV fluids, as well as IV antibiotics. He is getting good pain control with current medical management. Results of Doppler no evidence of DVT, discussed with the patient. At the time of examination the patient with the extensive erythema around the left ankle area, with the associated swollen. X-ray of the left ankle showing diffuse soft tissue swelling without acute bony findings. Infectious Disease consultation requested, we will follow input and recommendation. We will order MRI of the left ankle area. Continue to trend WBC in a.m.. Discussed with the patient, in agreement. 12/01 patient remains admitted to the medical floor, case discussed with the RN, no acute events overnight, patient is sitting comfortable in the chair at the time of my visit, patient with a history of psoriasis, has had episodes of plaque psoriasis to the left lower extremity in the past for which he applies the cream (can not recall the name but he has been at home). However per the patient and the was at the bedside, the current plaque that he has in the left ankle area never looks like dad. At the time of my visit there is an erythematous plaque around the left ankle area with swelling, there is some yellow slough on top of the plaque. Currently the patient getting IV antibiotics. Doppler of the lower extremities negative for DVT, discussed with both the patient and the . Pending MRI of the left ankle, ID consulted, follow input and recommendation. Discussed with the , she will bring the cream that she uses at home. REVIEW OF SYSTEMS CONSTITUTIONAL: Denies fevers, chills, or night sweats. No unintentional weight loss reported. NEUROLOGICAL: Denies headache, amaurosis fugax, motor weakness, sensory deficit, vertigo/spinning sensation, gait abnormalities, or tremors. ENT: No hearing loss, otalgia, otorrhea, rhinitis, rhinorrhea, hoarseness, or sore throat. CARDIOVASCULAR: Denies any exertional angina, dyspnea on exertion, orthopnea, paroxysmal nocturnal dyspnea, palpitations, life-threatening arrhythmias, claudication. PULMONARY: Denies any shortness of breath, cough, phlegm/sputum, hemoptysis, pleuritic chest pain. SLEEP: Denies morning headaches, daytime somnolence or napping. Denies difficulty falling asleep, staying asleep, waking from sleep. Denies knowledge of snoring. GASTROINTESTINAL: Denies any type of dysphagia to either liquids or solids. Denies nausea, vomiting, pyrosis, early satiety, abdominal pain, diarrhea, constipation, or changes in stool consistency or caliber. Denies coffee-ground emesis, hematemesis, hematochezia, or melanotic stools. GENITOURINARY: Denies frequency, urgency, nocturia, hematuria or incontinence (Storage/Irritative symptoms.) Low urinary stream, straining to void, urinary intermittency or hesitancy, splitting of the voiding stream, terminal dribbling. ENDOCRINOLOGIC: Denies polyuria, polydipsia, polyphagia or heat/cold intolerances. HEMATOLOGIC: Denies thrombophilia/previous clots, or coagulopathy/bleeding di sorders. ONCOLOGIC: Denies personal history of malignancy. DERMATOLOGIC: Denies rashes or pruritus. PSYCHIATRIC: Denies any suicidal or homicidal ideation. Denies hallucinations. PHYSICAL EXAM GENERAL APPEARANCE: The patient is awake, alert, and oriented, in no acute cardiopulmonary distress. NEUROLOGICAL: Cranial nerves II-XII grossly intact. Motor is 5/5 in bilateral upper and lower extremities proximal to distal. No sensory deficits. HEENT: Face is symmetric. Pupils are equal and reactive. Extraocular movements are intact. NECK: Supple. No JVD. No thyromegaly. No submental, submandibular, pre- /postauricular, occipital or supraclavicular lymphadenopathy. CHEST: Normal chest expansion. No Telemetry. LUNGS: Absence of any rales, rhonchi or any wheezing. CARDIOVASCULAR: Regular. S1 and S2 normal. No appreciable rubs, murmurs or gallops. ABDOMEN: Soft, nontender, and nondistended. There is no rebound, voluntary guarding, or rigidity. : Deferred. No [place]. EXTREMITIES: Non-edematous and not cyanotic. No clubbing. Good capillary refill. SKIN: No skin breakdown. Vital Signs (last 8hr) Date Time Temp Pulse Resp B/P (MAP) Pulse Ox O2 Delivery O2 Flow Rate FiO2 12/01/24 11:15 95 18 N/A Room Air 21 12/01/24 11:13 95 18 12/01/24 08:00 98 Nasal Cannula* 2 28 12/01/24 06:40 70 18 N/Cannula Low lpm 2.0 28 12/01/24 06:38 70 18 12/01/24 04:00 97.7 75 18 129/67 98 Nasal Cannula 2.0 24 LABS: Laboratory: Test 12/01/24 10:56 11/30/24 06:19 11/30/24 00:12 11/29/24 18:13 Range/Units Whole Blood Glucose 133 #H 70-110 MG/DL White Blood Count 10.4 4.8-10.8 K/uL Red Blood Count 4.16 L 4.50-6.20 MIL/uL Hemoglobin 12.0 L 14.0-18.0 g/dL Hematocrit 36.6 L 42-54 % Mean Corpuscular Volume 88.0 79-99 fL Mean Corpuscular Hemoglobin 28.8 27.0-33.0 pg Mean Corpuscular Hemoglobin Concent 32.8 32.0-36.0 g/dL Red Cell Distribution Width 15.2 11.0-15.5 % Platelet Count 155 130-400 K/uL Mean Platelet Volume 9.4 7.5-10.5 fL Immature Granulocyte % (Auto) 0.4 0-1 % Neutrophils (%) (Auto) 75.0 40.0-77.0 % Lymphocytes (%) (Auto) 15.1 L 21.0-51.0 % Monocytes (%) (Auto) 8.8 3.0-13.0 % Eosinophils (%) (Auto) 0.5 0.0-8.0 % Basophils (%) (Auto) 0.2 0.0-5.0 % Neutrophils # (Auto) 7.8 H 1.8-7.7 K/uL Lymphocytes # (Auto) 1.6 1.0-4.8 K/uL Monocytes # (Auto) 0.9 0.1-1.0 K/uL Eosinophils # (Auto) 0.05 0.00-0.70 K/uL Basophils # (Auto) 0.02 0.00-0.20 K/uL Absolute Immature Granulocyte (auto 0.04 0-1 K/uL Nucleated Red Blood Cells 0.0 0.0-0.19 % Sodium Level 143 136-145 mmol/L Potassium Level 3.9 3.5-5.1 mmol/L Chloride Level 110 101-111 mmol/L Carbon Dioxide Level 26 21-32 mmol/L Blood Urea Nitrogen 17 7-18 mg/dL Creatinine 1.2 0.5-1.3 mg/dL Glomerular Filtration Rate Calc 67 >90 mL/min Random Glucose 69 #L 70-105 mg/dL Lactic Acid Level 1.5 0.8-2.5 mmol/L Total Calcium 8.6 8.5-10.1 mg/dL Phosphorus Level 2.9 2.5-4.9 mg/dL Magnesium Level 1.60 L 1.80-2.40 mg/dL Urine Color LIGHT-YELLOW YELLOW Urine Appearance CLEAR CLEAR Urine pH 6.5 5.0-8.0 Urine Specific [place] 1.022 1.001-1.031 Urine Protein NEGATIVE NEGATIVE mg/dL Urine Glucose (UA) >=1000 H NEGATIVE mg/dL Urine Ketones NEGATIVE NEGATIVE mg/dL Urine Occult Blood +- (TRACE) H NEGATIVE Urine Nitrate NEGATIVE NEGATIVE Urine Bilirubin NEGATIVE NEGATIVE mg/dL Urine Urobilinogen 0.2 0.2-1.0 mg/dL Urine Leukocyte Esterase 75 H NEGATIVE Kary/uL Urine RBC 2-5 H 0-1 /HPF Urine WBC 6-10 H 0-1 /HPF Urine Squamous Epithelial Cells RARE 0-2 /HPF Urine Bacteria None None Seen /HPF Procalcitonin < 0.05 L 0.05-0.5 ng/mL Test 11/29/24 17:55 Range/Units White Cell Morphology Comment See comments Erythrocyte Sedimentation Rate 14 0-20 MM/HR Hemoglobin A1c 6.9 H 4.0-6.0 % Estimated Average Glucose (eAG) 151 H 70-126 mg/dL Current Medications Medications (Trade) Dose Ordered Sig/Michael Route PRN Reason Start Time Stop Time Status Last Admin Dose Admin Acetaminophen (TYLenol 325MG TAB) 650 mg Q6H PRN PO TEMPERATURE GREATER THAN 101.5 11/29/24 21:30 12/29/24 21:29 Albuterol (DUOneb) 1 UDVIAL [id number] IH 11/30/24 00:00 12/30/24 00:00 12/01/24 11:12 1 UDVIAL Benzonatate (Tessalon 100mg Caps) 100 mg TID PRN PO ANXIETY/AGITATION 8/13/25 13:00 12/30/24 12:59 Budesonide (Pulmicort 0.5 Mg/2ml) 0.5 mg BIDRESP IH 11/30/24 06:00 12/30/24 05:59 12/01/24 06:38 0.5 MG Buspirone HCl (BUspar) 15 mg BID PO 11/30/24 21:00 12/30/24 20:59 12/01/24 08:22 15 MG Clindamycin HCl/ Dextrose 50 ml @ 100 mls/hr Q8H IV 11/29/24 20:30 12/09/24 20:29 12/01/24 04:06 100 MLS/HR Clopidogrel Bisulfate (plaVIX 75MG) 75 mg DAILY PO 12/01/24 09:00 12/31/24 08:59 12/01/24 08:22 75 MG Doxycycline Hyclate 250 ml @ 125 mls/hr ONCE STAT IV 11/29/24 19:45 11/29/24 21:44 DC 11/29/24 21:48 125 MLS/HR Empaglifozin (Jardiance 25mg) 25 mg DAILY PO 12/01/24 09:00 12/31/24 08:59 12/01/24 08:22 25 MG Enoxaparin Sodium (Lovenox) 40 mg DAILY SQ 11/30/24 09:00 12/30/24 08:59 12/01/24 08:23 40 MG Famotidine (Pepcid 20mg Tab) 20 mg DAILY PO 11/30/24 09:00 11/30/24 12:45 DC 11/30/24 09:54 20 MG Folic Acid (FOLic ACID 1 MG TABLET) 1 mg DAILY PO 12/01/24 09:00 12/31/24 08:59 12/01/24 08:22 1 MG Gabapentin (NEURontin 300 MG CAP) 300 mg BID PO 11/30/24 21:00 12/30/24 20:59 12/01/24 08:22 300 MG Guaifenesin (RobiTUSSin SUGAR-FREE 100 MG/ 5 ML UDCUP) 400 mg Q4H PRN PO cough 11/29/24 21:30 12/29/24 21:29 Home Med (Home Medication) (Brimonidine Tartrate/Timolol (Brimonidine-Marin... BID OP 11/30/24 21:00 12/30/24 20:59 Home Med (Home Medication) (Cholecalciferol (Vitamin D3) (Vitamin ... DAILY PO 12/01/24 09:00 12/31/24 08:59 Home Med (Home Medication) (Rosuvastatin Calcium 40MG TAB) HS PO 11/30/24 21:00 12/30/24 20:59 Hydralazine HCl (APRESOLine 20MG INJ) 10 mg Q6H PRN IV For:SBP above 160;DBP above 90 11/29/24 21:30 12/29/24 21:29 Insulin Human Regular (humuLIN R 100 UNIT/ML 3ML) INSULIN SLIDING SCAL... ACHS SQ 11/30/24 07:30 12/30/24 07:29 Lactobacillus Rhamnosus ([facility] [employer]) 1 each DAILY PO 12/01/24 09:00 12/31/24 08:59 12/01/24 08:21 1 EACH Latanoprost (Xalatan) 1 DROP TO AFFECTED EYE(S) HS OP 11/30/24 21:00 12/30/24 20:59 Losartan Potassium (CozAAR 50 mg TAB) 50 mg DAILY PO 12/01/24 09:00 12/31/24 08:59 12/01/24 08:22 50 MG Magnesium Sulfate 50 ml @ 0 mls/hr PROTOCOL IV 11/30/24 12:00 12/30/24 11:59 Metformin HCl (glucoPHAGE) 1,000 mg BIDMEALS PO 11/30/24 17:00 12/30/24 16:59 12/01/24 08:21 1,000 MG Metoprolol Succinate (TopROL XL) 50 mg DAILY PO 12/01/24 09:00 12/31/24 08:59 12/01/24 08:22 50 MG Morphine Sulfate (morPHINE 2MG SYG) 2 mg Q4H PRN IVP SEVERE PAIN (7-10) 11/29/24 21:30 12/06/24 21:29 11/30/24 17:20 2 MG Nitroglycerin (Nitrostat) 0.4 mg AD PRN SL CHEST PAIN 11/30/24 13:00 12/30/24 12:59 Ondansetron HCl (zoFRAN 4MG INJ) 4 mg Q6H PRN IV NAUSEA/VOMITING 11/29/24 21:30 12/29/24 21:29 Pantoprazole Sodium (PROTonix 40MG TAB) 40 mg DAILY PO 12/01/24 09:00 12/31/24 08:59 12/01/24 08:22 40 MG Prednisone (deltaSONE/ oraSONE 20MG TAB) 20 mg DAILY PO 12/01/24 09:00 12/31/24 08:59 Sertraline HCl (ZOloft 50 mg tab) 150 mg DAILY PO 12/01/24 09:00 12/31/24 08:59 12/01/24 08:21 150 MG DIAGNOSTICS / RADIOLOGY: [ ] ASSESSMENT: Left lower extremity cellulitis, POA Leukocytosis, POA Hyperlactatemia, POA COPD DM II Hypertension Plaque psoriasis involving the left ankle area with possible superimposed infection, POA Left ankle psoriatic arthritis, POA PLAN: patient remains admitted to the medical floor, case discussed with the RN, no acute events overnight, patient is sitting comfortable in the chair at the time of my visit, patient with a history of psoriasis, has had episodes of plaque psoriasis to the left lower extremity in the past for which he applies the cream (can not recall the name but he has been at home). However per the patient and the was at the bedside, the current plaque that he has in the left ankle area never looks like dad. At the time of my visit there is an erythematous plaque around the left ankle area with swelling, there is some yellow slough on top of the plaque. Currently the patient getting IV antibiotics. Doppler of the lower extremities negative for DVT, discussed with both the patient and the . Pending MRI of the left ankle, ID consulted, follow input and recommendation. Discussed with the , she will bring the cream that she uses at home. NEURO: Minimize central acting medications as possible. Fall Precautions. Well lighted room through the day and minimize interruptions through the night to prevent acute delirium. PULMONARY: Supplemental 02 as needed BiPAP as necessary, for respiratory distress Titrate Fio2 to keep Spo2 > or = 90% DuoNebs and CPT as needed IS hourly while awake for pulmonary hygiene prn Out of bed to chair as tolerated Maintain aspiration precautions at all times CARDIOVASCULAR: Follow hemodynamics. Vital signs per facility protocol GI & NUTRITION: Continue nutritional support Aspirations precautions Prokinetic agents and laxatives as needed KIDNEYS & ELECTROLYTES: Strict monitoring of intake and output Daily weights Avoid nephrotoxic agents Monitor electrolytes and replace as needed Goal urine output of 30mL/hr or 0.5mL/kg/hr Medications to be dosed according to renal function. Avoid contrast if possible ENDOCRINE: Maintain blood glucose between 100-180 at all times. Insulin sliding scale for blood glucose management Hypoglycemia and hyperglycemia protocol in place INFECTIOUS DISEASE: Trend temperature, WBC and procalcitonin level Follow cultures, deescalate antibiotics as soon as possible. Panculture if new onset fever HEMATOLOGY & COAGULATION: Monitor H&H. Keep Hgb > 7 Transfuse 1 unit of PRBC for Hgb < 7 Transfuse 1 pack of platelets of platelets < 20, 000 Watch for any signs and symptoms of bleeding SKIN: Pressure ulcer prevention per facility protocol Specialty mattress as needed ORTHO/REHAB Continue PT/OT PRN: MEDICATIONS Tylenol 650 mg po every 4 hrs for fever zofran 4 mg IV every 6 hrs for n/v Hydralazine 5 mg IV every 4 hrs systolic pressure > 160 bowel regiment: lactulose 20 gm PO BID PRN constipation Supportive measures: Continue GI and DVT prophylaxis All questions answered time spent: > 35 min BRAYDEN PEREZ MD Dec 01, 2024 11:36
--- NOTE | 2024-12-01 13:25 | PN ---
INFECTIOUS DISEASE PROGRESS NOTE Date of Service: Dec 01, 2024 SUBJECTIVE: This 64 year old male patient is being seen today at bedside. No fever or chills. Awake, alert and oriented x3. Patient continues with antibiotics, clindamycin for cellulitis to left lower extremity. Cultures are still prelim inary. No acute events over night reported by nurse at this visit. PHYSICAL EXAM EYES: Anicteric. Pupils equal and reactive. HENT: No oral thrush seen, moist Oral mucosa NECK: Supple, no JVD or thyromegaly. LUNGS: Good air entry. No rales, no rhonchi. CARDIOVASCULAR: S1, S2 regular. No murmur heard. ABDOMEN: Soft, non tender, bowel sounds present, no organomegaly CENTRAL NERVOUS SYSTEM: Awake, alert, oriented x 3. No focal deficits. SKIN: No rashes, no swelling. LYMPHATICS: No peripheral lymphadenopathy MUSCULOSKELETAL: No joint swelling, erythema or tenderness. EXTREMITIES: Cellulitis involving left lower leg BACK: No deformity, no pressure ulcer. GENITOURINARY: No dysuria or hematuria Vital Sign (Last 12 Hours) 12/01/24 12/01/24 12/01/24 12/01/24 04:00 06:38 06:40 08:00 Temp 97.7 Pulse 75 70 70 Resp 18 18 18 B/P (MAP) 129/67 Pulse Ox 98 98 O2 Delivery Nasal Cannula N/Cannula Low lpm Nasal Cannula* O2 Flow Rate 2.0 2.0 2 FiO2 24 28 28 12/01/24 12/01/24 12/01/24 11:13 11:15 11:47 Temp 97.5 Pulse 95 95 84 Resp 18 18 18 B/P (MAP) 119/67 Pulse Ox 94 O2 Delivery N/A Room Air FiO2 21 Intake & Output (last 24hrs) 11/30/24 11/30/24 12/01/24 15:00 23:00 07:00 Intake Total 480 ml 240 ml 100.0 ml Balance 480 ml 240 ml 100.0 ml LABS: Laboratory: Test 12/01/24 10:56 11/30/24 06:19 11/30/24 00:12 11/29/24 18:13 Range/Units Whole Blood Glucose 133 #H 70-110 MG/DL White Blood Count 10.4 4.8-10.8 K/uL Red Blood Count 4.16 L 4.50-6.20 MIL/uL Hemoglobin 12.0 L 14.0-18.0 g/dL Hematocrit 36.6 L 42-54 % Mean Corpuscular Volume 88.0 79-99 fL Mean Corpuscular Hemoglobin 28.8 27.0-33.0 pg Mean Corpuscular Hemoglobin Concent 32.8 32.0-36.0 g/dL Red Cell Distribution Width 15.2 11.0-15.5 % Platelet Count 155 130-400 K/uL Mean Platelet Volume 9.4 7.5-10.5 fL Immature Granulocyte % (Auto) 0.4 0-1 % Neutrophils (%) (Auto) 75.0 40.0-77.0 % Lymphocytes (%) (Auto) 15.1 L 21.0-51.0 % Monocytes (%) (Auto) 8.8 3.0-13.0 % Eosinophils (%) (Auto) 0.5 0.0-8.0 % Basophils (%) (Auto) 0.2 0.0-5.0 % Neutrophils # (Auto) 7.8 H 1.8-7.7 K/uL Lymphocytes # (Auto) 1.6 1.0-4.8 K/uL Monocytes # (Auto) 0.9 0.1-1.0 K/uL Eosinophils # (Auto) 0.05 0.00-0.70 K/uL Basophils # (Auto) 0.02 0.00-0.20 K/uL Absolute Immature Granulocyte (auto 0.04 0-1 K/uL Nucleated Red Blood Cells 0.0 0.0-0.19 % Sodium Level 143 136-145 mmol/L Potassium Level 3.9 3.5-5.1 mmol/L Chloride Level 110 101-111 mmol/L Carbon Dioxide Level 26 21-32 mmol/L Blood Urea Nitrogen 17 7-18 mg/dL Creatinine 1.2 0.5-1.3 mg/dL Glomerular Filtration Rate Calc 67 >90 mL/min Random Glucose 69 #L 70-105 mg/dL Lactic Acid Level 1.5 0.8-2.5 mmol/L Total Calcium 8.6 8.5-10.1 mg/dL Phosphorus Level 2.9 2.5-4.9 mg/dL Magnesium Level 1.60 L 1.80-2.40 mg/dL Urine Color LIGHT-YELLOW YELLOW Urine Appearance CLEAR CLEAR Urine pH 6.5 5.0-8.0 Urine Specific [place] 1.022 1.001-1.031 Urine Protein NEGATIVE NEGATIVE mg/dL Urine Glucose (UA) >=1000 H NEGATIVE mg/dL Urine Ketones NEGATIVE NEGATIVE mg/dL Urine Occult Blood +- (TRACE) H NEGATIVE Urine Nitrate NEGATIVE NEGATIVE Urine Bilirubin NEGATIVE NEGATIVE mg/dL Urine Urobilinogen 0.2 0.2-1.0 mg/dL Urine Leukocyte Esterase 75 H NEGATIVE Kary/uL Urine RBC 2-5 H 0-1 /HPF Urine WBC 6-10 H 0-1 /HPF Urine Squamous Epithelial Cells RARE 0-2 /HPF Urine Bacteria None None Seen /HPF Procalcitonin < 0.05 L 0.05-0.5 ng/mL Test 11/29/24 17:55 Range/Units White Cell Morphology Comment See comments Erythrocyte Sedimentation Rate 14 0-20 MM/HR Hemoglobin A1c 6.9 H 4.0-6.0 % Estimated Average Glucose (eAG) 151 H 70-126 mg/dL DIAGNOSTICS / RADIOLOGY: [ ] ASSESSMENT: * Left lower extremity cellulitis. * Diabetes mellitus. * Leukocytosis. * Hypertension. * History of CVA. PLAN: * Continue pain management. * Continue on clindamycin. * Keep left leg elevated. * Continue nutritional support. * Continue antiemetic. * Continue DVT prophylaxis. * The patient will be followed up closely. * Follow MRI to lower extremity * Follow cultures This case has been discussed with my supervising physician Dr. Tian. The case has been discussed and agreed upon. KATTY LIMON [facility] Dec 01, 2024 13:25
--- NOTE | 2024-12-01 16:43 | HMCIMG ---
EXAM: MR Left Ankle WITHOUT CONTRAST CLINICAL HISTORY: 64-year-old male with soft tissue swelling. TECHNIQUE: Multiplanar multisequence magnetic resonance images were obtained WITHOUT contrast. CONTRAST: None COMPARISON: None FINDINGS: JOINTS: Unremarkable. No dislocation or significant effusion. BONE: No acute fracture. A subchondral cyst is present at the base of the third metatarsal. SOFT TISSUES: There is moderate medial and lateral glenohumeral soft tissue edema. Question of cellulitis with soft tissue edema. IMPRESSION: 1. Moderate medial and lateral glenohumeral soft tissue edema, possibly representing cellulitis. 2. Subchondral cyst at the base of the third metatarsal. /[place]
[2024-12-02] VITALS (15 sets, daily range): BP systolic 115–141; BP diastolic 60–76; PULSE 64–94; RESP 17–20; TEMP 97.5–98.2; O2SAT 97–100
[2024-12-02 05:02] LABS: NUCLEATED RED BLOOD CELLS 0.0 % (0.0-0.19); PLATELET COUNT (AUTO) 177.0 K/uL (130-400); RED BLOOD CELL COUNT(AUTO) 4.31 MIL/uL (4.50-6.20); RED CELL DISTRIBUTION WIDTH 15.6 % (11.0-15.5); WHITE BLOOD COUNT (AUTO) 9.9 K/uL (4.8-10.8)
[2024-12-02 05:35] LABS: ASPARTATE AMINOTRANSFERASE 13.0 U/L (10-37); CREATININE 1.1 mg/dL (0.5-1.3); GLOMERULAR FILTR. RATE CALC 75.0 mL/min (>90); GLUCOSE,RANDOM 110.0 mg/dL (70-105); SODIUM SERUM 144.0 mmol/L (136-145); TOTAL PROTEIN, SERUM 6.0 g/dL (6.0-8.3); UREA NITROGEN, BLOOD 19.0 mg/dL (7-18)
[2024-12-02] MEDS: MAGNESIUM 2GM PREMIX 50ML 50 ML IV SCH (05:49)
[2024-12-02] MEDS ORDERED: MAGNESIUM 2GM PREMIX 50ML 50 ML IV SCH (08:30)
[2024-12-02] MEDS ORDERED: ROPI0.2535 PO (09:18)
[2024-12-02] MEDS: PoTASSium chloRIDE 20MEQ ER 20 MEQ ERTAB PO ONE (09:20)
--- NOTE | 2024-12-02 10:13 | PN ---
[facility] PROGRESS NOTE Date of Service: Dec 02, 2024 Time of Service: 10:10 SUBJECTIVE: The patient has been seen and examined at bedside, case discussed with the RN, no acute events overnight, the time of my visit the patient is comfortably in bed, alert oriented x3, getting supportive care with IV fluids, as well as IV antibiotics. He is getting good pain control with current medical management. Results of Doppler no evidence of DVT, discussed with the patient. At the time of examination the patient with the extensive erythema around the left ankle area, with the associated swollen. X-ray of the left ankle showing diffuse soft tissue swelling without acute bony findings. Infectious Disease consultation requested, we will follow input and recommendation. We will order MRI of the left ankle area. Continue to trend WBC in a.m.. Discussed with the patient, in agreement. 12/01 patient remains admitted to the medical floor, case discussed with the RN, no acute events overnight, patient is sitting comfortable in the chair at the time of my visit, patient with a history of psoriasis, has had episodes of plaque psoriasis to the left lower extremity in the past for which he applies the cream (can not recall the name but he has been at home). However per the patient and the was at the bedside, the current plaque that he has in the left ankle area never looks like dad. At the time of my visit there is an erythematous plaque around the left ankle area with swelling, there is some yellow slough on top of the plaque. Currently the patient getting IV antibiotics. Doppler of the lower extremities negative for DVT, discussed with both the patient and the . Pending MRI of the left ankle, ID consulted, follow input and recommendation. Discussed with the , she will bring the cream that she uses at home. 12/02 patient remains admitted to the medical floor, case discussed with the RN, no acute events overnight, the time of my visit patient remains alert oriented x3, hemodynamically stable, results of MRI of the left ankle reviewed, moderate medial and lateral glenohumeral soft tissue edema possibly representing cellulitis, subchondral cyst at the base of the 3rd metatarsal. Discussed findings with the patient. We will continue on broad-spectrum IV antibiotics. The patient with some other scattered psoriatic plaques in both lower extremities, to bring cream that the patient uses at home. Advised to start using a topical on the smaller psoriatic plaques, but not to use it on the large plaque on the left ankle area. On physical examination there is significant decreasing swollen to the left ankle area, no pain, good range of motion. We will continue to follow over the weekend. Patient in agreement. REVIEW OF SYSTEMS CONSTITUTIONAL: Denies fevers, chills, or night sweats. No unintentional weight loss reported. NEUROLOGICAL: Denies headache, amaurosis fugax, motor weakness, sensory deficit, vertigo/spinning sensation, gait abnormalities, or tremors. ENT: No hearing loss, otalgia, otorrhea, rhinitis, rhinorrhea, hoarseness, or sore throat. CARDIOVASCULAR: Denies any exertional angina, dyspnea on exertion, orthopnea, paroxysmal nocturnal dyspnea, palpitations, life-threatening arrhythmias, claudication. PULMONARY: Denies any shortness of breath, cough, phlegm/sputum, hemoptysis, pleuritic chest pain. SLEEP: Denies morning headaches, daytime somnolence or napping. Denies difficulty falling asleep, staying asleep, waking from sleep. Denies knowledge of snoring. GASTROINTESTINAL: Denies any type of dysphagia to either liquids or solids. Denies nausea, vomiting, pyrosis, early satiety, abdominal pain, diarrhea, constipation, or changes in stool consistency or caliber. Denies coffee-ground emesis, hematemesis, hematochezia, or melanotic stools. GENITOURINARY: Denies frequency, urgency, nocturia, hematuria or incontinence (Storage/Irritative symptoms.) Low urinary stream, straining to void, urinary intermittency or hesitancy, splitting of the voiding stream, terminal dribbling. ENDOCRINOLOGIC: Denies polyuria, polydipsia, polyphagia or heat/cold intolerances. HEMATOLOGIC: Denies thrombophilia/previous clots, or coagulopathy/bleeding disorders. ONCOLOGIC: Denies personal history of malignancy. DERMATOLOGIC: Denies rashes or pruritus. PSYCHIATRIC: Denies any suicidal or homicidal ideation. Denies hallucinations. PHYSICAL EXAM GENERAL APPEARANCE: The patient is awake, alert, and oriented, in no acute cardiopulmonary distress. NEUROLOGICAL: Cranial nerves II-XII grossly intact. Motor is 5/5 in bilateral upper and lower extremities proximal to distal. No sensory deficits. HEENT: Face is symmetric. Pupils are equal and reactive. Extraocular movements are intact. NECK: Supple. No JVD. No thyromegaly. No submental, submandibular, pre-/postau ricular, occipital or supraclavicular lymphadenopathy. CHEST: Normal chest expansion. No Telemetry. LUNGS: Absence of any rales, rhonchi or any wheezing. CARDIOVASCULAR: Regular. S1 and S2 normal. No appreciable rubs, murmurs or gallops. ABDOMEN: Soft, nontender, and nondistended. There is no rebound, voluntary guarding, or rigidity. : Deferred. No [place]. EXTREMITIES: Non-edematous and not cyanotic. No clubbing. Good capillary refill. SKIN: No skin breakdown. Vital Signs (last 8hr) Date Time Temp Pulse Resp B/P (MAP) Pulse Ox O2 Delivery O2 Flow Rate FiO2 12/02/24 08:00 97.5 75 20 129/76 98 Room Air 12/02/24 07:04 77 20 N/Cannula Low lpm 2.0 28 12/02/24 07:03 77 20 12/02/24 04:00 97.5 79 17 141/66 96 Nasal Cannula 2.0 24 LABS: Laboratory: Test 12/02/24 05:15 12/02/24 04:27 Range/Units Whole Blood Glucose 108 70-110 MG/DL White Blood Count 9.9 4.8-10.8 K/uL Red Blood Count 4.31 L 4.50-6.20 MIL/uL Hemoglobin 12.4 L 14.0-18.0 g/dL Hematocrit 37.2 L 42-54 % Mean Corpuscular Volume 86.3 79-99 fL Mean Corpuscular Hemoglobin 28.8 27.0-33.0 pg Mean Corpuscular Hemoglobin Concent 33.3 32.0-36.0 g/dL Red Cell Distribution Width 15.6 H 11.0-15.5 % Platelet Count 177 130-400 K/uL Mean Platelet Volume 10.1 7.5-10.5 fL Nucleated Red Blood Cells 0.0 0.0-0.19 % Sodium Level 144 136-145 mmol/L Potassium Level 3.8 3.5-5.1 mmol/L Chloride Level 107 101-111 mmol/L Carbon Dioxide Level 29 21-32 mmol/L Blood Urea Nitrogen 19 H 7-18 mg/dL Creatinine 1.1 0.5-1.3 mg/dL Glomerular Filtration Rate Calc 75 >90 mL/min Random Glucose 110 H 70-105 mg/dL Total Calcium 9.0 8.5-10.1 mg/dL Magnesium Level 1.70 L 1.80-2.40 mg/dL Total Bilirubin 0.3 0.2-1.0 mg/dL Aspartate Amino Transf (AST/SGOT) 13 10-37 U/L Alanine Aminotransferase (ALT/SGPT) 31 12-78 U/L Alkaline Phosphatase 36 L 50-136 U/L Total Protein 6.0 6.0-8.3 g/dL Albumin 2.9 L 3.5-5.0 g/dL Current Medications Medications (Trade) Dose Ordered Sig/Michael Route PRN Reason Start Time Stop Time Status Last Admin Dose Admin Acetaminophen (TYLenol 325MG TAB) 650 mg Q6H PRN PO TEMPERATURE GREATER THAN 101.5 11/29/24 21:30 12/29/24 21:29 Albuterol (DUOneb) 1 UDVIAL [id number] IH 11/30/24 00:00 12/30/24 00:00 12/02/24 07:02 1 UDVIAL Benzonatate (Tessalon 100mg Caps) 100 mg TID PRN PO ANXIETY/AGITATION 11/30/24 13:00 12/30/24 12:59 Budesonide (Pulmicort 0.5 Mg/2ml) 0.5 mg BIDRESP IH 11/30/24 06:00 12/30/24 05:59 12/02/24 07:02 0.5 MG Buspirone HCl (BUspar) 15 mg BID PO 11/30/24 21:00 12/30/24 20:59 12/02/24 09:20 15 MG Clindamycin HCl/ Dextrose 50 ml @ 100 mls/hr Q8H IV 11/29/24 20:30 12/09/24 20:29 12/02/24 03:47 100 MLS/HR Clopidogrel Bisulfate (plaVIX 75MG) 75 mg DAILY PO 12/01/24 09:00 12/31/24 08:59 12/02/24 09:20 75 MG Doxycycline Hyclate 250 ml @ 125 mls/hr ONCE STAT IV 11/29/24 19:45 11/29/24 21:44 DC 11/29/24 21:48 125 MLS/HR Empaglifozin (Jardiance 25mg) 25 mg DAILY PO 12/01/24 09:00 12/31/24 08:59 12/02/24 09:20 25 MG Enoxaparin Sodium (Lovenox) 40 mg DAILY SQ 11/30/24 09:00 12/30/24 08:59 12/02/24 09:22 40 MG Famotidine (Pepcid 20mg Tab) 20 mg DAILY PO 11/30/24 09:00 11/30/24 12:45 DC 11/30/24 09:54 20 MG Folic Acid (FOLic ACID 1 MG TABLET) 1 mg DAILY PO 12/01/24 09:00 12/31/24 08:59 12/02/24 09:19 1 MG Gabapentin (NEURontin 300 MG CAP) 300 mg BID PO 11/30/24 21:00 12/30/24 20:59 12/02/24 09:20 300 MG Guaifenesin (RobiTUSSin SUGAR-FREE 100 MG/ 5 ML UDCUP) 400 mg Q4H PRN PO cough 11/29/24 21:30 12/29/24 21:29 Home Med (Home Medication) (Brimonidine Tartrate/Timolol (Brimonidine-Marin... BID OP 11/30/24 21:00 12/30/24 20:59 Home Med (Home Medication) (Cholecalciferol (Vitamin D3) (Vitamin ... DAILY PO 12/01/24 09:00 12/31/24 08:59 Home Med (Home Medication) (Rosuvastatin Calcium 40MG TAB) HS PO 11/30/24 21:00 12/30/24 20:59 Hydralazine HCl (APRESOLine 20MG INJ) 10 mg Q6H PRN IV For:SBP above 160;DBP above 90 11/29/24 21:30 12/29/24 21:29 Insulin Human Regular (humuLIN R 100 UNIT/ML 3ML) INSULIN SLIDING SCAL... ACHS SQ 11/30/24 07:30 12/30/24 07:29 Lactobacillus Rhamnosus ([facility] [employer]) 1 each DAILY PO 12/01/24 09:00 12/31/24 08:59 12/02/24 09:15 1 EACH Latanoprost (Xalatan) 1 DROP TO AFFECTED EYE(S) HS OP 8/13/25 21:00 12/30/24 20:59 Losartan Potassium (CozAAR 50 mg TAB) 50 mg DAILY PO 12/01/24 09:00 12/31/24 08:59 12/02/24 09:19 50 MG Magnesium Sulfate 50 ml @ 0 mls/hr PROTOCOL IV 11/30/24 12:00 12/02/24 08:11 DC 12/02/24 05:49 25 MLS/HR Magnesium Sulfate 50 ml @ 0 mls/hr PROTOCOL IV 12/02/24 08:30 01/01/25 08:29 Metformin HCl (glucoPHAGE) 1,000 mg BIDMEALS PO 11/30/24 17:00 12/30/24 16:59 12/02/24 09:25 1,000 MG Metoprolol Succinate (TopROL XL) 50 mg DAILY PO 12/01/24 09:00 12/31/24 08:59 12/01/24 08:22 50 MG Morphine Sulfate (morPHINE 2MG SYG) 2 mg Q4H PRN IVP SEVERE PAIN (7-10) 11/29/24 21:30 12/06/24 21:29 11/30/24 17:20 2 MG Nitroglycerin (Nitrostat) 0.4 mg AD PRN SL CHEST PAIN 11/30/24 13:00 12/30/24 12:59 Ondansetron HCl (zoFRAN 4MG INJ) 4 mg Q6H PRN IV NAUSEA/VOMITING 11/29/24 21:30 12/29/24 21:29 Pantoprazole Sodium (PROTonix 40MG TAB) 40 mg DAILY PO 12/01/24 09:00 12/31/24 08:59 12/02/24 09:19 40 MG Prednisone (deltaSONE/ oraSONE 20MG TAB) 20 mg DAILY PO 12/01/24 09:00 12/31/24 08:59 12/02/24 09:20 20 MG Sertraline HCl (ZOloft 50 mg tab) 150 mg DAILY PO 12/01/24 09:00 12/31/24 08:59 12/02/24 09:20 150 MG DIAGNOSTICS / RADIOLOGY: [ ] ASSESSMENT: Left ankle cellulitis, POA Leukocytosis, POA Hyperlactatemia, POA COPD DM II Hypertension Plaque psoriasis involving the left ankle area with possible superimposed infection, POA Left ankle psoriatic arthritis, POA PLAN: patient remains admitted to the medical floor, case discussed with the RN, no acute events overnight, the time of my visit patient remains alert oriented x3, hemodynamically stable, results of MRI of the left ankle reviewed, moderate medial and lateral glenohumeral soft tissue edema possibly representing cellulitis, subchondral cyst at the base of the 3rd metatarsal. Discussed findings with the patient. We will continue on broad-spectrum IV antibiotics. The patient with some other scattered psoriatic plaques in both lower extremities, to bring cream that the patient uses at home. Advised to start using a topical on the smaller psoriatic plaques, but not to use it on the large plaque on the left ankle area. On physical examination there is significant decreasing swollen to the left ankle area, no pain, good range of motion. We will continue to follow over the weekend. Patient in agreement. NEURO: Minimize central acting medications as possible. Fall Precautions. Well lighted room through the day and minimize interruptions through the night to prevent acute delirium. PULMONARY: Supplemental 02 as needed BiPAP as necessary, for respiratory distress Titrate Fio2 to keep Spo2 > or = 90% DuoNebs and CPT as needed IS hourly while awake for pulmonary hygiene prn Out of bed to chair as tolerated Maintain aspiration precautions at all times CARDIOVASCULAR: Follow hemodynamics. Vital signs per facility protocol GI & NUTRITION: Continue nutritional support Aspirations precautions Prokinetic agents and laxatives as needed KIDNEYS & ELECTROLYTES: Strict monitoring of intake and output Daily weights Avoid nephrotoxic agents Monitor electrolytes and replace as needed Goal urine output of 30mL/hr or 0.5mL/kg/hr Medications to be dosed according to renal function. Avoid contrast if possible ENDOCRINE: Maintain blood glucose between 100-180 at all times. Insulin sliding scale for blood glucose management Hypoglycemia and hyperglycemia protocol in place INFECTIOUS DISEASE: Trend temperature, WBC and procalcitonin level Follow cultures, deescalate antibiotics as soon as possible. Panculture if new onset fever HEMATOLOGY & COAGULATION: Monitor H&H. Keep Hgb > 7 Transfuse 1 unit of PRBC for Hgb < 7 Transfuse 1 pack of platelets of platelets < 20, 000 Watch for any signs and symptoms of bleeding SKIN: Pressure ulcer prevention per facility protocol Specialty mattress as needed ORTHO/REHAB Continue PT/OT PRN: MEDICATIONS Tylenol 650 mg po every 4 hrs for fever zofran 4 mg IV every 6 hrs for n/v Hydralazine 5 mg IV every 4 hrs systolic pressure > 160 bowel regiment: lactulose 20 gm PO BID PRN constipation Supportive measures: Continue GI and DVT prophylaxis All questions answered time spent: > 35 min BRAYDEN PEREZ MD Dec 02, 2024 10:13
--- NOTE | 2024-12-02 15:22 | PN ---
INFECTIOUS DISEASE PROGRESS NOTE Date of Service: Dec 02, 2024 SUBJECTIVE: This 64 year old male patient remains on antibiotics tolerating well. No fever or chills. No nausea or vomiting. Patient denies chest pain or shortness of breath. Swelling to left ankle has improved. MRI showed moderate medial and lateral glenohumeral tissue edema and possible representing cellulitis. He is in no respiratory distress. He is calm lying in bed no acute events reported by nurse at this time. PHYSICAL EXAM EYES: Anicteric. Pupils equal and reactive. HENT: No oral thrush seen, moist Oral mucosa NECK: Supple, no JVD or thyromegaly. LUNGS: Good air entry. No rales, no rhonchi. CARDIOVASCULAR: S1, S2 regular. No murmur heard. ABDOMEN: Soft, non tender, bowel sounds present, no organomegaly CENTRAL NERVOUS SYSTEM: Awake, alert, oriented x 3. No focal deficits. SKIN: No rashes, no swelling. LYMPHATICS: No peripheral lymphadenopathy MUSCULOSKELETAL: No joint swelling, erythema or tenderness. EXTREMITIES: Cellulitis involving left lower leg BACK: No deformity, no pressure ulcer. GENITOURINARY: No dysuria or hematuria Vital Sign (Last 12 Hours) 12/02/24 12/02/24 12/02/24 12/02/24 04:00 07:03 07:04 08:00 Temp 97.5 97.5 Pulse 79 77 77 75 Resp 17 20 20 20 B/P (MAP) 141/66 129/76 Pulse Ox 96 98 O2 Delivery Nasal Cannula N/Cannula Low lpm Room Air O2 Flow Rate 2.0 2.0 FiO2 24 28 12/02/24 12/02/24 11:09 12:00 Temp 97.9 Pulse 94 84 Resp 20 20 B/P (MAP) 131/73 Pulse Ox 98 O2 Delivery Nasal Cannula O2 Flow Rate 2.0 FiO2 24 Intake & Output (last 24hrs) 12/01/24 12/01/24 12/02/24 15:00 23:00 07:00 Intake Total 480 ml 240 ml 150.0 ml Balance 480 ml 240 ml 150.0 ml LABS: Laboratory: Test 12/02/24 11:52 12/02/24 04:27 Range/Units Whole Blood Glucose 147 H 70-110 MG/DL White Blood Count 9.9 4.8-10.8 K/uL Red Blood Count 4.31 L 4.50-6.20 MIL/uL Hemoglobin 12.4 L 14.0-18.0 g/dL Hematocrit 37.2 L 42-54 % Mean Corpuscular Volume 86.3 79-99 fL Mean Corpuscular Hemoglobin 28.8 27.0-33.0 pg Mean Corpuscular Hemoglobin Concent 33.3 32.0-36.0 g/dL Red Cell Distribution Width 15.6 H 11.0-15.5 % Platelet Count 177 130-400 K/uL Mean Platelet Volume 10.1 7.5-10.5 fL Nucleated Red Blood Cells 0.0 0.0-0.19 % Sodium Level 144 136-145 mmol/L Potassium Level 3.8 3.5-5.1 mmol/L Chloride Level 107 101-111 mmol/L Carbon Dioxide Level 29 21-32 mmol/L Blood Urea Nitrogen 19 H 7-18 mg/dL Creatinine 1.1 0.5-1.3 mg/dL Glomerular Filtration Rate Calc 75 >90 mL/min Random Glucose 110 H 70-105 mg/dL Total Calcium 9.0 8.5-10.1 mg/dL Magnesium Level 1.70 L 1.80-2.40 mg/dL Total Bilirubin 0.3 0.2-1.0 mg/dL Aspartate Amino Transf (AST/SGOT) 13 10-37 U/L Alanine Aminotransferase (ALT/SGPT) 31 12-78 U/L Alkaline Phosphatase 36 L 50-136 U/L Total Protein 6.0 6.0-8.3 g/dL Albumin 2.9 L 3.5-5.0 g/dL DIAGNOSTICS / RADIOLOGY: REASON: soft tissue swelling ORDERING PHYSICIAN: BRAYDEN PEREZ MD PROCEDURE: ANK LT WO - MR ANKLE LEFT WO EXAM: MR Left Ankle WITHOUT CONTRAST CLINICAL HISTORY: 64-year-old male with soft tissue swelling. TECHNIQUE: Multiplanar multisequence magnetic resonance images were obtained WITHOUT contrast. CONTRAST: None COMPARISON: None FINDINGS: JOINTS: Unremarkable. No dislocation or significant effusion. BONE: No acute fracture. A subchondral cyst is present at the base of the third metatarsal. SOFT TISSUES: There is moderate medial and lateral glenohumeral soft tissue edema. Question of cellulitis with soft tissue edema. IMPRESSION: 1. Moderate medial and lateral glenohumeral soft tissue edema, possibly representing cellulitis. 2. Subchondral cyst at the base of the third metatarsal. /[place] ASSESSMENT: * Left lower extremity cellulitis. * Diabetes mellitus. * Leukocytosis. * Hypertension. * History of CVA. PLAN: * Continue pain management. * Continue on clindamycin. * Keep left leg elevated. * Continue nutritional support. * Continue antiemetic. * Continue DVT prophylaxis. * The patient will be followed up closely. * Follow cultures This case has been discussed with my supervising physician Dr. Tian. The case has been discussed and agreed upon. KATTY LIMON [facility] Dec 02, 2024 15:22
[2024-12-03] VITALS (9 sets, daily range): BP systolic 113–127; BP diastolic 56–63; PULSE 61–88; RESP 18–20; TEMP 97.6–98.1; O2SAT 93–99
[2024-12-03 04:16] LABS: NUCLEATED RED BLOOD CELLS 0.0 % (0.0-0.19); PLATELET COUNT (AUTO) 197.0 K/uL (130-400); RED BLOOD CELL COUNT(AUTO) 4.46 MIL/uL (4.50-6.20); RED CELL DISTRIBUTION WIDTH 15.9 % (11.0-15.5); WHITE BLOOD COUNT (AUTO) 10.7 K/uL (4.8-10.8)
[2024-12-03 04:41] LABS: ASPARTATE AMINOTRANSFERASE 16.0 U/L (10-37); CREATININE 1.2 mg/dL (0.5-1.3); GLOMERULAR FILTR. RATE CALC 67.0 mL/min (>90); GLUCOSE,RANDOM 121.0 mg/dL (70-105); SODIUM SERUM 143.0 mmol/L (136-145); TOTAL PROTEIN, SERUM 6.3 g/dL (6.0-8.3); UREA NITROGEN, BLOOD 18.0 mg/dL (7-18)
--- NOTE | 2024-12-03 14:56 | DS ---
Discharge Summary Hospital Course Summary: The patient initially admitted to hospital November 29, 2024 with the following history of the present illness: Mr. Bruner is a 64-year-old male that was seen and examined today on 11/29/2024. Patient is a good historian and personal health. Patient's , Jeanne Guzman is at bedside Patient came to the emergency department with a chief complaint of rash. Onset was yesterday. Location is to left lower extremity medial aspect. Duration is constant. Character is described as redness. There was no alleviating factors. There was no aggravating factors. Patient denies any associated trauma or fever or chills. Today in the emergency department WBCs 13.4, left shift neutrophils 89.0%, lactic acid 3.8, no urinalysis has been collected or sent to lab left ankle x-ray shows diffuse soft tissue swelling without acute bony findings venous ultrasound is unremarkable for DVT. Emergency room physician recommended that patient be admitted with a diagnosis of left lower extremity cellulitis. Patient is not develops any fever, tachycardia, tachypnea therefore did not meet clinical sepsis criteria. HOSPITAL COURSE 11/30 The patient has been seen and examined at bedside, case discussed with the RN, no acute events overnight, the time of my visit the patient is comfortably in bed, alert oriented x3, getting supportive care with IV fluids, as well as IV antibiotics. He is getting good pain control with current medical management. Results of Doppler no evidence of DVT, discussed with the patient. At the time of examination the patient with the extensive erythema around the left ankle area, with the associated swollen. X-ray of the left ankle showing diffuse soft tissue swelling without acute bony findings. Infectious Disease consultation requested, we will follow input and recommendation. We will order MRI of the left ankle area. Continue to trend WBC in a.m.. Discussed with the patient, in agreement. 12/01 patient remains admitted to the medical floor, case discussed with the RN, no acute events overnight, patient is sitting comfortable in the chair at the time of my visit, patient with a history of psoriasis, has had episodes of plaque psoriasis to the left lower extremity in the past for which he applies the cream (can not recall the name but he has been at home). However per the patient and the was at the bedside, the current plaque that he has in the left ankle area never looks like dad. At the time of my visit there is an erythematous plaque around the left ankle area with swelling, there is some yellow slough on top of the plaque. Currently the patient getting IV antibiotics. Doppler of the lower extremities negative for DVT, discussed with both the patient and the . Pending MRI of the left ankle, ID consulted, follow input and recommendation. Discussed with the , she will bring the cream that she uses at home. 12/02 patient remains admitted to the medical floor, case discussed with the RN, no acute events overnight, the time of my visit patient remains alert oriented x3, hemodynamically stable, results of MRI of the left ankle reviewed, moderate medial and lateral glenohumeral soft tissue edema possibly representing cellulitis, subchondral cyst at the base of the 3rd metatarsal. Discussed findings with the patient. We will continue on broad-spectrum IV antibiotics. The patient with some other scattered psoriatic plaques in both lower extremities, to bring cream that the patient uses at home. Advised to start using a topical on the smaller psoriatic plaques, but not to use it on the large plaque on the left ankle area. On physical examination there is significant decreasing swollen to the left ankle area, no pain, good range of motion. We will continue to follow over the weekend. Patient in agreement. 12/03 PATIENT REMAINS ADMITTED TO THE MEDICAL FLOOR, SIGNIFICANT IMPROVEMENT IN THE ERYTHEMA TO THE LEFT ANKLE AREA. LEFT ANKLE SWELLING RESOLVED. PATIENT TO BE DISCHARGED HOME TODAY. Whittling Room Operator(s): Infectious disease. Assessment/Plan: Final diagnosis Left ankle cellulitis, POA Leukocytosis, POA Hyperlactatemia, POA COPD DM II Hypertension Plaque psoriasis involving the left ankle area with possible superimposed infection, POA Left ankle psoriatic arthritis, POA Discharge Instructions: Patient to be discharged home today, to follow with PCP as an outpatient and return to the hospital if condition changes. Patient agreed with plan and understood the information provided. Home Medications: Reported Medications Ropinirole HCl (Ropinirole HCl) 0.25 Mg Tablet, 0.25 MG PO TID, TAB 12/02/24 Prednisone (Prednisone) 20 Mg Tablet, 20 MG PO DAILY, TAB 12/01/24 Cholecalciferol (Vitamin D3) (Vitamin D3) 25 Mcg (1000 Unit) Capsule, 1 CAP PO DAILY for 30 Days, #30 CAP 0 Refills 11/30/24 Rosuvastatin Calcium (Rosuvastatin Calcium) 40 Mg Tablet, 1 TAB PO HS for high cholesterol for 30 Days, #30 TAB 0 Refills 11/30/24 Clopidogrel Bisulfate (Clopidogrel) 75 Mg Tablet, 1 TAB PO DAILY for 30 Days, #30 TAB 0 Refills 11/30/24 Lactobacillus Acidophilus (Acidophilus Lactobacilli) 500 Million Cell Capsule, 1 CAP PO DAILY for 30 Days, #30 CAP 0 Refills 11/30/24 Pantoprazole Sodium (Pantoprazole Sodium) 40 Mg Tablet.dr, 1 TAB PO DAILY for 30 Days, #30 TAB 0 Refills 11/30/24 Benzonatate (Benzonatate) 100 Mg Capsule, 100 MG PO TID PRN for ANXIETY/AGITATION, CAP 11/30/24 Metformin HCl (Metformin HCl) 1,000 Mg Tablet, 1 TAB PO BID for 30 Days, #60 TAB 0 Refills 11/30/24 Losartan Potassium (Losartan Potassium) 50 Mg Tablet, 1 TAB PO DAILY for 30 Days, #30 TAB 0 Refills 11/30/24 Empagliflozin (Jardiance) 25 Mg Tablet, 1 TAB PO DAILY for 30 Days, #30 TAB 0 Refills 11/30/24 Sertraline HCl (Sertraline HCl) 100 Mg Tablet, 1.5 TAB PO DAILY for 30 Days, #30 TAB 0 Refills 11/30/24 Metoprolol Succinate (Metoprolol Succinate) 25 Mg Tab.er.24h, 1 TAB PO DAILY for 30 Days, #30 TAB 0 Refills 11/30/24 Nitroglycerin (Nitroglycerin) 0.4 Mg Tab.subl, 1 TAB SL AD PRN for CHEST PAIN, #25 TAB 0 Refills 1st sign of attack; may repeat every 5 mins; if pain persists after 3 in 15 min, medical attention is recommended 11/30/24 Gabapentin (Neurontin) 300 Mg Capsule, 1 CAP PO BID for 30 Days, #90 CAP 0 Refills 11/30/24 Buspirone HCl (Buspirone HCl) 15 Mg Tablet, 1 TAB PO BID for 30 Days, #60 TAB 0 Refills 11/30/24 Latanoprost (Latanoprost) 0.005 % Drops, 1 DROP OP HS, ML 0 Refills 11/30/24 Brimonidine Tartrate/Timolol (Brimonidine-Timolol 0.2%-0.5%) 0.2 %-0.5 % Drops, 1 DROP OP BID for 30 Days, #5 ML 0 Refills 11/30/24 Folic Acid (Folvite) 1 Mg Tab, 1 TAB PO DAILY for 30 Days, #30 TAB 0 Refills 11/30/24 Time spent arranging discharge: 31-60 minutes BRAYDEN PEREZ MD Dec 03, 2024 14:56
--- NOTE | 2024-12-03 16:30 | NUR ---
DISCHARGE PT PIV DC'D PT VERBALIZED UNDERSTANDING OF DISCHARGE INSTRUCTIONS PT GATHERED AND TOOK ALL BELONGINGS PT HAD NO FURTHER QUESTIONS AT TIME OF DISCHARGE
--- NOTE | 2024-12-04 08:28 | PN ---
INFECTIOUS DISEASE FOLLOWUP NOTE DATE OF SERVICE: 12/03/2024 SUBJECTIVE: The patient is seen and examined at bedside today. No fever, no chills. No nausea, no vomiting, no abdominal pain. The swelling of left leg is well controlled. No depression or suicidal ideation. Denies dysuria or urinary frequency. PHYSICAL EXAMINATION: VITAL SIGNS: Temperature today is 98.3. EYES: No icterus. Pupils equal and reactive. HENT: No oral thrush seen. Moist oral mucosa. NECK: Supple. No JVD or thyromegaly. LUNGS: Good air entry. No rales. No rhonchi. CARDIOVASCULAR: S1 and S2, regular. No murmur heard. ABDOMEN: Full, soft, and nontender. Bowel sound is present. CENTRAL NERVOUS SYSTEM: Awake, alert, and oriented x 3. No focal deficits. SKIN: No rashes, no itchiness. LYMPHATIC: No peripheral lymphadenopathy. BACK: No deformity. No pressure ulcer. HEMATOLOGIC: No bleeding or petechial lesions seen. MUSCULOSKELETAL: No joint swelling, erythema, or tenderness. EXTREMITIES: Cellulitis involving the left leg has much improved. ASSESSMENT: A 64-year-old male admitted with left foot pain, swelling, and redness. Current problems include: * Left lower extremity cellulitis. * Diabetes mellitus. * Hypertension. * Cerebrovascular accident. * Obesity. PLAN: * Continue pain management. * Keep leg elevated. * Continue antihypertensive. * Continue antidiabetic. * Continue nutritional support. * Monitor electrolytes. * Keeps legs slightly elevated. Thank you for allowing me to participate in the care of this patient. TID: [id number] RECEIPT: [id number]
[2024-12-04] MEDS ORDERED: OXYC5CAP22 PO (23:10)
== END 2024-12-03 17:15 | disposition home or self-care (01) | DRG 603 ==
LOC: EDH 17:24 → EDHIP 20:16 → 3AH 11-30 02:50
PROVIDERS: ADMIT Internal Medicine; ATTEND Internal Medicine
DX: L03.116 Cellulitis of left lower limb (principal); L40.0 Psoriasis vulgaris; J44.9 Chronic obstructive pulmonary disease, unspecified; I10 Essential (primary) hypertension; F43.10 Post-traumatic stress disorder, unspecified; E66.9 Obesity, unspecified; E11.9 Type 2 diabetes mellitus without complications; D72.829 Elevated white blood cell count, unspecified; R74.02 Elevation of levels of lactic acid dehydrogenase [LDH]; Z91.010 Allergy to peanuts; Z88.0 Allergy status to penicillin; L40.52 Psoriatic arthritis mutilans; Z86.73 Personal history of transient ischemic attack (TIA), and cerebral infarction without residual deficits; Z95.1 Presence of aortocoronary bypass graft; Z86.711 Personal history of pulmonary embolism; Z83.3 Family history of diabetes mellitus; Z82.5 Family history of asthma and other chronic lower respiratory diseases; Z82.49 Family history of ischemic heart disease and other diseases of the circulatory system; Z82.3 Family history of stroke; Z82.0 Family history of epilepsy and other diseases of the nervous system; Z80.3 Family history of malignant neoplasm of breast; Z68.29 Body mass index [BMI] 29.0-29.9, adult; Z80.1 Family history of malignant neoplasm of trachea, bronchus and lung; Z79.51 Long term (current) use of inhaled steroids; Z79.4 Long term (current) use of insulin; Z88.9 Allergy status to unspecified drugs, medicaments and biological substances
CPT/HCPCS: 36415; 73610; 73721; 80048; 80053; 81001; 82948; 83036; 83605; 83735; 84100; 84145; 85025; 85027; 85651; 87040; 87070; 87076; 87086; 93971; 94640; 94664; 99285; G0378; J1650; J2270; J3475; J3490

== ENCOUNTER 2024-12-04 21:03 | Emergency (ER) | payer OTHER, MEDICARE ==
[~2024-12-04] VITALS: Ht 167.6 cm; Wt 82.1 kg
[~2024-12-04 21:03] MED LIST changes: +BENZ-226 PO; +BRIM5DRO21 OP; +CHOL100046 PO; +FOLI1 PO; +GABA300C PO; +LACT1CAP90 PO; +LATA2.5D7 OP; +LOSA50TA64 PO; +METO-408 PO; +NITR0.4T50 SL; +ROSU40TA88 PO
[2024-12-04 21:04] VITALS: TEMP 98.2
--- NOTE | 2024-12-04 21:48 | ERN ---
ED Note History of Present Illness Stated Complaint: BILATERAL LEG REDNESS Chief Complaint: Cellulitis Time Seen by MD: 21:06 Dictation: This is a 64-year-old male who was just discharged from the hospital on 12/03/2024 after a course of stay for cellulitis of the lower extremities. He was discharged on antibiotics. 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, COPD, hypertension, diabetes, sarcoidosis, history of pulmonary embolus and obstructive sleep apnea syndrome on CPAP therapy and PTSD Allergies: Coded Allergies: atorvastatin (Verified Allergy, Severe, RASH, 10/15/17) Penicillins (Verified Allergy, Unknown, 12/22/14) peanut (Unverified Allergy, Unknown, 03/26/23) Home Meds Reported Medications Ropinirole HCl (Ropinirole HCl) 0.25 Mg Tablet, 0.25 MG PO TID, TAB 12/02/24 Prednisone (Prednisone) 20 Mg Tablet, 20 MG PO DAILY, TAB 12/01/24 Cholecalciferol (Vitamin D3) (Vitamin D3) 25 Mcg (1000 Unit) Capsule, 1 CAP PO DAILY for 30 Days, #30 CAP 0 Refills 11/30/24 Rosuvastatin Calcium (Rosuvastatin Calcium) 40 Mg Tablet, 1 TAB PO HS for high cholesterol for 30 Days, #30 TAB 0 Refills 11/30/24 Clopidogrel Bisulfate (Clopidogrel) 75 Mg Tablet, 1 TAB PO DAILY for 30 Days, #30 TAB 0 Refills 11/30/24 Lactobacillus Acidophilus (Acidophilus Lactobacilli) 500 Million Cell Capsule, 1 CAP PO DAILY for 30 Days, #30 CAP 0 Refills 11/30/24 Pantoprazole Sodium (Pantoprazole Sodium) 40 Mg Tablet.dr, 1 TAB PO DAILY for 30 Days, #30 TAB 0 Refills 11/30/24 Benzonatate (Benzonatate) 100 Mg Capsule, 100 MG PO TID PRN for ANXIETY/AGITATION, CAP 11/30/24 Metformin HCl (Metformin HCl) 1,000 Mg Tablet, 1 TAB PO BID for 30 Days, #60 TAB 0 Refills 11/30/24 Losartan Potassium (Losartan Potassium) 50 Mg Tablet, 1 TAB PO DAILY for 30 Days, #30 TAB 0 Refills 11/30/24 Empagliflozin (Jardiance) 25 Mg Tablet, 1 TAB PO DAILY for 30 Days, #30 TAB 0 Refills 11/30/24 Sertraline HCl (Sertraline HCl) 100 Mg Tablet, 1.5 TAB PO DAILY for 30 Days, #30 TAB 0 Refills 11/30/24 Metoprolol Succinate (Metoprolol Succinate) 25 Mg Tab.er.24h, 1 TAB PO DAILY for 30 Days, #30 TAB 0 Refills 11/30/24 Nitroglycerin (Nitroglycerin) 0.4 Mg Tab.subl, 1 TAB SL AD PRN for CHEST PAIN, #25 TAB 0 Refills 1st sign of attack; may repeat every 5 mins; if pain persists after 3 in 15 min, medical attention is recommended 11/30/24 Gabapentin (Neurontin) 300 Mg Capsule, 1 CAP PO BID for 30 Days, #90 CAP 0 Refills 11/30/24 Buspirone HCl (Buspirone HCl) 15 Mg Tablet, 1 TAB PO BID for 30 Days, #60 TAB 0 Refills 11/30/24 Latanoprost (Latanoprost) 0.005 % Drops, 1 DROP OP HS, ML 0 Refills 11/30/24 Brimonidine Tartrate/Timolol (Brimonidine-Timolol 0.2%-0.5%) 0.2 %-0.5 % Drops, 1 DROP OP BID for 30 Days, #5 ML 0 Refills 11/30/24 Folic Acid (Folvite) 1 Mg Tab, 1 TAB PO DAILY for 30 Days, #30 TAB 0 Refills 11/30/24 Past Medical History Past Medical History: COPD, CVA, Diabetes-Type II, Hypertension, TIA Additional Past Medical Hx: SARCODOSIS, P.E., CVA,PTSD, TREMORS, SLEEP APNEA WITH C PAP Surgical History: CABG, Other Surgical History Other: HERNIA, LYMPH NODE REMOVAL Family History: Negative Social History: Negative, Lives with family RN Note Reviewed/Agreed w/PFSH: Yes Review of System Dictation Constitutional: Negative for fever,chills, and weight loss Eyes: Negative for injury, pain,redness, and discharge ENT: Negative for injury,pain or swelling Cardiovascular: Negative for chest pain, palpitations, and edema Respiratory: Negative for shortness of breath, cough, and wheezing, Abdomen/GI: Negative for abdominal pain, nausea, vomiting, diarrhea, and constipation Back: Negative for injury and pain : Negative for injury, bleeding and discharge MS/Extremity: Negative for injury and deformity Skin: Negative for rash, and discoloration positive for redness of the lower extremities Neuro: Negative for headache, weakness, numbness, tingling, and seizure Psych: Negative for suicide ideation, homicidal ideation, and hallucinations Initial Vital Sign VS Vital Signs Date Time Temp Pulse Resp B/P (MAP) Pulse Ox O2 Delivery O2 Flow Rate FiO2 12/04/24 21:04 98.2 88 16 142/89 97 Room Air 12/04/24 22:27 0 21 Physical Exam Dictation General: awake, alert, NAD Head/Face: Normocephalic, atraumatic Eyes: PERRL, EOMI, vision at baseline ENT: oral cavity clear, TMs clear, no signs of infection Neck: Trachea midline, supple, no nuchal rigidity Cardiovascular: RRR, normal S1/S2, No MRGs, no JVD Respiratory: CTAB, no respiratory distress, No rales or wheezes Abdomen: Soft, non-tender, non-distended, normal bowel sounds, no guarding or rebound. Skin: Warm, dry, normal turgor, no rash MS/Extremity: Pulses equal, no cyanosis, neurovascular intact, FROM Neuro: COAx4, GCS 15, strength 5/5, CN 2-12 intact, normal cerebellar exam, normal gait, Psych: Normal behavior, mood, and affect normal Extremities-trace edema without any palpable cords, Homans sign is negative Results (Laboratory/Radiology) Laboratory/Radiology Laboratory Tests Test 12/04/24 21:54 White Blood Count 11.9 K/uL (4.8-10.8) H Red Blood Count 4.80 MIL/uL (4.50-6.20) Hemoglobin 13.7 g/dL (14.0-18.0) L Hematocrit 42.2 % (42-54) Mean Corpuscular Volume 87.9 fL (79-99) Mean Corpuscular Hemoglobin 28.5 pg (27.0-33.0) Mean Corpuscular Hemoglobin Concent 32.5 g/dL (32.0-36.0) Red Cell Distribution Width 15.8 % (11.0-15.5) H Platelet Count 212 K/uL (130-400) Mean Platelet Volume 9.5 fL (7.5-10.5) Immature Granulocyte % (Auto) 0.6 % (0-1) Neutrophils (%) (Auto) 75.7 % (40.0-77.0) Lymphocytes (%) (Auto) 13.8 % (21.0-51.0) L Monocytes (%) (Auto) 8.3 % (3.0-13.0) Eosinophils (%) (Auto) 1.3 % (0.0-8.0) Basophils (%) (Auto) 0.3 % (0.0-5.0) Neutrophils # (Auto) 9.0 K/uL (1.8-7.7) H Lymphocytes # (Auto) 1.6 K/uL (1.0-4.8) Monocytes # (Auto) 1.0 K/uL (0.1-1.0) Eosinophils # (Auto) 0.15 K/uL (0.00-0.70) Basophils # (Auto) 0.04 K/uL (0.00-0.20) Absolute Immature Granulocyte (auto 0.07 K/uL (0-1) Nucleated Red Blood Cells 0.0 % (0.0-0.19) Sodium Level 142 mmol/L (136-145) Potassium Level 3.8 mmol/L (3.5-5.1) Chloride Level 105 mmol/L (101-111) Carbon Dioxide Level 27 mmol/L (21-32) Blood Urea Nitrogen 24 mg/dL (7-18) H Creatinine 1.2 mg/dL (0.5-1.3) Glomerular Filtration Rate Calc 67 mL/min (>90) Random Glucose 114 mg/dL (70-105) H Lactic Acid Level 2.0 mmol/L (0.8-2.5) Total Calcium 9.9 mg/dL (8.5-10.1) Labs Reviewed?: Yes ED Course ED Course Orders Procedure Category Date Status Time Cbc With Differential LAB 12/04/24 Complete 21:09 Basic Metabolic Panel LAB 12/04/24 Complete 21:09 Lactic Acid LAB 12/04/24 Complete 21:09 Ondansetron 4mg Inj PHA 12/04/24 In Process (Zofran 4mg Inj) 23:00 Morphine 2mg Syg PHA 12/04/24 In Process (Morphine 2mg Syg) 23:00 Current Medications Medications (Trade) Dose Ordered Sig/Michael Route PRN Reason Start Time Stop Time Status Last Admin Dose Admin Morphine Sulfate (morPHINE 2MG SYG) 2 mg ONCE ONCE IVP 12/04/24 23:00 12/04/24 23:01 Ondansetron HCl (zoFRAN 4MG INJ) 4 mg ONCE ONCE IVP 12/04/24 23:00 12/04/24 23:01 Vital Signs Date Time Temp Pulse Resp B/P (MAP) Pulse Ox O2 Delivery O2 Flow Rate FiO2 12/04/24 22:27 73 18 143/64 97 Room Air* 0 21 12/04/24 21:04 98.2 88 16 142/89 97 Room Air We will perform diagnostic labs,and administer medications according to the patient's complaint. Once the results are available, will review and personally interpreted the labs to rule out any acute life-threatening emergency the trach require immediate intervention and treatment. I will then re-evaluate the patient after treatment and diagnostic exams have return to determine whether the patient requires any further testing, can safely be discharged home or need further admission to hospital for additional treatment and evaluation. 954 p.m.-labs pending 10:40 p.m. CBC shows a white count of 11.9 BNP 7 is significant for a BUN and creatinine of 24 and 1.2 with a glucose of 114. I reviewed his ankle MRI that was done yesterday which shows cellulitis changes. I went over with patient and his that the skin rash with scales appears to be more of psoriatic rash with scales. As patient also has been on long-term steroids for over 2 years, possibility of a fungal infection is in the differential. Referral to dermatology-Dr. Rashaun Bettencourt in [place] at 9:56 a.m.-[phone] given. I have also asked the patient to discuss with his ring sorter a trial of Acthar gel injections to taper the steroids. Medical Decision Making MDM MDM: Differential diagnosis: Residual cellulitis, abscess, lichenoid psoriasis, atrophic dermatitis, sarcoid related skin changes. The other possibility would be a fungal infection Rationale: Tests considered and ordered secondary to shared decision making include: Previous outside records reviewed: Old ER visits. Risk of complication and/or morbidity or mortality of patient management: None Medications-Per medication reconciliation Need for hospitalization: Patient does not meet criteria for hospitalization. Need for emergency major/minor surgery: No There are no social concerns with this patient. Prescription drug management Prescriptions will include symptomatic care Patient's prior external medical records from other ER visits were reviewed by me as indicated. Prior testing and results from previous visits were reviewed. Prior tests were taken into account with medical decision making and resource utilization, independent historian/historians were used to obtain complete medical history. I independently interpreted the test that were performed, results were reviewed by me and considered findings on radiology if ordered. Medical management and examination interpretation discussions were had by me with other qualified healthcare professionals as indicated for the patient's care. DX & DISP Disposition: Discharge Departure Impression: Primary Impression: Psoriasis Additional Impressions: Long-term current use of steroids, Pulmonary sarcoidosis Condition: Stable Scripts Oxycodone HCl (Oxycodone HCl) 5 Mg Capsule 1 CAP PO QIDP PRN for pain for 3 Days, #16 CAP 0 Refills Prov: CRYSTAL PADILLA MD 12/04/24 Additional Instructions: Patient and the caregiver have been informed of all the diagnostic tests and the imaging conducted during the today's visit to the emergency room and has verbalized understanding of the results I have personally reviewed and interpreted all diagnostic exams performed here in the ER today as well as the vital signs documented by the nursing staff. The patient is now being discharged to home and should follow up with the primary care physician or the specialist as directed by the ER staff. Follow-up with primary care provider in 1 to 2 days. Take medications as directed here in the emergency room. Okay to continue home medications unless otherwise discussed during your visit in the emergency room today. Return to your nearest emergency room if symptoms worsen or if there is no improvement. Call 911 if you need immediate assistance. Take Tylenol or Motrin [id number] as needed and if no contraindications are present. Increase oral hydration. A wound culture or urine culture was ordered here in the emergency room department please follow-up with primary care provider and advise them to get repeat ports from our facility. If you had any Deshawn wrap/splints that were applied here, please do not remove them until you see your primary care or specialty. Referral to dermatology-Dr. Rashaun Bettencourt in [place] at 9:56 a.m.-[phone] given. I have also asked the patient to discuss with his ring sorter a trial of Acthar gel injections to taper the steroids. Referrals: BONY MITCHELL MD (PCP) CRYSTAL PADILLA MD Dec 04, 2024 21:48
[2024-12-04 22:01] LABS: IMMATURE GRANULOCYTE ABSOLUTE 0.07 K/uL (0-1); NUCLEATED RED BLOOD CELLS 0.0 % (0.0-0.19); PLATELET COUNT (AUTO) 212 K/uL (130-400); RED BLOOD CELL COUNT(AUTO) 4.80 MIL/uL (4.50-6.20); RED CELL DISTRIBUTION WIDTH 15.8 % (11.0-15.5); WHITE BLOOD COUNT (AUTO) 11.9 K/uL (4.8-10.8)
[2024-12-04 22:16] LABS: CREATININE 1.2 mg/dL (0.5-1.3); GLOMERULAR FILTR. RATE CALC 67.0 mL/min (>90); GLUCOSE,RANDOM 114.0 mg/dL (70-105); SODIUM SERUM 142.0 mmol/L (136-145); UREA NITROGEN, BLOOD 24.0 mg/dL (7-18)
[2024-12-04] MEDS ORDERED: OXYC5CAP22 PO (23:10)
[2024-12-04 23:17] VITALS: BP 143/76; PULSE 78; RESP 18; O2SAT 98
== END 2024-12-04 23:52 | disposition home or self-care (01) ==
LOC: EDH 21:03
DX: L40.9 Psoriasis, unspecified (principal); D86.0 Sarcoidosis of lung; E11.9 Type 2 diabetes mellitus without complications; F43.10 Post-traumatic stress disorder, unspecified; I10 Essential (primary) hypertension; J44.9 Chronic obstructive pulmonary disease, unspecified; Z79.02 Long term (current) use of antithrombotics/antiplatelets; Z79.52 Long term (current) use of systemic steroids; Z79.84 Long term (current) use of oral hypoglycemic drugs; Z79.899 Other long term (current) drug therapy; Z86.73 Personal history of transient ischemic attack (TIA), and cerebral infarction without residual deficits; Z88.0 Allergy status to penicillin; Z95.1 Presence of aortocoronary bypass graft
CPT/HCPCS: 99284; 96374; 96375; 80048; 85025; 83605; 36415; J2270; J2405

== ENCOUNTER 2025-03-21 06:37 | Observation (INO) | payer OTHER, MEDICARE ==
[2025-03-15 13:35] VITALS: BP 113/56; PULSE 77; RESP 17; TEMP 97.6
[2025-03-15 13:38] LABS: IMMATURE GRANULOCYTE ABSOLUTE 0.03 K/uL (0-1); NUCLEATED RED BLOOD CELLS 0.0 % (0.0-0.19); PLATELET COUNT (AUTO) 204 K/uL (130-400); RED BLOOD CELL COUNT(AUTO) 4.51 MIL/uL (4.50-6.20); RED CELL DISTRIBUTION WIDTH 15.7 % (11.0-15.5); WHITE BLOOD COUNT (AUTO) 10.0 K/uL (4.8-10.8)
[2025-03-15 13:48] LABS: CREATININE 1.3 mg/dL (0.5-1.3); GLOMERULAR FILTR. RATE CALC 61.0 mL/min (>90); GLUCOSE,RANDOM 88.0 mg/dL (70-105); SODIUM SERUM 139.0 mmol/L (136-145); UREA NITROGEN, BLOOD 8.0 mg/dL (7-18)
[2025-03-15 13:49] LABS: INR 1.03 (0.85-1.15)
[~2025-03-21] VITALS: Ht 172.7 cm; Wt 81.8 kg
[2025-03-21] VITALS (31 sets, daily range): BP systolic 88–131; BP diastolic 43–80; PULSE 68–78; RESP 14–19; TEMP 97.1–98; O2SAT 94–98
[2025-03-21] MEDS: CLINDAMYCIN IVPB 900MG/50ML 50 ML IV ONE (06:36)
[2025-03-21] MEDS ORDERED: FAMOTIDINE 20MG VIAL IV ONE (07:34)
[2025-03-21] MEDS ORDERED: LIDOCAINE HCL MPF 1% 5ML VIAL ONE (07:36)
[2025-03-21] MEDS ORDERED: MIDAZOLAM HCL 1 MG/ML 2ML VIAL ONE (07:37)
[2025-03-21] MEDS: 0.9%NACL 1000ML 1,000 ML IV ONE (07:47)
[2025-03-21] MEDS: DEXTROSE 50%-WATER 50 ML DISP.SYRIN IV ONE (08:04)
[2025-03-21] MEDS: SUGAMMADEX SODIUM 200 MG/2 ML VIAL IV ONE (08:07)
[2025-03-21] MEDS ORDERED: ALBUTEROL INHALER 90MCG/INH IH ONE (08:09)
[2025-03-21] MEDS ORDERED: PROMETHAZINE HCL 25 MG/ML 1ML AMPULE IM PRN (08:30)
[2025-03-21] MEDS ORDERED: PROCHLORPERAZINE 10MG/2ML INJ IV PRN (11:30)
[2025-03-21] MEDS ORDERED: HYDROcod/acetaMINOPHEN 7.5/325 MG 15 ML UDCUP PO PRN (11:30)
--- NOTE | 2025-03-21 11:30 | NUR ---
Patient was admitted to the floor at this time. Alert and oriented. Vitals within normal limits, at bedside. Patient in O2 via NC. Abdomen distended 5 small incisions noted, clean and intact.
[2025-03-21] MEDS ORDERED: SPIRIVA INHALER IH PRN (12:00)
[2025-03-21] MEDS: LACTATED RINGERS 1000ML 1,000 ML IV SCH (13:03)
--- NOTE | 2025-03-21 13:31 | OP ---
Operative Note: DATE OF PROCEDURE: 03/21/25 SURGEON: CHRISTIN DRAPER MD TOOTH CUTTER SPUR: [Please review operative record] ANESTHESIA: [General and local] ANESTHESIOLOGIST/PROFESSOR OF JOURNALISM: [[facility] anesthesia] PREOPERATIVE DIAGNOSIS: [Diaphragmatic hernia, severe GERD] POSTOPERATIVE DIAGNOSIS: [Paraesophageal hernia, GERD] SYNOPSIS: [Esophageal hernia containing incarcerated stomach, the whole extent of it, measuring 7 cm in diameter] PROCEDURE: [1.Robotic assisted paraesophageal hernia repair. 2. Gastropexy. 3. Intraoperative EGD] ESTIMATED BLOOD LOSS: [15 cc] INDICATIONS: [Is a 64-year-old male with chronic heartburn and epigastric pain in addition to respiratory issues, who was found to have a large diaphragmatic hernia on EGD and imaging. Recommendation was given for surgical repair of the hernia and possible fundoplication. Risks, benefits and alternatives were discussed with the patient. All questions were answered. Patient agreed to proceed with the surgical procedure.] DESCRIPTION OF PROCEDURE: [After appropriate consent was obtained, the patient was transferred to the operating room and placed in supine position on the operating table. SCDs were placed, preop ABX were given. Patient underwent induction of general anesthesia, endotracheal intubation. Patient was then prepped and draped in usual sterile fashion. Time-out was performed. Through a left subcostal incision, Veress needle was inserted into the peritoneal cavity. Insufflation was allowed to 12 mmHg. Through a gonzalez praumbilical 8 mm incision, trocar and laparoscope were inserted into the peritoneal cavity using [employer]. Veress needle and this vicinity were examined with no signs of injury. Rest of my trocars were all placed under direct visualization. Patient was positioned in a reverse Trendelenburg at 20. Maria Dolores liver retractor was placed through a 5 mm epigastric incision in order to retract the left lobe of the liver anteriorly. Upon evaluation of the diaphragmatic hiatus, there was a paraesophageal hernia with incarcerated stomach. the whole stomach was herniated through a 7 cm diaphragmatic defect. Stomach was retracted caudally. Adhesion bands to the stomach were lysed. Our dissection began by incising the hepatogastric ligament in a avascular plane. This was followed cephalad towards the diaphragm using vessel sealer. The hiatal orifice was dissected circumferentially using the vessel sealer. Dissection was tedious due to the size of the hernia and contents within it however we encountered no complications. The right crura was identified and a plane was developed between the right jazzy in the right wall of the esophagus. This dissection was accomplished mostly by blunt dissection. On the posterior aspect of the hiatal orifice we identified the left jazzy. A few short gastrics were divided in order to fully mobilize the fundus of the stomach. Once the hiatal orifice was fully mobilized, we focused on the intra mediastinal and aspect of the dissection. Once we have 2 cm of intra-abdominal esophagus, we then passed the endoscope through the mouth and into the esophagus and into the stomach. With the endoscope in place, we then proceeded to perform a crural plasty. This was achieved by approximating the left and the right crura on the posterior aspect of the esophagus using two 0 V lock nonabsorbable suture in a running fashion. At the end of the crural plasty, only one instrument was able to pass through the diaphragmatic hiatus. Since the defect was so large a 2nd 2-0 V lock was used to reapproximate the crura. Due to the large defect and concerns for possible recurrence in the future, no fundoplication was performed. Instead we did a gastropexy by approximating the fundus of the stomach to the anterior abdominal wall using interrupted 2-0 silk sutures at three different points on the stomach. Endoscopy with insufflation was performed revealing no air leak, no stenosis through the GE junction, appropriate reduction of the hiatal hernia. At this time we completed our hiatal hernia repair with gastropexy. The Cristi robot was undocked. Final inspection revealed adequate hemostasis, no concerns for leakage. The abdomen was allowed to deflate. All instruments were removed from the peritoneal cavity. Counts were correct at the end of the case. Skin incisions were closed with 4-0 Monocryl. Dermabond was applied over the incisions. Patient tolerated the procedure well. Patient was then transferred to the recovery in good condition.] CHRISTIN DRAPER MD Mar 21, 2025 13:31
[2025-03-21] MEDS: FAMOTIDINE 20MG VIAL IV SCH (20:03)
[2025-03-21] MEDS: ENOXAPARIN SODIUM 30 MG/0.3 ML SQ SCH (20:03)
[2025-03-21] MEDS: GABAPENTIN 300 MG CAPSULE PO SCH (20:03)
[2025-03-22] VITALS (7 sets, daily range): BP systolic 118–150; BP diastolic 53–77; PULSE 66–72; RESP 16–20; TEMP 97.4–98; O2SAT 97–98
[2025-03-22] MEDS: ENOXAPARIN SODIUM 40 MG/0.4 ML SYRINGE SQ SCH (08:54)
--- NOTE | 2025-03-22 10:17 | NUR ---
DCP:HOME Pt currently lives with his in their home. Pt has a walker and cane that he uses to ambulate. Pt denies any home health or provider services. Pt states that he is able to complete ADLs independently. PCP is Dr. Kade Aldrich [facility] and [facility]. At DC pt will want to go home and family can assist with transportation.
--- NOTE | 2025-03-22 10:30 | NUR ---
Order received and interviewed patient. Patient has been walking with his cane in the halls. No skilled PT need.
--- NOTE | 2025-03-22 14:59 | DS ---
Discharge Summary HOSPITAL COURSE SUMMARY: [] CRATE OPENER(S): [] PROCEDURES: [] PROBLEM(S): [] DISCHARGE INSTRUCTIONS: [] Home Meds Reported Medications Tiotropium Lorraine (Spiriva) 18 Mcg Cap.w.dev, 18 MCG IH DAILY PRN for SHORTNESS OF BREATH/WHEEZING 03/21/25 Empagliflozin (Jardiance) 25 Mg Tablet, 25 MG PO DAILY, TAB 03/21/25 Fluticasone Propion/Salmeterol (Wixela 100-50 Inhub) 100 Mcg-50 Mcg/Dose Blst.w.dev, 1 PUFF IH DAILY for 30 Days, #60 EACH 0 Refills 03/21/25 Semaglutide (Ozempic) 1 Mg/0.75 Ml (4 Mg/3 Ml) Pen.injctr, 4 MG SQ QWEEK for 30 Days, #3 ML 0 Refills 03/21/25 Pantoprazole Sodium (Pantoprazole Sodium) 40 Mg Tablet.dr, 1 TAB PO DAILY for 30 Days, #30 TAB 0 Refills 12/25/24 Ropinirole HCl (Ropinirole HCl) 0.25 Mg Tablet, 0.25 MG PO TID, TAB 12/25/24 Metformin HCl (Metformin HCl) 1,000 Mg Tablet, 1 TAB PO BID for 30 Days, #60 TAB 0 Refills 12/25/24 Cyanocobalamin (Vitamin B-12) 250 Mcg Tab, 100 MCG PO DAILY, TAB 12/25/24 Gabapentin (Neurontin) 300 Mg Capsule, 300 MG PO BID, CAP 12/25/24 Losartan Potassium (Losartan Potassium) 50 Mg Tablet, 1 TAB PO DAILY for 30 Days, #30 TAB 0 Refills 12/25/24 Buspirone HCl (Buspirone HCl) 15 Mg Tablet, 1 TAB PO BID for 30 Days, #60 TAB 0 Refills 12/25/24 Folic Acid/Vitamin B Comp W-C (Yesenia-Madhav Tablet) 0.8 Mg Tablet, 1 TAB PO DAILY for 30 Days, #30 TAB 0 Refills 12/25/24 Folic Acid (Folvite) 1 Mg Tab, 1 TAB PO DAILY for 30 Days, #30 TAB 0 Refills 12/25/24 Clopidogrel Bisulfate (Clopidogrel) 75 Mg Tablet, 1 TAB PO DAILY for 30 Days, #30 TAB 0 Refills 12/25/24 Prednisone (Prednisone) 20 Mg Tablet, 1 TAB PO DAILY for 5 Days, #5 TAB 0 Refills 12/25/24 Rosuvastatin Calcium (Rosuvastatin Calcium) 40 Mg Tablet, 40 MG PO HS, TAB 12/25/24 Sertraline HCl (Sertraline HCl) 100 Mg Tablet, 1.5 TAB PO DAILY for 30 Days, #30 TAB 0 Refills 12/25/24 Metoprolol Succinate (Metoprolol Succinate) 50 Mg Tab.er.24h, 1 TAB PO DAILY for 30 Days, #30 TAB 0 Refills 12/25/24 Famotidine (Famotidine) 20 Mg Tablet, 20 MG PO DAILY PRN for HEARTBURN, TAB 12/25/24 Discontinued Reported Medications Magnesium Gluconate (Magnesium Gluconate) 27.5 Mg Magnesium (500 Mg) Tablet, 500 MG PO BID, TAB 12/25/24 Lactobacillus Acidophilus (Lactobacillus Acidophilus) 25 Million Cell Capsule, 1 EACH PO DAILY, CAP 12/25/24 Cholecalciferol (Vitamin D3) (Vitamin D3) 25 Mcg (1000 Unit) Tab.chew, 1 TAB PO DAILY for 30 Days, #30 TAB 0 Refills 12/25/24 Discontinued Scripts Terbinafine HCl (Terbinafine HCl) 1 % Cream..g., 1 APPL TP AD for 14 Days, #90 GM 0 Refills Apply to both legs after shower Prov:MARY LOU WALDROP MD 12/28/24 Terbinafine HCl (Terbinafine HCl) 250 Mg Tablet, 1 TAB PO DAILY for 30 Days, #30 TAB 0 Refills Prov:MARY LOU WALDROP MD 12/28/24 WILIAN ROJAS [facility] Mar 22, 2025 14:59
[2025-03-22] MEDS: SIMETHICONE 80 MG TAB.CHEW PO STA (15:40)
--- NOTE | 2025-03-22 17:24 | NUR ---
DISCHARGED PATIENT DISCHARGED HOME WITH FAMILY. PATIENT TO FOLLOW UP WITH PRIMARY PCP IN TWO WEEKS AND FOLLOW MD RECOMMENDATIONS. TAKE MEDICATIONS PRESCRIBED.
== END 2025-03-22 17:27 | disposition home or self-care (01) ==
LOC: DAH 06:37 → DAHIP 06:38 → 3BH 11:30
PROVIDERS: ADMIT Surgery; ATTEND Surgery
DX: K44.9 Diaphragmatic hernia without obstruction or gangrene (principal); K21.9 Gastro-esophageal reflux disease without esophagitis; J44.9 Chronic obstructive pulmonary disease, unspecified; I25.10 Atherosclerotic heart disease of native coronary artery without angina pectoris; I48.91 Unspecified atrial fibrillation; E11.9 Type 2 diabetes mellitus without complications; Z86.2 Personal history of diseases of the blood and blood-forming organs and certain disorders involving the immune mechanism; Z79.899 Other long term (current) drug therapy
CPT/HCPCS: 43281; S2900; 36415; 43235; 80048; 82948; 85025; 85610; 85730; 86850; 86900; 86901; 96372; 96374; 96375; 96376; G0378; J1100; J1650; J1885; J2250; J2371; J2405; J2704; J3010; J3490; J7030; J7070; A4213; A4215; A4216; A4221; A4222; A4223; A4600; A4663; A4930; A6260; J0665; J1308

== ENCOUNTER 2025-04-05 19:45 | Emergency (ER) | payer MEDICARE, OTHER ==
[~2025-04-05] VITALS: Ht 172.7 cm; Wt 79.8 kg
[~2025-04-05 19:45] MED LIST changes: -BENZ-226 PO; -BRIM5DRO21 OP; -CHOL-34 PO; -CHOL100046 PO; -CYAN100084 PO; +FAMO20TA8 PO; -FAMO40TA7 PO; -FLUC150T48 PO; -FLUT1BLS12 IH; +FLUT1BLS8 IH; -FOLI0.4T6 PO; +FOLI0.8T22 PO; -GABA-1405 PO; -INSU100V12 SQ; -LACT1CAP90 PO; -LATA2.5D7 OP; -LATA2.5D7 OU; -LEVA15HF3 IH; -LEVA15HF6 IH; -LOSA25TA41 PO; -MAGN400T51 PO; -METO-408 PO; -MULT-1367 PO; -NITR0.4T50 SL; -ROSU20TA98 PO; +SEMA1PEN3 SQ; -SEMA2PEN SQ; +TIOT18CA3 IH; -TIOT4MIS2 IH; +[UNRECOGNIZED DRUG - CODE] PO; -[UNRECOGNIZED DRUG - OTHER] OU
--- NOTE | 2025-04-05 19:56 | ERN ---
ED Note History of Present Illness Stated Complaint: C/O CP WITH SOB Chief Complaint: Chest Pain Time Seen by MD: 19:48 Dictation: This is a 64-year-old male with multiple medical problems presented to the emergency room with complaints of lower chest discomfort and shortness of breath going on for about a few days. Patient stated that he underwent on March 21, 2025 laparoscopic hiatal hernia repair by Dr. Franklin with [facility]. Apparently the patient was told that his stomach could not be optimally pulled back into abdomen due to scar tissue as well as fear of prolonging the anesthesia especially with his underlying lung issues. He was d oing fairly well postoperatively and saw his surgeon today. He stated that off and on he has had some vomitings after he drinks water or eats anything but he has been managing with liquids. He and his were in [place] and on their way back they stopped it [employer] and he picked up ice cream and after eating 2 bites, started vomiting. Eventually they got home and as he was feeling slightly settled attempted to eat some oatmeal and similarly he began vomitings. In addition to just the vomitings he has severe pain in the epigastrium and lower chest area. He stated that his shortness of breath is chronic from his sarcoidosis. He also talked to his form drafter Dr.Jairo Rosenberg was planning to do a CT scan of the chest on him but wanted to wait until his GI issues settled down No diarrhea hematemesis or melena. He denied any fever chills or rigors. Very scant amounts of clear sputum. No hemoptysis. Temperature 97.2 pulse 82 respirations 20 blood pressure 155/65 with a pulse oximetry of 97% on room air Chronic medical problems include pulmonary sarcoidosis, history of a pulmonary embolus, coronary artery disease status post CABG, cerebrovascular accident, COPD, hypertension, diabetes mellitus, obstructive sleep apnea syndrome on CPAP, PTSD Allergies: Coded Allergies: atorvastatin (Verified Allergy, Severe, RASH, 10/15/17) Penicillins (Verified Allergy, Unknown, 12/22/14) peanut (Unverified Allergy, Unknown, 03/26/23) Home Meds Active Scripts Ondansetron (Ondansetron Odt) 4 Mg Tab.rapdis, 4 MG PO Q6HPRN PRN for nausea, #16 TAB 0 Refills Prov:CRYSTAL RODRIGES MD 04/05/25 Reported Medications Tiotropium [place] (Spiriva) 18 Mcg Cap.w.dev, 18 MCG IH DAILY PRN for SHORTNESS OF BREATH/WHEEZING 03/21/25 Empagliflozin (Jardiance) 25 Mg Tablet, 25 MG PO DAILY, TAB 03/21/25 Fluticasone Propion/Salmeterol (Wixela 100-50 Inhub) 100 Mcg-50 Mcg/Dose Blst.w.dev, 1 PUFF IH DAILY for 30 Days, #60 EACH 0 Refills 03/21/25 Semaglutide (Ozempic) 1 Mg/0.75 Ml (4 Mg/3 Ml) Pen.injctr, 4 MG SQ QWEEK for 30 Days, #3 ML 0 Refills 03/21/25 Pantoprazole Sodium (Pantoprazole Sodium) 40 Mg Tablet.dr, 1 TAB PO DAILY for 30 Days, #30 TAB 0 Refills 12/25/24 Ropinirole HCl (Ropinirole HCl) 0.25 Mg Tablet, 0.25 MG PO TID, TAB 12/25/24 Metformin HCl (Metformin HCl) 1,000 Mg Tablet, 1 TAB PO BID for 30 Days, #60 TAB 0 Refills 12/25/24 Cyanocobalamin (Vitamin B-12) 250 Mcg Tab, 100 MCG PO DAILY, TAB 12/25/24 Gabapentin (Neurontin) 300 Mg Capsule, 300 MG PO BID, CAP 12/25/24 Losartan Potassium (Losartan Potassium) 50 Mg Tablet, 1 TAB PO DAILY for 30 Days, #30 TAB 0 Refills 12/25/24 Buspirone HCl (Buspirone HCl) 15 Mg Tablet, 1 TAB PO BID for 30 Days, #60 TAB 0 Refills 12/25/24 Folic Acid/Vitamin B Comp W-C (Yesenia-Madhav Tablet) 0.8 Mg Tablet, 1 TAB PO DAILY for 30 Days, #30 TAB 0 Refills 12/25/24 Folic Acid (Folvite) 1 Mg Tab, 1 TAB PO DAILY for 30 Days, #30 TAB 0 Refills 12/25/24 Clopidogrel Bisulfate (Clopidogrel) 75 Mg Tablet, 1 TAB PO DAILY for 30 Days, #30 TAB 0 Refills 12/25/24 Prednisone (Prednisone) 20 Mg Tablet, 1 TAB PO DAILY for 5 Days, #5 TAB 0 Refills 12/25/24 Rosuvastatin Calcium (Rosuvastatin Calcium) 40 Mg Tablet, 40 MG PO HS, TAB 12/25/24 Sertraline HCl (Sertraline HCl) 100 Mg Tablet, 1.5 TAB PO DAILY for 30 Days, #30 TAB 0 Refills 12/25/24 Metoprolol Succinate (Metoprolol Succinate) 50 Mg Tab.er.24h, 1 TAB PO DAILY for 30 Days, #30 TAB 0 Refills 12/25/24 Famotidine (Famotidine) 20 Mg Tablet, 20 MG PO DAILY PRN for HEARTBURN, TAB 12/25/24 Past Medical History Past Medical History: CAD, COPD, CVA, Diabetes-Type II, Hypertension, [place], TIA Additional Past Medical Hx: SARCODOSIS, P.E., CVA,PTSD, TREMORS, SLEEP APNEA WITH C PAP Surgical History: CABG, Other Surgical History Other: HERNIA, LYMPH NODE REMOVAL Family History: Negative Social History: Negative, Lives with family RN Note Reviewed/Agreed w/PFSH: Yes Review of System Dictation Constitutional: Negative for fever,chills, and weight loss Eyes: Negative for injury, pain,redness, and discharge ENT: Negative for injury,pain or swelling Cardiovascular: Positive for chest pain, denies palpitations, and edema Respiratory: Positive for shortness of breath, cough, and wheezing, Abdomen/GI: Negative for abdominal pain, nausea, vomiting, diarrhea, and constipation Back: Negative for injury and pain : Negative for injury, bleeding and discharge MS/Extremity: Negative for injury and deformity Skin: Negative for rash, and discoloration Neuro: Negative for headache, weakness, numbness, tingling, and seizure Psych: Negative for suicide ideation, homicidal ideation, and hallucinations Initial Vital Sign VS Vital Signs Date Time Temp Pulse Resp B/P (MAP) Pulse Ox O2 Delivery O2 Flow Rate FiO2 04/05/25 19:48 97.2 82 20 155/65 97 Room Air 04/05/25 20:15 0 21 Physical Exam Dictation General: awake, alert, NAD Head/Face: Normocephalic, atraumatic Eyes: PERRL, EOMI, vision at baseline ENT: oral cavity clear, TMs clear, no signs of infection Neck: Trachea midline, supple, no nuchal rigidity Cardiovascular: RRR, normal S1/S2, No MRGs, no JVD Respiratory: CTAB, no respiratory distress, No rales or wheezes Abdomen: Soft, non-tender, open, normal bowel sounds, no guarding or rebound. Skin: Warm, dry, normal turgor, no rash MS/Extremity: Pulses equal, no cyanosis, neurovascular intact, FROM Neuro: COAx4, GCS 15, strength 5/5, CN 2-12 intact, normal cerebellar exam, normal gait, Psych: Normal behavior, mood, and affect normal Extremities-trace edema without any palpable cords, Homans sign is negative Results (Laboratory/Radiology) Laboratory/Radiology Laboratory Tests Test 04/05/25 19:58 White Blood Count 10.3 K/uL (4.8-10.8) Red Blood Count 4.39 MIL/uL (4.50-6.20) L Hemoglobin 11.9 g/dL (14.0-18.0) L Hematocrit 38.2 % (42-54) L Mean Corpuscular Volume 87.0 fL (79-99) Mean Corpuscular Hemoglobin 27.1 pg (27.0-33.0) Mean Corpuscular Hemoglobin Concent 31.2 g/dL (32.0-36.0) L Red Cell Distribution Width 15.6 % (11.0-15.5) H Platelet Count 278 K/uL (130-400) Mean Platelet Volume 9.3 fL (7.5-10.5) Immature Granulocyte % (Auto) 0.4 % (0-1) Neutrophils (%) (Auto) 88.7 % (40.0-77.0) H Lymphocytes (%) (Auto) 6.3 % (21.0-51.0) L Monocytes (%) (Auto) 4.0 % (3.0-13.0) Eosinophils (%) (Auto) 0.4 % (0.0-8.0) Basophils (%) (Auto) 0.2 % (0.0-5.0) Neutrophils # (Auto) 9.1 K/uL (1.8-7.7) H Lymphocytes # (Auto) 0.7 K/uL (1.0-4.8) L Monocytes # (Auto) 0.4 K/uL (0.1-1.0) Eosinophils # (Auto) 0.04 K/uL (0.00-0.70) Basophils # (Auto) 0.02 K/uL (0.00-0.20) Absolute Immature Granulocyte (auto 0.04 K/uL (0-1) Nucleated Red Blood Cells 0.0 % (0.0-0.19) White Cell Morphology Comment See comments Sodium Level 143 mmol/L (136-145) Potassium Level 4.5 mmol/L (3.5-5.1) Chloride Level 104 mmol/L (101-111) Carbon Dioxide Level 26 mmol/L (21-32) Blood Urea Nitrogen 13 mg/dL (7-18) Creatinine 1.6 mg/dL (0.5-1.3) H Glomerular Filtration Rate Calc 48 mL/min (>90) Random Glucose 211 mg/dL (70-105) H Total Calcium 9.1 mg/dL (8.5-10.1) Total Creatine Kinase 82 U/L (21-232) Troponin I High Sensitivity 8.6 ng/L (4-75) B-Type Natriuretic Peptide 77 pg/mL (0-100) Labs Reviewed?: Yes EKG Comment: Twelve lead EKG done on 04/05/2025 at 7:47 p.m. showed a heart rate of 83, KS interval 145, QRS 109, QT/QTC 383/450 Impression normal sinus rhythm with a overall somewhat low voltage but no acute STT wave changes. Nonspecific STT wave changes noted with possible early right bundle. EKG rhythm strip shows a normal sinus rhythm low voltage borderline QT interval at [address]-T changes. Interpreted by ER MD Dr. Rodriges CT Scan Comment: REASON: post-op Hiatal hernia repair on Dec 2 -vomitings-ORAL CONTRAST ONLY ORDERING PHYSICIAN: CRYSTAL RODRIGES MD PROCEDURE: ABD PEL WO - CT ABDOMEN/PELVIS W/O CONTRAST EXAM: CT Abdomen and Pelvis Without IV contrast CLINICAL HISTORY: Patient presents with post-operative status following hiatal hernia repair with persistent vomiting. TECHNIQUE: Axial computed tomography images of the abdomen and pelvis were acquired without intravenous contrast. CONTRAST: No IV contrast. COMPARISON: None provided. FINDINGS: LUNG BASES: Bibasilar dependent atelectasis. Median sternotomy sutures in situ. LIVER: Diffuse hepatic steatosis with rounded margins. A 0.6 cm hypodense lesion in segment II, suggestive of a cyst versus hemangioma. GALLBLADDER AND BILE DUCTS: Post-cholecystectomy status. No biliary ductal dilatation. PANCREAS: Unremarkable. SPLEEN: Few calcified granulomas. ADRENAL GLANDS: Unremarkable. KIDNEYS, URETERS, AND BLADDER: A 2.6 cm simple cortical cyst in the right renal mid pole. Mild bilateral perinephric fat stranding and haziness. The urinary bladder appears suboptimally distended with mild wall thickening. Small right inguinal hernia which contains a portion of the omental fat and urinary bladder wall. 2.7 x 1.8 cm localized ovoid soft tissue density around the left deep inguinal ring, which could be an undescended testicle or secondary to a localized inflammatory process. STOMACH AND BOWEL: Small hiatus hernia. Mild fecal loading suggestive of constipation. Uncomplicated colonic diverticula. APPENDIX: Visualized and unremarkable. PERITONEUM: No free fluid or free air. LYMPH NODES: No enlarged lymph nodes. VASCULATURE: Atheromatous wall calcifications of the aorta and iliac arteries. BONES: No acute osseous abnormality. Multilevel moderate spondylosis with levoscoliosis. IMPRESSION: Post-operative status following hiatal hernia repair with a small residual hiatus hernia. Diffuse hepatic steatosis with rounded margins, liver parenchymal disease to be excluded. A subcentimeter segment II hypodense hepatic lesion, likely benign cyst versus hemangioma. Mild bilateral perinephric fat stranding may represent nephritis versus renal parenchymal disease. Clinical correlation with laboratory parameters is recommended Urinary bladder wall thickening, likely related to cystitis. Clinical correlation is advised. Small right inguinal hernia which contains a portion of the omental fat and the urinary bladder wall. 2.7 x 1.8 cm localized ovoid soft tissue density around the left deep inguinal ring, which could be an undescended testicle or secondary to a localized inflammatory process. Recommend ultrasound correlation. Uncomplicated colonic diverticulosis with mild constipation. Right renal cortical cyst. Splenic calcified granulomas, Small fat-containing umbilical hernia. /[place] DICTATED BY: JOSE JOHNS Jr., MD DATE: 04/06/2529 ELECTRONICALLY SIGNED BY: JOSE JOHNS Jr., MD DATE: 04/06/2529 REASON: chest pain ORDERING PHYSICIAN: APUL GOMEZ MD PROCEDURE: CHEST WO - CT CHEST W/O CONTRAST CT CHEST W/O CONTRAST HISTORY: Chest pain COMPARISON: None TECHNIQUE: Multiple sequential axial images of the chest were obtained from the thoracic inlet through upper abdomen. Patient was not given contrast through intravenous route. FINDINGS: Patchy groundglass left pulmonary infiltrates are seen. Large hiatal hernia is seen. Poststernotomy changes are seen. Coronary arterial calcifications are seen. No pleural effusion or pericardial effusion is seen. There is no evidence of pneumothorax. There are normal size mediastinal and hilar lymph nodes. The heart is not enlarged. Degenerative changes of the thoracolumbar spine are present. There is no evidence of adrenal nodule. IMPRESSION: 1. Patchy groundglass left pulmonary infiltrates are seen. Large hiatal hernia is seen. CT was performed with one or more following dose reduction techniques: automated exposure control, adjustment of the mA and kv according to patient's size, or use of a iterative reconstruction technique. DICTATED BY: JASON PASTOR MD DATE: 12/17/23149 ELECTRONICALLY SIGNED BY: JASON PASTOR MD DATE: 12/17/23153 ED Course ED Course Orders Procedure Category Date Status Time O2 Nc Keep Sats CPOE 04/05/25 Transmitted Greater 92% 19:52 Cbc With Differential LAB 04/05/25 Complete 19:52 Cardiac Panel LAB 04/05/25 Complete 19:52 Chest 1vw RAD 04/05/25 Resulted 19:52 12 Lead Ekg Tracing- EKG 04/05/25 Logged Technical 19:52 Ipratropium/Albuterol PHA 04/05/25 Complete Neb (Duoneb) 20:00 Aspirin 325mg Tab PHA 04/05/25 Complete (Aspirin 325mg Tab) 20:00 Basic Metabolic Panel LAB 04/05/25 Complete 19:52 B-Type Natriuretic LAB 04/05/25 Complete Peptide 19:52 Ondansetron 4mg Inj PHA 04/05/25 Complete (Zofran 4mg Inj) 21:00 Morphine 4mg Syg PHA 04/05/25 Complete (Morphine 4mg Syg) 21:00 Ct Abdomen/Pelvis W/O CT 04/05/25 Resulted Contrast 20:59 Diatr PHA 04/05/25 Complete Meglu/Diatrizoate 21:07 Current Medications Medications (Trade) Dose Ordered Sig/Michael Route PRN Reason Start Time Stop Time Status Last Admin Dose Admin Albuterol (DUOneb) 1 udvial ONCE ONCE IH 04/05/25 20:00 04/05/25 20:01 DC 04/05/25 20:43 Aspirin (Aspirin 325mg Tab) 325 mg ONCE ONCE PO 04/05/25 20:00 04/05/25 20:01 DC 04/05/25 20:22 Diatrizoate Meglum/ Diatrizoate Sod (Gastrografin 66-10 Solution) 30 ml STK-MED ONCE .ROUTE 04/05/25 21:07 04/05/25 21:07 DC Morphine Sulfate (morPHINE 4MG SYG) 4 mg ONCE ONCE IVP 04/05/25 21:00 04/05/25 21:16 DC 04/05/25 21:49 Ondansetron HCl (zoFRAN 4MG INJ) 4 mg ONCE ONCE IVP 04/05/25 21:00 04/05/25 21:16 DC 04/05/25 21:48 Vital Signs Date Time Temp Pulse Resp B/P (MAP) Pulse Ox O2 Delivery O2 Flow Rate FiO2 04/05/25 23:56 97.5 80 14 132/62 98 Room Air* 0 04/05/25 22:45 75 16 132/64 100 Room Air* 0 21 04/05/25 21:55 71 15 125/65 100 Room Air* 0 21 04/05/25 20:43 89 18 04/05/25 20:15 97.2 88 17 125/83 99 Room Air* 0 04/05/25 19:48 97.2 82 20 155/65 97 Room Air HEART Score Response (Comments) Value History: Low suspicion (0) 0 EKG: Normal 0 Age: 45-65yrs (+1) 1 Risk Factors: 3+ risk factors (+2) 2 Initial Troponin: Normal limit (0) 0 HEART Score Risk: Low Risk for MACE (1-3) Total 3 Medical Decision Making MDM Differential diagnosis- unstable angina, ACS, chest wall pain, Esophagitis, gastroesophageal reflux disease, hiatal hernia, gastritis, pericarditis, costochondritis, pleurisy This is a 64-year-old male with multiple medical problems presented to the emergency room with complaints of lower chest discomfort and shortness of breath going on for about a few days. Patient stated that he underwent on March 21, 2025 laparoscopic hiatal hernia repair by Dr. Franklin with [facility]. Apparently the patient was told that his stomach could not be optimally pulled back into abdomen due to scar tissue as well as fear of prolonging the anesthesia especially with his underlying lung issues. He was doing fairly well postoperatively and saw his surgeon today. He stated that off and on he has had some vomitings after he drinks water or eats anything but he has been managing with liquids. He and his were in [place] and on their way back they stopped it [employer] and he picked up ice cream and after eating 2 bites, started vomiting. Eventually they got home and as he was feeling slightly settled attempted to eat some oatmeal and similarly he began vomitings. In addition to just the vomitings he has severe pain in the epigastrium and lower chest area. He stated that his shortness of breath is chronic from his sarcoidosis. He also talked to his form drafter Dr.Jairo Rosenberg was planning to do a CT scan of the chest on him but wanted to wait until his GI issues settled down No diarrhea hematemesis or melena. He denied any fever chills or rigors. Very scant amounts of clear sputum. No hemoptysis. Temperature 97.2 pulse 82 respirations 20 blood pressure 155/65 with a pulse oximetry of 97% on room air Chronic medical problems include pulmonary sarcoidosis, history of a pulmonary embolus, coronary artery disease status post CABG, cerebrovascular accident, COPD, hypertension, diabetes mellitus, obstructive sleep apnea syndrome on CPAP, PTSD 8:33 p.m. labs reviewed CBC showed a white count of 10.3 hemoglobin 11.9 platelets 278. BNP 7 is significant for a BUN and creatinine of 13 and 1.6. Troponin 8 brain natriuretic peptide 77 Chest x-ray still pending at this time 9:40 p.m. chest x-ray shows bilateral increased interstitial markings and evidence of old sternotomy levi. No focal infiltrate or pleural effusions noted. CT scan of the abdomen and pelvis was done which is pending 11:[address] scan results reviewed there is no evidence of any strangulation obstruction. No acute intra-abdominal changes but mostly old changes including hepatic steatosis and left inguinal hernia I updated the patient and spouse on all the tests and the CT findings and presented options of care--admit to the hospital have GI evaluate him and look for the need for endoscopy Or discharge him to home with a antiemetics as needed for him to follow up with GI Patient stated that he prefers to be discharged to home as he is feeling significantly better and he would see the surgeon and the GI specialist in a few days Rationale: Tests considered and ordered secondary to shared decision making include: Labs and CT scan of the abdomen and pelvis Previous outside records reviewed: Old ER visits. Risk of complication and/or morbidity or mortality of patient management: None Medications-Per medication reconciliation Need for hospitalization: Patient does not meet criteria for hospitalization. Need for emergency major/minor surgery: No There are no social concerns with this patient. Prescription drug management Prescriptions will include symptomatic care Patient's prior external medical records from other ER visits were reviewed by me as indicated. Prior testing and results from previous visits were reviewed. Prior tests were taken into account with medical decision making and resource utilization, independent historian/historians were used to obtain complete medical history. I independently interpreted the test that were performed, results were reviewed by me and considered findings on radiology if ordered. Medical management and examination interpretation discussions were had by me with other qualified healthcare professionals as indicated for the patient's care. Problem List Problem List: (1) Abdominal pain (2) Nausea and vomiting (3) History of repair of hiatal hernia DX & DISP Disposition: Discharge Departure Impression: Primary Impression: Abdominal pain Additional Impressions: Nausea and vomiting, History of repair of hiatal hernia Condition: Stable Scripts Ondansetron (Ondansetron Odt) 4 Mg Tab.rapdis 4 MG PO Q6HPRN PRN for nausea, #16 TAB 0 Refills Prov: CRYSTAL RODRIGES MD 04/05/25 Additional Instructions: Patient and the caregiver have been informed of all the diagnostic tests and the imaging conducted during the today's visit to the emergency room and has verbalized understanding of the results I have personally reviewed and interpreted all diagnostic exams performed here in the ER today as well as the vital signs documented by the nursing staff. The patient is now being discharged to home and should follow up with the primary care physician or the specialist as directed by the ER staff. Your CT scan of the abdomen and pelvis showed hepatic steatosis, small left inguinal soft tissue density which could be undescended testes or inguinal hernia. Very small hiatal hernia is present. No obstruction or any other intra-abdominal stomach or bowel pathology seen Please follow-up with a GI doctor and surgeon over the next few days Referrals: BONY MITCHELL MD (PCP) CRYSTAL RODRIGES MD Apr 05, 2025:56
[2025-04-05 20:04] LABS: IMMATURE GRANULOCYTE ABSOLUTE 0.04 K/uL (0-1); NUCLEATED RED BLOOD CELLS 0.0 % (0.0-0.19); PLATELET COUNT (AUTO) 278 K/uL (130-400); RED BLOOD CELL COUNT(AUTO) 4.39 MIL/uL (4.50-6.20); RED CELL DISTRIBUTION WIDTH 15.6 % (11.0-15.5); WHITE BLOOD COUNT (AUTO) 10.3 K/uL (4.8-10.8)
--- NOTE | 2025-04-05 20:14 | NUR ---
PT CARE ASSUMED AT THIS TIME
[2025-04-05 20:19] LABS: CREATININE 1.6 mg/dL (0.5-1.3); GLOMERULAR FILTR. RATE CALC 48.0 mL/min (>90); GLUCOSE,RANDOM 211.0 mg/dL (70-105); SODIUM SERUM 143.0 mmol/L (136-145); UREA NITROGEN, BLOOD 13.0 mg/dL (7-18)
[2025-04-05] MEDS: ASPIRIN 325MG TAB PO ONE (20:22)
[2025-04-05 20:27] LABS: CREATINE KINASE, TOTAL 82.0 U/L (21-232)
[2025-04-05 20:43] VITALS: PULSE 89; RESP 18
[2025-04-05] MEDS ORDERED: DIATR MEGLU/DIATRIZOATE SODIUM 30 ML BOTTLE ONE (21:07)
--- NOTE | 2025-04-05 21:39 | HMCIMG ---
EXAM: CR Chest, 1 view CLINICAL HISTORY: Shortness of breath. Dyspnea. COMPARISON: None provided. FINDINGS: The lungs show no infiltrates or other acute findings. No pleural effusion or pneumothorax. The cardiomediastinal silhouette is within normal limits. Status post hysterectomy. Mild atherosclerotic aorta. No acute osseous abnormality. IMPRESSION: No acute cardiopulmonary process is evident. /[place]
--- NOTE | 2025-04-05 23:31 | HMCIMG ---
EXAM: CT Abdomen and Pelvis Without IV contrast CLINICAL HISTORY: Patient presents with post-operative status following hiatal hernia repair with persistent vomiting. TECHNIQUE: Axial computed tomography images of the abdomen and pelvis were acquired without intravenous contrast. CONTRAST: No IV contrast. COMPARISON: None provided. FINDINGS: LUNG BASES: Bibasilar dependent atelectasis. Median sternotomy sutures in situ. LIVER: Diffuse hepatic steatosis with rounded margins. A 0.6 cm hypodense lesion in segment II, suggestive of a cyst versus hemangioma. GALLBLADDER AND BILE DUCTS: Post-cholecystectomy status. No biliary ductal dilatation. PANCREAS: Unremarkable. SPLEEN: Few calcified granulomas. ADRENAL GLANDS: Unremarkable. KIDNEYS, URETERS, AND BLADDER: A 2.6 cm simple cortical cyst in the right renal mid pole. Mild bilateral perinephric fat stranding and haziness. The urinary bladder appears suboptimally distended with mild wall thickening. Small right inguinal hernia which contains a portion of the omental fat and urinary bladder wall. 2.7 x 1.8 cm localized ovoid soft tissue density around the left deep inguinal ring, which could be an undescended testicle or secondary to a localized inflammatory process. STOMACH AND BOWEL: Small hiatus hernia. Mild fecal loading suggestive of constipation. Uncomplicated colonic diverticula. APPENDIX: Visualized and unremarkable. PERITONEUM: No free fluid or free air. LYMPH NODES: No enlarged lymph nodes. VASCULATURE: Atheromatous wall calcifications of the aorta and iliac arteries. BONES: No acute osseous abnormality. Multilevel moderate spondylosis with levoscoliosis. IMPRESSION: Post-operative status following hiatal hernia repair with a small residual hiatus hernia. Diffuse hepatic steatosis with rounded margins, liver parenchymal disease to be excluded. A subcentimeter segment II hypodense hepatic lesion, likely benign cyst versus hemangioma. Mild bilateral perinephric fat stranding may represent nephritis versus renal parenchymal disease. Clinical correlation with laboratory parameters is recommended Urinary bladder wall thickening, likely related to cystitis. Clinical correlation is advised. Small right inguinal hernia which contains a portion of the omental fat and the urinary bladder wall. 2.7 x 1.8 cm localized ovoid soft tissue density around the left deep inguinal ring, which could be an undescended testicle or secondary to a localized inflammatory process. Recommend ultrasound correlation. Uncomplicated colonic diverticulosis with mild constipation. Right renal cortical cyst. Splenic calcified granulomas, Small fat-containing umbilical hernia. /[place]
[2025-04-05] MEDS ORDERED: ONDA-243 PO (23:51)
[2025-04-05 23:56] VITALS: BP 132/62; PULSE 80; RESP 14; TEMP 97.5; O2SAT 98
--- NOTE | 2025-04-06 08:42 | EKG ---
[facility] Test Date: 2025-04-05 Test Time: 19:47:55 Pat Name: MADISON EUBANKS Department: [facility] Room: Gender: M Global Cmo: [id number] : 1960 Requested By: CRYSTAL PADILLA Order Number: [id number] Reading MD: Philip Madden Measurements Intervals [place] Rate: 83 P: -1 PA: 145 QRS: -28 QRSD: 109 T: 79 QT: 383 QTc: 450 Interpretive Statements Sinus rhythm Low voltage, precordial leads RSR' IN V1 OR V2, PROBABLY NORMAL VARIANT Compared to ECG 04/06/2024 13:29:06 Low QRS voltage now present Sinus tachycardia no longer present T-wave abnormality no longer present Possible ischemia no longer present Electronically Signed On 04-06-2025 08:48:11 [employer]ELTY CH[employer] by Philip Madden Please click the below link to view image of tracing.
== END 2025-04-06 00:11 | disposition home or self-care (01) ==
LOC: EDH 19:45
DX: R10.9 Unspecified abdominal pain (principal); R11.2 Nausea with vomiting, unspecified; R07.89 Other chest pain; R06.02 Shortness of breath; E11.9 Type 2 diabetes mellitus without complications; I25.10 Atherosclerotic heart disease of native coronary artery without angina pectoris; J44.9 Chronic obstructive pulmonary disease, unspecified; I10 Essential (primary) hypertension; I25.2 Old myocardial infarction; Z88.0 Allergy status to penicillin; Z91.010 Allergy to peanuts; Z88.8 Allergy status to other drugs, medicaments and biological substances; Z79.84 Long term (current) use of oral hypoglycemic drugs; Z79.02 Long term (current) use of antithrombotics/antiplatelets; Z79.51 Long term (current) use of inhaled steroids; Z79.52 Long term (current) use of systemic steroids; Z79.85 Long-term (current) use of injectable non-insulin antidiabetic drugs; Z79.899 Other long term (current) drug therapy; Z86.73 Personal history of transient ischemic attack (TIA), and cerebral infarction without residual deficits; Z95.1 Presence of aortocoronary bypass graft; Z86.711 Personal history of pulmonary embolism
CPT/HCPCS: 99285; 74176; 96374; 71045; 96375; 82550; 84484; 80048; 83880; 85025; 36415; 93005; 94640; Q9963; J2405; J2270

== ENCOUNTER 2025-04-08 15:26 | Inpatient (IN) | payer MEDICARE, OTHER ==
[~2025-04-08] VITALS: Ht 172.7 cm; Wt 74.3 kg
[~2025-04-08 15:26] MED LIST changes: +ONDA-243 PO
[2025-04-08 16:07] LABS: IMMATURE GRANULOCYTE ABSOLUTE 0.07 K/uL (0-1); NUCLEATED RED BLOOD CELLS 0.0 % (0.0-0.19); PLATELET COUNT (AUTO) 262 K/uL (130-400); RED BLOOD CELL COUNT(AUTO) 4.30 MIL/uL (4.50-6.20); RED CELL DISTRIBUTION WIDTH 15.8 % (11.0-15.5); WHITE BLOOD COUNT (AUTO) 11.3 K/uL (4.8-10.8)
[2025-04-08 16:13] LABS: CREATININE 1.6 mg/dL (0.5-1.3); GLOMERULAR FILTR. RATE CALC 48.0 mL/min (>90); GLUCOSE,RANDOM 105.0 mg/dL (70-105); SODIUM SERUM 138.0 mmol/L (136-145); UREA NITROGEN, BLOOD 22.0 mg/dL (7-18)
[2025-04-08 17:05] LABS: APPEARANCE,URINE CLEAR (CLEAR); GLUCOSE, URINE (UA) NEGATIVE (NEGATIVE); LEUKOCYTE ESTERASE ,URINE 75 Leu/uL (NEGATIVE); NITRATE,URINE NEGATIVE (NEGATIVE); OCCULT BLOOD,URINE SMALL (NEGATIVE)
[2025-04-08 17:06] LABS: ADD UA MICROSCOPIC YES
--- NOTE | 2025-04-08 17:08 | ERN ---
ED Note History of Present Illness Stated Complaint: CHEST PAIN Chief Complaint: Chest Pain Time Seen by MD: 15:47 Dictation: This is a 64-year-old male with multiple medical problems presented to the emergency room with complaints of lower chest discomfort and shortness of breath going on for about a few days. Patient stated that he underwent on March 21, 2025 laparoscopic hiatal hernia repair by Dr. Franklin with [facility]. Apparently the patient was told that his stomach could not be optimally pulled back into abdomen due to scar tissue as well as fear of prolonging the anesthesia especially with his underlying lung issues. He was doing fairly well postoperatively and saw his surgeon today. He stated that his shortness of breath is chronic from his sarcoidosis. He also talked to his tub chucker Dr.Jairo Rosenberg was planning to do a CT scan of the chest on him but wanted to wait until his GI issues settled down. He comes in today again with substernal chest pain that started around 2:40 p.m. and radiating to the left arm and jaw. Apparently he was moving his furniture when he started experiencing this he has a known history of coronary artery disease and was concerned and came into the ER for further evaluation he was recently seen on 04/05/2025 for vomitings. No diarrhea hematemesis or melena. He denied any fever chills or rigors. Very scant amounts of clear sputum. No hemoptysis. Temperature 98 pulse 70 respirations 16 blood pressure 133/70 with a pulse oximetry of 99 % on room air Chronic medical problems include pulmonary sarcoidosis, history of a pulmonary embolus, coronary artery disease status post CABG, cerebrovascular accident, COPD, hypertension, diabetes mellitus, obstructive sleep apnea syndrome on CPAP, PTSD Allergies: Coded Allergies: atorvastatin (Verified Allergy, Severe, RASH, 10/15/17) Penicillins (Verified Allergy, Unknown, 12/22/14) peanut (Unverified Allergy, Unknown, 03/26/23) Home Meds Active Scripts Ondansetron (Ondansetron Odt) 4 Mg Tab.rapdis, 4 MG PO Q6HPRN PRN for nausea, #16 TAB 0 Refills Prov:CRYSTAL RODRIGES MD 04/05/25 Reported Medications Tiotropium [place] (Spiriva) 18 Mcg Cap.w.dev, 18 MCG IH DAILY PRN for SHORTNESS OF BREATH/WHEEZING 03/21/25 Empagliflozin (Jardiance) 25 Mg Tablet, 25 MG PO DAILY, TAB 03/21/25 Fluticasone Propion/Salmeterol (Wixela 100-50 Inhub) 100 Mcg-50 Mcg/Dose Blst.w.dev, 1 PUFF IH DAILY for 30 Days, #60 EACH 0 Refills 03/21/25 Semaglutide (Ozempic) 1 Mg/0.75 Ml (4 Mg/3 Ml) Pen.injctr, 4 MG SQ QWEEK for 30 Days, #3 ML 0 Refills 03/21/25 Pantoprazole Sodium (Pantoprazole Sodium) 40 Mg Tablet.dr, 1 TAB PO DAILY for 30 Days, #30 TAB 0 Refills 12/25/24 Ropinirole HCl (Ropinirole HCl) 0.25 Mg Tablet, 0.25 MG PO TID, TAB 12/25/24 Metformin HCl (Metformin HCl) 1,000 Mg Tablet, 1 TAB PO BID for 30 Days, #60 TAB 0 Refills 12/25/24 Cyanocobalamin (Vitamin B-12) 250 Mcg Tab, 100 MCG PO DAILY, TAB 12/25/24 Gabapentin (Neurontin) 300 Mg Capsule, 300 MG PO BID, CAP 12/25/24 Losartan Potassium (Losartan Potassium) 50 Mg Tablet, 1 TAB PO DAILY for 30 Days, #30 TAB 0 Refills 12/25/24 Buspirone HCl (Buspirone HCl) 15 Mg Tablet, 1 TAB PO BID for 30 Days, #60 TAB 0 Refills 12/25/24 Folic Acid/Vitamin B Comp W-C (Yesenia-Madhav Tablet) 0.8 Mg Tablet, 1 TAB PO DAILY for 30 Days, #30 TAB 0 Refills 12/25/24 Folic Acid (Folvite) 1 Mg Tab, 1 TAB PO DAILY for 30 Days, #30 TAB 0 Refills 12/25/24 Clopidogrel Bisulfate (Clopidogrel) 75 Mg Tablet, 1 TAB PO DAILY for 30 Days, #30 TAB 0 Refills 12/25/24 Prednisone (Prednisone) 20 Mg Tablet, 1 TAB PO DAILY for 5 Days, #5 TAB 0 Refills 12/25/24 Rosuvastatin Calcium (Rosuvastatin Calcium) 40 Mg Tablet, 40 MG PO HS, TAB 12/25/24 Sertraline HCl (Sertraline HCl) 100 Mg Tablet, 1.5 TAB PO DAILY for 30 Days, #30 TAB 0 Refills 12/25/24 Metoprolol Succinate (Metoprolol Succinate) 50 Mg Tab.er.24h, 1 TAB PO DAILY for 30 Days, #30 TAB 0 Refills 12/25/24 Famotidine (Famotidine) 20 Mg Tablet, 20 MG PO DAILY PRN for HEARTBURN, TAB 12/25/24 Past Medical History Past Medical History: CAD, COPD, High Cholesterol, Hypertension Additional Past Medical Hx: PULMONARY SARCIODOSIS; TRIPLE BYPASS (2007); HX OF PEA Surgical History: CABG, Other Surgical History Other: NECK LYMPH NODE REMOVAL. Family History: Negative Social History: Negative, Lives with family RN Note Reviewed/Agreed w/PFSH: Yes Review of System Dictation Constitutional: Negative for fever,chills, and weight loss Eyes: Negative for injury, pain,redness, and discharge ENT: Negative for injury,pain or swelling Cardiovascular: Positive for chest pain, palpitations, and edema Respiratory: Negative for shortness of breath, cough, and wheezing, Abdomen/GI: Negative for abdominal pain, nausea, vomiting, diarrhea, and con stipation Back: Negative for injury and pain : Negative for injury, bleeding and discharge MS/Extremity: Negative for injury and deformity Skin: Negative for rash, and discoloration Neuro: Negative for headache, weakness, numbness, tingling, and seizure Psych: Negative for suicide ideation, homicidal ideation, and hallucinations Initial Vital Sign VS Vital Signs Date Time Temp Pulse Resp B/P (MAP) Pulse Ox O2 Delivery O2 Flow Rate FiO2 04/08/25 15:39 98.1 70 16 133/70 99 Room Air 0 04/08/25 16:50 21 Physical Exam Dictation General: awake, alert, NAD Head/Face: Normocephalic, atraumatic Eyes: PERRL, EOMI, vision at baseline ENT: oral cavity clear, TMs clear, no signs of infection Neck: Trachea midline, supple, no nuchal rigidity Cardiovascular: RRR, normal S1/S2, No MRGs, no JVD Respiratory: CTAB, no respiratory distress, No rales or wheezes Abdomen: Soft, non-tender, non-distended, normal bowel sounds, no guarding or re bound. Skin: Warm, dry, normal turgor, no rash MS/Extremity: Pulses equal, no cyanosis, neurovascular intact, FROM Neuro: COAx4, GCS 15, strength 5/5, CN 2-12 intact, normal cerebellar exam, normal gait, Psych: Normal behavior, mood, and affect normal Extremities-trace edema without any palpable cords, Homans sign is negative Results (Laboratory/Radiology) Laboratory/Radiology Laboratory Tests Test 04/08/25 15:54 04/08/25 16:49 White Blood Count 11.3 K/uL (4.8-10.8) H Red Blood Count 4.30 MIL/uL (4.50-6.20) L Hemoglobin 11.8 g/dL (14.0-18.0) L Hematocrit 37.2 % (42-54) L Mean Corpuscular Volume 86.5 fL (79-99) Mean Corpuscular Hemoglobin 27.4 pg (27.0-33.0) Mean Corpuscular Hemoglobin Concent 31.7 g/dL (32.0-36.0) L Red Cell Distribution Width 15.8 % (11.0-15.5) H Platelet Count 262 K/uL (130-400) Mean Platelet Volume 9.8 fL (7.5-10.5) Immature Granulocyte % (Auto) 0.6 % (0-1) Neutrophils (%) (Auto) 89.4 % (40.0-77.0) H Lymphocytes (%) (Auto) 6.9 % (21.0-51.0) L Monocytes (%) (Auto) 2.7 % (3.0-13.0) L Eosinophils (%) (Auto) 0.2 % (0.0-8.0) Basophils (%) (Auto) 0.2 % (0.0-5.0) Neutrophils # (Auto) 10.1 K/uL (1.8-7.7) H Lymphocytes # (Auto) 0.8 K/uL (1.0-4.8) L Monocytes # (Auto) 0.3 K/uL (0.1-1.0) Eosinophils # (Auto) 0.02 K/uL (0.00-0.70) Basophils # (Auto) 0.02 K/uL (0.00-0.20) Absolute Immature Granulocyte (auto 0.07 K/uL (0-1) Nucleated Red Blood Cells 0.0 % (0.0-0.19) Sodium Level 138 mmol/L (136-145) Potassium Level 4.5 mmol/L (3.5-5.1) Chloride Level 106 mmol/L (101-111) Carbon Dioxide Level 24 mmol/L (21-32) Blood Urea Nitrogen 22 mg/dL (7-18) H Creatinine 1.6 mg/dL (0.5-1.3) H Glomerular Filtration Rate Calc 48 mL/min (>90) Random Glucose 105 mg/dL (70-105) Total Calcium 9.1 mg/dL (8.5-10.1) Troponin I High Sensitivity 9 ng/L (4-75) Urine Color LIGHT-YELLOW (YELLOW) Urine Appearance CLEAR (CLEAR) Urine pH 5.5 (5.0-8.0) Urine Specific [place] 1.023 (1.001-1.031) Urine Protein 20 mg/dL (NEGATIVE) H Urine Glucose (UA) NEGATIVE mg/dL (NEGATIVE) Urine Ketones NEGATIVE mg/dL (NEGATIVE) Urine Occult Blood SMALL (NEGATIVE) H Urine Nitrate NEGATIVE (NEGATIVE) Urine Bilirubin NEGATIVE mg/dL (NEGATIVE) Urine Urobilinogen 0.2 mg/dL (0.2-1.0) Urine Leukocyte Esterase 75 Kary/uL (NEGATIVE) H Urine RBC 2-5 /HPF (0-1) H Urine WBC 2-5 /HPF (0-1) H Urine Squamous Epithelial Cells RARE /HPF (0-2) Urine Bacteria RARE /HPF (None Seen) Labs Reviewed?: Yes EKG Comment: Twelve lead EKG done on 04/08/2025 at 3:29 p.m. shows a heart rate of 70, IA interval 134, QRS duration 122, QT/QTC 399/430 Impression normal sinus rhythm with right bundle branch block no acute ST-T elevations or deep ST-T depressions noted. Interpreted by ER MD Dr. Rodriges CT Scan Comment: REASON: post-op Hiatal hernia repair on Dec 2 -vomitings-ORAL CONTRAST ONLY ORDERING PHYSICIAN: CRYSTAL RODRIGES MD PROCEDURE: ABD PEL WO - CT ABDOMEN/PELVIS W/O CONTRAST EXAM: CT Abdomen and Pelvis Without IV contrast CLINICAL HISTORY: Patient presents with post-operative status following hiatal hernia repair with persistent vomiting. TECHNIQUE: Axial computed tomography images of the abdomen and pelvis were acquired without intravenous contrast. CONTRAST: No IV contrast. COMPARISON: None provided. FINDINGS: LUNG BASES: Bibasilar dependent atelectasis. Median sternotomy sutures in situ. LIVER: Diffuse hepatic steatosis with rounded margins. A 0.6 cm hypodense lesion in segment II, suggestive of a cyst versus hemangioma. GALLBLADDER AND BILE DUCTS: Post-cholecystectomy status. No biliary ductal dilatation. PANCREAS: Unremarkable. SPLEEN: Few calcified granulomas. ADRENAL GLANDS: Unremarkable. KIDNEYS, URETERS, AND BLADDER: A 2.6 cm simple cortical cyst in the right renal mid pole. Mild bilateral perinephric fat stranding and haziness. The urinary bladder appears suboptimally distended with mild wall thickening. Small right inguinal hernia which contains a portion of the omental fat and urinary bladder wall. 2.7 x 1.8 cm localized ovoid soft tissue density around the left deep inguinal ring, which could be an undescended testicle or secondary to a localized inflammatory process. STOMACH AND BOWEL: Small hiatus hernia. Mild fecal loading suggestive of constipation. Uncomplicated colonic diverticula. APPENDIX: Visualized and unremarkable. PERITONEUM: No free fluid or free air. LYMPH NODES: No enlarged lymph nodes. VASCULATURE: Atheromatous wall calcifications of the aorta and iliac arteries. BONES: No acute osseous abnormality. Multilevel moderate spondylosis with levoscoliosis. IMPRESSION: Post-operative status following hiatal hernia repair with a small residual hiatus hernia. Diffuse hepatic steatosis with rounded margins, liver parenchymal disease to be excluded. A subcentimeter segment II hypodense hepatic lesion, likely benign cyst versus hemangioma. Mild bilateral perinephric fat stranding may represent nephritis versus renal parenchymal disease. Clinical correlation with laboratory parameters is recommended Urinary bladder wall thickening, likely related to cystitis. Clinical correlation is advised. Small right inguinal hernia which contains a portion of the omental fat and the urinary bladder wall. 2.7 x 1.8 cm localized ovoid soft tissue density around the left deep inguinal ring, which could be an undescended testicle or secondary to a localized inflammatory process. Recommend ultrasound correlation. Uncomplicated colonic diverticulosis with mild constipation. Right renal cortical cyst. Splenic calcified granulomas, Small fat-containing umbilical hernia. /[place] DICTATED BY: JOSE JOHNS Jr., MD DATE: 12/18/25 0030 ELECTRONICALLY SIGNED BY: JOSE JOHNS Jr., MD DATE: 04/06/2529 ED Course ED Course Orders Procedure Category Date Status Time Cbc With Differential LAB 04/08/25 Complete 15:38 Basic Metabolic Panel LAB 04/08/25 Complete 15:38 12 Lead Ekg Tracing- EKG 04/08/25 Logged Technical 15:38 Chest 1vw RAD 04/08/25 Resulted 15:38 Troponin I High LAB 04/08/25 Complete Sensitivity 15:38 Urinalysis Profile LAB 04/08/25 Complete 15:38 Culture Urine ANGEL 04/08/25 In Process 17:06 Vital Signs Date Time Temp Pulse Resp B/P (MAP) Pulse Ox O2 Delivery O2 Flow Rate FiO2 04/08/25 16:50 97.7 61 16 113/58 96 Room Air* 0 21 04/08/25 15:39 98.1 70 16 133/70 99 Room Air 0 HEART Score Response (Comments) Value History: Moderate suspicion (+1) 1 EKG: Repolarization changes 1 Age: > 65yrs (+2) 2 Risk Factors: 3+ risk factors (+2) 2 Initial Troponin: Normal limit (0) 0 HEART Score Risk: Mod Risk for MACE (4-6) Total 6 Medical Decision Making MDM Differential diagnosis: ACS, unstable angina, esophageal pain, chest wall pain, i Esophagitis, gastroesophageal reflux disease, hiatal hernia, gastritis, pericarditis, costochondritis, pleurisy This is a 64-year-old male with multiple medical problems presented to the [facility] room with complaints of lower chest discomfort and shortness of breath going on for about a few days. Patient stated that he underwent on March 21, 2025 laparoscopic hiatal hernia repair by Dr. Franklin with [facility]. Apparently the patient was told that his stomach could not be optimally pulled back into abdomen due to scar tissue as well as fear of prolon ging the anesthesia especially with his underlying lung issues. He was doing fairly well postoperatively and saw his surgeon today. He stated that his shortness of breath is chronic from his sarcoidosis. He also talked to his tub chucker Dr.Jairo Rosenberg was planning to do a CT scan of the chest on him but wanted to wait until his GI issues settled down. He comes in today a gain with substernal chest pain that started around 2:40 p.m. and radiating to the left arm and jaw. Apparently he was moving his furniture when he started experiencing this he has a known history of coronary artery disease and was concerned and came into the ER for further evaluation he was recently seen on 04/05/2025 for vomitings. No diarrhea hematemesis or melena. He denied any fever chills or rigors. Very scant amounts of clear sputum. No hemoptysis. Temperature 98 pulse 70 respirations 16 blood pressure 133/70 with a pulse oximetry of 99 % on room air Chronic medical problems include pulmonary sarcoidosis, history of a pulmonary embolus, coronary artery disease status post CABG, cerebrovascular accident, COPD, hypertension, diabetes mellitus, obstructive sleep apnea syndrome on CPAP, PTSD 5:19 p.m. chest x-ray is unremarkable for any acute infiltrate. Or pleural effusions 6:13 p.m. CBC showed a white count of 11.3 hemoglobin 11.8. BNP 7 showed a BUN and creatinine of 22 and 1.6 with a troponin of 9. EKG was unremarkable. Patient has a known history of coronary artery disease and underwent CABG in the current presentation may simply be related to his recent hiatal hernia surgery and esophageal radiating pain however he has a moderate heart score risk and hence I recommended admission to the hospital for further evaluation and patient and spouse are agreeable 6:00 p.m. patient accepted by [facility] mid-level provider for [facility] hospitalist group for admission and further management Rationale: Tests considered and ordered secondary to shared decision making include: labs, ECG and radiology Previous outside records reviewed: Old ER visits. Risk of complication and/or morbidity or mortality of patient management: None Medications-Per medication reconciliation Need for hospitalization: Patient does meet criteria for hospitalization. Need for emergency major/minor surgery: No There are no social concerns with this patient. Prescription drug management Prescriptions will include symptomatic care Patient's prior external medical records from other ER visits were reviewed by me as indicated. Prior testing and results from previous visits were reviewed. Prior tests were taken into account with medical decision making and resource utilization, independent historian/historians were used to obtain complete medical history. I independently interpreted the test that were performed, results were reviewed by me and considered findings on radiology if ordered. Medical management and examination interpretation discussions were had by me with other qualified healthcare professionals as indicated for the patient's care. Problem List Problem List: (1) Coronary artery disease (2) H/O coronary artery bypass surgery (3) Acute angina (4) Type 2 diabetes mellitus (5) Pulmonary sarcoidosis DX & DISP Disposition: Inpatient Decision to Admit Time: 17:05 Departure Impression: Primary Impression: Acute angina Additional Impressions: Coronary artery disease, H/O coronary artery bypass surgery, Type 2 diabetes mellitus, Pulmonary sarcoidosis Condition: Stable Additional Instructions: Patient was informed of all the diagnostic labs and procedures conducted in the emergency room today and demonstrated understanding of the results. I personally reviewed and interpreted all the diagnostic exams performed in the ER today. The patient will be admitted to the hospital for further treatment and evaluation. Disposition-admit to facility Condition-stable/guarded Course-uncertain at this time Pain status-decreased Assessment-exam unchanged Admission Certification- I certify that the patients status is appropriate and is based on my best clinical judgment and the patient's condition as documented in the medical records Referrals: BONY MITCHELL MD (PCP) CRYSTAL RODRIGES MD Apr 08, 2025 17:08
[2025-04-08 17:11] LABS: SQUAMOUS EPITHELIAL CELL,UR RARE /HPF (0-2)
--- NOTE | 2025-04-08 17:21 | HMCIMG ---
EXAM: CR Chest, 1 View. CLINICAL HISTORY: CP COMPARISON: None provided. FINDINGS: LUNGS: There is no mass, infiltrate, or acute pulmonary abnormality. PLEURAL SPACES: No pleural effusion or pneumothorax. MEDIASTINUM: The cardiomediastinal silhouette is within normal limits. Sternotomy wires. BONES: No aggressive appearing osseous lesion seen. IMPRESSION: No acute cardiopulmonary pathology is evident. /Albert Lea
--- NOTE | 2025-04-08 18:23 | EKG ---
[facility] Test Date: 2025-04-08 Test Time: 15:29:03 Pat Name: MADISON EUBANKS Department: [facility] Room: 314 Gender: M Sonography Technician: [id number] : 1960 Requested By: CRYSTAL PADILLA Order Number: [id number] Reading MD: Marucs Le Measurements Intervals [place] Rate: 70 P: 0 ND: 134 QRS: -16 QRSD: 122 T: 60 QT: 399 QTc: 430 Interpretive Statements Sinus rhythm Right bundle branch block Compared to ECG 04/05/2025 19:47:55 Right bundle-branch block now present Electronically Signed On 04-09-2025 21:48:46 [employer] HOUSE WORKER by Marcus Le Please click the below link to view image of tracing.
[2025-04-08] MEDS ORDERED: NITROGLYCERIN 0.4 MG SL TAB SL PRN (18:30)
--- NOTE | 2025-04-08 18:39 | HP ---
[facility] HISTORY AND PHYSICAL Date of Service: Apr 08, 2025 Time of Service: 18:39 Supervising/attending physicians: Dr. Severino and Dr. Wilson HISTORY OF PRESENT ILLNESS: Mr. Bruner is a 64-year-old male with a history of TIA x2, CVA, CAD, COPD w home CPAP use, hypercholesteremia, hypertension, pulmonary sarcoidosis, triple bypass who presented [place] [facility] [place] for evaluation of sternal and lower chest discomfort and shortness of breath onset a few days now. The patient reported that Dr. Franklin of [facility] performed a laparoscopic hiatal hernia repair on March 21, 2025. He was reportedly informed that scar tissue prevented his stomach from being optimally pulled back into abdomen, and he was also afraid of extending the anesthesia because of his underlying lung problems. He was doing fairly well postoperatively and saw his surgeon today. He reported his tray checker, Dr. Luis Rosenberg is planning to do a CT scan of his chest on him but wanted to wait until his GI issues settled down. He returned today with substernal chest pain that begun at 2:40 p.m. and spread to his left arm and jaw. He begun having this problem while moving his furniture. He worried about his known history of coronary artery disease and went to the emergency room for additional assessment. On April 05, 2025, he was seen due to vomiting. He has no diarrhea or hematemesis or melena. He denied having any rigors, chills, or fever. Very little clear sputum. No hemoptysis. VS: HR 70 bmp, RR 16 bmp, BP 133/70, 99% RA, 98.1 F, Remarkable labs: Chemistry: BUN 22, Creatinine 1.6, Hematology: WBC 11.3, RBC 4.30, Hgb 11.8, Hct 37.2, MCHC 31.7, RDW 15.8, UA: +Leukocyte, Chest X-Rays: No acute cardiopulmonary pathology is evident. EKG: SR with RBBB, no acute ST elevations or depressions noted ED provider requested patient be admitted to the hospital with the diagnosis of acute angina, pulmonary sarcoidosis, in history of CABG. I assessed the patient at bedside in 314. No family members at bedside. The patient appeared comfortable, breathing was even, unlabored, in no distress. RN reports patient stated he has trouble passing liquid end food. He reports that he has a pending endoscopy on Thursday by GI. I informed the patient of labs, diagnostics, and plan of care. He verbalized understanding and is in agreement with the plan. Plan and assessment are listed below. REVIEW OF SYSTEMS 12-point ROS system was reviewed with the patient. All pertinent positives mentioned above. Otherwise negative, noncontributory, nonpertinent. PAST MEDICAL HISTORY As mentioned above. PAST SURGICAL HISTORY CABG, neck lymph node removal. PAST SOCIAL HISTORY Denies alcohol, tobacco, illicit drug use. FAMILY HISTORY Noncontributory Coded Allergies: atorvastatin (Verified Allergy, Severe, RASH, 10/15/17) Penicillins (Verified Allergy, Unknown, 12/22/14) peanut (Unverified Allergy, Unknown, 03/26/23) PHYSICAL EXAM GENERAL APPEARANCE: The patient is awake, alert, and oriented, in no acute cardiopulmonary distress. NEUROLOGICAL: Cranial nerves II-XII grossly intact. Motor is 5/5 in bilateral upper and lower extremities proximal to distal. No sensory deficits. HEENT: Face is symmetric. Pupils are equal and reactive. Extraocular movements are intact. NECK: Supple. No JVD. No thyromegaly. No submental, submandibular, pre-/ postauricular, occipital or supraclavicular lymphadenopathy. CHEST: Normal chest expansion. No Telemetry. LUNGS: Absence of any rales, rhonchi or any wheezing. CARDIOVASCULAR: Regular. S1 and S2 normal. No appreciable rubs, murmurs or gallops. ABDOMEN: Soft, nontender, and nondistended. There is no rebound, voluntary guarding, or rigidity. : Deferred. No [place]. EXTREMITIES: Non-edematous and not cyanotic. No clubbing. Good capillary refill. SKIN: No skin breakdown. Vital Sign (Last 24 Hours) 04/08/25 18:15 Temp 97.7 Pulse 63 Resp 16 B/P (MAP) 126/59 Pulse Ox 97 O2 Delivery Room Air* O2 Flow Rate 0 FiO2 21 LABS: Laboratory: Test 04/08/25 16:49 04/08/25 15:54 Range/Units Urine Color LIGHT-YELLOW YELLOW Urine Appearance CLEAR CLEAR Urine pH 5.5 5.0-8.0 Urine Specific [place] 1.023 1.001-1.031 Urine Protein 20 H NEGATIVE mg/dL Urine Glucose (UA) NEGATIVE NEGATIVE mg/dL Urine Ketones NEGATIVE NEGATIVE mg/dL Urine Occult Blood SMALL H NEGATIVE Urine Nitrate NEGATIVE NEGATIVE Urine Bilirubin NEGATIVE NEGATIVE mg/dL Urine Urobilinogen 0.2 0.2-1.0 mg/dL Urine Leukocyte Esterase 75 H NEGATIVE Kary/uL Urine RBC 2-5 H 0-1 /HPF Urine WBC 2-5 H 0-1 /HPF Urine Squamous Epithelial Cells RARE 0-2 /HPF Urine Bacteria RARE None Seen /HPF White Blood Count 11.3 H 4.8-10.8 K/uL Red Blood Count 4.30 L 4.50-6.20 MIL/uL Hemoglobin 11.8 L 14.0-18.0 g/dL Hematocrit 37.2 L 42-54 % Mean Corpuscular Volume 86.5 79-99 fL Mean Corpuscular Hemoglobin 27.4 27.0-33.0 pg Mean Corpuscular Hemoglobin Concent 31.7 L 32.0-36.0 g/dL Red Cell Distribution Width 15.8 H 11.0-15.5 % Platelet Count 262 130-400 K/uL Mean Platelet Volume 9.8 7.5-10.5 fL Immature Granulocyte % (Auto) 0.6 0-1 % Neutrophils (%) (Auto) 89.4 H 40.0-77.0 % Lymphocytes (%) (Auto) 6.9 L 21.0-51.0 % Monocytes (%) (Auto) 2.7 L 3.0-13.0 % Eosinophils (%) (Auto) 0.2 0.0-8.0 % Basophils (%) (Auto) 0.2 0.0-5.0 % Neutrophils # (Auto) 10.1 H 1.8-7.7 K/uL Lymphocytes # (Auto) 0.8 L 1.0-4.8 K/uL Monocytes # (Auto) 0.3 0.1-1.0 K/uL Eosinophils # (Auto) 0.02 0.00-0.70 K/uL Basophils # (Auto) 0.02 0.00-0.20 K/uL Absolute Immature Granulocyte (auto 0.07 0-1 K/uL Nucleated Red Blood Cells 0.0 0.0-0.19 % Sodium Level 138 136-145 mmol/L Potassium Level 4.5 3.5-5.1 mmol/L Chloride Level 106 101-111 mmol/L Carbon Dioxide Level 24 21-32 mmol/L Blood Urea Nitrogen 22 H 7-18 mg/dL Creatinine 1.6 H 0.5-1.3 mg/dL Glomerular Filtration Rate Calc 48 >90 mL/min Random Glucose 105 70-105 mg/dL Total Calcium 9.1 8.5-10.1 mg/dL Troponin I High Sensitivity 9 4-75 ng/L Current Medications Medications (Trade) Dose Ordered Sig/Michael Route PRN Reason Start Time Stop Time Status Last Admin Dose Admin Nitroglycerin (Nitrostat) 0.4 mg Q5M PRN SL CHEST PAIN 04/08/25 18:30 DIAGNOSTICS / RADIOLOGY: [ ] ASSESSMENT: Chest pain r/o cardiac etiology, POA, troponin negative x2 Pulmonary sarcoidosis, POA Acute complicated cystitis, POA Dysphagia, POA Acute on chronic kidney disease, GFR 48 Anemia chronic disease, POA Leukocytosis Chronic problem list: TIA x2, CVA, CAD, COPD w home CPAP use, hypercholes teremia, hypertension, pulmonary sarcoidosis, triple bypass PLAN: -Admit to medical floor with continuous telemetry monitoring. -Troponin levels and EKG series. -Cardiology consult in the am. -2D echo in a.m. with heart clinic to read. -Start Levaquin 500 mg IV daily for + leuk est in urine. -Obtain MBSS. -CPAP QHS. May use home CPAP O2. -PRN medications for pain management, fever, N/V, constipation, hypertension. -Oxygen supplement as needed to maintain oxygen levels equal to or greater than 92% -Nitroglycerin sublingual as needed chest pain -Aspirin 81 mg p.o. daily. -Atorvastatin was not ordered due to reported allergy. -Lasix 40 mg IV BID. -Strict I&O. -Fluid restriction 1,500 mls in 24 hours. -Blood pressure checks every 4 hours and as needed. -Reconcile home medications once available. -Glucometer checks before meals and at bedtime with insulin regular sliding scale. -Monitor renal and liver function. -Monitor electrolytes and treat accordingly PRN -AM labs. -GI and DVT prophylaxis -Further plan/orders per hospitalization course. ADVANCED CARE PLANNING Which of the following were discussed? Hospice Care - No Therapeutic option - Yes Advance Directives- Yes Other discussions - Discussed with who? Patient Voluntary nature of this service was explained to the patient? Yes Amount of time spent - ___ Over 35 minutes ____ Reviewed by Physician? ( if this service was preformed by WILL) Yes ATTESTATION BY PHYSICIAN I have seen and examined the patient. I reviewed the documentation, medical decision making, and treatment plan as noted by the WILL above. I agree with the finding and plan of care. GABBY SOUSA [facility] Apr 08, 2025 18:39
[2025-04-08] MEDS: ASPIRIN 325MG TAB PO ONE (18:47)
--- NOTE | 2025-04-08 19:16 | NUR ---
REPORT GIVEN TO KENIA ACEVEDO
[2025-04-08 21:40] VITALS: BP 122/64; PULSE 59; RESP 18; TEMP 97.8; O2SAT 98
[2025-04-08] MEDS: ENOXAPARIN SODIUM 40 MG/0.4 ML SYRINGE SQ SCH (21:55)
[2025-04-08] MEDS ORDERED: ALBUTEROL 0.083% 2.5 MG/3 ML INH IH PRN (22:00)
[2025-04-08] MEDS ORDERED: LACTULOSE 20 GM/30 ML UDCUP PO PRN (22:00)
[2025-04-08 22:15] VITALS: PULSE 80; RESP 18; O2SAT 98
[2025-04-08] MEDS ORDERED: FERS325 PO (23:45)
[2025-04-08] MEDS ORDERED: LACT1CAP90 PO (23:45)
[2025-04-08] MEDS ORDERED: MAGN500T5 PO (23:45)
[2025-04-09] VITALS (9 sets, daily range): BP systolic 100–112; BP diastolic 55–69; PULSE 55–72; RESP 18–20; TEMP 97.5–98.7; O2SAT 98–99
[2025-04-09 05:35] LABS: NUCLEATED RED BLOOD CELLS 0.0 % (0.0-0.19); PLATELET COUNT (AUTO) 250.0 K/uL (130-400); RED BLOOD CELL COUNT(AUTO) 4.13 MIL/uL (4.50-6.20); RED CELL DISTRIBUTION WIDTH 15.6 % (11.0-15.5); WHITE BLOOD COUNT (AUTO) 8.6 K/uL (4.8-10.8)
[2025-04-09 06:08] LABS: CREATININE 1.3 mg/dL (0.5-1.3); GLOMERULAR FILTR. RATE CALC 61.0 mL/min (>90); GLUCOSE,RANDOM 73.0 mg/dL (70-105); PHOSPHORUS 4.6 mg/dL (2.5-4.9); SODIUM SERUM 141.0 mmol/L (136-145); UREA NITROGEN, BLOOD 21.0 mg/dL (7-18)
[2025-04-09] MEDS ORDERED: GLUCAGON 1MG KIT 1 MG ML IM PRN (06:30)
[2025-04-09] MEDS ORDERED: DEXTROSE 50%-WATER 50 ML DISP.SYRIN IV PRN (06:30)
[2025-04-09] MEDS ORDERED: PoTASSium chl 10% ELIXIR 20MEQ 20 MEQ/15 ML UDCUP PO PRN (06:30)
[2025-04-09 06:32] LABS: ASPARTATE AMINOTRANSFERASE 18.0 U/L (10-37); TOTAL PROTEIN, SERUM 6.2 g/dL (6.0-8.3)
--- NOTE | 2025-04-09 07:44 | NUR ---
PATIENT UPDATE ADMIITED A 64 YR OLD MALE WITH COMPLAINTS OF MIDSTERNAL CHEST PAIN RADIATING TO THE LEFT ARM SINCE MORNING WITH SHORTNESS OF BREATH. ALERT AND ORIENTED ,AMBULATES AT HOME WITH THE WALKER, FALL INCIDENT 2 WEEKS AGO. STATED THAT HE STARTED HAVING ALL THESE DISCOMFORT SINCE AFTER HE UNDERWENT THE LAPAROSCOPIC SX 03/21. STARTED HAVING PROBLEMS WITH DYSPHAGIA, NAUSEA AND VOMITING WITH PO INTAKE AND APPARENTLY PENDING AN ENDOSCOPY ON THE WELL AN UGI SERIES, DIET CHANGED TO BLAND PENDING SPEECH THERAPY CONSULT FOR BEDSIDE SWALLOWING TEST. ADMITS TO LOSING AROUND 6 LBS AFTER THIS PROBLEMS WITH DYSPHAGIA. PROBLEMS WITH TERRENCE, SUPPOSED TO BRING CPAP MASK FROM HOME, RT PLACED PT ON O2 AT 2L PER NASALCANNULA FOR TONIGHT. SEEN BY LOU SOUSA SEALS ENGRAVER IN THE FLOOR BEFORE MN, STARTED THE PT ON LEVAQUIN. SLEPT WELL OVERNIGHT,RUNNING NSR IN THE 60'S OVERNIGHT, NORMOTENSIVE. NO COMPLAINTS OF ANY CHEST DISCOMFORT, NO SHORTNESS OF BREATH. BLOOD SUGAR DOWN TO 66 THIS AM, ORANGE JUICE GIVEN.ALL HOME MEDS ENTERED, PENDING RECONCILIATION.
--- NOTE | 2025-04-09 08:52 | NUR ---
BEDSIDE DYSPHAGIA COMPLETED. -S/S OF ASPIRATION. RECOMMEND REGULAR TEXTURE, THIN LIQUIDS; PILLS WHOLE WITH LIQUIDS WHEN CLEARED BY GI. CONTINUE GI SOFT DIET UNTIL CONSULT. RECOMMEND GI CONSULT DURING THIS VISIT. PATIENT WITH APPOINTMENT FOR GI SERIES AT THIS FACILITY LATER THIS MONTH. PATIENT REPORTS HE FEELS DISCOMFORT WITH "FOOD STUCK" AT LEVEL OF ESOPHAGUS. RESULTS AND RECOMMENDATIONS WERE DISCUSSED WITH NURSE MONSON.
[2025-04-09 09:11] LABS: ABG BASE EXCESS 0.1 mmol/L (-2.0-3.0); ABG HCO3 22.5 mmol/L (21.0-28.0); ABG OXYGEN SATURATION 98.4 % (94.0-98.0); ABG PCO2 31 mmHg (35-48); ABG PH 7.481 (7.350-7.450); PO2, ARTERIAL BG 112.7 mmHg (83.0-108.0); TEMPERATURE, CELSIUS BG 37.0 CELSIUS (35.5-37.0); VENT MODE, BG NC (ROOM AIR)
[2025-04-09] MEDS: ASPIRIN 81MG CHEW TAB PO SCH (09:16)
[2025-04-09] MEDS: FAMOTIDINE 20MG TAB PO SCH (11:06)
[2025-04-09] MEDS ORDERED: SUB TO IPRATROPIUM 0.5MG/2.5ML PER P&T IH PRN (11:30)
[2025-04-09] MEDS ORDERED: FAMOTIDINE 20MG TAB PO PRN (11:30)
[2025-04-09] MEDS: PoTASSium chloRIDE 20MEQ ER 20 MEQ ERTAB PO PRN (12:54)
--- NOTE | 2025-04-09 16:20 | NUR ---
DCP: INITIAL ASSESSMENT Patient lives with spouse, Esmer Bruner. He has no home services. Patient has CPAP, O2 Concentrator/portable, upright walker, glucometer, nebulizer, and cane. He states he uses no insulin. Patient's O2 was arranged by [place]. Patient states she is able to complete ADLs independently and drives. PCP is Dr Kade Lyons. Patient voiced no safety concerns regarding returning home and states he has no difficulty with housing or buying food. DCP is home.
--- NOTE | 2025-04-09 16:20 | CONS ---
[facility] CONSULTATION NOTE Date Patient Seen: Apr 09, 2025 Time of Visit: 16:20 Supervising Physician: [Dr. Mukherjee] Reason for Consultation: [COPD exacerbation] Primary Care Physician: [CATALYST] Outpatient Specialists: [ ] Inpatient Consults: [BIS] PROBLEM LIST: Chest pain r/o cardiac etiology, troponin negative x2 Pulmonary sarcoidosis Acute complicated cystitis Dysphagia, in setting of recent hiatal hernia repair Acute on chronic kidney disease, GFR 48 Anemia chronic disease Leukocytosis Hx of TIA x2, CVA, Coronary Artery Disease, s/p triple bypass COPD w/o exacerbation Hypercholesteremia Hypertension Pulmonary sarcoidosis HPI: Mr. Bruner is a 64-year-old male with a history of TIA x2, CVA, CAD, COPD w home CPAP use, hypercholesteremia, hypertension, pulmonary sarcoidosis, triple bypass who presented to [facility] [place] [facility] via EMS for evaluation of sternal and lower chest discomfort and shortness of breath onset a few days now. The patient reported that Dr. Franklin of [facility] performed a laparoscopic hiatal hernia repair on March 21, 2025. He was reportedly informed that scar tissue prevented his stomach from being optimally pulled back into abdomen, and he was also afraid of extending the anesthesia because of his underlying lung problems. He was doing fairly well postoperatively and saw his surgeon today. He reported his senior electrical engineer, Dr. Luis Rosenberg is planning to do a CT scan of his chest on him but wanted to wait until his GI issues settled down. Patient does have a hx of pulmonary sarcoidosis for which he uses daily prednisone and respiratory inhalers. He returned today with substernal chest pain that spread to his left arm and ja w. He begun having this problem while moving his furniture. He worried about his known history of coronary artery disease and went to the emergency room for additional assessment. He has no diarrhea or hematemesis or melena. He denied having any rigors, chills, or fever. Very little clear sputum. No hemoptysis. VS: HR 70 bmp, RR 16 bmp, BP 133/70, 99% RA, 98.1 F, Remarkable labs: Chemistry: BUN 22, Creatinine 1.6, Hematology: WBC 11.3, RBC 4.30, Hgb 11.8, Hct 37.2, MCHC 31.7, RDW 15.8, UA: +Leukocyte, Chest X-Rays: No acute cardiopulmonary pathology is evident. EKG: SR with RBBB, no acute ST elevations or depressions noted. Troponin negative X3. Patient was admitted for evaluation of acute angina, in history of CABG. The patient was evaluated at bedside. He appears comfortable, in no respiratory distress. Saturating well on room air. Patient states he had a recent hiatal hernia repair and was having trouble swallowing his food. GI is aware and is pending a repeat endoscopy on Thursday by GI. He denies any cough, shortness of breath or hemoptysis. He admits continued chest pain but is improved from admission. Cardiac workup was requested. Baseline ABG was requested and revealed mild respiratory alkalosis likely secondary to chest pain. Plan: Continue home-dosed prednisone Continue prescription inhaler or nebulizer as needed Follow GI recommendation and EGD results Follow cardiac workup Order CK level Swallow eval Continue abx Rest of management per primary PAST MEDICAL HX: see above PAST SURGICAL HX: noncontributory SOCIAL HISTORY: No tobacco, ETOH, or illicit drug use Coded Allergies: atorvastatin (Verified Allergy, Severe, RASH, 10/15/17) Penicillins (Verified Allergy, Unknown, 12/22/14) peanut (Unverified Allergy, Unknown, 03/26/23) REVIEW OF SYSTEMS: 12 point ROS reviewed with patient. Pertinent positives mentioned above. Otherwise negative. PHYSICAL EXAM: GENERAL: alert, weak, awake oriented x 3 HEENT: EOMI, Sclera non icteric, moist mucosa NECK: Supple, no JVD, trachea midline LUNGS: Clear breath sounds bilaterally. No wheezes HEART: Regular rate and rhythm. Normal S1 and S2, without murmurs ABD: Abdomen soft, nontender. Bowel sounds present EXT: No clubbing cyanosis or edema NEURO: Alert and oriented to person, follows commands Vital Signs (last 8hr) Date Time Temp Pulse Resp B/P (MAP) Pulse Ox O2 Delivery O2 Flow Rate FiO2 04/09/25 12:00 97.5 59 18 100/57 95 Room Air LABS: Hematology Labs: Test 04/09/25 05:28 04/08/25 15:54 Range/Units White Blood Count 8.6 4.8-10.8 K/uL Red Blood Count 4.13 L 4.50-6.20 MIL/uL Hemoglobin 11.5 L 14.0-18.0 g/dL Hematocrit 35.8 L 42-54 % Mean Corpuscular Volume 86.7 79-99 fL Mean Corpuscular Hemoglobin 27.8 27.0-33.0 pg Mean Corpuscular Hemoglobin Concent 32.1 32.0-36.0 g/dL Red Cell Distribution Width 15.6 H 11.0-15.5 % Platelet Count 250 130-400 K/uL Mean Platelet Volume 9.9 7.5-10.5 fL Nucleated Red Blood Cells 0.0 0.0-0.19 % Immature Granulocyte % (Auto) 0.6 0-1 % Neutrophils (%) (Auto) 89.4 H 40.0-77.0 % Lymphocytes (%) (Auto) 6.9 L 21.0-51.0 % Monocytes (%) (Auto) 2.7 L 3.0-13.0 % Eosinophils (%) (Auto) 0.2 0.0-8.0 % Basophils (%) (Auto) 0.2 0.0-5.0 % Neutrophils # (Auto) 10.1 H 1.8-7.7 K/uL Lymphocytes # (Auto) 0.8 L 1.0-4.8 K/uL Monocytes # (Auto) 0.3 0.1-1.0 K/uL Eosinophils # (Auto) 0.02 0.00-0.70 K/uL Basophils # (Auto) 0.02 0.00-0.20 K/uL Absolute Immature Granulocyte (auto 0.07 0-1 K/uL Chemistry Labs: Test 04/09/25 11:32 04/09/25 05:28 Range/Units Whole Blood Glucose 105 # 70-110 MG/DL Sodium Level 141 136-145 mmol/L Potassium Level 3.6 3.5-5.1 mmol/L Chloride Level 105 101-111 mmol/L Carbon Dioxide Level 26 21-32 mmol/L Blood Urea Nitrogen 21 H 7-18 mg/dL Creatinine 1.3 0.5-1.3 mg/dL Glomerular Filtration Rate Calc 61 >90 mL/min Random Glucose 73 70-105 mg/dL Total Calcium 8.6 8.5-10.1 mg/dL Phosphorus Level 4.6 2.5-4.9 mg/dL Magnesium Level 1.80 1.80-2.40 mg/dL Total Bilirubin 0.5 0.2-1.0 mg/dL Direct Bilirubin 0.2 0.0-0.3 mg/dL Aspartate Amino Transf (AST/SGOT) 18 10-37 U/L Alanine Aminotransferase (ALT/SGPT) 35 12-78 U/L Alkaline Phosphatase 34 L 50-136 U/L Troponin I High Sensitivity 8 4-75 ng/L B-Type Natriuretic Peptide 158 H 0-100 pg/mL Total Protein 6.2 6.0-8.3 g/dL Albumin 3.0 L 3.5-5.0 g/dL Thyroid Stimulating Hormone (TSH) 0.25 L 0.36-3.74 uIU/mL Free Thyroxine (T4) Direct 0.67 L 0.76-1.46 ng/dL Free Triiodothyronine (T3) pg/mL 1.90 L 2.18-3.98 pg/mL DIAGNOSTICS / RADIOLOGY RESULTS: [ ] PLAN NEURO: Minimize central acting medications as possible. Maintain fall precautions, adequate lighting during the day PULMONARY: Supplemental 02 as needed. Maintain aspiration precautions at all times CARDIOVASCULAR: Follow hemodynamics. Vital signs per facility protocol GI & NUTRITION: Continue with nutritional support. Continue stool softeners and laxatives as needed. KIDNEYS & ELECTROLYTES: Strict monitoring of intake, output and overall fluid balance. Avoid nephrotoxic medications to the extent possible. Medications to be dosed according to renal function. Monitor electrolytes and replace as needed ENDOCRINE: Maintain blood glucose between 100-180 at all times. Hypoglycemia protocol in place INFECTIOUS DISEASE: Trend temperature, WBC and procalcitonin level Follow cultures, deescalate antibiotics as soon as possible. Panculture if new onset fever ONCOLOGY/HEMATOLOGY/COAGULATION: Monitor for s/s of bleeding Monitor hemoglobin, coagulation studies as needed SKIN: Pressure ulcer prevention per facility protocol Specialty mattress ORTHO/REHAB: Continue PT/OT Prophylaxis: Continue GI and DVT prophylaxis Code Status: Full Resuscitation Disposition: TBD KRISTINA MCCARTNEY PAC Apr 09, 2025 16:20
--- NOTE | 2025-04-09 16:50 | HMCIMG ---
EXAM: CT Head Without IV contrast. CLINICAL HISTORY: Rule out stroke TECHNIQUE: Axial computed tomography images of the head/brain without intravenous contrast. COMPARISON: 09/02/2022. FINDINGS: BRAIN: No evidence of acute hemorrhage. No mass lesion. No CT evidence for acute territorial infarct. No midline shift or extra-axial collections. VENTRICLES: No hydrocephalus. Again noted is a cavum septum pellucidum. ORBITS: The orbits are unremarkable. SINUSES AND MASTOIDS: The paranasal sinuses and mastoid air cells are clear. BONES: No fracture. SOFT TISSUES: Unremarkable. IMPRESSION: No acute intracranial abnormality. /[place]
--- NOTE | 2025-04-09 18:25 | HMCIMG ---
EXAM: CT CHEST WITHOUT CONTRAST TECHNIQUE: CT of the chest was performed without intravenous contrast. CT examination was performed in accordance with ALARA principles. A multislice CT scan of the chest was obtained without intravenous contrast. DOSE: DOSE: CTDlvol: 9.10 (mGycm); DLP: 333.40 (mGycm) COMPARISON: CT chest dated 12/16/[address] abdomen 04/06/2025. FINDINGS LUNGS AND AIRWAYS: Mild centrilobular emphysema noted, unchanged compared to CT chest dated 12/16/2023. Mild apical pleural thickening bilaterally. Previously seen multiple ground-glass opacities in left upper and lower lobes have completely resolved, compared to CT chest dated 12/16/2023, consistent with interval resolution of previous infectious or inflammatory process. Two small ground-glass nodules (<6mm)identified in the anterior segment of the right upper lobe and lateral segment of the right middle lobe, and right sided pleural base nodule (<6mm) along the oblique fissure remains unchanged from CT chest dated 12/12/2023. Tiny granuloma in the left lingula, stable. Minimal bibasilar atelectasis/scarring, unchanged from prior exam, CT chest dated 12/12/2023. No pleural effusion. Mediastinum: Severe aortic atherosclerosis. No mediastinal lymphadenopathy. Upper Abdomen (Limited Chest CT Coverage) Kidneys: Mild bilateral perinephric fat stranding, unchanged compare to CT abdomen 04/06/2025; may represent underlying renal parenchymal disease. Recommend clinical correlation with renal function tests. Liver: Diffuse hepatic steatosis with rounded margins. A 0.6 cm hypodense lesion in segment II, likely cyst vs. hemangioma, unchanged compared to CT abdomen 04/06/2025. Gallbladder and Biliary System: Gallbladder partially distended with normal wall thickness with no pericholecystic fluid, unchanged compared to CT abdomen 04/06/2025. No biliary ductal dilatation. Bowel: Residual intraluminal contrast in the large bowel from prior CT abdomen/pelvis. IMPRESSION 1. Mild centrilobular emphysema and mild apical pleural thickening. 2. Interval resolution of previously seen ground-glass opacities, compared to CT chest dated 12/16/2023, consistent with interval resolution of previous infectious or inflammatory process. 3. Small ground-glass nodules in the right upper and middle lobes and right pleural based nodule (<6mm) and stable for 1 year; as per Fleischner guidelines no follow-up is recommended. 4. Minimal bibasilar atelectasis/scarring, unchanged compare to CT chest dated 12/12/2023. 5. Severe aortic atherosclerosis, unchanged compare to CT chest dated 12/12/2023.. 6. Mild bilateral perinephric fat stranding, unchanged compared to CT abdomen 04/06/2025; may reflect renal parenchymal disease- recommend clinical correlation with renal function tests. 7. Diffuse hepatic steatosis with a small (0.6 cm) segment II hypodensity, likely benign (cyst vs. hemangioma), unchanged compared to CT abdomen 04/06/2025. /[place]
--- NOTE | 2025-04-09 20:49 | PN ---
[facility] PROGRESS NOTE Date of Service: Apr 09, 2025 Time of Service: 20:23 SUBJECTIVE: Mr. Eubanks is a 64-year-old male with a history of TIA x2, CVA, CAD, COPD w home CPAP use, hypercholesteremia, hypertension, pulmonary sarcoidosis, triple bypass who presented to [facility] via EMS for evaluation of sternal and lower chest discomfort and shortness of breath onset a few days now. The patient reported that Dr. Franklin of [facility] performed a laparoscopic hiatal hernia repair on March 21, 2025. He was reportedly informed that scar tissue prevented his stomach from being optimally pulled back into abdomen, and he was also afraid of extending the anesthesia because of his underlying lung problems. He was doing fairly well postoperatively and saw his surgeon today. 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 Luis Rosenberg is planning to do a CT scan of his chest on him but wanted to wait until his GI issues settled down. He returned today with substernal chest pain that begun at 2:40 p.m. and spread to his left arm and jaw. He begun having this problem while moving his furniture. He worried about his known history of coronary artery disease and went to the emergency room for additional assessment. On April 05, 2025, he was seen due to vomiting. He has no diarrhea or hematemesis or melena. He denied having any rigors, chills, or fever. Very little clear sputum. No hemoptysis. VS: HR 70 bmp, RR 16 bmp, BP 133/70, 99% RA, 98.1 F, Remarkable labs: Chemistry: BUN 22, Creatinine 1.6, Hematology: WBC 11.3, RBC 4.30, Hgb 11.8, Hct 37.2, MCHC 31.7, RDW 15.8, UA: +Leukocyte, Chest X-Rays: No acute cardiopulmonary pathology is evident. EKG: SR with RBBB, no acute ST elevations or depressions noted The patient was seen at bedside in 314. No family members at bedside. The patient appeared comfortable, breathing was even, unlabored, in no distress. RN reports patient stated he has trouble passing liquid end food. He reports that he has a pending endoscopy on Thursday by GI. I informed the patient of labs, diagnostics, and plan of care. He verbalized understanding and is in agreement with the plan. 04/09/2025: Patient is seen and evaluated in the room 314. He is not having any symptoms today. His vitals are in the normal range except for pulse is 56. His labs are in the normal range except for hemoglobin 11.5, BUN is 21, ALP is 34, BNP is 158, TSH is 0.25. Chest X-ray is normal. Ct chest showed emphysema, small ground glass nodules. He had some difficulty in finding words. So we did a CT scan of brain and it is normal. So we ordered MRI. As his TSH is low we ordered free T3 and free T4. Free T4 is 0.67 and free T3 is 1.9. So we ordered LH, yazmin isol AM, FSH, ACTH. We started lasix 40mg daily. We also ordered SERGIO levels as he has a history of pulmonary sarcoidosis. We are waiting recommendations from cardiology. REVIEW OF SYSTEMS 12-point ROS system was reviewed with the patient. All pertinent positives mentioned above. Otherwise negative, noncontributory, nonpertinent. PHYSICAL EXAM GENERAL APPEARANCE: The patient is awake, alert, and oriented, in no acute cardiopulmonary distress. NEUROLOGICAL: Cranial nerves II-XII grossly intact. Motor is 5/5 in bilateral upper and lower extremities proximal to distal. No sensory deficits. HEENT: Face is symmetric. Pupils are equal and reactive. Extraocular movements are intact. NECK: Supple. No JVD. No thyromegaly. No submental, submandibular, pre- /postauricular, occipital or supraclavicular lymphadenopathy. CHEST: Normal chest expansion. No Telemetry. LUNGS: Absence of any rales, rhonchi or any wheezing. CARDIOVASCULAR: Regular. S1 and S2 normal. No appreciable rubs, murmurs or gallops. ABDOMEN: Soft, nontender, and nondistended. There is no rebound, voluntary guarding, or rigidity. : Deferred. No [place]. EXTREMITIES: Non-edematous and not cyanotic. No clubbing. Good capillary refill. SKIN: No skin breakdown. Vital Signs (last 8hr) Date Time Temp Pulse Resp B/P (MAP) Pulse Ox O2 Delivery O2 Flow Rate FiO2 04/09/25 16:00 98.1 72 18 112/69 98 Room Air LABS: Laboratory: Test 04/09/25 17:41 04/09/25 09:09 04/09/25 05:28 04/08/25 16:49 Range/Units Whole Blood Glucose 148 H 70-110 MG/DL Blood Gas Specimen Type Arterial Arterial Blood pH 7.481 H 7.350-7.450 Arterial Blood Partial Pressure CO2 31 L 35-48 mmHg Arterial Blood Partial Pressure O2 112.7 H 83.0-108.0 mmHg Arterial Blood HCO3 22.5 21.0-28.0 mmol/L Arterial Blood Oxygen Saturation 98.4 H 94.0-98.0 % Arterial Blood Base Excess 0.1 -2.0-3.0 mmol/L Blood Gas Temperature 37.0 35.5-37.0 CELSIUS Blood Gas Flow-by 2.00 0.00-15.00 L/min Blood Gas Vent Mode NC ROOM AIR FiO2 28.0 % Blood Gas Specimen Comment RBISMAEL White Blood Count 8.6 4.8-10.8 K/uL Red Blood Count 4.13 L 4.50-6.20 MIL/uL Hemoglobin 11.5 L 14.0-18.0 g/dL Hematocrit 35.8 L 42-54 % Mean Corpuscular Volume 86.7 79-99 fL Mean Corpuscular Hemoglobin 27.8 27.0-33.0 pg Mean Corpuscular Hemoglobin Concent 32.1 32.0-36.0 g/dL Red Cell Distribution Width 15.6 H 11.0-15.5 % Platelet Count 250 130-400 K/uL Mean Platelet Volume 9.9 7.5-10.5 fL Nucleated Red Blood Cells 0.0 0.0-0.19 % Sodium Level 141 136-145 mmol/L Potassium Level 3.6 3.5-5.1 mmol/L Chloride Level 105 101-111 mmol/L Carbon Dioxide Level 26 21-32 mmol/L Blood Urea Nitrogen 21 H 7-18 mg/dL Creatinine 1.3 0.5-1.3 mg/dL Glomerular Filtration Rate Calc 61 >90 mL/min Random Glucose 73 70-105 mg/dL Total Calcium 8.6 8.5-10.1 mg/dL Phosphorus Level 4.6 2.5-4.9 mg/dL Magnesium Level 1.80 1.80-2.40 mg/dL Total Bilirubin 0.5 0.2-1.0 mg/dL Direct Bilirubin 0.2 0.0-0.3 mg/dL Aspartate Amino Transf (AST/SGOT) 18 10-37 U/L Alanine Aminotransferase (ALT/SGPT) 35 12-78 U/L Alkaline Phosphatase 34 L 50-136 U/L Troponin I High Sensitivity 8 4-75 ng/L B-Type Natriuretic Peptide 158 H 0-100 pg/mL Total Protein 6.2 6.0-8.3 g/dL Albumin 3.0 L 3.5-5.0 g/dL Thyroid Stimulating Hormone (TSH) 0.25 L 0.36-3.74 uIU/mL Free Thyroxine (T4) Direct 0.67 L 0.76-1.46 ng/dL Free Triiodothyronine (T3) pg/mL 1.90 L 2.18-3.98 pg/mL Urine Color LIGHT-YELLOW YELLOW Urine Appearance CLEAR CLEAR Urine pH 5.5 5.0-8.0 Urine Specific [place] 1.023 1.001-1.031 Urine Protein 20 H NEGATIVE mg/dL Urine Glucose (UA) NEGATIVE NEGATIVE mg/dL Urine Ketones NEGATIVE NEGATIVE mg/dL Urine Occult Blood SMALL H NEGATIVE Urine Nitrate NEGATIVE NEGATIVE Urine Bilirubin NEGATIVE NEGATIVE mg/dL Urine Urobilinogen 0.2 0.2-1.0 mg/dL Urine Leukocyte Esterase 75 H NEGATIVE Kayr/uL Urine RBC 2-5 H 0-1 /HPF Urine WBC 2-5 H 0-1 /HPF Urine Squamous Epithelial Cells RARE 0-2 /HPF Urine Bacteria RARE None Seen /HPF Test 04/08/25 15:54 Range/Units Immature Granulocyte % (Auto) 0.6 0-1 % Neutrophils (%) (Auto) 89.4 H 40.0-77.0 % Lymphocytes (%) (Auto) 6.9 L 21.0-51.0 % Monocytes (%) (Auto) 2.7 L 3.0-13.0 % Eosinophils (%) (Auto) 0.2 0.0-8.0 % Basophils (%) (Auto) 0.2 0.0-5.0 % Neutrophils # (Auto) 10.1 H 1.8-7.7 K/uL Lymphocytes # (Auto) 0.8 L 1.0-4.8 K/uL Monocytes # (Auto) 0.3 0.1-1.0 K/uL Eosinophils # (Auto) 0.02 0.00-0.70 K/uL Basophils # (Auto) 0.02 0.00-0.20 K/uL Absolute Immature Granulocyte (auto 0.07 0-1 K/uL Current Medications Medications (Trade) Dose Ordered Sig/Michael Route PRN Reason Start Time Stop Time Status Last Admin Dose Admin Acetaminophen (TYLenol 325MG TAB) 650 mg Q6H PRN PO FEVER/MILD PAIN LEVEL 1-3 04/08/25 22:00 05/08/25 21:59 Acetaminophen (TYLenol 650MG SUPPOSITORY) 650 mg Q6H PRN RC FEVER / MILD PAIN 1-3 IF NPO 04/08/25 22:00 05/08/25 21:59 Albuterol Sulfate (Proventil 0.083% 2.5mg/3ml) 2.5 mg [id number] PRN IH SHORTNESS OF BREATH 04/08/25 22:00 05/08/25 21:59 Aspirin (Aspirin 81mg Chew Tab) 81 mg DAILY PO 04/09/25 09:00 05/09/25 08:59 04/09/25 09:16 81 MG Clopidogrel Bisulfate (plaVIX 75MG) 75 mg DAILY PO 04/10/25 09:00 05/10/25 08:59 Dextrose (D50w) 50 ml AD PRN IV HYPOGLYCEMIA PROTOCOL 04/09/25 06:30 05/09/25 06:29 Docusate Sodium (COLace 100MG CAP) 100 mg BID PRN PO CONSTIPATION 04/08/25 22:00 05/08/25 21:59 Enoxaparin Sodium (Lovenox) 40 mg DAILY SQ 04/08/25 21:55 05/08/25 21:54 04/09/25 09:18 40 MG Famotidine (Pepcid 20mg Tab) 20 mg BID PO 04/09/25 11:00 05/09/25 10:59 04/09/25 11:06 20 MG Famotidine (Pepcid 20mg Tab) 20 mg DAILY PRN PO HEARTBURN 04/09/25 11:30 04/09/25 11:10 DC Ferrous Sulfate (Ferrous Sulfate) 325 mg BID PO 04/09/25 21:00 05/09/25 20:59 Folic Acid (FOLic ACID 1 MG TABLET) 1 mg DAILY PO 04/10/25 09:00 05/10/25 08:59 Furosemide (LASix 40MG TAB) 40 mg DAILY PO 04/10/25 09:00 05/10/25 08:59 Gabapentin (NEURontin 300 MG CAP) 300 mg BID PO 04/09/25 21:00 05/09/25 20:59 Glucagon (Glucagon 1mg Kit) 1 mg AD PRN IM HYPOGLYCEMIA PROTOCOL 04/09/25 06:30 05/09/25 06:29 Home Med (Home Medication) (Fluticasone Propion/ [place]... DAILY IH 04/10/25 09:00 05/10/25 08:59 Home Med (Home Medication) (Magnesium Gluconate 1 TAB) BID PO 04/09/25 21:00 05/09/25 20:59 Home Med (Home Medication) (Rosuvastatin Calcium 40 MG) HS PO 04/09/25 21:00 05/09/25 20:59 Insulin Human Regular (humuLIN R 100 UNIT/ML 3ML) INSULIN SLIDING SCAL... ACHS SQ 04/09/25 07:30 05/09/25 07:29 Ipratropium [place] (AtrovENT UD) 0.5 mg [id number] PRN IH SHORTNESS OF BREATH/WHEEZING 04/08/25 22:00 05/08/25 21:59 Labetalol HCl (TRANdate 20MG SYG) 10 mg Q2H PRN IV SBP GREATER THAN 160 04/08/25 22:00 05/08/25 21:59 Lactobacillus Rhamnosus ([facility]) 1 each BID PO 04/09/25 21:00 05/09/25 20:59 Lactulose (Constulose 20gm/ 30ml Udcup) 20 gm Q6H PRN PO CONSTIPATION 04/08/25 22:00 05/08/25 21:59 Levofloxacin/ Dextrose 50 ml @ 50 mls/hr Q24H IVPB 04/10/25 04:30 04/20/25 04:29 Losartan Potassium (CozAAR 50 mg TAB) 50 mg DAILY PO 04/10/25 09:00 04/09/25 14:47 DC Magnesium Sulfate 50 ml @ 0 mls/hr PROTOCOL PRN IV MAGNESIUM PROTOCOL 04/09/25 06:30 05/09/25 06:29 Metoprolol Succinate (TopROL XL) 50 mg DAILY PO 04/10/25 09:00 05/10/25 08:59 Nitroglycerin (Nitrostat) 0.4 mg Q5M PRN SL CHEST PAIN 04/08/25 18:30 Ondansetron HCl (zoFRAN 4MG INJ) 4 mg Q6H PRN IVP NAUSEA/VOMITING 04/08/25 22:00 05/08/25 21:59 Pantoprazole Sodium (PROTonix 40MG TAB) 40 mg DAILY PO 04/10/25 09:00 04/09/25 11:11 DC Potassium Chloride 100 ml @ 100 mls/hr AD PRN IV POTASSIUM PROTOCOL 04/09/25 06:30 05/09/25 06:29 Potassium Chloride (K-Dur/Klor-Con 20meq) 10 meq AD PRN PO POTASSIUM PROTOCOL 04/09/25 06:30 05/09/25 06:29 04/09/25 14:56 10 MEQ Potassium Chloride (KCl 10% Elixir 20meq/15ml) 10 meq AD PRN PO POTASSIUM PROTOCOL 04/09/25 06:30 05/09/25 06:29 Prednisone (deltaSONE/ oraSONE 20MG TAB) 20 mg DAILY PO 04/10/25 09:00 05/10/25 08:59 Ropinirole HCl (ropiNIRole HCL) 0.25 mg TID PO 04/09/25 14:00 05/09/25 13:59 04/09/25 14:55 0.25 MG Temazepam (restORIL 15 MG CAP) 15 mg HS PRN PO INSOMNIA/SLEEP 04/08/25 22:00 05/08/25 21:59 Tiotropium [place] (Spiriva) 18 mcg DAILY PRN IH SHORTNESS OF BREATH/WHEEZING 04/09/25 11:30 04/09/25 11:23 DC Vitamin B Complex (Vitamin B-12) 100 mcg DAILY PO 04/10/25 09:00 05/10/25 08:59 Vitamin B Complex/ Vit C/Folic Acid (Nephrovite Tablet) 1 cap DAILY PO 04/10/25 09:00 05/10/25 08:59 DIAGNOSTICS / RADIOLOGY: [address] [address] IMAGING REPORT Signed PATIENT: MADISON EUBANKS MR#: [id number] : 1960 SEX: M AGE: 64 LOCATION: [facility] ORDER [id number] STATUS: REG ER REPORT#: [id number] SERVICE 1538 REASON: CP ORDERING PHYSICIAN: CRYSTAL PADILLA MD PROCEDURE: CXR1VW - CHEST 1VW EXAM: CR Chest, 1 View. CLINICAL HISTORY: CP COMPARISON: None provided. FINDINGS: LUNGS: There is no mass, infiltrate, or acute pulmonary abnormality. PLEURAL SPACES: No pleural effusion or pneumothorax. MEDIASTINUM: The cardiomediastinal silhouette is within normal limits. Sternotomy wires. BONES: No aggressive appearing osseous lesion seen. IMPRESSION: No acute cardiopulmonary pathology is evident. /[place] DICTATED BY: JOSE MANUEL DUMONT DO DATE: 04/08/251819 ELECTRONICALLY SIGNED BY: JOSE MANUEL DUMONT DO DATE: 04/08/251819 [place] [address] IMAGING REPORT Signed PATIENT: MADISON EUBANKS MR#: [id number] : 1960 SEX: M AGE: 64 LOCATION: 3CH ORDER [id number] STATUS: ADM IN REPORT#: [id number] SERVICE 0740 REASON: COPD exacerbation ORDERING PHYSICIAN: KEILA LUCIANO MD PROCEDURE: CHEST WO - CT CHEST W/O CONTRAST EXAM: CT CHEST WITHOUT CONTRAST TECHNIQUE: CT of the chest was performed without intravenous contrast. CT examination was performed in accordance with ALARA principles. A multislice CT scan of the chest was obtained without intravenous contrast. DOSE: DOSE: CTDlvol: 9.10 (mGycm); DLP: 333.40 (mGycm) COMPARISON: CT chest dated 12/16/[address] abdomen 04/06/2025. FINDINGS LUNGS AND AIRWAYS: Mild centrilobular emphysema noted, unchanged compared to CT chest dated 12/16/2023. Mild apical pleural thickening bilaterally. Previously seen multiple ground-glass opacities in left upper and lower lobes have completely resolved, compared to CT chest dated 12/16/2023, consistent with interval resolution of previous infectious or inflammatory process. Two small ground-glass nodules (<6mm)identified in the anterior segment of the right upper lobe and lateral segment of the right middle lobe, and right sided pleural base nodule (<6mm) along the oblique fissure remains unchanged from CT chest dated 12/12/2023. Tiny granuloma in the left lingula, stable. Minimal bibasilar atelectasis/scarring, unchanged from prior exam, CT chest dated 12/12/2023. No pleural effusion. Mediastinum: Severe aortic atherosclerosis. No mediastinal lymphadenopathy. Upper Abdomen (Limited Chest CT Coverage) Kidneys: Mild bilateral perinephric fat stranding, unchanged compare to CT abdomen 04/06/2025; may represent underlying renal parenchymal disease. Recommend clinical correlation with renal function tests. Liver: Diffuse hepatic steatosis with rounded margins. A 0.6 cm hypodense lesion in segment II, likely cyst vs. hemangioma, unchanged compared to CT abdomen 04/06/2025. Gallbladder and Biliary System: Gallbladder partially distended with normal wall thickness with no pericholecystic fluid, unchanged compared to CT abdomen 04/06/2025. No biliary ductal dilatation. Bowel: Residual intraluminal contrast in the large bowel from prior CT abdomen/pelvis. IMPRESSION 1. Mild centrilobular emphysema and mild apical pleural thickening. 2. Interval resolution of previously seen ground-glass opacities, compared to CT chest dated 12/16/2023, consistent with interval resolution of previous infectious or inflammatory process. 3. Small ground-glass nodules in the right upper and middle lobes and right pleural based nodule (<6mm) and stable for 1 year; as per Fleischner guidelines no follow-up is recommended. 4. Minimal bibasilar atelectasis/scarring, unchanged compare to CT chest dated 12/12/2023. 5. Severe aortic atherosclerosis, unchanged compare to CT chest dated 12/12/2023.. 6. Mild bilateral perinephric fat stranding, unchanged compared to CT abdomen 04/06/2025; may reflect renal parenchymal disease- recommend clinical correlation with renal function tests. 7. Diffuse hepatic steatosis with a small (0.6 cm) segment II hypodensity, likely benign (cyst vs. hemangioma), unchanged compared to CT abdomen 04/06/2025. /[place] DICTATED BY: YSABEL CESAR MD DATE: 04/09/251923 ELECTRONICALLY SIGNED BY: YSABEL CESAR MD DATE: 04/09/251923 [place] [address] [place] [id number] IMAGING REPORT Addendum PATIENT: MADISON EUBANKS MR#: [id number] : 1960 SEX: M AGE: 64 LOCATION: 3CH ORDER 143 STATUS: ADM IN REPORT#: [id number] SERVICE 1421 REASON: Rule out stroke ORDERING PHYSICIAN: KEILA LUCIANO MD PROCEDURE: HEAD WO - CT HEAD/BRAIN W/O CONTRAST ADDENDUM REPORT ADDENDUM: Results were shared by telephone at 06:10 PM EST on 04-09-2025 and acknowledged by KEILA CRUZ /[facility] EXAM: CT Head Without IV contrast. CLINICAL HISTORY: Rule out stroke TECHNIQUE: Axial computed tomography images of the head/brain without intravenous contrast. COMPARISON: 09/02/2022. FINDINGS: BRAIN: No evidence of acute hemorrhage. No mass lesion. No CT evidence for acute territorial infarct. No midline shift or extra-axial collections. VENTRICLES: No hydrocephalus. Again noted is a cavum septum pellucidum. ORBITS: The orbits are unremarkable. SINUSES AND MASTOIDS: The paranasal sinuses and mastoid air cells are clear. BONES: No fracture. SOFT TISSUES: Unremarkable. IMPRESSION: No acute intracranial abnormality. /[place] DICTATED BY: BEATRIZ CARL MD DATE: 04/09/251846 ELECTRONICALLY SIGNED BY: DATE: EXAM: CT Head Without IV contrast. CLINICAL HISTORY: Rule out stroke TECHNIQUE: Axial computed tomography images of the head/brain without intravenous contrast. COMPARISON: 09/02/2022. FINDINGS: BRAIN: No evidence of acute hemorrhage. No mass lesion. No CT evidence for acute territorial infarct. No midline shift or extra-axial collections. VENTRICLES: No hydrocephalus. Again noted is a cavum septum pellucidum. ORBITS: The orbits are unremarkable. SINUSES AND MASTOIDS: The paranasal sinuses and mastoid air cells are clear. BONES: No fracture. SOFT TISSUES: Unremarkable. IMPRESSION: No acute intracranial abnormality. /[place] DICTATED BY: BEATRIZ CARL MD DATE: 04/09/251747 ELECTRONICALLY SIGNED BY: BEATRIZ CARL MD DATE: 04/09/251747 ASSESSMENT: Chest pain r/o cardiac etiology, POA, troponin negative x2 Pulmonary sarcoidosis, POA Acute complicated cystitis, POA Dysphagia, POA Acute on chronic kidney disease, GFR 48 Stroke rule out Anemia chronic disease, POA central hypothyroidism Leukocytosis Chronic problem list: TIA x2, CVA, CAD, COPD w home CPAP use, hypercholesteremia, hypertension, pulmonary sarcoidosis, triple bypass PLAN: Chest pain r/o cardiac etiology, POA, troponin negative x2 He complained of chest pain at the time of admission but now it is relieved. His EKG is normal. His troponins are negative. His BNP is 158. We ordered a 2D echo and we are waiting for the results. Cardiology is consulted. Pulmonary sarcoidosis, POA His calcium level is 8.6. His CT chest showed Small ground-glass nodules in the right upper and middle lobes and right pleural based nodule (<6mm) and stable for 1 year. We ordered a SERGIO level. Acute complicated cystitis, POA His urinalysis showed evidence of UTI. We started him on levofloxacin (day 1). Dysphagia, POA He had an hiatal hernia repair in Mar 21 2025 Bedside swallow study is negative. GI was consulted and they recommended upper GI series which is to be done tomorrow. Acute on chronic kidney disease, GFR 48 His BUN is 22>21 and creatinine is 1.6>1.3 His baseline creatinine is 1.3 and BUN is 13. We will repeat his labs tomorrow. Stroke rule out He had difficulty in finding words. We did a CT of head and its normal. We ordered a MRI of brain. Anemia chronic disease, POA His hemoglobin is 11.8>11.5 We will repeat her labs tomorrow. Leukocytosis His WBC is 11.9>8.6 We will repeat his labs tomorrow. central hypothyroidism TSH is 0.25 Free T4 is 0.67 and free T3 is 1.9. So we ordered LH, cortisol AM, FSH, ACTH. He is on GI/soft bland diet. DVT prophylaxis with SCD. GI prophylaxis with famotidine. ATTESTATION BY PHYSICIAN I have seen and examined the patient. I reviewed the documentation, medical decision making, and treatment plan as noted by the resident physician above. I agree with the findings and plan of care. HEATHER PINTO MD, AKSHAY MD Apr 09, 2025 20:49
[2025-04-09] MEDS: (Rosuvastatin Calcium 40 MG) PO SCH (21:00)
[2025-04-09] MEDS: FERROUS SULFATE 325 MG TABLET.DR PO SCH (21:15)
[2025-04-09] MEDS: GABAPENTIN 300 MG CAPSULE PO SCH (21:15)
[2025-04-09] MEDS: LACTOBACILLUS RHAMNOSUS GG 1 EACH CAP.SPRINK PO SCH (21:16)
--- NOTE | 2025-04-09 21:28 | HMCSR ---
APPROVED REPORT EXAM: Two-dimensional and M-mode echocardiogram with Doppler and color Doppler. Study Details: TIA , CVA ,COPD , CAD INDICATION ICD: acute angina , hx CABG 2D Dimensions RVDd 4.6 cm LVEF(%) 60.9 (>50%) LVED Vol(simp.) 97.0 mL IVSd 0.8 (0.7-1.1cm) FS(%) 32 % LVES Vol(simp.) 40.8 mL LVDd 4.6 (3.8-5.6cm) LA (2D) 4.6 (1.6-4.0cm) LVEF(%, simp.) 58 % PWd 0.9 (0.7-1.1cm) Ao Root(2D) 3.6 (2.0-3.7cm) LA ESV INDEX (BP) 27.94 mL/m2 IVSs 1.2 cm LVOT diam 1.8 (1.8-2.4cm) LVDs 3.1 (2.5-4.0cm) PWs 1.5 cm Deformation Strain Apical 4 -18.7 % Apical 2 -13.8 % Apical 3 -13.3 % Global Strain -15.3 % M-Mode Dimensions EPSS 0.9 cm LA (MM) 4.8 (1.6-4.0cm) Ao Root(MM) 3.4 (2.0-3.7cm) Aortic Valve AoV Vmax 1.4 m/s Ao Peak GR 8.0 mmHg LVOT Vmax 0.7 m/s AoV VTI 0.3 m Ao Mean GR 4.0 mmHg LVOT VTI 0.15 m DELONTE (VMAX) 1.18 cm2 DELONTE (VTI) 1.2 cm2 Mitral Valve MV E Vmax 79.1 cm/s DECEL Time 134 ms MV A Vmax 41.2 cm/s P 1/2 T 39 ms E/A ratio 1.9 MVA (PHT) 5.7 cm2 TDI E/E' Medial 12.2 E/E' Lateral 7.5 Medial E' Peak V 6.47 cm/s Lateral E' Peak V 10.49 cm/s Pulmonary Valve PV Vmax 1.1 m/s PV Mean GR 2.7 mmHg PV Peak GR 5.1 mmHg Tricuspid Valve TR Vmax 2.5 m/s RVSP 24.8 mmHg TR Peak GR 24.8 mmHg Left Ventricle The left ventricle is normal size. There is normal LV segmental wall motion. There is normal left ventricular wall thickness. The LVEF is > 55%. Stage II, diastolic dysfunction. Right Ventricle The right ventricle is mildly dilated. The right ventricular systolic function is normal. Atria The left atrium is mildly dilated. The interatrial septum is intact with no evidence for an atrial septal defect. The right atrium is moderately dilated. Aortic Valve Aortic valve leaflets are thickened and calcified. Aortic valve is trileaflet. No aortic regurgitation is present. Mitral Valve The mitral valve is mildly thickened. Mitral regurgitation is trace. There is no mitral valve stenosis. Tricuspid Valve The tricuspid valve leaflets are mildly thickened. Mild tricuspid regurgitation. Pulmonic Valve Pulmonic valve is not well visualized. There is trace pulmonic valvular regurgitation. Great Vessels The aortic root is normal in size. The ascending aorta is normal in size. The IVC is normal in size and collapses >50% with inspiration. Pericardium No pericardial effusion. Conclusion The LVEF is > 55%. Stage II, diastolic dysfunction. The right ventricle is mildly dilated. The left atrium is mildly dilated. The right atrium is moderately dilated.
--- NOTE | 2025-04-09 22:15 | CONS ---
[facility] CARDIOLOGY CONSULTATION NOTE Date Patient Seen: Apr 09, 2025 Time of Visit: 22:10 Requesting Physician: [ ] Reason for Consultation: [ ] History of Present Illness: [The patient and his removing some furniture and he developed chest pain that radiated up the neck, through to the back, and down to the arm. This was an aching, intense pain associated with shortness of breath and mild diaphoresis but no nausea. It lasted 20 minutes and he presented here for evaluation. Past history is remarkable for a coronary bypass operation, three vessels, in 2007. In addition the patient experienced a pulmonary embolus associated with COVID and required six months of Eliquis therapy, continues on clopidogrel (most likely because of previous strokes). He also suffered three previous neurologic events, the last was two years ago, and apparently two of these were TIAs and one was a stroke. The stroke leaves him with weakness in his left leg so he walks with a walker. In addition he has a history of hypertension and dyslipidemia. ] Past Medical History: [See above ] Past Surgical History: [Coronary bypass 2007 ] Family History: [ Positive heart disease ] Social History: [Nonsmoker, accompanies him to hospital.] Habits: [Never] smoker. [Denies] alcohol consumption. [Denies] illicit drug use Home Meds: [ ] Current Meds: [ ] Review of Systems: CONST: [No fever, fatigue, or weight changes.] EYES: [No recent vision problems.] ENT: [No congestion, ear pain, or sore throat.] C/V: [Admits chest pain, no palpitations, or edema.] RESP: [No cough, congestion, wheezing, but during chest pain had shortness of breath.] GI: [No abdominal pain, nausea, vomiting, constipation, or diarrhea.] : [No incontinence or dysuria.] SKIN: [No rash.] NEURO: [No headache, focal numbness or weakness, dizziness, or seizures.] PSYCH: [No depression or anxiety.] HEME: [No abnormal bruising or bleeding.] LYMPH: [No swollen glands.] Physical Examination: GENERAL: [No acute distress.] HEAD: [Normal with no signs of head trauma.] EYES: [PERRLA, EOMI, conjunctiva and sclera normal.] ENT: [Hearing grossly intact, normal oropharynx.] NECK: [Supple without JVD. There is no tenderness, lymphadenopathy, or masses. No thyromegaly. Normal carotid upstrokes without bruits.] LUNGS: [Clear breath sounds bilaterally. There are right basilar rales one third of the way up the chest. No wheezes, or rhonchi.] HEART: [Normal rate and rhythm. Normal S1 and S2 without mumurs, gallop or rub.] VASC: [Peripheral pulses +2 bilaterally.] ABD: [Bowel sounds normal, soft, nontender, no masses, no organomegaly. No audible bruits.] : [Not examined] LYMPH: [No lymphadenopathy noted.] EXT: [No clubbing, cyanosis or edema.] SKIN: [No rashes or lesions noted.] NEURO: [Awake, alert, and oriented x3. Left-sided weakness.] Vital Signs (last 8hr) Date Time Temp Pulse Resp B/P (MAP) Pulse Ox O2 Delivery O2 Flow Rate FiO2 04/09/25 21:51 66 20 04/09/25 21:42 64 18 N/Cannula Low lpm 2.0 28 04/09/25 16:00 98.1 72 18 112/69 98 Room Air Laboratory: [ ] Hematology Labs: Test 04/09/25 05:28 04/08/25 15:54 Range/Units White Blood Count 8.6 4.8-10.8 K/uL Red Blood Count 4.13 L 4.50-6.20 MIL/uL Hemoglobin 11.5 L 14.0-18.0 g/dL Hematocrit 35.8 L 42-54 % Mean Corpuscular Volume 86.7 79-99 fL Mean Corpuscular Hemoglobin 27.8 27.0-33.0 pg Mean Corpuscular Hemoglobin Concent 32.1 32.0-36.0 g/dL Red Cell Distribution Width 15.6 H 11.0-15.5 % Platelet Count 250 130-400 K/uL Mean Platelet Volume 9.9 7.5-10.5 fL Nucleated Red Blood Cells 0.0 0.0-0.19 % Immature Granulocyte % (Auto) 0.6 0-1 % Neutrophils (%) (Auto) 89.4 H 40.0-77.0 % Lymphocytes (%) (Auto) 6.9 L 21.0-51.0 % Monocytes (%) (Auto) 2.7 L 3.0-13.0 % Eosinophils (%) (Auto) 0.2 0.0-8.0 % Basophils (%) (Auto) 0.2 0.0-5.0 % Neutrophils # (Auto) 10.1 H 1.8-7.7 K/uL Lymphocytes # (Auto) 0.8 L 1.0-4.8 K/uL Monocytes # (Auto) 0.3 0.1-1.0 K/uL Eosinophils # (Auto) 0.02 0.00-0.70 K/uL Basophils # (Auto) 0.02 0.00-0.20 K/uL Absolute Immature Granulocyte (auto 0.07 0-1 K/uL Chemistry Labs: Test 04/09/25 20:48 04/09/25 05:28 Range/Units Whole Blood Glucose 105 70-110 MG/DL Sodium Level 141 136-145 mmol/L Potassium Level 3.6 3.5-5.1 mmol/L Chloride Level 105 101-111 mmol/L Carbon Dioxide Level 26 21-32 mmol/L Blood Urea Nitrogen 21 H 7-18 mg/dL Creatinine 1.3 0.5-1.3 mg/dL Glomerular Filtration Rate Calc 61 >90 mL/min Random Glucose 73 70-105 mg/dL Total Calcium 8.6 8.5-10.1 mg/dL Phosphorus Level 4.6 2.5-4.9 mg/dL Magnesium Level 1.80 1.80-2.40 mg/dL Total Bilirubin 0.5 0.2-1.0 mg/dL Direct Bilirubin 0.2 0.0-0.3 mg/dL Aspartate Amino Transf (AST/SGOT) 18 10-37 U/L Alanine Aminotransferase (ALT/SGPT) 35 12-78 U/L Alkaline Phosphatase 34 L 50-136 U/L Troponin I High Sensitivity 8 4-75 ng/L B-Type Natriuretic Peptide 158 H 0-100 pg/mL Total Protein 6.2 6.0-8.3 g/dL Albumin 3.0 L 3.5-5.0 g/dL Thyroid Stimulating Hormone (TSH) 0.25 L 0.36-3.74 uIU/mL Free Thyroxine (T4) Direct 0.67 L 0.76-1.46 ng/dL Free Triiodothyronine (T3) pg/mL 1.90 L 2.18-3.98 pg/mL Diagnostics / Radiology: [Copy/Paste Echos/Imaging Report here] Assessment: [Symptoms are so classic for angina in this post bypass patient that we should proceed directly with invasive evaluation despite his negative enzymes. ] Plan: [Coronary arteriogram and possible intervention tomorrow ] YUDY CORRAL MD Apr 09, 2025 22:15
[2025-04-09] MEDS: MAGNESIUM 2GM PREMIX 50ML 50 ML IV PRN (23:44)
[2025-04-10] VITALS (10 sets, daily range): BP systolic 112–128; BP diastolic 54–72; PULSE 60–93; RESP 16–18; TEMP 97.3–98.9; O2SAT 91–100
--- NOTE | 2025-04-10 07:27 | PN ---
[facility] Cardiology Progress Note CARDIOLOGY PROGRESS NOTE March Problems: 1. Unstable angina with normal troponins 2. CAD status post aortocoronary bypass graft surgery x3 in 2007 3. Pulmonary embolism in the setting of COVID infection treated for six months with Eliquis 4. Remote history of CVA 5. Hypertension 6. Dyslipidemia 6. Chronic kidney disease stage IIIA 7. COPD 8. Pulmonary sarcoidosis 9. complete right bundle branch block Blood pressure is 122/70 heart rate is in the 70s the patient has a low-grade temperature of 99.0. White count 8.6 hemoglobin 11.5 platelet count [id number]. Creatinine on admission was 1.6 but came down yesterday to 1.3 with a GFR of 61. The patient is receiving aspirin clopidogrel Lovenox for DVT prophylaxis furosemide ferrous sulfate folic acid rosuvastatin insulin scale levofloxacin metoprolol succinate potassium protocol prednisone ropinirole. The patient was evaluated by Dr. Le and has been advised to have left heart catheterization. The patient has been pain-free overnight. His EKG shows no acute ST changes and his troponins were all normal. I have discussed options with the patient. One option would be to proceed directly with left heart catheterization and possible PCI. A 2nd option would be to proceed with a Lexiscan Cardiolite stress test for risk stratification decide between medical management and invasive procedures. After discussion of options with the patient he would prefer to have a stress test prior to any invasive procedures. ASHLEY SALCIDO MD Apr 10, 2025 07:26
[2025-04-10 08:28] LABS: NUCLEATED RED BLOOD CELLS 0.0 % (0.0-0.19); PLATELET COUNT (AUTO) 232.0 K/uL (130-400); RED BLOOD CELL COUNT(AUTO) 4.45 MIL/uL (4.50-6.20); RED CELL DISTRIBUTION WIDTH 15.8 % (11.0-15.5); WHITE BLOOD COUNT (AUTO) 8.1 K/uL (4.8-10.8)
[2025-04-10 08:43] LABS: CREATININE 1.2 mg/dL (0.5-1.3); GLOMERULAR FILTR. RATE CALC 67.0 mL/min (>90); GLUCOSE,RANDOM 76.0 mg/dL (70-105); SODIUM SERUM 143.0 mmol/L (136-145); UREA NITROGEN, BLOOD 12.0 mg/dL (7-18)
[2025-04-10] MEDS: Vitamin B Complex/Vit C/Folic Acid PO SCH (09:00)
[2025-04-10] MEDS: CYANOCOBALAMIN (VITAMIN B-12) 100 MCG TABLET PO SCH (09:00)
[2025-04-10] MEDS: REGADENOSON 0.4 MG/5 ML PF SYG IVP ONE (09:43)
--- NOTE | 2025-04-10 11:37 | CONS ---
GASTROENTEROLOGY CONSULTATION NOTE Date of Consultation: Apr 10, 2025 Time of Consultation: 11:35 History of Present Illness: [This is a 64-year-old male patient with past medical history for pulmonary sarcoidosis, pulmonary embolus, history of CAD status post CABG, CVA, COPD, hypertension, diabetes mellitus, obstructive sleep apnea syndrome on CPAP, PTSD who presented to the emergency room with complaints of lower chest discomfort and shortness of breath. Patient is status post laparoscopic hiatal hernia repair by Dr. Franklin on 03/21/2025. CT of abdomen and pelvis with oral contrast showing postoperative status following hiatal hernia repair with a small residual hiatal hernia, diffuse hepatic steatosis with rounded margins, liver parenchymal disease to be excluded. It subcentimeter segment two hypodense hepatic lesion, likely benign cyst versus hemangioma. Mild bilateral perinephric fat stranding may represent nephritis versus renal parenchymal disease.. Bladder wall thickening, likely related to cystitis. Small right inguinal hernia which contains a portion of the omental fat and the urinary bladder wall. 2.7 x 1.8 cm localized ovoid soft tissue density around the left inguinal ring which could be an undescended testicle or secondary to a localized inflammatory process. Complicate colonic diverticulosis with mild constipation. Fat containing umbilical hernia. Patient pending upper GI series. We were consulted for epigastric/sternal chest pain, difficulty swallowing, pending endoscopic. Patient's of 8.1, hemoglobin 12.1, platelets 232. Chemistries significant for alkaline phos 34, albumin 3.0. BNP of 158. TSH of 0.25. Patient positive for UTI with strep with Agalactiae Group B. On exam patient is in no acute distress. Spouse at bedside supportive. He had just completed upper GI series results are pending. Informed of Dr. Franklin's recommendations for EGD pending UGIS results. Patient verbalized understanding and agreement. We will obtain cardiac clearance. ] Review of Systems: CONSTITUTIONAL: No malaise or change in sensation of wellbeing. ENMT: No rhinorrhea, otorrhea, sinus pain, ear ache. CARDIOVASCULAR: No angina, palpitations, orthopnea or paroxysmal dyspnea. RESPIRATORY: No SOB. GASTROINTESTINAL: No abdominal pain, nausea, vomiting, diarrhea, hematemesis, melena or change in the patient's habitual bowel movements consistency/number. GENITOURINARY: No dysuria, hematuria or change in bladder continence. MUSCULOSKELETAL: No new muscle pain or decrease in muscular strength. No new joint swelling, redness or tenderness. SKIN: No new rash. Past Medical History: Pulmonary sarcoidosis, pulmonary embolus, history of CAD s/p CABG, CVA, COPD, hypertension, diabetes mellitus, obstructive sleep apnea syndrome on CPAP, PTSD PAST SURGICAL HISTORY CABG, neck lymph node removal. PAST SOCIAL HISTORY Denies alcohol, tobacco, illicit drug use. Coded Allergies: atorvastatin (Verified Allergy, Severe, RASH, 10/15/17) Penicillins (Verified Allergy, Unknown, 12/22/14) peanut (Unverified Allergy, Unknown, 03/26/23) Physical Exam: GEN: Awake, alert, oriented in person, time and place, and in no acute distress. HEENT: No rhinorrhea. Oral mucosa is moist and within normal limits. CHEST: Lung auscultation revealed normal breath sounds bilaterally. CARDIAC:Heart sounds are regular. ABD: Soft, non-tender and not distended. No peritoneal signs on palpation. Normal bowel sounds SKIN: Intact. No rashes. NEURO: Alert and oriented to name, place and person.No focal motor deficits. Normal speech. Vital Sign (Last 24 Hours) 04/10/25 04/10/25 01:10 08:00 Temp 97.7 Pulse 60 Resp 17 B/P (MAP) 115/67 Pulse Ox 98 O2 Delivery Room Air O2 Flow Rate 2.0 FiO2 28 Intake & Output (last 24hrs) 04/09/25 04/09/25 04/10/25 15:00 23:00 07:00 Intake Total 200 ml 168.0 ml Balance 200 ml 168.0 ml Laboratory: [ ] Laboratory: Test 04/10/25 08:17 04/10/25 08:16 04/10/25 05:30 04/09/25 09:09 Range/Units White Blood Count 8.1 4.8-10.8 K/uL Red Blood Count 4.45 L 4.50-6.20 MIL/uL Hemoglobin 12.1 L 14.0-18.0 g/dL Hematocrit 38.8 L 42-54 % Mean Corpuscular Volume 87.2 79-99 fL Mean Corpuscular Hemoglobin 27.2 27.0-33.0 pg Mean Corpuscular Hemoglobin Concent 31.2 L 32.0-36.0 g/dL Red Cell Distribution Width 15.8 H 11.0-15.5 % Platelet Count 232 130-400 K/uL Mean Platelet Volume 9.9 7.5-10.5 fL Nucleated Red Blood Cells 0.0 0.0-0.19 % Sodium Level 143 136-145 mmol/L Potassium Level 4.1 3.5-5.1 mmol/L Chloride Level 105 101-111 mmol/L Carbon Dioxide Level 31 21-32 mmol/L Blood Urea Nitrogen 12 7-18 mg/dL Creatinine 1.2 0.5-1.3 mg/dL Glomerular Filtration Rate Calc 67 >90 mL/min Random Glucose 76 70-105 mg/dL Total Calcium 8.8 8.5-10.1 mg/dL Magnesium Level 2.10 1.80-2.40 mg/dL Total Creatine Kinase 43 # 21-232 U/L Whole Blood Glucose 89 70-110 MG/DL Blood Gas Specimen Type Arterial Arterial Blood pH 7.481 H 7.350-7.450 Arterial Blood Partial Pressure CO2 31 L 35-48 mmHg Arterial Blood Partial Pressure O2 112.7 H 83.0-108.0 mmHg Arterial Blood HCO3 22.5 21.0-28.0 mmol/L Arterial Blood Oxygen Saturation 98.4 H 94.0-98.0 % Arterial Blood Base Excess 0.1 -2.0-3.0 mmol/L Blood Gas Temperature 37.0 35.5-37.0 CELSIUS Blood Gas Flow-by 2.00 0.00-15.00 L/min Blood Gas Vent Mode NC ROOM AIR FiO2 28.0 % Blood Gas Specimen Comment RBISMAEL Test 04/09/25 05:28 04/08/25 16:49 04/08/25 15:54 Range/Units Phosphorus Level 4.6 2.5-4.9 mg/dL Total Bilirubin 0.5 0.2-1.0 mg/dL Direct Bilirubin 0.2 0.0-0.3 mg/dL Aspartate Amino Transf (AST/SGOT) 18 10-37 U/L Alanine Aminotransferase (ALT/SGPT) 35 12-78 U/L Alkaline Phosphatase 34 L 50-136 U/L Troponin I High Sensitivity 8 4-75 ng/L B-Type Natriuretic Peptide 158 H 0-100 pg/mL Total Protein 6.2 6.0-8.3 g/dL Albumin 3.0 L 3.5-5.0 g/dL Thyroid Stimulating Hormone (TSH) 0.25 L 0.36-3.74 uIU/mL Free Thyroxine (T4) Direct 0.67 L 0.76-1.46 ng/dL Free Triiodothyronine (T3) pg/mL 1.90 L 2.18-3.98 pg/mL Urine Color LIGHT-YELLOW YELLOW Urine Appearance CLEAR CLEAR Urine pH 5.5 5.0-8.0 Urine Specific Stanton 1.023 1.001-1.031 Urine Protein 20 H NEGATIVE mg/dL Urine Glucose (UA) NEGATIVE NEGATIVE mg/dL Urine Ketones NEGATIVE NEGATIVE mg/dL Urine Occult Blood SMALL H NEGATIVE Urine Nitrate NEGATIVE NEGATIVE Urine Bilirubin NEGATIVE NEGATIVE mg/dL Urine Urobilinogen 0.2 0.2-1.0 mg/dL Urine Leukocyte Esterase 75 H NEGATIVE Kary/uL Urine RBC 2-5 H 0-1 /HPF Urine WBC 2-5 H 0-1 /HPF Urine Squamous Epithelial Cells RARE 0-2 /HPF Urine Bacteria RARE None Seen /HPF Immature Granulocyte % (Auto) 0.6 0-1 % Neutrophils (%) (Auto) 89.4 H 40.0-77.0 % Lymphocytes (%) (Auto) 6.9 L 21.0-51.0 % Monocytes (%) (Auto) 2.7 L 3.0-13.0 % Eosinophils (%) (Auto) 0.2 0.0-8.0 % Basophils (%) (Auto) 0.2 0.0-5.0 % Neutrophils # (Auto) 10.1 H 1.8-7.7 K/uL Lymphocytes # (Auto) 0.8 L 1.0-4.8 K/uL Monocytes # (Auto) 0.3 0.1-1.0 K/uL Eosinophils # (Auto) 0.02 0.00-0.70 K/uL Basophils # (Auto) 0.02 0.00-0.20 K/uL Absolute Immature Granulocyte (auto 0.07 0-1 K/uL Current Medications Medications (Trade) Dose Ordered Sig/Michael Route PRN Reason Start Time Stop Time Status Last Admin Dose Admin Acetaminophen (TYLenol 325MG TAB) 650 mg Q6H PRN PO FEVER/MILD PAIN LEVEL 1-3 04/08/25 22:00 05/08/25 21:59 Acetaminophen (TYLenol 650MG SUPPOSITORY) 650 mg Q6H PRN RC FEVER / MILD PAIN 1-3 IF NPO 04/08/25 22:00 05/08/25 21:59 Albuterol Sulfate (Proventil 0.083% 2.5mg/3ml) 2.5 mg H1DPHQQ PRN IH SHORTNESS OF BREATH 04/08/25 22:00 05/08/25 21:59 Aspirin (Aspirin 81mg Chew Tab) 81 mg DAILY PO 04/09/25 09:00 05/09/25 08:59 04/09/25 09:16 81 MG Clopidogrel Bisulfate (plaVIX 75MG) 75 mg DAILY PO 04/10/25 09:00 05/10/25 08:59 Dextrose (D50w) 50 ml AD PRN IV HYPOGLYCEMIA PROTOCOL 04/09/25 06:30 05/09/25 06:29 Docusate Sodium (COLace 100MG CAP) 100 mg BID PRN PO CONSTIPATION 04/08/25 22:00 05/08/25 21:59 Enoxaparin Sodium (Lovenox) 40 mg DAILY SQ 04/08/25 21:55 05/08/25 21:54 04/09/25 09:18 40 MG Famotidine (Pepcid 20mg Tab) 20 mg BID PO 04/09/25 11:00 05/09/25 10:59 04/09/25 21:16 20 MG Famotidine (Pepcid 20mg Tab) 20 mg DAILY PRN PO HEARTBURN 04/09/25 11:30 04/09/25 11:10 DC Ferrous Sulfate (Ferrous Sulfate) 325 mg BID PO 04/09/25 21:00 05/09/25 20:59 04/09/25 21:15 325 MG Folic Acid (FOLic ACID 1 MG TABLET) 1 mg DAILY PO 04/10/25 09:00 05/10/25 08:59 Furosemide (LASix 40MG TAB) 40 mg DAILY PO 04/10/25 09:00 05/10/25 08:59 Gabapentin (NEURontin 300 MG CAP) 300 mg BID PO 04/09/25 21:00 05/09/25 20:59 04/09/25 21:15 300 MG Glucagon (Glucagon 1mg Kit) 1 mg AD PRN IM HYPOGLYCEMIA PROTOCOL 04/09/25 06:30 05/09/25 06:29 Home Med (Home Medication) (Fluticasone Propion/ [place]... DAILY IH 04/10/25 09:00 05/10/25 08:59 Home Med (Home Medication) (Magnesium Gluconate 1 TAB) BID PO 04/09/25 21:00 05/09/25 20:59 Home Med (Home Medication) (Rosuvastatin Calcium 40 MG) HS PO 04/09/25 21:00 05/09/25 20:59 Insulin Human Regular (humuLIN R 100 UNIT/ML 3ML) INSULIN SLIDING SCAL... ACHS SQ 04/09/25 07:30 05/09/25 07:29 Ipratropium Eleele (AtrovENT UD) 0.5 mg [id number] PRN IH SHORTNESS OF BREATH/WHEEZING 04/08/25 22:00 05/08/25 21:59 Labetalol HCl (TRANdate 20MG SYG) 10 mg Q2H PRN IV SBP GREATER THAN 160 04/08/25 22:00 05/08/25 21:59 Lactobacillus Rhamnosus ([facility] [email or web address] [facility]) 1 each BID PO 04/09/25 21:00 05/09/25 20:59 04/09/25 21:16 1 EACH Lactulose (Constulose 20gm/ 30ml Udcup) 20 gm Q6H PRN PO CONSTIPATION 04/08/25 22:00 05/08/25 21:59 Levofloxacin/ Dextrose 50 ml @ 50 mls/hr Q24H IVPB 04/10/25 04:30 04/20/25 04:29 04/10/25 04:00 50 MLS/HR Losartan Potassium (CozAAR 50 mg TAB) 50 mg DAILY PO 04/10/25 09:00 04/09/25 14:47 DC Magnesium Sulfate 50 ml @ 0 mls/hr PROTOCOL PRN IV MAGNESIUM PROTOCOL 04/09/25 06:30 05/09/25 06:29 04/09/25 23:44 25 MLS/HR Metoprolol Succinate (TopROL XL) 50 mg DAILY PO 04/10/25 09:00 05/10/25 08:59 Nitroglycerin (Nitrostat) 0.4 mg Q5M PRN SL CHEST PAIN 04/08/25 18:30 Ondansetron HCl (zoFRAN 4MG INJ) 4 mg Q6H PRN IVP NAUSEA/VOMITING 04/08/25 22:00 05/08/25 21:59 Pantoprazole Sodium (PROTonix 40MG TAB) 40 mg DAILY PO 04/10/25 09:00 04/09/25 11:11 DC Potassium Chloride 100 ml @ 100 mls/hr AD PRN IV POTASSIUM PROTOCOL 04/09/25 06:30 05/09/25 06:29 Potassium Chloride (K-Dur 10meq Sr Tab) 10 meq AD PRN PO POTASSIUM PROTOCOL 04/10/25 07:00 05/09/25 06:29 Potassium Chloride (K-Dur/Klor-Con 20meq) 10 meq AD PRN PO POTASSIUM PROTOCOL 04/09/25 06:30 04/10/25 06:58 DC 04/09/25 14:56 10 MEQ Potassium Chloride (KCl 10% Elixir 20meq/15ml) 10 meq AD PRN PO POTASSIUM PROTOCOL 04/09/25 06:30 05/09/25 06:29 Prednisone (deltaSONE/ oraSONE 20MG TAB) 20 mg DAILY PO 04/10/25 09:00 05/10/25 08:59 Ropinirole HCl (ropiNIRole HCL) 0.25 mg TID PO 04/09/25 14:00 05/09/25 13:59 04/09/25 21:16 0.25 MG Temazepam (restORIL 15 MG CAP) 15 mg HS PRN PO INSOMNIA/SLEEP 04/08/25 22:00 05/08/25 21:59 Tiotropium Eleele (Spiriva) 18 mcg DAILY PRN IH SHORTNESS OF BREATH/WHEEZING 04/09/25 11:30 04/09/25 11:23 DC Vitamin B Complex (Vitamin B-12) 100 mcg DAILY PO 04/10/25 09:00 05/10/25 08:59 Vitamin B Complex/ Vit C/Folic Acid (Nephrovite Tablet) 1 cap DAILY PO 04/10/25 09:00 05/10/25 08:59 Diagnostics / Radiology: [COPY/PASTE HERE IF NO REPORTS PLEASE DELETE SECTION] Assessment: [Epigastric/substernal pain S/P esophageal hernia repair on 03/21/25 CAD s/p CABG COPD HTN ] Plan: Case discussed with Dr. Soliz and Dr. Franklin [No Gi endoscopic intervention at this time Will await Upper GI series exam Please obtain cardiac clearance for EGD. Please call with questions, concerns, and change in clinical status. ] CHEY RAMIREZ [facility] Apr 10, 2025 11:37
--- NOTE | 2025-04-10 12:33 | HMCIMG ---
DOUBLE CONTRAST UPPER GI SERIES: Findings: The study was performed using provocative maneuvers After swallowing effervescent crystal and thick barium, there is no definite intrinsic or extrinsic lesion seen in the esophagus. Severe narrowing of the GE junction which is causing the esophagus to be distended. There is reflux grade 1. There is no hiatal hernia.. The stomach is normal in size, shape, and configuration. The rugal folds appear to be normal. The duodenal bulb, duodenal sweep, and upper jejunum appear to be normal. Fluoroscopy time: 1.2 minute. IMPRESSION: Severe narrowing of the GE junction which needs to be dilated.. There is grade 1 esophageal reflux.
--- NOTE | 2025-04-10 12:49 | HMCIMG ---
EXAM: MR Brain without Intravenous Contrast. CLINICAL HISTORY: Rule out stroke TECHNIQUE: Multisequence, multiplanar magnetic resonance images acquired of the brain with and without intravenous contrast. CONTRAST: None. COMPARISON: None provided. FINDINGS: BRAIN: No restricted diffusion to indicate acute infarction. No intracranial mass or hemorrhage. No midline shift or extra-axial fluid collection. No cerebellar tonsillar ectopia. No abnormal enhancement. The central arterial and venous flow voids are patent. VENTRICLES: No hydrocephalus. ORBITS: The orbits are normal. SINUSES AND MASTOIDS: The sinuses and mastoid air cells are clear. BONES: No acute fracture or aggressive appearing osseous lesion. IMPRESSION: No acute infarction, intracranial hemorrhage, or mass lesion. /[place]
--- NOTE | 2025-04-10 13:44 | PN ---
CATAL[facility] PROGRESS NOTE Date of Service: Apr 10, 2025 Time of Service: 13:43 SUBJECTIVE: Mr. Eubanks is a 64-year-old male with a history of TIA x2, CVA, CAD, COPD w home CPAP use, hypercholesteremia, hypertension, pulmonary sarcoidosis, triple bypass who presented to [facility] ED via EMS for evaluation of sternal and lower chest discomfort and shortness of breath onset a few days now. The patient reported that Dr. Franklin of [facility] performed a laparoscopic hiatal hernia repair on March 21, 2025. He was reportedly informed that scar tissue prevented his stomach from being optimally pulled back into abdomen, and he was also afraid of extending the anesthesia because of his underlying lung problems. He was doing fairly well postoperatively and saw his surgeon today. He reported his java designer, Dr. Luis Rosenberg is planning to do a CT scan of his chest on him but wanted to wait until his GI issues settled down. He returned today with substernal chest pain that begun at 2:40 p.m. and spread to his left arm and jaw. He begun having this problem while moving his furniture. He worried about his known history of coronary artery disease and went to the emergency room for additional assessment. On April 05, 2025, he was seen due to vomiting. He has no diarrhea or hematemesis or melena. He denied having any rigors, chills, or fever. Very little clear sputum. No hemoptysis. VS: HR 70 bmp, RR 16 bmp, BP 133/70, 99% RA, 98.1 F, Remarkable labs: Chemistry: BUN 22, Creatinine 1.6, Hematology: WBC 11.3, RBC 4.30, Hgb 11.8, Hct 37.2, MCHC 31.7, RDW 15.8, UA: +Leukocyte, Chest X-Rays: No acute cardiopulmonary pathology is evident. EKG: SR with RBBB, no acute ST elevations or depressions noted The patient was seen at bedside in 314. No family members at bedside. The patient appeared comfortable, breathing was even, unlabored, in no distress. RN reports patient stated he has trouble passing liquid end food. He reports that he has a pending endoscopy on Thursday by GI. I informed the patient of labs, diagnostics, and plan of care. He verbalized understanding and is in agreement with the plan. 04/09/2025: Patient is seen and evaluated in the room 314. He is not having any symptoms today. His vitals are in the normal range except for pulse is 56. His labs are in the normal range except for hemoglobin 11.5, BUN is 21, ALP is 34, BNP is 158, TSH is 0.25. Chest X-ray is normal. Ct chest showed emphysema, small ground glass nodules. He had some difficulty in finding words. So we did a CT scan of brain and it is normal. So we ordered MRI. As his TSH is low we ordered free T3 and free T4. Free T4 is 0.67 and free T3 is 1.9. So we ordered LH, yazmin isol AM, FSH, ACTH. We started lasix 40mg daily. We also ordered SERGIO levels as he has a history of pulmonary sarcoidosis. We are waiting recommendations from cardiology. 04/10/2025: Patient was evaluated at bedside in room 314. Patient was taken to Lexiscan Cardiolite stress test this morning. Patient denied any symptoms today. Patient urine culture showed growth of group B strep agalactiae and will be continued on levofloxacin. Patient is pending evaluation for central hypopituitarism and and is pending LH, cortisol a.m., SERGIO, FSH, ACTH and ordered prolactin, IGF1, and Testosterone. Patient was started on low-dose Synthroid 25 mcg and endocrinology consult was obtained. Upper GI series was performed, which showed severe narrowing of the gastroesophageal junction which needs to be dilated and grade 1 esophageal reflux. Gastroenterology is on board and are planning EGD once clearance is obtained from Cardiology. REVIEW OF SYSTEMS CONSTITUTIONAL: Denies fevers, chills, or night sweats. No unintentional weight loss reported. NEUROLOGICAL: Denies headache, motor weakness, sensory deficit, vertigo/spinning sensation CARDIOVASCULAR: Denies any exertional angina, dyspnea on exertion, orthopnea, paroxysmal nocturnal dyspnea, palpitations PULMONARY: Denies any shortness of breath, cough, phlegm/sputum, hemoptysis, pleuritic chest pain. GASTROINTESTINAL: Admits to dysphagia to liquids. Denies nausea, vomiting, pyrosis, early satiety, abdominal pain, diarrhea, constipation GENITOURINARY: Denies frequency, urgency, nocturia, hematuria or incontinence DERMATOLOGIC: Denies rashes, itching, redness. PHYSICAL EXAM GENERAL APPEARANCE: The patient is awake, alert, and oriented, in no acute cardiopulmonary distress. NEUROLOGICAL: Cranial nerves II-XII grossly intact. Motor is 5/5 in bilateral upper and lower extremities proximal to distal. No sensory deficits. HEENT: Face is symmetric. Pupils are equal and reactive. Extraocular movements are intact. NECK: Supple. No JVD. No thyromegaly. No submental, submandibular, pre- /postauricular, occipital or supraclavicular lymphadenopathy. CHEST: Normal chest expansion. No Telemetry. LUNGS: Absence of any rales, rhonchi or any wheezing. CARDIOVASCULAR: Regular. S1 and S2 normal. No appreciable rubs, murmurs or gallops. ABDOMEN: Soft, nontender, and nondistended. There is no rebound, voluntary guarding, or rigidity. : Deferred. No [place]. EXTREMITIES: Non-edematous and not cyanotic. No clubbing. Good capillary refill. SKIN: No skin breakdown. Vital Signs (last 8hr) Date Time Temp Pulse Resp B/P (MAP) Pulse Ox O2 Delivery O2 Flow Rate FiO2 04/10/25 08:00 97.7 60 17 115/67 98 Room Air 04/10/25 06:55 65 18 N/Cannula Low lpm 2.0 28 04/10/25 06:00 99.0 78 18 122/70 98 CPAP LABS: Laboratory: Test 04/10/25 12:21 04/10/25 08:17 04/10/25 08:16 04/09/25 09:09 Range/Units Whole Blood Glucose 88 70-110 MG/DL White Blood Count 8.1 4.8-10.8 K/uL Red Blood Count 4.45 L 4.50-6.20 MIL/uL Hemoglobin 12.1 L 14.0-18.0 g/dL Hematocrit 38.8 L 42-54 % Mean Corpuscular Volume 87.2 79-99 fL Mean Corpuscular Hemoglobin 27.2 27.0-33.0 pg Mean Corpuscular Hemoglobin Concent 31.2 L 32.0-36.0 g/dL Red Cell Distribution Width 15.8 H 11.0-15.5 % Platelet Count 232 130-400 K/uL Mean Platelet Volume 9.9 7.5-10.5 fL Nucleated Red Blood Cells 0.0 0.0-0.19 % Sodium Level 143 136-145 mmol/L Potassium Level 4.1 3.5-5.1 mmol/L Chloride Level 105 101-111 mmol/L Carbon Dioxide Level 31 21-32 mmol/L Blood Urea Nitrogen 12 7-18 mg/dL Creatinine 1.2 0.5-1.3 mg/dL Glomerular Filtration Rate Calc 67 >90 mL/min Random Glucose 76 70-105 mg/dL Total Calcium 8.8 8.5-10.1 mg/dL Magnesium Level 2.10 1.80-2.40 mg/dL Total Creatine Kinase 43 # 21-232 U/L Blood Gas Specimen Type Arterial Arterial Blood pH 7.481 H 7.350-7.450 Arterial Blood Partial Pressure CO2 31 L 35-48 mmHg Arterial Blood Partial Pressure O2 112.7 H 83.0-108.0 mmHg Arterial Blood HCO3 22.5 21.0-28.0 mmol/L Arterial Blood Oxygen Saturation 98.4 H 94.0-98.0 % Arterial Blood Base Excess 0.1 -2.0-3.0 mmol/L Blood Gas Temperature 37.0 35.5-37.0 CELSIUS Blood Gas Flow-by 2.00 0.00-15.00 L/min Blood Gas Vent Mode NC ROOM AIR FiO2 28.0 % Blood Gas Specimen Comment RBISMAEL Test 04/09/25 05:28 04/08/25 16:49 04/08/25 15:54 Range/Units Phosphorus Level 4.6 2.5-4.9 mg/dL Total Bilirubin 0.5 0.2-1.0 mg/dL Direct Bilirubin 0.2 0.0-0.3 mg/dL Aspartate Amino Transf (AST/SGOT) 18 10-37 U/L Alanine Aminotransferase (ALT/SGPT) 35 12-78 U/L Alkaline Phosphatase 34 L 50-136 U/L Troponin I High Sensitivity 8 4-75 ng/L B-Type Natriuretic Peptide 158 H 0-100 pg/mL Total Protein 6.2 6.0-8.3 g/dL Albumin 3.0 L 3.5-5.0 g/dL Thyroid Stimulating Hormone (TSH) 0.25 L 0.36-3.74 uIU/mL Free Thyroxine (T4) Direct 0.67 L 0.76-1.46 ng/dL Free Triiodothyronine (T3) pg/mL 1.90 L 2.18-3.98 pg/mL Urine Color LIGHT-YELLOW YELLOW Urine Appearance CLEAR CLEAR Urine pH 5.5 5.0-8.0 Urine Specific [place] 1.023 1.001-1.031 Urine Protein 20 H NEGATIVE mg/dL Urine Glucose (UA) NEGATIVE NEGATIVE mg/dL Urine Ketones NEGATIVE NEGATIVE mg/dL Urine Occult Blood SMALL H NEGATIVE Urine Nitrate NEGATIVE NEGATIVE Urine Bilirubin NEGATIVE NEGATIVE mg/dL Urine Urobilinogen 0.2 0.2-1.0 mg/dL Urine Leukocyte Esterase 75 H NEGATIVE Kary/uL Urine RBC 2-5 H 0-1 /HPF Urine WBC 2-5 H 0-1 /HPF Urine Squamous Epithelial Cells RARE 0-2 /HPF Urine Bacteria RARE None Seen /HPF Immature Granulocyte % (Auto) 0.6 0-1 % Neutrophils (%) (Auto) 89.4 H 40.0-77.0 % Lymphocytes (%) (Auto) 6.9 L 21.0-51.0 % Monocytes (%) (Auto) 2.7 L 3.0-13.0 % Eosinophils (%) (Auto) 0.2 0.0-8.0 % Basophils (%) (Auto) 0.2 0.0-5.0 % Neutrophils # (Auto) 10.1 H 1.8-7.7 K/uL Lymphocytes # (Auto) 0.8 L 1.0-4.8 K/uL Monocytes # (Auto) 0.3 0.1-1.0 K/uL Eosinophils # (Auto) 0.02 0.00-0.70 K/uL Basophils # (Auto) 0.02 0.00-0.20 K/uL Absolute Immature Granulocyte (auto 0.07 0-1 K/uL Current Medications Medications (Trade) Dose Ordered Sig/Michael Route PRN Reason Start Time Stop Time Status Last Admin Dose Admin Acetaminophen (TYLenol 325MG TAB) 650 mg Q6H PRN PO FEVER/MILD PAIN LEVEL 1-3 04/08/25 22:00 05/08/25 21:59 Acetaminophen (TYLenol 650MG SUPPOSITORY) 650 mg Q6H PRN RC FEVER / MILD PAIN 1-3 IF NPO 04/08/25 22:00 05/08/25 21:59 Albuterol Sulfate (Proventil 0.083% 2.5mg/3ml) 2.5 mg [id number] PRN IH SHORTNESS OF BREATH 04/08/25 22:00 05/08/25 21:59 Aspirin (Aspirin 81mg Chew Tab) 81 mg DAILY PO 04/09/25 09:00 05/09/25 08:59 04/09/25 09:16 81 MG Clopidogrel Bisulfate (plaVIX 75MG) 75 mg DAILY PO 04/10/25 09:00 05/10/25 08:59 Dextrose (D50w) 50 ml AD PRN IV HYPOGLYCEMIA PROTOCOL 04/09/25 06:30 05/09/25 06:29 Docusate Sodium (COLace 100MG CAP) 100 mg BID PRN PO CONSTIPATION 04/08/25 22:00 05/08/25 21:59 Enoxaparin Sodium (Lovenox) 40 mg DAILY SQ 04/08/25 21:55 05/08/25 21:54 04/09/25 09:18 40 MG Famotidine (Pepcid 20mg Tab) 20 mg BID PO 04/09/25 11:00 05/09/25 10:59 04/09/25 21:16 20 MG Famotidine (Pepcid 20mg Tab) 20 mg DAILY PRN PO HEARTBURN 04/09/25 11:30 04/09/25 11:10 DC Ferrous Sulfate (Ferrous Sulfate) 325 mg BID PO 04/09/25 21:00 05/09/25 20:59 04/09/25 21:15 325 MG Folic Acid (FOLic ACID 1 MG TABLET) 1 mg DAILY PO 04/10/25 09:00 05/10/25 08:59 Furosemide (LASix 40MG TAB) 40 mg DAILY PO 04/10/25 09:00 05/10/25 08:59 Gabapentin (NEURontin 300 MG CAP) 300 mg BID PO 04/09/25 21:00 05/09/25 20:59 04/09/25 21:15 300 MG Glucagon (Glucagon 1mg Kit) 1 mg AD PRN IM HYPOGLYCEMIA PROTOCOL 04/09/25 06:30 05/09/25 06:29 Home Med (Home Medication) (Fluticasone Propion/ [place]... DAILY IH 04/10/25 09:00 05/10/25 08:59 Home Med (Home Medication) (Magnesium Gluconate 1 TAB) BID PO 04/09/25 21:00 05/09/25 20:59 Home Med (Home Medication) (Rosuvastatin Calcium 40 MG) HS PO 04/09/25 21:00 05/09/25 20:59 Insulin Human Regular (humuLIN R 100 UNIT/ML 3ML) INSULIN SLIDING SCAL... ACHS SQ 04/09/25 07:30 05/09/25 07:29 Ipratropium [place] (AtrovENT UD) 0.5 mg [id number] PRN IH SHORTNESS OF BREATH/WHEEZING 04/08/25 22:00 05/08/25 21:59 Labetalol HCl (TRANdate 20MG SYG) 10 mg Q2H PRN IV SBP GREATER THAN 160 04/08/25 22:00 05/08/25 21:59 Lactobacillus Rhamnosus ([facility]) 1 each BID PO 04/09/25 21:00 05/09/25 20:59 04/09/25 21:16 1 EACH Lactulose (Constulose 20gm/ 30ml Udcup) 20 gm Q6H PRN PO CONSTIPATION 04/08/25 22:00 05/08/25 21:59 Levofloxacin/ Dextrose 50 ml @ 50 mls/hr Q24H IVPB 04/10/25 04:30 04/20/25 04:29 04/10/25 04:00 50 MLS/HR Levothyroxine Sodium (SYNTHroid 25MCG TAB) 25 mcg DAILY@0630 PO 04/11/25 06:30 05/11/25 06:29 Losartan Potassium (CozAAR 50 mg TAB) 50 mg DAILY PO 04/10/25 09:00 04/09/25 14:47 DC Magnesium Sulfate 50 ml @ 0 mls/hr PROTOCOL PRN IV MAGNESIUM PROTOCOL 04/09/25 06:30 05/09/25 06:29 04/09/25 23:44 25 MLS/HR Metoprolol Succinate (TopROL XL) 50 mg DAILY PO 04/10/25 09:00 05/10/25 08:59 Nitroglycerin (Nitrostat) 0.4 mg Q5M PRN SL CHEST PAIN 04/08/25 18:30 Ondansetron HCl (zoFRAN 4MG INJ) 4 mg Q6H PRN IVP NAUSEA/VOMITING 04/08/25 22:00 05/08/25 21:59 Pantoprazole Sodium (PROTonix 40MG TAB) 40 mg DAILY PO 04/10/25 09:00 04/09/25 11:11 DC Potassium Chloride 100 ml @ 100 mls/hr AD PRN IV POTASSIUM PROTOCOL 04/09/25 06:30 05/09/25 06:29 Potassium Chloride (K-Dur 10meq Sr Tab) 10 meq AD PRN PO POTASSIUM PROTOCOL 04/10/25 07:00 05/09/25 06:29 Potassium Chloride (K-Dur/Klor-Con 20meq) 10 meq AD PRN PO POTASSIUM PROTOCOL 04/09/25 06:30 04/10/25 06:58 DC 04/09/25 14:56 10 MEQ Potassium Chloride (KCl 10% Elixir 20meq/15ml) 10 meq AD PRN PO POTASSIUM PROTOCOL 04/09/25 06:30 05/09/25 06:29 Prednisone (deltaSONE/ oraSONE 20MG TAB) 20 mg DAILY PO 04/10/25 09:00 05/10/25 08:59 Ropinirole HCl (ropiNIRole HCL) 0.25 mg TID PO 04/09/25 14:00 05/09/25 13:59 04/09/25 21:16 0.25 MG Temazepam (restORIL 15 MG CAP) 15 mg HS PRN PO INSOMNIA/SLEEP 04/08/25 22:00 05/08/25 21:59 Tiotropium [place] (Spiriva) 18 mcg DAILY PRN IH SHORTNESS OF BREATH/WHEEZING 04/09/25 11:30 04/09/25 11:23 DC Vitamin B Complex (Vitamin B-12) 100 mcg DAILY PO 04/10/25 09:00 05/10/25 08:59 Vitamin B Complex/ Vit C/Folic Acid (Nephrovite Tablet) 1 cap DAILY PO 04/10/25 09:00 05/10/25 08:59 DIAGNOSTICS / RADIOLOGY: [ ] PATIENT: MADISON EUBANKS MR#: [id number] : 1960 SEX: M AGE: 64 LOCATION: [facility] ORDER 111 STATUS: ADM IN REPORT#: [id number] SERVICE 111 REASON: Difficulty swallowing ORDERING PHYSICIAN: ROXANNE TAYLOR MD PROCEDURE: UGI WO KUB - UPPER GI TRACT, WO KUB DOUBLE CONTRAST UPPER GI SERIES: Findings: The study was performed using provocative maneuvers After swallowing effervescent crystal and thick barium, there is no definite intrinsic or extrinsic lesion seen in the esophagus. Severe narrowing of the GE junction which is causing the esophagus to be distended. There is reflux grade 1. There is no hiatal hernia.. The stomach is normal in size, shape, and configuration. The rugal folds appear to be normal. The duodenal bulb, duodenal sweep, and upper jejunum appear to be normal. Fluoroscopy time: 1.2 minute. IMPRESSION: Severe narrowing of the GE junction which needs to be dilated.. There is grade 1 esophageal reflux. DICTATED BY: CHLÉO APONTE MD DATE: 04/10/251228 ELECTRONICALLY SIGNED BY: CHLOÉ APONTE MD DATE: 04/10/25 123 PATIENT: MADISON EUBANKS MR#: [id number] : 1960 SEX: M AGE: 64 LOCATION: [facility] ORDER 14 STATUS: ADM IN REPORT#: [id number] SERVICE 13 REASON: Rule out stroke ORDERING PHYSICIAN: KEILA LUCIANO MD PROCEDURE: BRAIN WO - MR BRAIN WO CON EXAM: MR Brain without Intravenous Contrast. CLINICAL HISTORY: Rule out stroke TECHNIQUE: Multisequence, multiplanar magnetic resonance images acquired of the brain with and without intravenous contrast. CONTRAST: None. COMPARISON: None provided. FINDINGS: BRAIN: No restricted diffusion to indicate acute infarction. No intracranial mass or hemorrhage. No midline shift or extra-axial fluid collection. No cerebellar tonsillar ectopia. No abnormal enhancement. The central arterial and venous flow voids are patent. VENTRICLES: No hydrocephalus. ORBITS: The orbits are normal. SINUSES AND MASTOIDS: The sinuses and mastoid air cells are clear. BONES: No acute fracture or aggressive appearing osseous lesion. IMPRESSION: No acute infarction, intracranial hemorrhage, or mass lesion. /[place]ates DICTATED BY: JOSE JOHNS Jr., MD DATE: 04/10/251347 ELECTRONICALLY SIGNED BY: JOSE JOHNS Jr., MD DATE: 04/10/251347 ASSESSMENT: Unstable angina with normal troponins Pulmonary sarcoidosis, POA Acute complicated cystitis, POA Dysphagia, POA Acute on chronic kidney disease, GFR 48 Stroke rule out Anemia chronic disease, POA central hypothyroidism Leukocytosis Chronic problem list: TIA x2, CVA, CAD, COPD w home CPAP use, hypercholesteremia, hypertension, pulmonary sarcoidosis, triple bypass PLAN: Unstable angina with normal troponins He complained of chest pain at the time of admission but now it is relieved. His EKG is normal. His troponins are negative. His BNP is 158. 2D echo showed LVEF greater than 55%, stage II diastolic dysfunction Cardiology recommended performing Cardiolite stress test today Pulmonary sarcoidosis, POA His calcium level is 8.6. His CT chest showed Small ground-glass nodules in the right upper and middle lobes and right pleural based nodule (<6mm) and stable for 1 year. We ordered a SERGIO level, results pending Acute complicated cystitis, POA His urinalysis showed evidence of UTI. Urine culture showed growth of group B strep agalactiae susceptible to penicillins Patient has reported allergy to penicillins Continue levofloxacin (day 2). Dysphagia, POA He had an hiatal hernia repair in Mar 21 2025 Bedside swallow study is negative. GI was consulted and they recommended upper GI series, that showed severe gastroesophageal narrowing, grade 1 esophageal refill Plan is to do endoscopic dilation at the GE junction once cleared from Cardiology Acute on chronic kidney disease, GFR 48 His BUN is 22>21 and creatinine is 1.6>1.3 His baseline creatinine is 1.3 and BUN is 13. We will repeat his labs tomorrow. Stroke rule out He had difficulty in finding words. We did a CT of head and its normal. We ordered a MRI of brain, no evidence of infarcts or hemorrhage Anemia chronic disease, POA His hemoglobin is 11.8>11.5 We will repeat her labs tomorrow. Leukocytosis His WBC is 11.9>8.6 We will repeat his labs tomorrow. central hypothyroidism TSH is 0.25 Free T4 is 0.67 and free T3 is 1.9. So we ordered LH, cortisol AM, FSH, ACTH, prolactin, IGF-1, and testosterone He is on GI/soft bland diet. DVT prophylaxis with SCD. GI prophylaxis with famotidine. ATTESTATION BY PHYSICIAN I have seen and examined the patient. I reviewed the documentation, medical decision making, and treatment plan as noted by the resident physician above. I agree with the findings and plan of care. HEATHER PINTO MD, HARSHAVARDHA MD Apr 10, 2025 13:43
--- NOTE | 2025-04-10 16:23 | CONS ---
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 Bruner is a 64-year-old male with a history of TIA x2, CVA, CAD, COPD w home CPAP use, hypercholesteremia, hypertension, pulmonary sarcoidosis, triple bypass who presented to [facility] via EMS for evaluation of sternal and lower chest discomfort and shortness of breath. The patient reported that Dr. Franklin of [facility] performed a laparoscopic hiatal hernia repair on March 21, 2025. He was reportedly informed that scar tissue prevented his stomach from being optimally pulled back into abdomen, and he was also afraid of extending the anesthesia because of his underlying lung problems. He was doing fairly well postoperatively and saw his surgeon today. 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 Luis Rosenberg is planning to do a CT scan of his chest on him but wanted to wait until his GI issues settled down. He returned today with substernal chest pain that begun at 2:40 p.m. and spread to his left arm and jaw. He begun having this problem while moving his furniture. He worried about his known history of coronary artery disease and went to the emergency room for additional assessment. On April 05, 2025, he was seen due to vomiting. He has no diarrhea or hematemesis or melena. He denied having any rigors, chills, or fever. Very little clear sputum. No hemoptysis. VS: HR 70 bmp, RR 16 bmp, BP 133/70, 99% RA, 98.1 F, Remarkable labs: Chemistry: BUN 22, Creatinine 1.6, Hematology: WBC 11.3, RBC 4.30, Hgb 11.8, Hct 37.2, MCHC 31.7, RDW 15.8, UA: +Leukocyte, Chest X-Rays: No acute cardiopulmonary pathology is evident. EKG: SR with RBBB, no acute ST elevations or depressions noted cardiology following and cardiac work up in progress. hx of acute angina, pulmonary sarcoidosis, in history of CABG. Home diabetic regimen: lantus 25 units daily, ozempic 2 mg weekly and jardiance 25 mg daily, Hba1c 6.9% TSH 0.25, t 4 free 0.67, t 3 free 1.90 my suspicion is low for hypopituitarism and high for sick euthyroid, pituitary hormonal labs LH, FSH, AM cortisol, testosterone and IGF-1 labs has been ordered. reports that recent thyroid function with endocrinology was normal. REVIEW OF SYSTEMS 12-point ROS system was reviewed with the patient. All pertinent positives mentioned above. Otherwise negative, noncontributory, nonpertinent. PAST MEDICAL HISTORY As mentioned above. PAST SURGICAL HISTORY CABG, neck lymph node removal. PAST SOCIAL HISTORY Denies alcohol, tobacco, illicit drug use. FAMILY HISTORY Noncontributory Coded Allergies: atorvastatin (Verified Allergy, Severe, RASH, 10/15/17) Penicillins (Verified Allergy, Unknown, 12/22/14) peanut (Unverified Allergy, Unknown, 03/26/23) PHYSICAL EXAM GENERAL APPEARANCE: The patient is awake, alert, and oriented, in no acute cardiopulmonary distress. NEUROLOGICAL: Cranial nerves II-XII grossly intact. Motor is 5/5 in bilateral upper and lower extremities proximal to distal. No sensory deficits. HEENT: Face is symmetric. Pupils are equal and reactive. Extraocular movements are intact. NECK: Supple. No JVD. No thyromegaly. No submental, submandibular, pre- /postauricular, occipital or supraclavicular lymphadenopathy. CHEST: Normal chest expansion. No Telemetry. LUNGS: Absence of any rales, rhonchi or any wheezing. CARDIOVASCULAR: Regular. S1 and S2 normal. No appreciable rubs, murmurs or gallops. ABDOMEN: Soft, nontender, and nondistended. There is no rebound, voluntary guarding, or rigidity. : Deferred. No [place]. EXTREMITIES: Non-edematous and not cyanotic. No clubbing. Good capillary refill. SKIN: No skin breakdown. ASSESSMENT: Hypothyroidism TSH 0.25, t 4 free 0.67, t 3 free 1.90, clinically euthyroid. my suspicion is low for hypopituitarism and high for sick euthyroid, pituitary hormonal labs LH, FSH, AM cortisol, testosterone and IGF-1 labs has been ordered. DM-2, POA Home diabetic regimen: lantus 25 units daily, ozempic 2 mg weekly and jardiance 25 mg daily, Hba1c 6.9% reports that recent thyroid function with endocrinology was normal. Chest pain r/o cardiac etiology, POA, troponin negative x2 Pulmonary sarcoidosis, POA Acute complicated cystitis, POA Dysphagia, POA Acute on chronic kidney disease, GFR 48 Anemia chronic disease, POA Leukocytosis Chronic problem list: TIA x2, CVA, CAD, COPD w home CPAP use, hypercholesteremia, hypertension, pulmonary sarcoidosis, triple bypass PLAN: discontinue levothyroxine 25 mcg and repeat thyroid labs in 1 week. follow on pituitary hormonal labs. start Lantus 10 units daily and adjust for fasting glucose. start Regular insulin 3 units three times before meals if post-prandial glucose. decrease high dose ssi to medium dose sliding scale insulin. Monitor glucose q x 6 hourly. Continue carb consistent diet. Keep glucose less than 180 mg/dl. 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 sandy andino. Thanks for allowing me to participate in patient care and will continue to follow up. Vital Signs 04/10/25 04/10/25 06:55 12:00 Temp 97.3 Pulse 72 Resp 17 B/P (MAP) 128/63 Pulse Ox 96 O2 Delivery Room Air O2 Flow Rate 2.0 FiO2 28 Hematology Labs: Test 04/10/25 08:17 Range/Units White Blood Count 8.1 4.8-10.8 K/uL Red Blood Count 4.45 L 4.50-6.20 MIL/uL Hemoglobin 12.1 L 14.0-18.0 g/dL Hematocrit 38.8 L 42-54 % Mean Corpuscular Volume 87.2 79-99 fL Mean Corpuscular Hemoglobin 27.2 27.0-33.0 pg Mean Corpuscular Hemoglobin Concent 31.2 L 32.0-36.0 g/dL Red Cell Distribution Width 15.8 H 11.0-15.5 % Platelet Count 232 130-400 K/uL Mean Platelet Volume 9.9 7.5-10.5 fL Nucleated Red Blood Cells 0.0 0.0-0.19 % Chemistry Labs: Test 04/10/25 16:12 04/10/25 08:17 04/10/25 08:16 04/09/25 05:28 Range/Units Whole Blood Glucose 171 #H 70-110 MG/DL Sodium Level 143 136-145 mmol/L Potassium Level 4.1 3.5-5.1 mmol/L Chloride Level 105 101-111 mmol/L Carbon Dioxide Level 31 21-32 mmol/L Blood Urea Nitrogen 12 7-18 mg/dL Creatinine 1.2 0.5-1.3 mg/dL Glomerular Filtration Rate Calc 67 >90 mL/min Random Glucose 76 70-105 mg/dL Total Calcium 8.8 8.5-10.1 mg/dL Magnesium Level 2.10 1.80-2.40 mg/dL Total Creatine Kinase 43 # 21-232 U/L Phosphorus Level 4.6 2.5-4.9 mg/dL Total Bilirubin 0.5 0.2-1.0 mg/dL Direct Bilirubin 0.2 0.0-0.3 mg/dL Aspartate Amino Transf (AST/SGOT) 18 10-37 U/L Alanine Aminotransferase (ALT/SGPT) 35 12-78 U/L Alkaline Phosphatase 34 L 50-136 U/L Troponin I High Sensitivity 8 4-75 ng/L B-Type Natriuretic Peptide 158 H 0-100 pg/mL Total Protein 6.2 6.0-8.3 g/dL Albumin 3.0 L 3.5-5.0 g/dL Thyroid Stimulating Hormone (TSH) 0.25 L 0.36-3.74 uIU/mL Free Thyroxine (T4) Direct 0.67 L 0.76-1.46 ng/dL Free Triiodothyronine (T3) pg/mL 1.90 L 2.18-3.98 pg/mL Current Medications Medications (Trade) Dose Ordered Sig/Michael Route Start Time Stop Time Status Last Admin Dose Admin Aspirin (Aspirin 81mg Chew Tab) 81 mg DAILY PO 04/09/25 09:00 05/09/25 08:59 04/09/25 09:16 81 MG Clopidogrel Bisulfate (plaVIX 75MG) 75 mg DAILY PO 04/10/25 09:00 05/10/25 08:59 Enoxaparin Sodium (Lovenox) 40 mg DAILY SQ 04/08/25 21:55 05/08/25 21:54 04/09/25 09:18 40 MG Famotidine (Pepcid 20mg Tab) 20 mg BID PO 04/09/25 11:00 05/09/25 10:59 04/09/25 21:16 20 MG Ferrous Sulfate (Ferrous Sulfate) 325 mg BID PO 04/09/25 21:00 05/09/25 20:59 04/09/25 21:15 325 MG Folic Acid (FOLic ACID 1 MG TABLET) 1 mg DAILY PO 04/10/25 09:00 05/10/25 08:59 Furosemide (LASix 40MG TAB) 40 mg DAILY PO 04/10/25 09:00 05/10/25 08:59 Gabapentin (NEURontin 300 MG CAP) 300 mg BID PO 04/09/25 21:00 05/09/25 20:59 04/09/25 21:15 300 MG Home Med (Home Medication) (Fluticasone Propion/ [place]... DAILY IH 04/10/25 09:00 05/10/25 08:59 Home Med (Home Medication) (Magnesium Gluconate 1 TAB) BID PO 04/09/25 21:00 05/09/25 20:59 Home Med (Home Medication) (Rosuvastatin Calcium 40 MG) HS PO 04/09/25 21:00 05/09/25 20:59 Insulin Human Regular (humuLIN R 100 UNIT/ML 3ML) INSULIN SLIDING SCAL... ACHS SQ 04/09/25 07:30 05/09/25 07:29 Lactobacillus Rhamnosus ([facility]) 1 each BID PO 04/09/25 21:00 05/09/25 20:59 04/09/25 21:16 1 EACH Levofloxacin/ Dextrose 50 ml @ 50 mls/hr Q24H IVPB 04/10/25 04:30 04/20/25 04:29 04/10/25 04:00 50 MLS/HR Levothyroxine Sodium (SYNTHroid 25MCG TAB) 25 mcg DAILY@0630 PO 04/11/25 06:30 05/11/25 06:29 Losartan Potassium (CozAAR 50 mg TAB) 50 mg DAILY PO 04/10/25 09:00 04/09/25 14:47 DC Metoprolol Succinate (TopROL XL) 50 mg DAILY PO 04/10/25 09:00 05/10/25 08:59 Pantoprazole Sodium (PROTonix 40MG TAB) 40 mg DAILY PO 04/10/25 09:00 04/09/25 11:11 DC Prednisone (deltaSONE/ oraSONE 20MG TAB) 20 mg DAILY PO 04/10/25 09:00 05/10/25 08:59 Ropinirole HCl (ropiNIRole HCL) 0.25 mg TID PO 04/09/25 14:00 05/09/25 13:59 04/10/25 14:18 0.25 MG Vitamin B Complex (Vitamin B-12) 100 mcg DAILY PO 04/10/25 09:00 05/10/25 08:59 Vitamin B Complex/ Vit C/Folic Acid (Nephrovite Tablet) 1 cap DAILY PO 04/10/25 09:00 05/10/25 08:59 ENA CELESTIN MD Apr 10, 2025 16:23
--- NOTE | 2025-04-10 18:39 | HMCSR ---
APPROVED REPORT Height: 5 ft 8in Weight: 167 lbs TEST INDICATIONS Chest Pain The imaging protocol used to acquire images was Rest Tc-99m/stress Tc-99m 1 day Consent: The procedure was explained and understood by the patient. Informerd consent was witnessed by Riri Tyler RN First, low dose rest was performed then high dose stress. RESTING DATA: The resting ekg shows: NSR Rest SPECT myocardial perfusion imaging was performed in supine position minutes following the intravenous injection of 11 mCi of Tc-99 Sestamibi. Time of rest injection: 09:20: Date: 04/10/2025 PHARMACOLOGIC STRESS: Pharmacologic stress test was performed by injecting regadenoson 0.4 mg IV push followed by the intravenous injection of 30 mCi of Tc-99 Sestamibi. Time of stress injection: 11:17: Date: 04/10/2025 Heart Rate at time of stress injection: 67 bpm. Gated Stress SPECT was performed 60 minutes after stress injection. The images were gated to evaluate regional wall motion and calculate left ventricular ejection fraction. STRESS DETAILS Reason for Termination: Infusion complete Stress Symptoms: Dyspnea Max HR Achieved: 93 bpm % of APMHR Achieved: 70 Max Blood Pressure: 128/73 mmHg Stress ECG: NSR Conclusion No ischemia No infarct LV ejection fraction of 74% Normal LV size at rest and stress Normal LV wall motion No evidence of increased lung uptake
[2025-04-11] VITALS (10 sets, daily range): BP systolic 96–142; BP diastolic 60–82; PULSE 63–96; RESP 16–18; TEMP 97.2–98.8; O2SAT 97–98
[2025-04-11 04:45] LABS: NUCLEATED RED BLOOD CELLS 0.0 % (0.0-0.19); PLATELET COUNT (AUTO) 201.0 K/uL (130-400); RED BLOOD CELL COUNT(AUTO) 4.33 MIL/uL (4.50-6.20); RED CELL DISTRIBUTION WIDTH 15.8 % (11.0-15.5); WHITE BLOOD COUNT (AUTO) 8.0 K/uL (4.8-10.8)
[2025-04-11 04:56] LABS: CREATININE 1.2 mg/dL (0.5-1.3); GLOMERULAR FILTR. RATE CALC 67.0 mL/min (>90); GLUCOSE,RANDOM 122.0 mg/dL (70-105); SODIUM SERUM 141.0 mmol/L (136-145); UREA NITROGEN, BLOOD 11.0 mg/dL (7-18)
[2025-04-11] MEDS: PoTASSium chloRIDE 10MEQ SR 10 MEQ/TAB TAB.SR.24H PO PRN (05:07)
--- NOTE | 2025-04-11 07:33 | PN ---
[facility] Cardiology Progress Note CARDIOLOGY PROGRESS NOTE APRIL 11, [address] Trenton Wadsworth Problems: 1. Chest pain with normal troponins 2. CAD status post aortocoronary bypass graft surgery x3 in 2007 3. Pulmonary embolism in the setting of COVID infection treated for six months with Eliquis 4. Remote history of CVA 5. Hypertension 6. Chronic kidney disease stage IIIA 7. COPD 8. Pulmonary sarcoidosis 9. Complete right bundle branch block 10. Hypothyroidism 11. Dyslipidemia This morning blood pressure is running 130-140 systolic heart rate is in the 80s. The patient is afebrile. The patient continues on aspirin clopidogrel Lovenox for DVT prophylaxis famotidine ferrous sulfate folic acid furosemide gabapentin rosuvastatin insulin scale levofloxacin levothyroxine metoprolol succinate and potassium protocol. 2D echo cardiogram shows ejection fraction of greater than 55% grade 2 diastolic left ventricular dysfunction. Upper GI series yesterday showed severe narrowing of the gastroesophageal junction and gastroesophageal reflux. Patient underwent a Lexiscan Cardiolite stress test yesterday which showed no ischemia no infarct LV ejection fraction of 74% and normal regional wall motion. The patient has been pain-free and we will leave a decision as to whether or not he should have of his esophageal stricture during this admission or electively as an outpatient to the medical service. Follow up with Dr. Trenton Wadsworth after discharge. ASHLEY SALCIDO MD Apr 11, 2025 07:33
--- NOTE | 2025-04-11 10:03 | PN ---
[facility] PROGRESS NOTE Date of Service: Apr 11, 2025 Time of Service: 10:03 SUBJECTIVE: Mr. Bruner is a 64-year-old male with a history of TIA x2, CVA, CAD, COPD w home CPAP use, hypercholesteremia, hypertension, pulmonary sarcoidosis, triple bypass who presented to [facility] via EMS for evaluation of sternal and lower chest discomfort and shortness of breath onset a few days now. The patient reported that Dr. Franklin of [facility] performed a laparoscopic hiatal hernia repair on March 21, 2025. He was reportedly informed that scar tissue prevented his stomach from being optimally pulled back into abdomen, and he was also afraid of extending the anesthesia because of his underlying lung problems. He was doing fairly well postoperatively and saw his surgeon today. He reported his mold injector, Dr. Luis Rosenberg is planning to do a CT scan of his chest on him but wanted to wait until his GI issues settled down. He returned today with substernal chest pain that begun at 2:40 p.m. and spread to his left arm and jaw. He begun having this problem while moving his furniture. He worried about his known history of coronary artery disease and went to the emergency room for additional assessment. On April 05, 2025, he was seen due to vomiting. He has no diarrhea or hematemesis or melena. He denied having any rigors, chills, or fever. Very little clear sputum. No hemoptysis. VS: HR 70 bmp, RR 16 bmp, BP 133/70, 99% RA, 98.1 F, Remarkable labs: Chemistry: BUN 22, Creatinine 1.6, Hematology: WBC 11.3, RBC 4.30, Hgb 11.8, Hct 37.2, MCHC 31.7, RDW 15.8, UA: +Leukocyte, Chest X-Rays: No acute cardiopulmonary pathology is evident. EKG: SR with RBBB, no acute ST elevations or depressions noted The patient was seen at bedside in 314. No family members at bedside. The patient appeared comfortable, breathing was even, unlabored, in no distress. RN reports patient stated he has trouble passing liquid end food. He reports that he has a pending endoscopy on Thursday by GI. I informed the patient of labs, diagnostics, and plan of care. He verbalized understanding and is in agreement with the plan. 04/09/2025: Patient is seen and evaluated in the room 314. He is not having any symptoms today. His vitals are in the normal range except for pulse is 56. His labs are in the normal range except for hemoglobin 11.5, BUN is 21, ALP is 34, BNP is 158, TSH is 0.25. Chest X-ray is normal. Ct chest showed emphysema, small ground glass nodules. He had some difficulty in finding words. So we did a CT scan of brain and it is normal. So we ordered MRI. As his TSH is low we ordered free T3 and free T4. Free T4 is 0.67 and free T3 is 1.9. So we ordered LH, yazmin isol AM, FSH, ACTH. We started lasix 40mg daily. We also ordered SERGIO levels as he has a history of pulmonary sarcoidosis. We are waiting recommendations from cardiology. 04/10/2025: Patient was evaluated at bedside in room 314. Patient was taken to Lexiscan Cardiolite stress test this morning. Patient denied any symptoms today. Patient urine culture showed growth of group B strep agalactiae and will be continued on levofloxacin. Patient is pending evaluation for central hypopituitarism and and is pending LH, cortisol a.m., SERGIO, FSH, ACTH and ordered prolactin, IGF1, and Testosterone. Patient was started on low-dose Synthroid 25 mcg and endocrinology consult was obtained. Upper GI series was performed, which showed severe narrowing of the gastroesophageal junction which needs to be dilated and grade 1 esophageal reflux. Gastroenterology is on board and are planning EGD once clearance is obtained from Cardiology. 04/11/2025: Patient was evaluated at bedside in room 314. Patient Lexiscan Cardiolite stress test was normal and no signs of ischemia or infarcts and his EF was 74%. Patient denied chest pain, shortness of breath or angina equivalent but admits to difficulty tolerating solid diet. Currently able to tolerate soft GI diet. Endoscopy with possible balloon dilatation will be attempted once cardiac clearance is obtained. Endocrinology evaluated the patient and deemed t he hypothyroidism is most likely due to euthyroid sick syndrome and advised to discontinue levothyroxine. Repeat thyroid labs will be performed 1 week post discharge. Patient to be started on insulin Lantus 15 units daily at bedtime. REVIEW OF SYSTEMS CONSTITUTIONAL: Denies fevers, chills, or night sweats. No unintentional weight loss reported. NEUROLOGICAL: Denies headache, motor weakness, sensory deficit, vertigo/spinn ing sensation CARDIOVASCULAR: Denies any exertional angina, dyspnea on exertion, orthopnea, paroxysmal nocturnal dyspnea, palpitations PULMONARY: Denies any shortness of breath, cough, phlegm/sputum, hemoptysis, pleuritic chest pain. GASTROINTESTINAL: Admits to dysphagia to liquids. Denies nausea, vomiting, pyrosis, early satiety, abdominal pain, diarrhea, constipation GENITOURINARY: Denies frequency, urgency, nocturia, hematuria or incontinence DERMATOLOGIC: Denies rashes, itching, redness. PHYSICAL EXAM GENERAL APPEARANCE: The patient is awake, alert, and oriented, in no acute cardiopulmonary distress. NEUROLOGICAL: Cranial nerves II-XII grossly intact. Motor is 5/5 in bilateral upper and lower extremities proximal to distal. No sensory deficits. HEENT: Face is symmetric. Pupils are equal and reactive. Extraocular movements are intact. NECK: Supple. No JVD. No thyromegaly. No submental, submandibular, pre- /postauricular, occipital or supraclavicular lymphadenopathy. CHEST: Normal chest expansion. No Telemetry. LUNGS: Absence of any rales, rhonchi or any wheezing. CARDIOVASCULAR: Regular. S1 and S2 normal. No appreciable rubs, murmurs or gallops. ABDOMEN: Soft, nontender, and nondistended. There is no rebound, voluntary guarding, or rigidity. : Deferred. No [place]antoja. EXTREMITIES: Non-edematous and not cyanotic. No clubbing. Good capillary refill. SKIN: No skin breakdown. Vital Signs (last 8hr) Date Time Temp Pulse Resp B/P (MAP) Pulse Ox O2 Delivery O2 Flow Rate FiO2 04/11/25 08:00 97.9 73 16 134/75 97 Room Air 04/11/25 06:46 96 18 N/A Room Air 21 04/11/25 03:44 97.5 64 18 142/82 98 Room Air LABS: Laboratory: Test 04/11/25 05:21 04/11/25 04:28 04/10/25 08:17 04/10/25 08:16 Range/Units Whole Blood Glucose 127 H 70-110 MG/DL White Blood Count 8.0 4.8-10.8 K/uL Red Blood Count 4.33 L 4.50-6.20 MIL/uL Hemoglobin 12.0 L 14.0-18.0 g/dL Hematocrit 38.6 L 42-54 % Mean Corpuscular Volume 89.1 79-99 fL Mean Corpuscular Hemoglobin 27.7 27.0-33.0 pg Mean Corpuscular Hemoglobin Concent 31.1 L 32.0-36.0 g/dL Red Cell Distribution Width 15.8 H 11.0-15.5 % Platelet Count 201 130-400 K/uL Mean Platelet Volume 10.0 7.5-10.5 fL Nucleated Red Blood Cells 0.0 0.0-0.19 % Sodium Level 141 136-145 mmol/L Potassium Level 3.6 3.5-5.1 mmol/L Chloride Level 105 101-111 mmol/L Carbon Dioxide Level 28 21-32 mmol/L Blood Urea Nitrogen 11 7-18 mg/dL Creatinine 1.2 0.5-1.3 mg/dL Glomerular Filtration Rate Calc 67 >90 mL/min Random Glucose 122 #H 70-105 mg/dL Total Calcium 8.3 L 8.5-10.1 mg/dL Magnesium Level 2.10 1.80-2.40 mg/dL Total Creatine Kinase 43 # 21-232 U/L Current Medications Medications (Trade) Dose Ordered Sig/Michael Route PRN Reason Start Time Stop Time Status Last Admin Dose Admin Acetaminophen (TYLenol 325MG TAB) 650 mg Q6H PRN PO FEVER/MILD PAIN LEVEL 1-3 04/08/25 22:00 05/08/25 21:59 Acetaminophen (TYLenol 650MG SUPPOSITORY) 650 mg Q6H PRN RC FEVER / MILD PAIN 1-3 IF NPO 04/08/25 22:00 05/08/25 21:59 Albuterol Sulfate (Proventil 0.083% 2.5mg/3ml) 2.5 mg [id number] PRN IH SHORTNESS OF BREATH 04/08/25 22:00 05/08/25 21:59 Aspirin (Aspirin 81mg Chew Tab) 81 mg DAILY PO 04/09/25 09:00 05/09/25 08:59 04/11/25 09:14 81 MG Clopidogrel Bisulfate (plaVIX 75MG) 75 mg DAILY PO 04/10/25 09:00 05/10/25 08:59 04/11/25 09:15 75 MG Dextrose (D50w) 50 ml AD PRN IV HYPOGLYCEMIA PROTOCOL 04/09/25 06:30 05/09/25 06:29 Docusate Sodium (COLace 100MG CAP) 100 mg BID PRN PO CONSTIPATION 04/08/25 22:00 05/08/25 21:59 Enoxaparin Sodium (Lovenox) 40 mg DAILY SQ 04/08/25 21:55 05/08/25 21:54 04/09/25 09:18 40 MG Famotidine (Pepcid 20mg Tab) 20 mg BID PO 04/09/25 11:00 05/09/25 10:59 04/11/25 09:14 20 MG Famotidine (Pepcid 20mg Tab) 20 mg DAILY PRN PO HEARTBURN 04/09/25 11:30 04/09/25 11:10 DC Ferrous Sulfate (Ferrous Sulfate) 325 mg BID PO 04/09/25 21:00 05/09/25 20:59 04/11/25 09:14 325 MG Folic Acid (FOLic ACID 1 MG TABLET) 1 mg DAILY PO 04/10/25 09:00 05/10/25 08:59 04/11/25 09:15 1 MG Furosemide (LASix 40MG TAB) 40 mg DAILY PO 04/10/25 09:00 05/10/25 08:59 04/11/25 09:14 40 MG Gabapentin (NEURontin 300 MG CAP) 300 mg BID PO 04/09/25 21:00 05/09/25 20:59 04/11/25 09:13 300 MG Glucagon (Glucagon 1mg Kit) 1 mg AD PRN IM HYPOGLYCEMIA PROTOCOL 04/09/25 06:30 05/09/25 06:29 Home Med (Home Medication) (Fluticasone Propion/ [place]... DAILY IH 04/10/25 09:00 05/10/25 08:59 Home Med (Home Medication) (Magnesium Gluconate 1 TAB) BID PO 04/09/25 21:00 05/09/25 20:59 Home Med (Home Medication) (Rosuvastatin Calcium 40 MG) HS PO 04/09/25 21:00 05/09/25 20:59 Insulin Glargine (LANtus 100 UNITS/ML 10 ML VIAL) 15 units DAILY08 SQ 04/11/25 08:00 05/11/25 07:59 04/11/25 09:20 15 UNITS Insulin Human Regular (humuLIN R 100 UNIT/ML 3ML) INSULIN SLIDING SCAL... ACHS SQ 04/09/25 07:30 05/09/25 07:29 04/10/25 22:25 4 UNIT Ipratropium Orrum (AtrovENT UD) 0.5 mg [id number] PRN IH SHORTNESS OF BREATH/WHEEZING 04/08/25 22:00 05/08/25 21:59 Labetalol HCl (TRANdate 20MG SYG) 10 mg Q2H PRN IV SBP GREATER THAN 160 04/08/25 22:00 05/08/25 21:59 Lactobacillus Rhamnosus ([facility] Ozsale & [employer]) 1 each BID PO 04/09/25 21:00 05/09/25 20:59 04/11/25 09:14 1 EACH Lactulose (Constulose 20gm/ 30ml Udcup) 20 gm Q6H PRN PO CONSTIPATION 04/08/25 22:00 05/08/25 21:59 Levofloxacin/ Dextrose 50 ml @ 50 mls/hr Q24H IVPB 04/10/25 04:30 04/20/25 04:29 04/11/25 05:06 50 MLS/HR Levothyroxine Sodium (SYNTHroid 25MCG TAB) 25 mcg DAILY@0630 PO 04/11/25 06:30 04/11/25 07:27 DC 04/11/25 05:07 25 MCG Losartan Potassium (CozAAR 50 mg TAB) 50 mg DAILY PO 04/10/25 09:00 04/09/25 14:47 DC Magnesium Sulfate 50 ml @ 0 mls/hr PROTOCOL PRN IV MAGNESIUM PROTOCOL 04/09/25 06:30 05/09/25 06:29 04/09/25 23:44 25 MLS/HR Metoprolol Succinate (TopROL XL) 50 mg DAILY PO 04/10/25 09:00 05/10/25 08:59 04/11/25 09:15 50 MG Nitroglycerin (Nitrostat) 0.4 mg Q5M PRN SL CHEST PAIN 04/08/25 18:30 Ondansetron HCl (zoFRAN 4MG INJ) 4 mg Q6H PRN IVP NAUSEA/VOMITING 04/08/25 22:00 05/08/25 21:59 Pantoprazole Sodium (PROTonix 40MG TAB) 40 mg DAILY PO 04/10/25 09:00 04/09/25 11:11 DC Potassium Chloride 100 ml @ 100 mls/hr AD PRN IV POTASSIUM PROTOCOL 04/09/25 06:30 05/09/25 06:29 Potassium Chloride (K-Dur 10meq Sr Tab) 10 meq AD PRN PO POTASSIUM PROTOCOL 04/10/25 07:00 05/09/25 06:29 04/11/25 05:07 10 MEQ Potassium Chloride (K-Dur/Klor-Con 20meq) 10 meq AD PRN PO POTASSIUM PROTOCOL 04/09/25 06:30 04/10/25 06:58 DC 04/09/25 14:56 10 MEQ Potassium Chloride (KCl 10% Elixir 20meq/15ml) 10 meq AD PRN PO POTASSIUM PROTOCOL 04/09/25 06:30 05/09/25 06:29 Prednisone (deltaSONE/ oraSONE 20MG TAB) 20 mg DAILY PO 04/10/25 09:00 05/10/25 08:59 04/11/25 09:14 20 MG Ropinirole HCl (ropiNIRole HCL) 0.25 mg TID PO 04/09/25 14:00 05/09/25 13:59 04/11/25 09:14 0.25 MG Temazepam (restORIL 15 MG CAP) 15 mg HS PRN PO INSOMNIA/SLEEP 04/08/25 22:00 05/08/25 21:59 Tiotropium Orrum (Spiriva) 18 mcg DAILY PRN IH SHORTNESS OF BREATH/WHEEZING 04/09/25 11:30 04/09/25 11:23 DC Vitamin B Complex (Vitamin B-12) 100 mcg DAILY PO 04/10/25 09:00 05/10/25 08:59 04/11/25 09:14 100 MCG Vitamin B Complex/ Vit C/Folic Acid (Nephrovite Tablet) 1 cap DAILY PO 04/10/25 09:00 05/10/25 08:59 04/11/25 09:13 1 CAP DIAGNOSTICS / RADIOLOGY: [ ] ASSESSMENT: Unstable angina with normal troponins Pulmonary sarcoidosis, POA Acute complicated cystitis, POA Dysphagia, POA Acute on chronic kidney disease, GFR 48 Stroke rule out Anemia chronic disease, POA central hypothyroidism, 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 His EKG is normal. His troponins are negative. His BNP is 158. 2D echo showed LVEF greater than 55%, stage II diastolic dysfunction Cardiolite Lexiscan is normal showed no signs of infarcts or ischemia and LVEF was 74% Pulmonary sarcoidosis, POA His calcium level is 8.6. His CT chest showed Small ground-glass nodules in the right upper and middle lobes and right pleural based nodule (<6mm) and stable for 1 year. We ordered a SERGIO level, results pending Acute complicated cystitis, POA His urinalysis showed evidence of UTI. Urine culture showed growth of group B strep agalactiae susceptible to penicillins Patient has reported allergy to penicillins Continue levofloxacin (day 3). Dysphagia, POA He had an hiatal hernia repair in Mar 21 2025 Bedside swallow study is negative. GI was consulted and they recommended upper GI series, that showed severe gastroesophageal narrowing, grade 1 esophageal refill Plan is to do endoscopic dilation at the GE junction once cleared from Cardiology Acute on chronic kidney disease, GFR 48 His BUN is 22>21 and creatinine is 1.6>1.3 His baseline creatinine is 1.3 and BUN is 13. We will repeat his labs tomorrow. Stroke ruled out, patient has a history of CVA and TIA with residual speech difficulty and left lower limb weakness Patient had history of CVA and TIA with residual speech difficulty and left lower limb weakness and patient underwent post speech and physical therapy We did a CT of head and its normal. We ordered a MRI of brain, no evidence of infarcts or hemorrhage Anemia chronic disease, POA His hemoglobin is 11.8>11.5 We will repeat her labs tomorrow. Leukocytosis His WBC is 11.9>8.6 We will repeat his labs tomorrow. 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 So we ordered LH, cortisol AM, FSH, ACTH, prolactin, IGF-1, and testosterone Endocrinology recommended this is mostly euthyroid sick syndrome and central hypopituitarism is unlikely Repeat TSH free T3 and free T4-1 week after discharge from the hospital He is on GI/soft bland diet. DVT prophylaxis with SCD. GI prophylaxis with famotidine. ATTESTATION BY PHYSICIAN I have seen and examined the patient. I reviewed the documentation, medical decision making, and treatment plan as noted by the resident physician above. I agree with the findings and plan of care. HEATHER PINTO MD, HARSHAVARDHA MD Apr 11, 2025 10:03
--- NOTE | 2025-04-11 10:54 | PN ---
[facility] PROGRESS NOTE Date Patient Seen: Apr 11, 2025 Time of Visit: 10:54 Supervising Physician: Dr. Guillermo Maxwell Primary Care Physician: [[facility]] Outpatient Specialists: [ ] Inpatient Consults: [[facility]] PROBLEM LIST: Chest pain r/o cardiac etiology, troponin negative x2 Pulmonary sarcoidosis Acute complicated cystitis Dysphagia, in setting of recent hiatal hernia repair Acute on chronic kidney disease, GFR 48 Leukocytosis Chronic Problem List: Anemia chronic disease Cerebrovascular disease status post transient ischemic attack x2 and cer ebrovascular accident x1 Coronary artery disease s/p coronary artery bypass grafting x3 COPD w/o exacerbation Hypercholesteremia Hypertension INTERVAL HISTORY: Patient was assessed seen as well as examined resting in bed head of the bed is elevated, awake alert and oriented, appears in no acute distress. , vital signs stable. Patient is afebrile. Reviewed and discussed with patient laboratory results, vital signs, diagnostic tests results and treatment. After discussion, there were no questions or concerns raised by family patient. Further orders per course of stay with dispo per primary team. PLAN: Continue home dose of prednisone Follow GI recommendations. Follow cardiac workup Follow results of bedside swallow evaluation Continue current antibiotics Management per primary REVIEW OF SYSTEMS: 12 point ROS reviewed with patient. Pertinent positives mentioned above. Otherwise negative. PHYSICAL EXAM: GENERAL: alert, weak, awake oriented x 3 HEENT: EOMI, Sclera non icteric, moist mucosa NECK: Supple, no JVD, trachea midline LUNGS: Clear breath sounds bilaterally. No wheezes HEART: Regular rate and rhythm. Normal S1 and S2, without murmurs ABD: Abdomen soft, nontender. Bowel sounds present EXT: No clubbing cyanosis or edema NEURO: Alert and oriented to person, follows commands Vital Signs (last 8hr) Date Time Temp Pulse Resp B/P (MAP) Pulse Ox O2 Delivery O2 Flow Rate FiO2 04/11/25 08:00 97.9 73 16 134/75 97 Room Air 04/11/25 06:46 96 18 N/A Room Air 21 04/11/25 03:44 97.5 64 18 142/82 98 Room Air LABS: Hematology Labs: Test 04/11/25 04:28 Range/Units White Blood Count 8.0 4.8-10.8 K/uL Red Blood Count 4.33 L 4.50-6.20 MIL/uL Hemoglobin 12.0 L 14.0-18.0 g/dL Hematocrit 38.6 L 42-54 % Mean Corpuscular Volume 89.1 79-99 fL Mean Corpuscular Hemoglobin 27.7 27.0-33.0 pg Mean Corpuscular Hemoglobin Concent 31.1 L 32.0-36.0 g/dL Red Cell Distribution Width 15.8 H 11.0-15.5 % Platelet Count 201 130-400 K/uL Mean Platelet Volume 10.0 7.5-10.5 fL Nucleated Red Blood Cells 0.0 0.0-0.19 % Chemistry Labs: Test 04/11/25 05:21 04/11/25 04:28 04/10/25 08:17 04/10/25 08:16 Range/Units Whole Blood Glucose 127 H 70-110 MG/DL Sodium Level 141 136-145 mmol/L Potassium Level 3.6 3.5-5.1 mmol/L Chloride Level 105 101-111 mmol/L Carbon Dioxide Level 28 21-32 mmol/L Blood Urea Nitrogen 11 7-18 mg/dL Creatinine 1.2 0.5-1.3 mg/dL Glomerular Filtration Rate Calc 67 >90 mL/min Random Glucose 122 #H 70-105 mg/dL Total Calcium 8.3 L 8.5-10.1 mg/dL Magnesium Level 2.10 1.80-2.40 mg/dL Total Creatine Kinase 43 # 21-232 U/L DIAGNOSTICS / RADIOLOGY RESULTS: [ ] PLAN NEURO: Minimize central acting medications as possible. Maintain fall precautions, adequate lighting during the day PULMONARY: Supplemental 02 as needed. Maintain aspiration precautions at all times CARDIOVASCULAR: Follow hemodynamics. Vital signs per facility protocol GI & NUTRITION: Continue with nutritional support. Continue stool softeners and laxatives as needed. KIDNEYS & ELECTROLYTES: Strict monitoring of intake, output and overall fluid balance. Avoid nephrotoxic medications to the extent possible. Medications to be dosed according to renal function. Monitor electrolytes and replace as needed ENDOCRINE: Maintain blood glucose between 100-180 at all times. Hypoglycemia protocol in place INFECTIOUS DISEASE: Trend temperature, WBC and procalcitonin level Follow cultures, deescalate antibiotics as soon as possible. Panculture if new onset fever ONCOLOGY/HEMATOLOGY/COAGULATION: Monitor for s/s of bleeding Monitor hemoglobin, coagulation studies as needed SKIN: Pressure ulcer prevention per facility protocol Specialty mattress ORTHO/REHAB: Continue PT/OT Prophylaxis: Continue GI and DVT prophylaxis Code Status: Full Resuscitation Disposition: SABAS JENNINGS AGACNP Apr 11, 2025 10:54
--- NOTE | 2025-04-11 17:07 | PN ---
GASTROENTEROLOGY PROGRESS NOTE Date of Visit: Apr 11, 2025 Time of Visit: 17:05 Events / Notes: [Upper GI series showing severe narrowing of the GE junction which needs to be dilated. Results given to patient with recommendations for EGD with dilation. Patient verbalized understanding and agreed to EGD. Review of Systems: CONSTITUTIONAL: No malaise or change in sensation of wellbeing. ENMT: No rhinorrhea, otorrhea, sinus pain, ear ache. CARDIOVASCULAR: No angina, palpitations, orthopnea or paroxysmal dyspnea. RESPIRATORY: No SOB. GASTROINTESTINAL: No abdominal pain, nausea, vomiting, diarrhea, hematemesis, melena or change in the patient's habitual bowel movements consistency/number. GENITOURINARY: No dysuria, hematuria or change in bladder continence. MUSCULOSKELETAL: No new muscle pain or decrease in muscular strength. No new joint swelling, redness or tenderness. SKIN: No new rash. Physical Exam: GEN: Awake, alert, oriented in person, time and place, and in no acute distress. HEENT: No rhinorrhea. Oral mucosa is moist and within normal limits. CHEST: Lung auscultation revealed normal breath sounds bilaterally. CARDIAC:Heart sounds are regular. ABD: Soft, non-tender and not distended. No peritoneal signs on palpation. Normal bowel sounds SKIN: Intact. No rashes. NEURO: Alert and oriented to name, place and person.No focal motor deficits. Normal speech. Vital Signs (last 8hr) Date Time Temp Pulse Resp B/P (MAP) Pulse Ox O2 Delivery O2 Flow Rate FiO2 04/11/25 16:43 97 Room Air* 0 21 04/11/25 12:00 97.2 63 16 96/71 98 Room Air Laboratory: [ ] Laboratory: Test 04/11/25 15:31 04/11/25 04:28 04/10/25 08:17 04/10/25 08:16 Range/Units Whole Blood Glucose 185 H 70-110 MG/DL White Blood Count 8.0 4.8-10.8 K/uL Red Blood Count 4.33 L 4.50-6.20 MIL/uL Hemoglobin 12.0 L 14.0-18.0 g/dL Hematocrit 38.6 L 42-54 % Mean Corpuscular Volume 89.1 79-99 fL Mean Corpuscular Hemoglobin 27.7 27.0-33.0 pg Mean Corpuscular Hemoglobin Concent 31.1 L 32.0-36.0 g/dL Red Cell Distribution Width 15.8 H 11.0-15.5 % Platelet Count 201 130-400 K/uL Mean Platelet Volume 10.0 7.5-10.5 fL Nucleated Red Blood Cells 0.0 0.0-0.19 % Sodium Level 141 136-145 mmol/L Potassium Level 3.6 3.5-5.1 mmol/L Chloride Level 105 101-111 mmol/L Carbon Dioxide Level 28 21-32 mmol/L Blood Urea Nitrogen 11 7-18 mg/dL Creatinine 1.2 0.5-1.3 mg/dL Glomerular Filtration Rate Calc 67 >90 mL/min Random Glucose 122 #H 70-105 mg/dL Total Calcium 8.3 L 8.5-10.1 mg/dL Magnesium Level 2.10 1.80-2.40 mg/dL Follicle Stimulating Hormone 6.4 1.5-12.4 mIU/mL Luteinizing Hormone 6.6 1.7-8.6 mIU/mL Cortisol AM Sample 3.3 L 6.2-19.4 ug/dL ACTH Baseline 15.3 7.2-63.3 pg/mL Total Creatine Kinase 43 # 21-232 U/L Current Medications Medications (Trade) Dose Ordered Sig/Michael Route PRN Reason Start Time Stop Time Status Last Admin Dose Admin Acetaminophen (TYLenol 325MG TAB) 650 mg Q6H PRN PO FEVER/MILD PAIN LEVEL 1-3 04/08/25 22:00 05/08/25 21:59 Acetaminophen (TYLenol 650MG SUPPOSITORY) 650 mg Q6H PRN RC FEVER / MILD PAIN 1-3 IF NPO 04/08/25 22:00 05/08/25 21:59 Albuterol Sulfate (Proventil 0.083% 2.5mg/3ml) 2.5 mg [id number] PRN IH SHORTNESS OF BREATH 04/08/25 22:00 05/08/25 21:59 Aspirin (Aspirin 81mg Chew Tab) 81 mg DAILY PO 04/09/25 09:00 05/09/25 08:59 04/11/25 09:14 81 MG Clopidogrel Bisulfate (plaVIX 75MG) 75 mg DAILY PO 04/10/25 09:00 05/10/25 08:59 04/11/25 09:15 75 MG Dextrose (D50w) 50 ml AD PRN IV HYPOGLYCEMIA PROTOCOL 04/09/25 06:30 05/09/25 06:29 Docusate Sodium (COLace 100MG CAP) 100 mg BID PRN PO CONSTIPATION 04/08/25 22:00 05/08/25 21:59 Enoxaparin Sodium (Lovenox) 40 mg DAILY SQ 04/08/25 21:55 05/08/25 21:54 04/09/25 09:18 40 MG Famotidine (Pepcid 20mg Tab) 20 mg BID PO 04/09/25 11:00 05/09/25 10:59 04/11/25 09:14 20 MG Famotidine (Pepcid 20mg Tab) 20 mg DAILY PRN PO HEARTBURN 04/09/25 11:30 04/09/25 11:10 DC Ferrous Sulfate (Ferrous Sulfate) 325 mg BID PO 04/09/25 21:00 05/09/25 20:59 04/11/25 09:14 325 MG Folic Acid (FOLic ACID 1 MG TABLET) 1 mg DAILY PO 04/10/25 09:00 05/10/25 08:59 04/11/25 09:15 1 MG Furosemide (LASix 40MG TAB) 40 mg DAILY PO 04/10/25 09:00 05/10/25 08:59 04/11/25 09:14 40 MG Gabapentin (NEURontin 300 MG CAP) 300 mg BID PO 04/09/25 21:00 05/09/25 20:59 04/11/25 09:13 300 MG Glucagon (Glucagon 1mg Kit) 1 mg AD PRN IM HYPOGLYCEMIA PROTOCOL 04/09/25 06:30 05/09/25 06:29 Home Med (Home Medication) (Fluticasone Propion/ [place]... DAILY IH 04/10/25 09:00 05/10/25 08:59 Home Med (Home Medication) (Magnesium Gluconate 1 TAB) BID PO 04/09/25 21:00 05/09/25 20:59 Home Med (Home Medication) (Rosuvastatin Calcium 40 MG) HS PO 04/09/25 21:00 05/09/25 20:59 Insulin Glargine (LANtus 100 UNITS/ML 10 ML VIAL) 15 units DAILY08 SQ 04/11/25 08:00 05/11/25 07:59 04/11/25 09:20 15 UNITS Insulin Human Regular (humuLIN R 100 UNIT/ML 3ML) INSULIN SLIDING SCAL... ACHS SQ 04/09/25 07:30 05/09/25 07:29 04/11/25 16:28 4 UNIT Ipratropium [place] (AtrovENT UD) 0.5 mg [id number] PRN IH SHORTNESS OF BREATH/WHEEZING 04/08/25 22:00 05/08/25 21:59 Labetalol HCl (TRANdate 20MG SYG) 10 mg Q2H PRN IV SBP GREATER THAN 160 04/08/25 22:00 05/08/25 21:59 Lactobacillus Rhamnosus ([facility] [employer]) 1 each BID PO 04/09/25 21:00 05/09/25 20:59 04/11/25 09:14 1 EACH Lactulose (Constulose 20gm/ 30ml Udcup) 20 gm Q6H PRN PO CONSTIPATION 04/08/25 22:00 05/08/25 21:59 Levofloxacin/ Dextrose 50 ml @ 50 mls/hr Q24H IVPB 04/10/25 04:30 04/20/25 04:29 04/11/25 05:06 50 MLS/HR Levothyroxine Sodium (SYNTHroid 25MCG TAB) 25 mcg DAILY@0630 PO 04/11/25 06:30 04/11/25 07:27 DC 04/11/25 05:07 25 MCG Losartan Potassium (CozAAR 50 mg TAB) 50 mg DAILY PO 04/10/25 09:00 04/09/25 14:47 DC Magnesium Sulfate 50 ml @ 0 mls/hr PROTOCOL PRN IV MAGNESIUM PROTOCOL 04/09/25 06:30 05/09/25 06:29 04/09/25 23:44 25 MLS/HR Metoprolol Succinate (TopROL XL) 50 mg DAILY PO 04/10/25 09:00 05/10/25 08:59 04/11/25 09:15 50 MG Nitroglycerin (Nitrostat) 0.4 mg Q5M PRN SL CHEST PAIN 04/08/25 18:30 Ondansetron HCl (zoFRAN 4MG INJ) 4 mg Q6H PRN IVP NAUSEA/VOMITING 04/08/25 22:00 05/08/25 21:59 Pantoprazole Sodium (PROTonix 40MG TAB) 40 mg DAILY PO 04/10/25 09:00 04/09/25 11:11 DC Potassium Chloride 100 ml @ 100 mls/hr AD PRN IV POTASSIUM PROTOCOL 04/09/25 06:30 05/09/25 06:29 Potassium Chloride (K-Dur 10meq Sr Tab) 10 meq AD PRN PO POTASSIUM PROTOCOL 04/10/25 07:00 05/09/25 06:29 04/11/25 05:07 10 MEQ Potassium Chloride (K-Dur/Klor-Con 20meq) 10 meq AD PRN PO POTASSIUM PROTOCOL 04/09/25 06:30 04/10/25 06:58 DC 04/09/25 14:56 10 MEQ Potassium Chloride (KCl 10% Elixir 20meq/15ml) 10 meq AD PRN PO POTASSIUM PROTOCOL 04/09/25 06:30 05/09/25 06:29 Prednisone (deltaSONE/ oraSONE 20MG TAB) 20 mg DAILY PO 04/10/25 09:00 05/10/25 08:59 04/11/25 09:14 20 MG Ropinirole HCl (ropiNIRole HCL) 0.25 mg TID PO 04/09/25 14:00 05/09/25 13:59 04/11/25 13:54 0.25 MG Temazepam (restORIL 15 MG CAP) 15 mg HS PRN PO INSOMNIA/SLEEP 04/08/25 22:00 05/08/25 21:59 Tiotropium [place] (Spiriva) 18 mcg DAILY PRN IH SHORTNESS OF BREATH/WHEEZING 04/09/25 11:30 04/09/25 11:23 DC Vitamin B Complex (Vitamin B-12) 100 mcg DAILY PO 04/10/25 09:00 05/10/25 08:59 04/11/25 09:14 100 MCG Vitamin B Complex/ Vit C/Folic Acid (Nephrovite Tablet) 1 cap DAILY PO 04/10/25 09:00 05/10/25 08:59 04/11/25 09:13 1 CAP Diagnostics / Radiology: [COPY/PASTE HERE IF NO REPORTS PLEASE DELETE SECTION] Assessment: [Epigastric/substernal pain S/P esophageal hernia repair on 03/21/25 CAD s/p CABG COPD HTN ] Plan: Case discussed with Dr. Soliz and Dr. Rigoberto SHER positive for severe narrowing of GE Junction Plan for EGD with dilation in am. Information given to patient and all his questions were answered. He agreed to proceed. Cardiac clearance Please call with questions, concerns, and change in clinical status. ] CHEY RAMIREZ FLAKE DRIER Apr 11, 2025 17:07
--- NOTE | 2025-04-11 21:22 | PN ---
endocrinology progress note DOS:04/11/25 subjective: Home diabetic regimen: lantus 25 units daily, ozempic 2 mg weekly and jardiance 25 mg daily, Hba1c 6.9% TSH 0.25, t 4 free 0.67, t 3 free 1.90 my suspicion is low for hypopituitarism and high for sick euthyroid, pituitary hormonal labs LH, FSH, AM cortisol, testosterone and IGF-1 labs has been ordered. reports that recent thyroid function with endocrinology was normal. REVIEW OF SYSTEMS 12-point ROS system was reviewed with the patient. All pertinent positives mentioned above. Otherwise negative, noncontributory, nonpertinent. PAST MEDICAL HISTORY As mentioned above. PAST SURGICAL HISTORY CABG, neck lymph node removal. PAST SOCIAL HISTORY Denies alcohol, tobacco, illicit drug use. FAMILY HISTORY Noncontributory Coded Allergies: atorvastatin (Verified Allergy, Severe, RASH, 10/15/17) Penicillins (Verified Allergy, Unknown, 12/22/14) peanut (Unverified Allergy, Unknown, 03/26/23) ASSESSMENT: Hypothyroidism TSH 0.25, t 4 free 0.67, t 3 free 1.90, clinically euthyroid. my suspicion is low for hypopituitarism and high for sick euthyroid, pituitary hormonal labs LH, FSH, AM cortisol, testosterone and IGF-1 labs has been ordered. DM-2, POA Home diabetic regimen: lantus 25 units daily, ozempic 2 mg weekly and jardiance 25 mg daily, Hba1c 6.9% reports that recent thyroid function with endocrinology was normal. Chest pain r/o cardiac etiology, POA, troponin negative x2 Pulmonary sarcoidosis, POA Acute complicated cystitis, POA Dysphagia, POA Acute on chronic kidney disease, GFR 48 Anemia chronic disease, POA Leukocytosis Chronic problem list: TIA x2, CVA, CAD, COPD w home CPAP use, hypercholesteremia, hypertension, pulmonary sarcoidosis, triple bypass PLAN: off levothyroxine 25 mcg and repeat thyroid labs in 1 week. follow on pituitary hormonal labs. continue Lantus 10 units daily and adjust for fasting glucose. start Regular insulin 3 units three times before meals if post-prandial glucose. continue medium dose sliding scale insulin. Monitor glucose q x 6 hourly. Continue carb consistent diet. Keep glucose less than 180 mg/dl. 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 Vitals/Labs Vital Signs Date Time Temp Pulse Resp B/P (MAP) Pulse Ox O2 Delivery O2 Flow Rate FiO2 04/11/25 19:32 18 N/A Room Air 21 04/11/25 16:43 97 0 04/11/25 16:00 98.2 78 106/63 Laboratory Tests 04/11/25 04:28 Medications Current Medications Nitroglycerin 0.4 mg Q5M PRN SL; Start 04/08/25 at 18:30 Aspirin 325 mg ONCE ONCE PO Last administered on 04/08/25at 18:47; Start 04/08/25 at 18:30; Stop 04/08/25 at 18:31; Status DC Albuterol Sulfate 2.5 mg [id number] PRN IH; Start 04/08/25 at 22:00; Stop 05/08/25 at 21:59 Ipratropium [place] 0.5 mg [id number] PRN IH; Start 04/08/25 at 22:00; Stop 05/08/25 at 21:59 Enoxaparin Sodium 40 mg DAILY SQ Last administered on 04/09/25at 09:18; Start 04/08/25 at 21:55; Stop 05/08/25 at 21:54 Acetaminophen 650 mg Q6H PRN PO; Start 04/08/25 at 22:00; Stop 05/08/25 at 21:59 Acetaminophen 650 mg Q6H PRN RC; Start 04/08/25 at 22:00; Stop 05/08/25 at 21:59 Lactulose 20 gm Q6H PRN PO; Start 04/08/25 at 22:00; Stop 05/08/25 at 21:59 Docusate Sodium 100 mg BID PRN PO; Start 04/08/25 at 22:00; Stop 05/08/25 at 21:59 Temazepam 15 mg HS PRN PO; Start 04/08/25 at 22:00; Stop 05/08/25 at 21:59 Ondansetron HCl 4 mg Q6H PRN IVP; Start 04/08/25 at 22:00; Stop 05/08/25 at 21:59 Labetalol HCl 10 mg Q2H PRN IV; Start 04/08/25 at 22:00; Stop 05/08/25 at 21:59 Insulin Human Regular INSULIN SLIDING SCAL... ACHS SQ Last administered on 04/11/25at 16:28; Start 04/09/25 at 07:30; Stop 05/09/25 at 07:29 Aspirin 81 mg DAILY PO Last administered on 04/11/25at 09:14; Start 04/09/25 at 09:00; Stop 05/09/25 at 08:59 Levofloxacin/ Dextrose 100 ml @ 100 mls/hr ONCE ONCE IV; Start 04/09/25 at 23:30; Stop 04/09/25 at 04:28; Status DC Levofloxacin/ Dextrose 100 ml @ 100 mls/hr ONCE ONCE IV Last administered on 04/09/25at 04:34; Start 04/09/25 at 04:30; Stop 04/09/25 at 05:29; Status DC Levofloxacin/ Dextrose 50 ml @ 50 mls/hr Q24H IVPB Last administered on 04/11/25at 05:06; Start 04/10/25 at 04:30; Stop 04/20/25 at 04:29 Dextrose 50 ml AD PRN IV; Start 04/09/25 at 06:30; Stop 05/09/25 at 06:29 Glucagon 1 mg AD PRN IM; Start 04/09/25 at 06:30; Stop 05/09/25 at 06:29 Magnesium Sulfate 50 ml @ 0 mls/hr PROTOCOL PRN IV Last administered on 04/09/25at 23:44; Start 04/09/25 at 06:30; Stop 05/09/25 at 06:29 Potassium Chloride 100 ml @ 100 mls/hr AD PRN IV; Start 04/09/25 at 06:30; Stop 05/09/25 at 06:29 Potassium Chloride 10 meq AD PRN PO; Start 04/09/25 at 06:30; Stop 05/09/25 at 06:29 Potassium Chloride 10 meq AD PRN PO Last administered on 04/09/25at 14:56; Start 04/09/25 at 06:30; Stop 04/10/25 at 06:58; Status DC Famotidine 20 mg BID PO Last administered on 04/11/25at 09:14; Start 04/09/25 at 11:00; Stop 05/09/25 at 10:59 Clopidogrel Bisulfate 75 mg DAILY PO Last administered on 04/11/25at 09:15; Start 04/10/25 at 09:00; Stop 05/10/25 at 08:59 Famotidine 20 mg DAILY PRN PO; Start 04/09/25 at 11:30; Stop 04/09/25 at 11:10; Status DC Folic Acid 1 mg DAILY PO Last administered on 04/11/25at 09:15; Start 04/10/25 at 09:00; Stop 05/10/25 at 08:59 Gabapentin 300 mg BID PO Last administered on 04/11/25at 09:13; Start 04/09/25 at 21:00; Stop 05/09/25 at 20:59 Losartan Potassium 50 mg DAILY PO; Start 04/10/25 at 09:00; Stop 04/09/25 at 14:47; Status DC Metoprolol Succinate 50 mg DAILY PO Last administered on 04/11/25at 09:15; Start 04/10/25 at 09:00; Stop 05/10/25 at 08:59 Pantoprazole Sodium 40 mg DAILY PO; Start 04/10/25 at 09:00; Stop 04/09/25 at 11:11; Status DC Prednisone 20 mg DAILY PO Last administered on 04/11/25at 09:14; Start 04/10/25 at 09:00; Stop 05/10/25 at 08:59 Ropinirole HCl 0.25 mg TID PO Last administered on 04/11/25at 13:54; Start 04/09/25 at 14:00; Stop 05/09/25 at 13:59 Tiotropium [place] 18 mcg DAILY PRN IH; Start 04/09/25 at 11:30; Stop 04/09/25 at 11:23; Status DC Vitamin B Complex 100 mcg DAILY PO Last administered on 04/11/25at 09:14; Start 04/10/25 at 09:00; Stop 05/10/25 at 08:59 Ferrous Sulfate 325 mg BID PO Last administered on 04/11/25at 09:14; Start 04/09/25 at 21:00; Stop 05/09/25 at 20:59 Home Med (Fluticasone Propion/ [place]... DAILY IH; Start 04/10/25 at 09:00; Stop 05/10/25 at 08:59 Vitamin B Complex/ Vit C/Folic Acid 1 cap DAILY PO Last administered on 04/11/25at 09:13; Start 04/10/25 at 09:00; Stop 05/10/25 at 08:59 Lactobacillus Rhamnosus 1 each BID PO Last administered on 04/11/25at 09:14; Start 04/09/25 at 21:00; Stop 05/09/25 at 20:59 Home Med (Magnesium Gluconate 1 TAB) BID PO; Start 04/09/25 at 21:00; Stop 05/09/25 at 20:59 Home Med (Rosuvastatin Calcium 40 MG) HS PO; Start 04/09/25 at 21:00; Stop 05/09/25 at 20:59 Furosemide 40 mg DAILY PO Last administered on 04/11/25at 09:14; Start 04/10/25 at 09:00; Stop 05/10/25 at 08:59 Potassium Chloride 10 meq AD PRN PO Last administered on 04/11/25at 05:07; Start 04/10/25 at 07:00; Stop 05/09/25 at 06:29 Regadenoson 0.4 mg STK-MED ONCE IVP Last administered on 04/10/25at 09:43; Start 04/10/25 at 09:42; Stop 04/10/25 at 09:42; Status DC Levothyroxine Sodium 25 mcg DAILY@0630 PO Last administered on 04/11/25at 05:07; Start 04/11/25 at 06:30; Stop 04/11/25 at 07:27; Status DC Insulin Glargine 15 units DAILY08 SQ Last administered on 04/11/25at 09:20; Start 04/11/25 at 08:00; Stop 05/11/25 at 07:59 ENA CELESTIN MD Apr 11, 2025 21:22
[2025-04-12] VITALS (22 sets, daily range): BP systolic 99–137; BP diastolic 46–69; PULSE 60–79; RESP 15–21; TEMP 97.2–98; O2SAT 96–99
[2025-04-12 04:35] LABS: NUCLEATED RED BLOOD CELLS 0.0 % (0.0-0.19); PLATELET COUNT (AUTO) 214.0 K/uL (130-400); RED BLOOD CELL COUNT(AUTO) 4.21 MIL/uL (4.50-6.20); RED CELL DISTRIBUTION WIDTH 15.7 % (11.0-15.5); WHITE BLOOD COUNT (AUTO) 11.3 K/uL (4.8-10.8)
[2025-04-12 04:45] LABS: CREATININE 1.2 mg/dL (0.5-1.3); GLOMERULAR FILTR. RATE CALC 67.0 mL/min (>90); GLUCOSE,RANDOM 102.0 mg/dL (70-105); SODIUM SERUM 141.0 mmol/L (136-145); UREA NITROGEN, BLOOD 17.0 mg/dL (7-18)
--- NOTE | 2025-04-12 08:40 | NUR ---
SPOKE TO DR CELESTIN RE: CONSULT; STATED IS OUT OF TOWN UNTIL THURSDAY BUT HE WILL REVIEW CHART
--- NOTE | 2025-04-12 09:52 | PN ---
[facility] PROGRESS NOTE Date of Service: Apr 12, 2025 Time of Service: 09:51 SUBJECTIVE: Mr. Bruner is a 64-year-old male with a history of TIA x2, CVA, CAD, COPD w home CPAP use, hypercholesteremia, hypertension, pulmonary sarcoidosis, triple bypass who presented to [facility] via EMS for evaluation of sternal and lower chest discomfort and shortness of breath onset a few days now. The patient reported that Dr. Franklin of [facility] performed a laparoscopic hiatal hernia repair on March 21, 2025. He was reportedly informed that scar tissue prevented his stomach from being optimally pulled back into abdomen, and he was also afraid of extending the anesthesia because of his underlying lung problems. He was doing fairly well postoperatively and saw his surgeon today. He reported his shareholder, Dr. Luis Rosenberg is planning to do a CT scan of his chest on him but wanted to wait until his GI issues settled down. He returned today with substernal chest pain that begun at 2:40 p.m. and spread to his left arm and jaw. He begun having this problem while moving his furniture. He worried about his known history of coronary artery disease and went to the emergency room for additional assessment. On April 05, 2025, he was seen due to vomiting. He has no diarrhea or hematemesis or melena. He denied having any rigors, chills, or fever. Very little clear sputum. No hemoptysis. VS: HR 70 bmp, RR 16 bmp, BP 133/70, 99% RA, 98.1 F, Remarkable labs: Chemistry: BUN 22, Creatinine 1.6, Hematology: WBC 11.3, RBC 4.30, Hgb 11.8, Hct 37.2, MCHC 31.7, RDW 15.8, UA: +Leukocyte, Chest X-Rays: No acute cardiopulmonary pathology is evident. EKG: SR with RBBB, no acute ST elevations or depressions noted The patient was seen at bedside in 314. No family members at bedside. The patient appeared comfortable, breathing was even, unlabored, in no distress. RN reports patient stated he has trouble passing liquid end food. He reports that he has a pending endoscopy on Thursday by GI. I informed the patient of labs, diagnostics, and plan of care. He verbalized understanding and is in agreement with the plan. 04/09/2025: Patient is seen and evaluated in the room 314. He is not having any symptoms today. His vitals are in the normal range except for pulse is 56. His labs are in the normal range except for hemoglobin 11.5, BUN is 21, ALP is 34, BNP is 158, TSH is 0.25. Chest X-ray is normal. Ct chest showed emphysema, small ground glass nodules. He had some difficulty in finding words. So we did a CT scan of brain and it is normal. So we ordered MRI. As his TSH is low we ordered free T3 and free T4. Free T4 is 0.67 and free T3 is 1.9. So we ordered LH, yazmin isol AM, FSH, ACTH. We started lasix 40mg daily. We also ordered SERGIO levels as he has a history of pulmonary sarcoidosis. We are waiting recommendations from cardiology. 04/10/2025: Patient was evaluated at bedside in room 314. Patient was taken to Lexiscan Cardiolite stress test this morning. Patient denied any symptoms today. Patient urine culture showed growth of group B strep agalactiae and will be continued on levofloxacin. Patient is pending evaluation for central hypopituitarism and and is pending LH, cortisol a.m., SERGIO, FSH, ACTH and ordered prolactin, IGF1, and Testosterone. Patient was started on low-dose Synthroid 25 mcg and endocrinology consult was obtained. Upper GI series was performed, which showed severe narrowing of the gastroesophageal junction which needs to be dilated and grade 1 esophageal reflux. Gastroenterology is on board and are planning EGD once clearance is obtained from Cardiology. 04/11/2025: Patient was evaluated at bedside in room 314. Patient Lexiscan Cardiolite stress test was normal and no signs of ischemia or infarcts and his EF was 74%. Patient denied chest pain, shortness of breath or angina equivalent but admits to difficulty tolerating solid diet. Currently able to tolerate soft GI diet. Endoscopy with possible balloon dilatation will be attempted once cardiac clearance is obtained. Endocrinology evaluated the patient and deemed t he hypothyroidism is most likely due to euthyroid sick syndrome and advised to discontinue levothyroxine. Repeat thyroid labs will be performed 1 week post discharge. Patient to be started on insulin Lantus 15 units daily at bedtime. 04/12/2025: Patient was evaluated at bedside in room 314. He was hemodynamically stable and appeared in no acute cardiopulmonary distress. This morning he underwent upper GI endoscopy with a balloon dilation performed up to [address] Heydi Matson. Patient tolerated the procedure well and was resumed on full liquid diet. We will continue to monitor patient and advance diet as tolerated and consider for discharge tomorrow. REVIEW OF SYSTEMS CONSTITUTIONAL: Denies fevers, chills, or night sweats. No unintentional weight loss reported. NEUROLOGICAL: Denies headache, motor weakness, sensory deficit, vertigo/spinning sensation CARDIOVASCULAR: Denies any exertional angina, dyspnea on exertion, orthopnea, paroxysmal nocturnal dyspnea, palpitations PULMONARY: Denies any shortness of breath, cough, phlegm/sputum, hemoptysis, pleuritic chest pain. GASTROINTESTINAL: Admits to dysphagia to liquids. Denies nausea, vomiting, pyrosis, early satiety, abdominal pain, diarrhea, constipation GENITOURINARY: Denies frequency, urgency, nocturia, hematuria or incontinence DERMATOLOGIC: Denies rashes, itching, redness. PHYSICAL EXAM GENERAL APPEARANCE: The patient is awake, alert, and oriented, in no acute cardiopulmonary distress. NEUROLOGICAL: Cranial nerves II-XII grossly intact. Motor is 5/5 in bilateral upper and lower extremities proximal to distal. No sensory deficits. HEENT: Face is symmetric. Pupils are equal and reactive. Extraocular movements are intact. NECK: Supple. No JVD. No thyromegaly. No submental, submandibular, pre- /postauricular, occipital or supraclavicular lymphadenopathy. CHEST: Normal chest expansion. No Telemetry. LUNGS: Absence of any rales, rhonchi or any wheezing. CARDIOVASCULAR: Regular. S1 and S2 normal. No appreciable rubs, murmurs or gallops. ABDOMEN: Soft, nontender, and nondistended. There is no rebound, voluntary guarding, or rigidity. : Deferred. No Pantoja. EXTREMITIES: Non-edematous and not cyanotic. No clubbing. Good capillary refill. SKIN: No skin breakdown. Vital Signs (last 8hr) Date Time Temp Pulse Resp B/P (MAP) Pulse Ox O2 Delivery O2 Flow Rate FiO2 04/12/25 07:31 72 18 N/A Room Air 21 04/12/25 04:00 97.5 70 17 137/69 96 Room Air LABS: Laboratory: Test 04/12/25 05:35 04/12/25 04:23 Range/Units Whole Blood Glucose 98 # 70-110 MG/DL White Blood Count 11.3 #H 4.8-10.8 K/uL Red Blood Count 4.21 L 4.50-6.20 MIL/uL Hemoglobin 11.9 L 14.0-18.0 g/dL Hematocrit 36.6 L 42-54 % Mean Corpuscular Volume 86.9 79-99 fL Mean Corpuscular Hemoglobin 28.3 27.0-33.0 pg Mean Corpuscular Hemoglobin Concent 32.5 32.0-36.0 g/dL Red Cell Distribution Width 15.7 H 11.0-15.5 % Platelet Count 214 130-400 K/uL Mean Platelet Volume 10.0 7.5-10.5 fL Nucleated Red Blood Cells 0.0 0.0-0.19 % Sodium Level 141 136-145 mmol/L Potassium Level 3.6 3.5-5.1 mmol/L Chloride Level 103 101-111 mmol/L Carbon Dioxide Level 28 21-32 mmol/L Blood Urea Nitrogen 17 7-18 mg/dL Creatinine 1.2 0.5-1.3 mg/dL Glomerular Filtration Rate Calc 67 >90 mL/min Random Glucose 102 70-105 mg/dL Total Calcium 8.6 8.5-10.1 mg/dL Current Medications Medications (Trade) Dose Ordered Sig/Michael Route PRN Reason Start Time Stop Time Status Last Admin Dose Admin Acetaminophen (TYLenol 325MG TAB) 650 mg Q6H PRN PO FEVER/MILD PAIN LEVEL 1-3 04/08/25 22:00 05/08/25 21:59 Acetaminophen (TYLenol 650MG SUPPOSITORY) 650 mg Q6H PRN RC FEVER / MILD PAIN 1-3 IF NPO 04/08/25 22:00 05/08/25 21:59 Albuterol Sulfate (Proventil 0.083% 2.5mg/3ml) 2.5 mg [id number] PRN IH SHORTNESS OF BREATH 04/08/25 22:00 05/08/25 21:59 Aspirin (Aspirin 81mg Chew Tab) 81 mg DAILY PO 04/09/25 09:00 05/09/25 08:59 04/11/25 09:14 81 MG Clopidogrel Bisulfate (plaVIX 75MG) 75 mg DAILY PO 04/10/25 09:00 05/10/25 08:59 04/11/25 09:15 75 MG Dextrose (D50w) 50 ml AD PRN IV HYPOGLYCEMIA PROTOCOL 04/09/25 06:30 05/09/25 06:29 Docusate Sodium (COLace 100MG CAP) 100 mg BID PRN PO CONSTIPATION 04/08/25 22:00 05/08/25 21:59 Enoxaparin Sodium (Lovenox) 40 mg DAILY SQ 04/08/25 21:55 05/08/25 21:54 04/09/25 09:18 40 MG Famotidine (Pepcid 20mg Tab) 20 mg BID PO 04/09/25 11:00 05/09/25 10:59 04/11/25 21:18 20 MG Famotidine (Pepcid 20mg Tab) 20 mg DAILY PRN PO HEARTBURN 04/09/25 11:30 04/09/25 11:10 DC Ferrous Sulfate (Ferrous Sulfate) 325 mg BID PO 04/09/25 21:00 05/09/25 20:59 04/11/25 21:17 325 MG Folic Acid (FOLic ACID 1 MG TABLET) 1 mg DAILY PO 04/10/25 09:00 05/10/25 08:59 04/11/25 09:15 1 MG Furosemide (LASix 40MG TAB) 40 mg DAILY PO 04/10/25 09:00 05/10/25 08:59 04/11/25 09:14 40 MG Gabapentin (NEURontin 300 MG CAP) 300 mg BID PO 04/09/25 21:00 05/09/25 20:59 04/11/25 21:17 300 MG Glucagon (Glucagon 1mg Kit) 1 mg AD PRN IM HYPOGLYCEMIA PROTOCOL 04/09/25 06:30 05/09/25 06:29 Home Med (Home Medication) (Fluticasone Propion/ [place]... DAILY IH 04/10/25 09:00 05/10/25 08:59 Home Med (Home Medication) (Magnesium Gluconate 1 TAB) BID PO 04/09/25 21:00 05/09/25 20:59 Home Med (Home Medication) (Rosuvastatin Calcium 40 MG) HS PO 04/09/25 21:00 05/09/25 20:59 Insulin Glargine (LANtus 100 UNITS/ML 10 ML VIAL) 15 units DAILY08 SQ 04/11/25 08:00 05/11/25 07:59 04/11/25 09:20 15 UNITS Insulin Human Regular (humuLIN R 100 UNIT/ML 3ML) INSULIN SLIDING SCAL... ACHS SQ 04/09/25 07:30 05/09/25 07:29 04/11/25 21:21 6 UNIT Ipratropium [place] (AtrovENT UD) 0.5 mg [id number] PRN IH SHORTNESS OF BREATH/WHEEZING 04/08/25 22:00 05/08/25 21:59 Labetalol HCl (TRANdate 20MG SYG) 10 mg Q2H PRN IV SBP GREATER THAN 160 04/08/25 22:00 05/08/25 21:59 Lactobacillus Rhamnosus ([facility] [employer]) 1 each BID PO 04/09/25 21:00 05/09/25 20:59 04/11/25 21:18 1 EACH Lactulose (Constulose 20gm/ 30ml Udcup) 20 gm Q6H PRN PO CONSTIPATION 04/08/25 22:00 05/08/25 21:59 Levofloxacin/ Dextrose 50 ml @ 50 mls/hr Q24H IVPB 04/10/25 04:30 04/20/25 04:29 04/12/25 05:08 50 MLS/HR Levothyroxine Sodium (SYNTHroid 25MCG TAB) 25 mcg DAILY@0630 PO 04/11/25 06:30 04/11/25 07:27 DC 04/11/25 05:07 25 MCG Losartan Potassium (CozAAR 50 mg TAB) 50 mg DAILY PO 04/10/25 09:00 04/09/25 14:47 DC Magnesium Sulfate 50 ml @ 0 mls/hr PROTOCOL PRN IV MAGNESIUM PROTOCOL 04/09/25 06:30 05/09/25 06:29 04/09/25 23:44 25 MLS/HR Metoprolol Succinate (TopROL XL) 50 mg DAILY PO 04/10/25 09:00 05/10/25 08:59 04/12/25 09:10 50 MG Nitroglycerin (Nitrostat) 0.4 mg Q5M PRN SL CHEST PAIN 04/08/25 18:30 Ondansetron HCl (zoFRAN 4MG INJ) 4 mg Q6H PRN IVP NAUSEA/VOMITING 04/08/25 22:00 05/08/25 21:59 Pantoprazole Sodium (PROTonix 40MG TAB) 40 mg DAILY PO 04/10/25 09:00 04/09/25 11:11 DC Potassium Chloride 100 ml @ 100 mls/hr AD PRN IV POTASSIUM PROTOCOL 04/09/25 06:30 05/09/25 06:29 Potassium Chloride (K-Dur 10meq Sr Tab) 10 meq AD PRN PO POTASSIUM PROTOCOL 04/10/25 07:00 05/09/25 06:29 04/11/25 05:07 10 MEQ Potassium Chloride (K-Dur/Klor-Con 20meq) 10 meq AD PRN PO POTASSIUM PROTOCOL 04/09/25 06:30 04/10/25 06:58 DC 04/09/25 14:56 10 MEQ Potassium Chloride (KCl 10% Elixir 20meq/15ml) 10 meq AD PRN PO POTASSIUM PROTOCOL 04/09/25 06:30 05/09/25 06:29 Prednisone (deltaSONE/ oraSONE 20MG TAB) 20 mg DAILY PO 04/10/25 09:00 05/10/25 08:59 04/11/25 09:14 20 MG Ropinirole HCl (ropiNIRole HCL) 0.25 mg TID PO 04/09/25 14:00 05/09/25 13:59 04/11/25 21:18 0.25 MG Temazepam (restORIL 15 MG CAP) 15 mg HS PRN PO INSOMNIA/SLEEP 04/08/25 22:00 05/08/25 21:59 Tiotropium [place] (Spiriva) 18 mcg DAILY PRN IH SHORTNESS OF BREATH/WHEEZING 04/09/25 11:30 04/09/25 11:23 DC Vitamin B Complex (Vitamin B-12) 100 mcg DAILY PO 04/10/25 09:00 05/10/25 08:59 04/11/25 09:14 100 MCG Vitamin B Complex/ Vit C/Folic Acid (Nephrovite Tablet) 1 cap DAILY PO 04/10/25 09:00 05/10/25 08:59 04/11/25 09:13 1 CAP DIAGNOSTICS / RADIOLOGY: [ ] ASSESSMENT: Unstable angina with normal troponins Pulmonary sarcoidosis, POA Acute complicated cystitis, POA Dysphagia, due to severe gastroesophageal narrowing as per upper GI series on 04/10/2025 POA S/p Upper GI EGD with Balloon dilation upto 20 mm on 04/12/2025 Acute on chronic kidney disease, GFR 48 Stroke rule out Anemia chronic disease, POA central hypothyroidism, 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 His EKG is normal. His troponins are negative. His BNP is 158. 2D echo showed LVEF greater than 55%, stage II diastolic dysfunction Cardiolite Lexiscan is normal showed no signs of infarcts or ischemia and LVEF was 74% Pulmonary sarcoidosis, POA His calcium level is 8.6. His CT chest showed Small ground-glass nodules in the right upper and middle lobes and right pleural based nodule (<6mm) and stable for 1 year. We ordered a SERGIO level, 27 which is normal Continue p.o prednisone 20 mg daily Acute complicated cystitis, POA His urinalysis showed evidence of UTI. Urine culture showed growth of group B strep agalactiae susceptible to penicillins Patient has reported allergy to penicillins Continue levofloxacin (day 3). Dysphagia, due to severe gastroesophageal narrowing as per upper GI series on 04/10/2025 POA S/p Upper GI EGD with Balloon dilation upto 20 mm on 04/12/25 He had an hiatal hernia repair in Mar 21 2025 Bedside swallow study is negative. GI was consulted and they recommended upper GI series, that showed severe gastroesophageal narrowing, grade 1 esophageal refill Patient underwent upper GI endoscopy with balloon dilation up to 20 mm today Will advance diet as tolerated and consider for discharge if patient is stable Acute on chronic kidney disease, GFR 48 His BUN is 22>21 and creatinine is 1.6>1.3 His baseline creatinine is 1.3 and BUN is 13. We will repeat his labs tomorrow. Stroke ruled out, patient has a history of CVA and TIA with residual speech difficulty and left lower limb weakness Patient had history of CVA and TIA with residual speech difficulty and left lower limb weakness and patient underwent post speech and physical therapy We did a CT of head and its normal. We ordered a MRI of brain, no evidence of infarcts or hemorrhage Anemia chronic disease, POA His hemoglobin is 11.8>11.5 We will repeat her labs tomorrow. Leukocytosis, His WBC is 11.9>8.6< 11.3, however patient remains afebrile, no dysuria and currently on antibiotics for treatment of UTI Most likely due to chronic glucocorticoid therapy for pulmonary sarcoidosis We will repeat his labs tomorrow. 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 So we ordered LH, cortisol AM, FSH, ACTH, prolactin, IGF-1, and testosterone, all are normal except low cortisol AM Endocrinology recommended this is mostly euthyroid sick syndrome and central hypopituitarism is unlikely Repeat TSH free T3 and free T4-1 week after discharge from the hospital He is on GI/soft bland diet. DVT prophylaxis with SCD. GI prophylaxis with famotidine. ATTESTATION BY PHYSICIAN I have seen and examined the patient. I reviewed the documentation, medical decision making, and treatment plan as noted by the resident physician above. I agree with the findings and plan of care. HEATHER PINTO MD, HARSHAVARDHA MD Apr 12, 2025 09:52
--- NOTE | 2025-04-12 11:00 | NUR ---
TAKEN OFF UNIT IN HOSPITAL BED TO GI LAB FOR EGD
[2025-04-12] MEDS ORDERED: LIDOCAINE PF 100MG/5ML (2%) SYRINGE 5ML ONE (11:18)
[2025-04-12] MEDS ORDERED: GLYCOPYRROLATE 0.2 MG/ML 5 ML VIAL ONE (11:20)
--- NOTE | 2025-04-12 12:00 | NUR ---
RETURNED FROM GI LAB, EGD DONE AND DILATATION PERFORMED. CAN RESUME DIET. AWAKE AND ALERT, IN NO DISTRESS
--- NOTE | 2025-04-12 20:03 | PN ---
[facility] PROGRESS NOTE Date Patient Seen: Apr 12, 2025 Time of Visit: 20:02 Supervising Physician: Dr. Guillermo Maxwell Primary Care Physician: [[facility]] Outpatient Specialists: [ ] Inpatient Consults: [[facility]] PROBLEM LIST: Chest pain r/o cardiac etiology, troponin negative x2 Pulmonary sarcoidosis Acute complicated cystitis Dysphagia, in setting of recent hiatal hernia repair Acute on chronic kidney disease, GFR 48 Leukocytosis Chronic Problem List: Anemia chronic disease Cerebrovascular disease status post transient ischemic attack x2 and cer ebrovascular accident x1 Coronary artery disease s/p coronary artery bypass grafting x3 COPD w/o exacerbation Hypercholesteremia Hypertension INTERVAL HISTORY: The patient examined, seen during my assessment resting on top of the bed harbor bed elevated watching television with family members present. Awake alert oriented. Appears in no acute distress. Accompanied by patient's bedside nurse. Patient has had an EGD today with dilation of the esophagus patient tolerated procedure patient is on a clear liquid diet will advance as tolerated per recommendations of GI specialists reviewed and discussed laboratory results, vital signs, and medications being used for the treatment. For the management of pulmonary sarcoidosis, patient uses prednisone which has been continued during this admission. The patient does not have a pulmonologists at discharge please refer the patient to the [facility] for further outpatient management including pulmonary function testing. Prior to discharge recommend the patient have a 6 minute ambulation test to determine if the patient needs home O2. Thank you again for the opportunity to participate in the care for this patient this time pulmonary signing off. Recommendations: Continue home dose of prednisone 6 minute ambulation test prior to discharge determine if patient needs home O2 Aspiration precautions Patient out of bed for all meals Further orders per course of stay Dispo per primary team REVIEW OF SYSTEMS: 12 point ROS reviewed with patient. Pertinent positives mentioned above. Otherwise negative. PHYSICAL EXAM: GENERAL: alert, weak, awake oriented x 3 HEENT: EOMI, Sclera non icteric, moist mucosa NECK: Supple, no JVD, trachea midline LUNGS: Clear breath sounds bilaterally. No wheezes HEART: Regular rate and rhythm. Normal S1 and S2, without murmurs ABD: Abdomen soft, nontender. Bowel sounds present EXT: No clubbing cyanosis or edema NEURO: Alert and oriented to person, follows commands Vital Signs (last 8hr) Date Time Temp Pulse Resp B/P (MAP) Pulse Ox O2 Delivery O2 Flow Rate FiO2 04/12/25 19:40 70 18 N/A Room Air 21 04/12/25 16:00 98.1 60 21 114/62 98 Room Air LABS: Hematology Labs: Test 04/12/25 04:23 Range/Units White Blood Count 11.3 #H 4.8-10.8 K/uL Red Blood Count 4.21 L 4.50-6.20 MIL/uL Hemoglobin 11.9 L 14.0-18.0 g/dL Hematocrit 36.6 L 42-54 % Mean Corpuscular Volume 86.9 79-99 fL Mean Corpuscular Hemoglobin 28.3 27.0-33.0 pg Mean Corpuscular Hemoglobin Concent 32.5 32.0-36.0 g/dL Red Cell Distribution Width 15.7 H 11.0-15.5 % Platelet Count 214 130-400 K/uL Mean Platelet Volume 10.0 7.5-10.5 fL Nucleated Red Blood Cells 0.0 0.0-0.19 % Chemistry Labs: Test 04/12/25 16:57 04/12/25 04:23 Range/Units Whole Blood Glucose 112 H 70-110 MG/DL Sodium Level 141 136-145 mmol/L Potassium Level 3.6 3.5-5.1 mmol/L Chloride Level 103 101-111 mmol/L Carbon Dioxide Level 28 21-32 mmol/L Blood Urea Nitrogen 17 7-18 mg/dL Creatinine 1.2 0.5-1.3 mg/dL Glomerular Filtration Rate Calc 67 >90 mL/min Random Glucose 102 70-105 mg/dL Total Calcium 8.6 8.5-10.1 mg/dL DIAGNOSTICS / RADIOLOGY RESULTS: [ ] PLAN NEURO: Minimize central acting medications as possible. Maintain fall precautions, adequate lighting during the day PULMONARY: Supplemental 02 as needed. Maintain aspiration precautions at all times CARDIOVASCULAR: Follow hemodynamics. Vital signs per facility protocol GI & NUTRITION: Continue with nutritional support. Continue stool softeners and laxatives as needed. KIDNEYS & ELECTROLYTES: Strict monitoring of intake, output and overall fluid balance. Avoid nephrotoxic medications to the extent possible. Medications to be dosed according to renal function. Monitor electrolytes and replace as needed ENDOCRINE: Maintain blood glucose between 100-180 at all times. Hypoglycemia protocol in place INFECTIOUS DISEASE: Trend temperature, WBC and procalcitonin level Follow cultures, deescalate antibiotics as soon as possible. Panculture if new onset fever ONCOLOGY/HEMATOLOGY/COAGULATION: Monitor for s/s of bleeding Monitor hemoglobin, coagulation studies as needed SKIN: Pressure ulcer prevention per facility protocol Specialty mattress ORTHO/REHAB: Continue PT/OT Prophylaxis: Continue GI and DVT prophylaxis Code Status: Full Resuscitation Dis[facility] Apr 12, 2025 20:03
[2025-04-13] VITALS: BP 103/61; PULSE 66; RESP 18; TEMP 98.6
[2025-04-13 04:00] VITALS: BP 113/70; PULSE 64; RESP 18; TEMP 98.9
[2025-04-13 05:15] LABS: NUCLEATED RED BLOOD CELLS 0.0 % (0.0-0.19); PLATELET COUNT (AUTO) 193.0 K/uL (130-400); RED BLOOD CELL COUNT(AUTO) 4.08 MIL/uL (4.50-6.20); RED CELL DISTRIBUTION WIDTH 15.9 % (11.0-15.5); WHITE BLOOD COUNT (AUTO) 7.0 K/uL (4.8-10.8)
[2025-04-13 05:25] LABS: CREATININE 1.1 mg/dL (0.5-1.3); GLOMERULAR FILTR. RATE CALC 75.0 mL/min (>90); GLUCOSE,RANDOM 146.0 mg/dL (70-105); SODIUM SERUM 139.0 mmol/L (136-145); UREA NITROGEN, BLOOD 14.0 mg/dL (7-18)
[2025-04-13 06:55] VITALS: PULSE 63; RESP 20; O2SAT 97
[2025-04-13 07:58] VITALS: O2SAT 97
[2025-04-13 08:00] VITALS: BP 117/61; PULSE 60; RESP 24; TEMP 97.5
--- NOTE | 2025-04-13 10:47 | DS ---
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 Given his cardiac history he was admitted for evaluation of possible unstable angina. Initial investigations revealed stable vital signs, EKG showed normal sinus rhythm with a right bundle branch block without ischemic changes and serial troponins remained negative x 3. Chest x-ray demonstrated no acute cardiopulmonary pathology. Lab studies were notable for mild leukocytosis, chronic anemia and acute on chronic CKD with creatinine elevation to 1.6 which improved during hospitalization. Cardiology was consulted, and a 2D echocardiogram demonstrated preserved LVEF greater than 55% with stage II diastolic dysfunction. A Lexiscan Cardiolite stress test was normal, showing no evidence of ischemia or infarction and an EF of 74%, effectively ruling out acute coronary syndrome. Neurological symptoms prompted CT and MRI imaging, both of which showed no acute infarct or hemorrhage, ruling out acute stroke. CT chest revealed emphysematous changes and small stable ground-glass nodules consistent with known pulmonary sarcoidosis; SERGIO levels were normal. Endocrine workup for low TSH showed low free T4 and T3; but comprehensive pituitary hormone testing was otherwise unremarkable; endocrinology determined findings were consistent with euthyroid sick syndrome and recommended repeat thyroid studies after discharge. Gastroenterology was consulted for progressive dysphagia following recent hiatal hernia repair. Upper GI series demonstrated severe gastroesophageal junction narrowing grade 1 reflux. The patient subsequently underwent upper GI endoscopy with balloon dilation to 20 mm on 04/12/2025, which he tolerated well, with improvement in swallowing and tolerance of liquid/soft diet. Additionally urinalysis and urine culture confirmed acute complicated cystitis due to group B Streptococcus; was initiated with levofloxacin given the penicillin allergy. Renal function improved towards baseline, and the patient remained hemodynamically stable without recurrence of chest pain or dyspnea. At discharge 25 units of Insulin Lantus at bedtime is added to his regimen, as advised by childhood teacher. He is discharged home in stable condition with advancement of diet as tolerated and instructed to follow up with PCP in one 2-3 days, f/u with Dr. Trenton Wadsworth in one week, Dr. Sandy Yang in 2-3 weeks, and Heydi Dunn in 2 weeks, and Dr. Amadou Franklin in 2 weeks. He was advised to return to ED for any recurrent chest pain, worsening dysphagia, fever, neurological changes, or any new concerning symptoms. Annual Giving Director(s): Dr. Thomason, Multimedia Specialist Dr. Church, Luggage Maker Dr. Sanchez, Studio Hand Dr. Celestin, Sales Representative Facility Services Date Patient Seen: Apr 09, 2025 Time of Visit: 16:20 Supervising Physician: [Dr. Sanchez] Reason for Consultation: [COPD exacerbation] Primary Care Physician: [CATALYST] Outpatient Specialists: [ ] Inpatient Consults: [BIS] PROBLEM LIST: Chest pain r/o cardiac etiology, troponin negative x2 Pulmonary sarcoidosis Acute complicated cystitis Dysphagia, in setting of recent hiatal hernia repair Acute on chronic kidney disease, GFR 48 Anemia chronic disease Leukocytosis Hx of TIA x2, CVA, Coronary Artery Disease, s/p triple bypass COPD w/o exacerbation Hypercholesteremia Hypertension Pulmonary sarcoidosis HPI: Mr. Eubanks is a 64-year-old male with a history of TIA x2, CVA, CAD, COPD w home CPAP use, hypercholesteremia, hypertension, pulmonary sarcoidosis, triple bypass who presented to [facility] ED via EMS for evaluation of sternal and lower chest discomfort and shortness of breath onset a few days now. The patient reported that Dr. Franklin of [facility] performed a laparoscopic hiatal hernia repair on March 21, 2025. He was reportedly informed that scar tissue prevented his stomach from being optimally pulled back into abdomen, and he was also afraid of extending the anesthesia because of his underlying lung problems. He was doing fairly well postoperatively and saw his surgeon today. He reported his therapist speech, Dr. Luis Rosenberg is planning to do a CT scan of his chest on him but wanted to wait until his GI issues settled down. Patient does have a hx of pulmonary sarcoidosis for which he uses daily prednisone and respiratory inhalers. He returned today with substernal chest pain that spread to his left arm and jaw. He begun having this problem while moving his furniture. He worried about his known history of coronary artery disease and went to the emergency room for additional assessment. He has no diarrhea or hematemesis or melena. He denied having any rigors, chills, or fever. Very little clear sputum. No hemoptysis. VS: HR 70 bmp, RR 16 bmp, BP 133/70, 99% RA, 98.1 F, Remarkable labs: Chemistry: BUN 22, Creatinine 1.6, Hematology: WBC 11.3, RBC 4.30, Hgb 11.8, Hct 37.2, MCHC 31.7, RDW 15.8, UA: +Leukocyte, Chest X-Rays: No acute cardiopulmonary pathology is evident. EKG: SR with RBBB, no acute ST elevations or depressions noted. Troponin negative X3. Patient was admitted for evaluation of acute angina, in history of CABG. The patient was evaluated at bedside. He appears comfortable, in no respiratory distress. Saturating well on room air. Patient states he had a recent hiatal hernia repair and was having trouble swallowing his food. GI is aware and is pending a repeat endoscopy on Thursday by GI. He denies any cough, shortness of breath or hemoptysis. He admits continued chest pain but is improved from admission. Cardiac workup was requested. Baseline ABG was requested and revealed mild respiratory alkalosis likely secondary to chest pain. Plan: Continue home-dosed prednisone Continue prescription inhaler or nebulizer as needed Follow GI recommendation and EGD results Follow cardiac workup Order CK level Swallow eval Continue abx Rest of management per primary PAST MEDICAL HX: see above PAST SURGICAL HX: noncontributory SOCIAL HISTORY: No tobacco, ETOH, or illicit drug use Coded Allergies: atorvastatin (Verified Allergy, Severe, RASH, 10/15/17) Penicillins (Verified Allergy, Unknown, 12/22/14) peanut (Unverified Allergy, Unknown, 03/26/23) REVIEW OF SYSTEMS: 12 point ROS reviewed with patient. Pertinent positives mentioned above. Otherwise negative. PHYSICAL EXAM: GENERAL: alert, weak, awake oriented x 3 HEENT: EOMI, Sclera non icteric, moist mucosa NECK: Supple, no JVD, trachea midline LUNGS: Clear breath sounds bilaterally. No wheezes HEART: Regular rate and rhythm. Normal S1 and S2, without murmurs ABD: Abdomen soft, nontender. Bowel sounds present EXT: No clubbing cyanosis or edema NEURO: Alert and oriented to person, follows commands Vital Signs (last 8hr) Date Time Temp Pulse Resp B/P (MAP) Pulse Ox O2 Delivery O2 Flow Rate FiO2 04/09/25 12:00 97.5 59 18 100/57 95 Room Air LABS: Hematology Labs: Test 04/09/25 05:28 04/08/25 15:54 Range/Units White Blood Count 8.6 4.8-10.8 K/uL Red Blood Count 4.13 L 4.50-6.20 MIL/uL Hemoglobin 11.5 L 14.0-18.0 g/dL Hematocrit 35.8 L 42-54 % Mean Corpuscular Volume 86.7 79-99 fL Mean Corpuscular Hemoglobin 27.8 27.0-33.0 pg Mean Corpuscular Hemoglobin Concent 32.1 32.0-36.0 g/dL Red Cell Distribution Width 15.6 H 11.0-15.5 % Platelet Count 250 130-400 K/uL Mean Platelet Volume 9.9 7.5-10.5 fL Nucleated Red Blood Cells 0.0 0.0-0.19 % Immature Granulocyte % (Auto) 0.6 0-1 % Neutrophils (%) (Auto) 89.4 H 40.0-77.0 % Lymphocytes (%) (Auto) 6.9 L 21.0-51.0 % Monocytes (%) (Auto) 2.7 L 3.0-13.0 % Eosinophils (%) (Auto) 0.2 0.0-8.0 % Basophils (%) (Auto) 0.2 0.0-5.0 % Neutrophils # (Auto) 10.1 H 1.8-7.7 K/uL Lymphocytes # (Auto) 0.8 L 1.0-4.8 K/uL Monocytes # (Auto) 0.3 0.1-1.0 K/uL Eosinophils # (Auto) 0.02 0.00-0.70 K/uL Basophils # (Auto) 0.02 0.00-0.20 K/uL Absolute Immature Granulocyte (auto 0.07 0-1 K/uL Chemistry Labs: Test 04/09/25 11:32 04/09/25 05:28 Range/Units Whole Blood Glucose 105 # 70-110 MG/DL Sodium Level 141 136-145 mmol/L Potassium Level 3.6 3.5-5.1 mmol/L Chloride Level 105 101-111 mmol/L Carbon Dioxide Level 26 21-32 mmol/L Blood Urea Nitrogen 21 H 7-18 mg/dL Creatinine 1.3 0.5-1.3 mg/dL Glomerular Filtration Rate Calc 61 >90 mL/min Random Glucose 73 70-105 mg/dL Total Calcium 8.6 8.5-10.1 mg/dL Phosphorus Level 4.6 2.5-4.9 mg/dL Magnesium Level 1.80 1.80-2.40 mg/dL Total Bilirubin 0.5 0.2-1.0 mg/dL Direct Bilirubin 0.2 0.0-0.3 mg/dL Aspartate Amino Transf (AST/SGOT) 18 10-37 U/L Alanine Aminotransferase (ALT/SGPT) 35 12-78 U/L Alkaline Phosphatase 34 L 50-136 U/L Troponin I High Sensitivity 8 4-75 ng/L B-Type Natriuretic Peptide 158 H 0-100 pg/mL Total Protein 6.2 6.0-8.3 g/dL Albumin 3.0 L 3.5-5.0 g/dL Thyroid Stimulating Hormone (TSH) 0.25 L 0.36-3.74 uIU/mL Free Thyroxine (T4) Direct 0.67 L 0.76-1.46 ng/dL Free Triiodothyronine (T3) pg/mL 1.90 L 2.18-3.98 pg/mL DIAGNOSTICS / RADIOLOGY RESULTS: [ ] PLAN NEURO: Minimize central acting medications as possible. Maintain fall precautions, adequate lighting during the day PULMONARY: Supplemental 02 as needed. Maintain aspiration precautions at all times CARDIOVASCULAR: Follow hemodynamics. Vital signs per facility protocol GI & NUTRITION: Continue with nutritional support. Continue stool softeners and laxatives as needed. KIDNEYS & ELECTROLYTES: Strict monitoring of intake, output and overall fluid balance. Avoid nephrotoxic medications to the extent possible. Medications to be dosed according to renal function. Monitor electrolytes and replace as needed ENDOCRINE: Maintain blood glucose between 100-180 at all times. Hypoglycemia protocol in place INFECTIOUS DISEASE: Trend temperature, WBC and procalcitonin level Follow cultures, deescalate antibiotics as soon as possible. Panculture if new onset fever ONCOLOGY/HEMATOLOGY/COAGULATION: Monitor for s/s of bleeding Monitor hemoglobin, coagulation studies as needed SKIN: Pressure ulcer prevention per facility protocol Specialty mattress ORTHO/REHAB: Continue PT/OT Prophylaxis: Continue GI and DVT prophylaxis Code Status: Full Resuscitation Disposition: TBKRISTINA MATOS Apr 09, 2025 16:20 Electronically Signed by: KRISTINA MCCARTNEY PAC04/10/25 0736 Electronically Co-Signed by: DALLIN SANCHEZ MD04/10/25 1124 CARDIOLOGY PROGRESS NOTE APRIL 11, [address] Trenton Wadsworth Problems: 1. Chest pain with normal troponins 2. CAD status post aortocoronary bypass graft surgery x3 in 2007 3. Pulmonary embolism in the setting of COVID infection treated for six months with Eliquis 4. Remote history of CVA 5. Hypertension 6. Chronic kidney disease stage IIIA 7. COPD 8. Pulmonary sarcoidosis 9. Complete right bundle branch block 10. Hypothyroidism 11. Dyslipidemia This morning blood pressure is running 130-140 systolic heart rate is in the 80s. The patient is afebrile. The patient continues on aspirin clopidogrel Lovenox for DVT prophylaxis famotidine ferrous sulfate folic acid furosemide gabapentin rosuvastatin insulin scale levofloxacin levothyroxine metoprolol succinate and potassium protocol. 2D echo cardiogram shows ejection fraction of greater than 55% grade 2 diastolic left ventricular dysfunction. Upper GI series yesterday showed severe narrowing of the gastroesophageal junction and gastroesophageal reflux. Patient underwent a Lexiscan Cardiolite stress test yesterday which showed no ischemia no infarct LV ejection fraction of 74% and normal regional wall motion. The patient has been pain-free and we will leave a decision as to whether or not he should have of his esophageal stricture during this admission or electively as an outpatient to the medical service. Follow up with Dr. Trenton Wadsworth after discharge. ASHLEY SALCIDO MD Apr 11, 2025 07:33 Electronically Signed by: ASHLEY SALCIDO MD04/11/25 0742 Electronically Co-Signed by: Date Patient Seen: Apr 12, 2025 Time of Visit: 20:02 Supervising Physician: Dr. Guillermo Maxwell Primary Care Physician: [CATALYST] Outpatient Specialists: [ ] Inpatient Consults: [BIS] PROBLEM LIST: Chest pain r/o cardiac etiology, troponin negative x2 Pulmonary sarcoidosis Acute complicated cystitis Dysphagia, in setting of recent hiatal hernia repair Acute on chronic kidney disease, GFR 48 Leukocytosis Chronic Problem List: Anemia chronic disease Cerebrovascular disease status post transient ischemic attack x2 and cerebrovascular accident x1 Coronary artery disease s/p coronary artery bypass grafting x3 COPD w/o exacerbation Hypercholesteremia Hypertension INTERVAL HISTORY: The patient examined, seen during my assessment resting on top of the bed harbor bed elevated watching television with family members present. Awake alert oriented. Appears in no acute distress. Accompanied by patient's bedside nurse. Patient has had an EGD today with dilation of the esophagus patient tolerated procedure patient is on a clear liquid diet will advance as tolerated per recommendations of GI specialists reviewed and discussed laboratory results, vital signs, and medications being used for the treatment. For the management of pulmonary sarcoidosis, patient uses prednisone which has been continued during this admission. The patient does not have a pulmonologists at discharge please refer the patient to the [facility] for further outpatient management including pulmonary function testing. Prior to discharge recommend the patient have a 6 minute ambulation test to determine if the patient needs home O2. Thank you again for the opportunity to participate in the care for this patient this time pulmonary signing off. Recommendations: Continue home dose of prednisone 6 minute ambulation test prior to discharge determine if patient needs home O2 Aspiration precautions Patient out of bed for all meals Further orders per course of stay Dispo per primary team REVIEW OF SYSTEMS: 12 point ROS reviewed with patient. Pertinent positives mentioned above. Otherwise negative. PHYSICAL EXAM: GENERAL: alert, weak, awake oriented x 3 HEENT: EOMI, Sclera non icteric, moist mucosa NECK: Supple, no JVD, trachea midline LUNGS: Clear breath sounds bilaterally. No wheezes HEART: Regular rate and rhythm. Normal S1 and S2, without murmurs ABD: Abdomen soft, nontender. Bowel sounds present EXT: No clubbing cyanosis or edema NEURO: Alert and oriented to person, follows commands Vital Signs (last 8hr) Date Time Temp Pulse Resp B/P (MAP) Pulse Ox O2 Delivery O2 Flow Rate FiO2 04/12/25 19:40 70 18 N/A Room Air 21 04/12/25 16:00 98.1 60 21 114/62 98 Room Air LABS: Hematology Labs: Test 04/12/25 04:23 Range/Units White Blood Count 11.3 #H 4.8-10.8 K/uL Red Blood Count 4.21 L 4.50-6.20 MIL/uL Hemoglobin 11.9 L 14.0-18.0 g/dL Hematocrit 36.6 L 42-54 % Mean Corpuscular Volume 86.9 79-99 fL Mean Corpuscular Hemoglobin 28.3 27.0-33.0 pg Mean Corpuscular Hemoglobin Concent 32.5 32.0-36.0 g/dL Red Cell Distribution Width 15.7 H 11.0-15.5 % Platelet Count 214 130-400 K/uL Mean Platelet Volume 10.0 7.5-10.5 fL Nucleated Red Blood Cells 0.0 0.0-0.19 % Chemistry Labs: Test 04/12/25 16:57 04/12/25 04:23 Range/Units Whole Blood Glucose 112 H 70-110 MG/DL Sodium Level 141 136-145 mmol/L Potassium Level 3.6 3.5-5.1 mmol/L Chloride Level 103 101-111 mmol/L Carbon Dioxide Level 28 21-32 mmol/L Blood Urea Nitrogen 17 7-18 mg/dL Creatinine 1.2 0.5-1.3 mg/dL Glomerular Filtration Rate Calc 67 >90 mL/min Random Glucose 102 70-105 mg/dL Total Calcium 8.6 8.5-10.1 mg/dL DIAGNOSTICS / RADIOLOGY RESULTS: [ ] PLAN NEURO: Minimize central acting medications as possible. Maintain fall precautions, adequate lighting during the day PULMONARY: Supplemental 02 as needed. Maintain aspiration precautions at all times CARDIOVASCULAR: Follow hemodynamics. Vital signs per facility protocol GI & NUTRITION: Continue with nutritional support. Continue stool softeners and laxatives as needed. KIDNEYS & ELECTROLYTES: Strict monitoring of intake, output and overall fluid balance. Avoid nephrotoxic medications to the extent possible. Medications to be dosed according to renal function. Monitor electrolytes and replace as needed ENDOCRINE: Maintain blood glucose between 100-180 at all times. Hypoglycemia protocol in place INFECTIOUS DISEASE: Trend temperature, WBC and procalcitonin level Follow cultures, deescalate antibiotics as soon as possible. Panculture if new onset fever ONCOLOGY/HEMATOLOGY/COAGULATION: Monitor for s/s of bleeding Monitor hemoglobin, coagulation studies as needed SKIN: Pressure ulcer prevention per facility protocol Specialty mattress ORTHO/REHAB: Continue PT/OT Prophylaxis: Continue GI and DVT prophylaxis Code Status: Full Resuscitation Disposition: SABAS JENNINGS AGACN Apr 12, 2025 20:03 Electronically Signed by: SABAS SAEEDCNP106/14/24 0618 Electronically Co-Signed by: endocrinology progress note DOS:04/11/25 subjective: Home diabetic regimen: lantus 25 units daily, ozempic 2 mg weekly and jardiance 25 mg daily, Hba1c 6.9% TSH 0.25, t 4 free 0.67, t 3 free 1.90 my suspicion is low for hypopituitarism and high for sick euthyroid, pituitary hormonal labs LH, FSH, AM cortisol, testosterone and IGF-1 labs has been ordered. reports that recent thyroid function with endocrinology was normal. REVIEW OF SYSTEMS 12-point ROS system was reviewed with the patient. All pertinent positives mentioned above. Otherwise negative, noncontributory, nonpertinent. PAST MEDICAL HISTORY As mentioned above. PAST SURGICAL HISTORY CABG, neck lymph node removal. PAST SOCIAL HISTORY Denies alcohol, tobacco, illicit drug use. FAMILY HISTORY Noncontributory Coded Allergies: atorvastatin (Verified Allergy, Severe, RASH, 10/15/17) Penicillins (Verified Allergy, Unknown, 12/22/14) peanut (Unverified Allergy, Unknown, 03/26/23) ASSESSMENT: Hypothyroidism TSH 0.25, t 4 free 0.67, t 3 free 1.90, clinically euthyroid. my suspicion is low for hypopituitarism and high for sick euthyroid, pituitary hormonal labs LH, FSH, AM cortisol, testosterone and IGF-1 labs has been ordered. DM-2, POA Home diabetic regimen: lantus 25 units daily, ozempic 2 mg weekly and jardiance 25 mg daily, Hba1c 6.9% reports that recent thyroid function with endocrinology was normal. Chest pain r/o cardiac etiology, POA, troponin negative x2 Pulmonary sarcoidosis, POA Acute complicated cystitis, POA Dysphagia, POA Acute on chronic kidney disease, GFR 48 Anemia chronic disease, POA Leukocytosis Chronic problem list: TIA x2, CVA, CAD, COPD w home CPAP use, hypercholesteremia, hypertension, pulmonary sarcoidosis, triple bypass PLAN: off levothyroxine 25 mcg and repeat thyroid labs in 1 week. follow on pituitary hormonal labs. continue Lantus 10 units daily and adjust for fasting glucose. start Regular insulin 3 units three times before meals if post-prandial glucose. continue medium dose sliding scale insulin. Monitor glucose q x 6 hourly. Continue carb consistent diet. Keep glucose less than 180 mg/dl. Patient will need to follow with his childhood teacher dr. sandy yang. Vitals/Labs Vital Signs Date Time Temp Pulse Resp B/P (MAP) Pulse Ox O2 Delivery O2 Flow Rate FiO2 04/11/25 19:32 18 N/A Room Air 21 04/11/25 16:43 97 0 04/11/25 16:00 98.2 78 106/63 Laboratory Tests 04/11/25 04:28 Medications Current Medications Nitroglycerin 0.4 mg Q5M PRN SL; Start 04/08/25 at 18:30 Aspirin 325 mg ONCE ONCE PO Last administered on 04/08/25at 18:47; Start 04/08/25 at 18:30; Stop 04/08/25 at 18:31; Status DC Albuterol Sulfate 2.5 mg [id number] PRN IH; Start 04/08/25 at 22:00; Stop 05/08/25 at 21:59 Ipratropium Kidder 0.5 mg [id number] PRN IH; Start 04/08/25 at 22:00; Stop 05/08/25 at 21:59 Enoxaparin Sodium 40 mg DAILY SQ Last administered on 04/09/25at 09:18; Start 04/08/25 at 21:55; Stop 05/08/25 at 21:54 Acetaminophen 650 mg Q6H PRN PO; Start 04/08/25 at 22:00; Stop 05/08/25 at 21:59 Acetaminophen 650 mg Q6H PRN RC; Start 04/08/25 at 22:00; Stop 05/08/25 at 21:59 Lactulose 20 gm Q6H PRN PO; Start 04/08/25 at 22:00; Stop 05/08/25 at 21:59 Docusate Sodium 100 mg BID PRN PO; Start 04/08/25 at 22:00; Stop 05/08/25 at 21:59 Temazepam 15 mg HS PRN PO; Start 04/08/25 at 22:00; Stop 05/08/25 at 21:59 Ondansetron HCl 4 mg Q6H PRN IVP; Start 04/08/25 at 22:00; Stop 05/08/25 at 21:59 Labetalol HCl 10 mg Q2H PRN IV; Start 04/08/25 at 22:00; Stop 05/08/25 at 21:59 Insulin Human Regular INSULIN SLIDING SCAL... ACHS SQ Last administered on 04/11/25at 16:28; Start 04/09/25 at 07:30; Stop 05/09/25 at 07:29 Aspirin 81 mg DAILY PO Last administered on 04/11/25at 09:14; Start 04/09/25 at 09:00; Stop 05/09/25 at 08:59 Levofloxacin/ Dextrose 100 ml @ 100 mls/hr ONCE ONCE IV; Start 04/09/25 at 23:30; Stop 04/09/25 at 04:28; Status DC Levofloxacin/ Dextrose 100 ml @ 100 mls/hr ONCE ONCE IV Last administered on 04/09/25at 04:34; Start 04/09/25 at 04:30; Stop 04/09/25 at 05:29; Status DC Levofloxacin/ Dextrose 50 ml @ 50 mls/hr Q24H IVPB Last administered on 04/11/25at 05:06; Start 04/10/25 at 04:30; Stop 04/20/25 at 04:29 Dextrose 50 ml AD PRN IV; Start 04/09/25 at 06:30; Stop 05/09/25 at 06:29 Glucagon 1 mg AD PRN IM; Start 04/09/25 at 06:30; Stop 05/09/25 at 06:29 Magnesium Sulfate 50 ml @ 0 mls/hr PROTOCOL PRN IV Last administered on 04/09/25at 23:44; Start 04/09/25 at 06:30; Stop 05/09/25 at 06:29 Potassium Chloride 100 ml @ 100 mls/hr AD PRN IV; Start 04/09/25 at 06:30; Stop 05/09/25 at 06:29 Potassium Chloride 10 meq AD PRN PO; Start 04/09/25 at 06:30; Stop 05/09/25 at 06:29 Potassium Chloride 10 meq AD PRN PO Last administered on 04/09/25at 14:56; Start 04/09/25 at 06:30; Stop 04/10/25 at 06:58; Status DC Famotidine 20 mg BID PO Last administered on 04/11/25at 09:14; Start 04/09/25 at 11:00; Stop 05/09/25 at 10:59 Clopidogrel Bisulfate 75 mg DAILY PO Last administered on 04/11/25at 09:15; Start 04/10/25 at 09:00; Stop 05/10/25 at 08:59 Famotidine 20 mg DAILY PRN PO; Start 04/09/25 at 11:30; Stop 04/09/25 at 11:10; Status DC Folic Acid 1 mg DAILY PO Last administered on 04/11/25at 09:15; Start 04/10/25 at 09:00; Stop 05/10/25 at 08:59 Gabapentin 300 mg BID PO Last administered on 04/11/25at 09:13; Start 04/09/25 at 21:00; Stop 05/09/25 at 20:59 Losartan Potassium 50 mg DAILY PO; Start 04/10/25 at 09:00; Stop 04/09/25 at 14:47; Status DC Metoprolol Succinate 50 mg DAILY PO Last administered on 04/11/25at 09:15; Start 04/10/25 at 09:00; Stop 05/10/25 at 08:59 Pantoprazole Sodium 40 mg DAILY PO; Start 04/10/25 at 09:00; Stop 04/09/25 at 11:11; Status DC Prednisone 20 mg DAILY PO Last administered on 04/11/25at 09:14; Start 04/10/25 at 09:00; Stop 05/10/25 at 08:59 Ropinirole HCl 0.25 mg TID PO Last administered on 04/11/25at 13:54; Start 04/09/25 at 14:00; Stop 05/09/25 at 13:59 Tiotropium Kidder 18 mcg DAILY PRN IH; Start 04/09/25 at 11:30; Stop 04/09/25 at 11:23; Status DC Vitamin B Complex 100 mcg DAILY PO Last administered on 04/11/25at 09:14; Start 04/10/25 at 09:00; Stop 05/10/25 at 08:59 Ferrous Sulfate 325 mg BID PO Last administered on 04/11/25at 09:14; Start 04/09/25 at 21:00; Stop 05/09/25 at 20:59 Home Med (Fluticasone Propion/ [place]... DAILY IH; Start 04/10/25 at 09:00; Stop 05/10/25 at 08:59 Vitamin B Complex/ Vit C/Folic Acid 1 cap DAILY PO Last administered on 04/11/25at 09:13; Start 04/10/25 at 09:00; Stop 05/10/25 at 08:59 Lactobacillus Rhamnosus 1 each BID PO Last administered on 04/11/25at 09:14; Start 04/09/25 at 21:00; Stop 05/09/25 at 20:59 Home Med (Magnesium Gluconate 1 TAB) BID PO; Start 04/09/25 at 21:00; Stop 05/09/25 at 20:59 Home Med (Rosuvastatin Calcium 40 MG) HS PO; Start 04/09/25 at 21:00; Stop 05/09/25 at 20:59 Furosemide 40 mg DAILY PO Last administered on 04/11/25at 09:14; Start 04/10/25 at 09:00; Stop 05/10/25 at 08:59 Potassium Chloride 10 meq AD PRN PO Last administered on 04/11/25at 05:07; Start 04/10/25 at 07:00; Stop 05/09/25 at 06:29 Regadenoson 0.4 mg STK-MED ONCE IVP Last administered on 04/10/25at 09:43; Start 04/10/25 at 09:42; Stop 04/10/25 at 09:42; Status DC Levothyroxine Sodium 25 mcg DAILY@0630 PO Last administered on 04/11/25at 05:07; Start 04/11/25 at 06:30; Stop 04/11/25 at 07:27; Status DC Insulin Glargine 15 units DAILY08 SQ Last administered on 04/11/25at 09:20; Start 04/11/25 at 08:00; Stop 05/11/25 at 07:59 ENA CELESTIN MD Apr 11, 2025 21:22 Electronically Signed by: ENA CELESTIN MD04/11/252127 Electronically Co-Signed by: Date of Visit: Apr 11, 2025 Time of Visit: 17:05 Events / Notes: [Upper GI series showing severe narrowing of the GE junction which needs to be dilated. Results given to patient with recommendations for EGD with dilation. Patient verbalized understanding and agreed to EGD. Review of Systems: CONSTITUTIONAL: No malaise or change in sensation of wellbeing. ENMT: No rhinorrhea, otorrhea, sinus pain, ear ache. CARDIOVASCULAR: No angina, palpitations, orthopnea or paroxysmal dyspnea. RESPIRATORY: No SOB. GASTROINTESTINAL: No abdominal pain, nausea, vomiting, diarrhea, hematemesis, melena or change in the patient's habitual bowel movements consistency/number. GENITOURINARY: No dysuria, hematuria or change in bladder continence. MUSCULOSKELETAL: No new muscle pain or decrease in muscular strength. No new joint swelling, redness or tenderness. SKIN: No new rash. Physical Exam: GEN: Awake, alert, oriented in person, time and place, and in no acute distress. HEENT: No rhinorrhea. Oral mucosa is moist and within normal limits. CHEST: Lung auscultation revealed normal breath sounds bilaterally. CARDIAC:Heart sounds are regular. ABD: Soft, non-tender and not distended. No peritoneal signs on palpation. Normal bowel sounds SKIN: Intact. No rashes. NEURO: Alert and oriented to name, place and person.No focal motor deficits. Normal speech. Vital Signs (last 8hr) Date Time Temp Pulse Resp B/P (MAP) Pulse Ox O2 Delivery O2 Flow Rate FiO2 04/11/25 16:43 97 Room Air* 0 21 04/11/25 12:00 97.2 63 16 96/71 98 Room Air Laboratory: [ ] Laboratory: Test 04/11/25 15:31 04/11/25 04:28 04/10/25 08:17 04/10/25 08:16 Range/Units Whole Blood Glucose 185 H 70-110 MG/DL White Blood Count 8.0 4.8-10.8 K/uL Red Blood Count 4.33 L 4.50-6.20 MIL/uL Hemoglobin 12.0 L 14.0-18.0 g/dL Hematocrit 38.6 L 42-54 % Mean Corpuscular Volume 89.1 79-99 fL Mean Corpuscular Hemoglobin 27.7 27.0-33.0 pg Mean Corpuscular Hemoglobin Concent 31.1 L 32.0-36.0 g/dL Red Cell Distribution Width 15.8 H 11.0-15.5 % Platelet Count 201 130-400 K/uL Mean Platelet Volume 10.0 7.5-10.5 fL Nucleated Red Blood Cells 0.0 0.0-0.19 % Sodium Level 141 136-145 mmol/L Potassium Level 3.6 3.5-5.1 mmol/L Chloride Level 105 101-111 mmol/L Carbon Dioxide Level 28 21-32 mmol/L Blood Urea Nitrogen 11 7-18 mg/dL Creatinine 1.2 0.5-1.3 mg/dL Glomerular Filtration Rate Calc 67 >90 mL/min Random Glucose 122 #H 70-105 mg/dL Total Calcium 8.3 L 8.5-10.1 mg/dL Magnesium Level 2.10 1.80-2.40 mg/dL Follicle Stimulating Hormone 6.4 1.5-12.4 mIU/mL Luteinizing Hormone 6.6 1.7-8.6 mIU/mL Cortisol AM Sample 3.3 L 6.2-19.4 ug/dL ACTH Baseline 15.3 7.2-63.3 pg/mL Total Creatine Kinase 43 # 21-232 U/L Current Medications Medications (Trade) Dose Ordered Sig/Michael Route PRN Reason Start Time Stop Time Status Last Admin Dose Admin Acetaminophen (TYLenol 325MG TAB) 650 mg Q6H PRN PO FEVER/MILD PAIN LEVEL 1-3 04/08/25 22:00 05/08/25 21:59 Acetaminophen (TYLenol 650MG SUPPOSITORY) 650 mg Q6H PRN RC FEVER / MILD PAIN 1-3 IF NPO 04/08/25 22:00 05/08/25 21:59 Albuterol Sulfate (Proventil 0.083% 2.5mg/3ml) 2.5 mg [id number] PRN IH SHORTNESS OF BREATH 04/08/25 22:00 05/08/25 21:59 Aspirin (Aspirin 81mg Chew Tab) 81 mg DAILY PO 04/09/25 09:00 05/09/25 08:59 04/11/25 09:14 81 MG Clopidogrel Bisulfate (plaVIX 75MG) 75 mg DAILY PO 04/10/25 09:00 05/10/25 08:59 04/11/25 09:15 75 MG Dextrose (D50w) 50 ml AD PRN IV HYPOGLYCEMIA PROTOCOL 04/09/25 06:30 05/09/25 06:29 Docusate Sodium (COLace 100MG CAP) 100 mg BID PRN PO CONSTIPATION 04/08/25 22:00 05/08/25 21:59 Enoxaparin Sodium (Lovenox) 40 mg DAILY SQ 04/08/25 21:55 05/08/25 21:54 04/09/25 09:18 40 MG Famotidine (Pepcid 20mg Tab) 20 mg BID PO 04/09/25 11:00 05/09/25 10:59 04/11/25 09:14 20 MG Famotidine (Pepcid 20mg Tab) 20 mg DAILY PRN PO HEARTBURN 04/09/25 11:30 04/09/25 11:10 DC Ferrous Sulfate (Ferrous Sulfate) 325 mg BID PO 04/09/25 21:00 05/09/25 20:59 04/11/25 09:14 325 MG Folic Acid (FOLic ACID 1 MG TABLET) 1 mg DAILY PO 04/10/25 09:00 05/10/25 08:59 04/11/25 09:15 1 MG Furosemide (LASix 40MG TAB) 40 mg DAILY PO 04/10/25 09:00 05/10/25 08:59 04/11/25 09:14 40 MG Gabapentin (NEURontin 300 MG CAP) 300 mg BID PO 04/09/25 21:00 05/09/25 20:59 04/11/25 09:13 300 MG Glucagon (Glucagon 1mg Kit) 1 mg AD PRN IM HYPOGLYCEMIA PROTOCOL 04/09/25 06:30 05/09/25 06:29 Home Med (Home Medication) (Fluticasone Propion/ [place]... DAILY IH 04/10/25 09:00 05/10/25 08:59 Home Med (Home Medication) (Magnesium Gluconate 1 TAB) BID PO 04/09/25 21:00 05/09/25 20:59 Home Med (Home Medication) (Rosuvastatin Calcium 40 MG) HS PO 04/09/25 21:00 05/09/25 20:59 Insulin Glargine (LANtus 100 UNITS/ML 10 ML VIAL) 15 units DAILY08 SQ 04/11/25 08:00 05/11/25 07:59 04/11/25 09:20 15 UNITS Insulin Human Regular (humuLIN R 100 UNIT/ML 3ML) INSULIN SLIDING SCAL... ACHS SQ 04/09/25 07:30 05/09/25 07:29 04/11/25 16:28 4 UNIT Ipratropium Kidder (AtrovENT UD) 0.5 mg [id number] PRN IH SHORTNESS OF BREATH/WHEEZING 04/08/25 22:00 05/08/25 21:59 Labetalol HCl (TRANdate 20MG SYG) 10 mg Q2H PRN IV SBP GREATER THAN 160 04/08/25 22:00 05/08/25 21:59 Lactobacillus Rhamnosus ([facility]) 1 each BID PO 04/09/25 21:00 05/09/25 20:59 04/11/25 09:14 1 EACH Lactulose (Constulose 20gm/ 30ml Udcup) 20 gm Q6H PRN PO CONSTIPATION 04/08/25 22:00 05/08/25 21:59 Levofloxacin/ Dextrose 50 ml @ 50 mls/hr Q24H IVPB 04/10/25 04:30 04/20/25 04:29 04/11/25 05:06 50 MLS/HR Levothyroxine Sodium (SYNTHroid 25MCG TAB) 25 mcg DAILY@0630 PO 04/11/25 06:30 04/11/25 07:27 DC 04/11/25 05:07 25 MCG Losartan Potassium (CozAAR 50 mg TAB) 50 mg DAILY PO 04/10/25 09:00 04/09/25 14:47 DC Magnesium Sulfate 50 ml @ 0 mls/hr PROTOCOL PRN IV MAGNESIUM PROTOCOL 04/09/25 06:30 05/09/25 06:29 04/09/25 23:44 25 MLS/HR Metoprolol Succinate (TopROL XL) 50 mg DAILY PO 04/10/25 09:00 05/10/25 08:59 04/11/25 09:15 50 MG Nitroglycerin (Nitrostat) 0.4 mg Q5M PRN SL CHEST PAIN 04/08/25 18:30 Ondansetron HCl (zoFRAN 4MG INJ) 4 mg Q6H PRN IVP NAUSEA/VOMITING 04/08/25 22:00 05/08/25 21:59 Pantoprazole Sodium (PROTonix 40MG TAB) 40 mg DAILY PO 04/10/25 09:00 04/09/25 11:11 DC Potassium Chloride 100 ml @ 100 mls/hr AD PRN IV POTASSIUM PROTOCOL 04/09/25 06:30 05/09/25 06:29 Potassium Chloride (K-Dur 10meq Sr Tab) 10 meq AD PRN PO POTASSIUM PROTOCOL 04/10/25 07:00 05/09/25 06:29 04/11/25 05:07 10 MEQ Potassium Chloride (K-Dur/Klor-Con 20meq) 10 meq AD PRN PO POTASSIUM PROTOCOL 04/09/25 06:30 04/10/25 06:58 DC 04/09/25 14:56 10 MEQ Potassium Chloride (KCl 10% Elixir 20meq/15ml) 10 meq AD PRN PO POTASSIUM PROTOCOL 04/09/25 06:30 05/09/25 06:29 Prednisone (deltaSONE/ oraSONE 20MG TAB) 20 mg DAILY PO 04/10/25 09:00 05/10/25 08:59 04/11/25 09:14 20 MG Ropinirole HCl (ropiNIRole HCL) 0.25 mg TID PO 04/09/25 14:00 05/09/25 13:59 04/11/25 13:54 0.25 MG Temazepam (restORIL 15 MG CAP) 15 mg HS PRN PO INSOMNIA/SLEEP 04/08/25 22:00 05/08/25 21:59 Tiotropium Kidder (Spiriva) 18 mcg DAILY PRN IH SHORTNESS OF BREATH/WHEEZING 04/09/25 11:30 04/09/25 11:23 DC Vitamin B Complex (Vitamin B-12) 100 mcg DAILY PO 04/10/25 09:00 05/10/25 08:59 04/11/25 09:14 100 MCG Vitamin B Complex/ Vit C/Folic Acid (Nephrovite Tablet) 1 cap DAILY PO 04/10/25 09:00 05/10/25 08:59 04/11/25 09:13 1 CAP Diagnostics / Radiology: [COPY/PASTE HERE IF NO REPORTS PLEASE DELETE SECTION] Assessment: [Epigastric/substernal pain S/P esophageal hernia repair on 03/21/25 CAD s/p CABG COPD HTN ] Plan: Case discussed with Dr. Soliz and Dr. Franklin UGI positive for severe narrowing of GE Junction Plan for EGD with dilation in am. Information given to patient and all his questions were answered. He agreed to proceed. Cardiac clearance Please call with questions, concerns, and change in clinical status. ] CHEY RAMIREZ Apr 11, 2025 17:07 Electronically Signed by: CHEY RAMIREZ [facility]06/12/24 3134 Electronically Co-Signed by: Procedure(s): PATIENT: MADISON EUBANKS MR#: [id number] : 1960 SEX: M AGE: 64 LOCATION: [facility] ORDER 1539 STATUS: REG ER REPORT#: [id number] SERVICE 1538 REASON: CP ORDERING PHYSICIAN: CRYSTAL PADILLA MD PROCEDURE: CXR1VW - CHEST 1VW EXAM: CR Chest, 1 View. CLINICAL HISTORY: CP COMPARISON: None provided. FINDINGS: LUNGS: There is no mass, infiltrate, or acute pulmonary abnormality. PLEURAL SPACES: No pleural effusion or pneumothorax. MEDIASTINUM: The cardiomediastinal silhouette is within normal limits. Sternotomy wires. BONES: No aggressive appearing osseous lesion seen. IMPRESSION: No acute cardiopulmonary pathology is evident. /[place] DICTATED BY: JOSE MANUEL DUMONT DO DATE: 04/08/251819 ELECTRONICALLY SIGNED BY: JOSE MANUEL DUMONT DO DATE: 04/08/251819 PATIENT: MADISON EUBANKS MR#: [id number] : 1960 SEX: M AGE: 64 LOCATION: [facility] ORDER 0749 STATUS: ADM IN REPORT#: [id number] SERVICE 0740 REASON: COPD exacerbation ORDERING PHYSICIAN: KEILA LUCIANO MD PROCEDURE: CHEST WO - CT CHEST W/O CONTRAST EXAM: CT CHEST WITHOUT CONTRAST TECHNIQUE: CT of the chest was performed without intravenous contrast. CT examination was performed in accordance with ALARA principles. A multislice CT scan of the chest was obtained without intravenous contrast. DOSE: DOSE: CTDlvol: 9.10 (mGycm); DLP: 333.40 (mGycm) COMPARISON: CT chest dated 12/16/[address] abdomen 04/06/2025. FINDINGS LUNGS AND AIRWAYS: Mild centrilobular emphysema noted, unchanged compared to CT chest dated 12/16/2023. Mild apical pleural thickening bilaterally. Previously seen multiple ground-glass opacities in left upper and lower lobes have completely resolved, compared to CT chest dated 12/16/2023, consistent with interval resolution of previous infectious or inflammatory process. Two small ground-glass nodules (<6mm)identified in the anterior segment of the right upper lobe and lateral segment of the right middle lobe, and right sided pleural base nodule (<6mm) along the oblique fissure remains unchanged from CT chest dated 12/12/2023. Tiny granuloma in the left lingula, stable. Minimal bibasilar atelectasis/scarring, unchanged from prior exam, CT chest dated 12/12/2023. No pleural effusion. Mediastinum: Severe aortic atherosclerosis. No mediastinal lymphadenopathy. Upper Abdomen (Limited Chest CT Coverage) Kidneys: Mild bilateral perinephric fat stranding, unchanged compare to CT abdomen 04/06/2025; may represent underlying renal parenchymal disease. Recommend clinical correlation with renal function tests. Liver: Diffuse hepatic steatosis with rounded margins. A 0.6 cm hypodense lesion in segment II, likely cyst vs. hemangioma, unchanged compared to CT abdomen 04/06/2025. Gallbladder and Biliary System: Gallbladder partially distended with normal wall thickness with no pericholecystic fluid, unchanged compared to CT abdomen 04/06/2025. No biliary ductal dilatation. Bowel: Residual intraluminal contrast in the large bowel from prior CT abdomen/pelvis. IMPRESSION 1. Mild centrilobular emphysema and mild apical pleural thickening. 2. Interval resolution of previously seen ground-glass opacities, compared to CT chest dated 12/16/2023, consistent with interval resolution of previous infectious or inflammatory process. 3. Small ground-glass nodules in the right upper and middle lobes and right pleural based nodule (<6mm) and stable for 1 year; as per Fleischner guidelines no follow-up is recommended. 4. Minimal bibasilar atelectasis/scarring, unchanged compare to CT chest dated 12/12/2023. 5. Severe aortic atherosclerosis, unchanged compare to CT chest dated 12/12/2023.. 6. Mild bilateral perinephric fat stranding, unchanged compared to CT abdomen 04/06/2025; may reflect renal parenchymal disease- recommend clinical correlation with renal function tests. 7. Diffuse hepatic steatosis with a small (0.6 cm) segment II hypodensity, likely benign (cyst vs. hemangioma), unchanged compared to CT abdomen 04/06/2025. /[place] DICTATED BY: YSABEL CESAR MD DATE: 04/09/251923 ELECTRONICALLY SIGNED BY: YSABEL CESAR MD DATE: 04/09/251923 PATIENT: MADISON EUBANKS MR#: [id number] : 1960 SEX: M AGE: 64 LOCATION: H ORDER 1430 STATUS: ADM IN REPORT#: [id number] SERVICE 142 REASON: Rule out stroke ORDERING PHYSICIAN: KEILA LUCIANO MD PROCEDURE: HEAD WO - CT HEAD/BRAIN W/O CONTRAST ADDENDUM REPORT ADDENDUM: Results were shared by telephone at 06:10 PM EST on 04-09-2025 and acknowledged by KIELA CRUZ /[place] EXAM: CT Head Without IV contrast. CLINICAL HISTORY: Rule out stroke TECHNIQUE: Axial computed tomography images of the head/brain without intravenous contrast. COMPARISON: 09/02/2022. FINDINGS: BRAIN: No evidence of acute hemorrhage. No mass lesion. No CT evidence for acute territorial infarct. No midline shift or extra-axial collections. VENTRICLES: No hydrocephalus. Again noted is a cavum septum pellucidum. ORBITS: The orbits are unremarkable. SINUSES AND MASTOIDS: The paranasal sinuses and mastoid air cells are clear. BONES: No fracture. SOFT TISSUES: Unremarkable. IMPRESSION: No acute intracranial abnormality. /[place] DICTATED BY: BEATRIZ CARL MD DATE: 04/09/251846 ELECTRONICALLY SIGNED BY: DATE: EXAM: CT Head Without IV contrast. CLINICAL HISTORY: Rule out stroke TECHNIQUE: Axial computed tomography images of the head/brain without intravenous contrast. COMPARISON: 09/02/2022. FINDINGS: BRAIN: No evidence of acute hemorrhage. No mass lesion. No CT evidence for acute territorial infarct. No midline shift or extra-axial collections. VENTRICLES: No hydrocephalus. Again noted is a cavum septum pellucidum. ORBITS: The orbits are unremarkable. SINUSES AND MASTOIDS: The paranasal sinuses and mastoid air cells are clear. BONES: No fracture. SOFT TISSUES: Unremarkable. IMPRESSION: No acute intracranial abnormality. /[place] DICTATED BY: BEATRIZ CARL MD DATE: 04/09/251747 ELECTRONICALLY SIGNED BY: BEATRIZ CARL MD DATE: 04/09/251747 PATIENT: MADISON EUBANKS MR#: [id number] : 1960 SEX: M AGE: 64 LOCATION: [facility] ORDER 14 STATUS: ADM IN REPORT#: [id number] SERVICE 13 REASON: Rule out stroke ORDERING PHYSICIAN: KEILA LUICANO MD PROCEDURE: BRAIN WO - MR BRAIN WO CON EXAM: MR Brain without Intravenous Contrast. CLINICAL HISTORY: Rule out stroke TECHNIQUE: Multisequence, multiplanar magnetic resonance images acquired of the brain with and without intravenous contrast. CONTRAST: None. COMPARISON: None provided. FINDINGS: BRAIN: No restricted diffusion to indicate acute infarction. No intracranial mass or hemorrhage. No midline shift or extra-axial fluid collection. No cerebellar tonsillar ectopia. No abnormal enhancement. The central arterial and venous flow voids are patent. VENTRICLES: No hydrocephalus. ORBITS: The orbits are normal. SINUSES AND MASTOIDS: The sinuses and mastoid air cells are clear. BONES: No acute fracture or aggressive appearing osseous lesion. IMPRESSION: No acute infarction, intracranial hemorrhage, or mass lesion. /[place] DICTATED BY: JOSE JOHNS Jr., MD DATE: 04/10/251347 ELECTRONICALLY SIGNED BY: JOSE JOHNS Jr., MD DATE: 04/10/251347 PATIENT: MADISON EUBANKS MR#: [id number] : 1960 SEX: M AGE: 64 LOCATION: [facility] ORDER 53 STATUS: ADM IN REPORT#: [id number] SERVICE 47 REASON: Acute angina, hx CABG ORDERING PHYSICIAN: GABBY SOUSA PROCEDURE: ECHO CMP - ECHO 2-D COMPLETE APPROVED REPORT EXAM: Two-dimensional and M-mode echocardiogram with Doppler and color Doppler. Study Details: TIA , CVA ,COPD , CAD INDICATION ICD: acute angina , hx CABG 2D Dimensions RVDd 4.6 cm LVEF(%) 60.9 (>50%) LVED Vol(simp.) 97.0 mL IVSd 0.8 (0.7-1.1cm) FS(%) 32 % LVES Vol(simp.) 40.8 mL LVDd 4.6 (3.8-5.6cm) LA (2D) 4.6 (1.6-4.0cm) LVEF(%, simp.) 58 % PWd 0.9 (0.7-1.1cm) Ao Root(2D) 3.6 (2.0-3.7cm) LA ESV INDEX (BP) 27.94 mL/m2 IVSs 1.2 cm LVOT diam 1.8 (1.8-2.4cm) LVDs 3.1 (2.5-4.0cm) PWs 1.5 cm Deformation Strain Apical 4 -18.7 % Apical 2 -13.8 % Apical 3 -13.3 % Global Strain -15.3 % M-Mode Dimensions EPSS 0.9 cm LA (MM) 4.8 (1.6-4.0cm) Ao Root(MM) 3.4 (2.0-3.7cm) Aortic Valve AoV Vmax 1.4 m/s Ao Peak GR 8.0 mmHg LVOT Vmax 0.7 m/s AoV VTI 0.3 m Ao Mean GR 4.0 mmHg LVOT VTI 0.15 m DELONTE (VMAX) 1.18 cm2 DELONTE (VTI) 1.2 cm2 Mitral Valve MV E Vmax 79.1 cm/s DECEL Time 134 ms MV A Vmax 41.2 cm/s P 1/2 T 39 ms E/A ratio 1.9 MVA (PHT) 5.7 cm2 TDI E/E' Medial 12.2 E/E' Lateral 7.5 Medial E' Peak V 6.47 cm/s Lateral E' Peak V 10.49 cm/s Pulmonary Valve PV Vmax 1.1 m/s PV Mean GR 2.7 mmHg PV Peak GR 5.1 mmHg Tricuspid Valve TR Vmax 2.5 m/s RVSP 24.8 mmHg TR Peak GR 24.8 mmHg Left Ventricle The left ventricle is normal size. There is normal LV segmental wall motion. There is normal left ventricular wall thickness. The LVEF is > 55%. Stage II, diastolic dysfunction. Right Ventricle The right ventricle is mildly dilated. The right ventricular systolic function is normal. Atria The left atrium is mildly dilated. The interatrial septum is intact with no evidence for an atrial septal defect. The right atrium is moderately dilated. Aortic Valve Aortic valve leaflets are thickened and calcified. Aortic valve is trileaflet. No aortic regurgitation is present. Mitral Valve The mitral valve is mildly thickened. Mitral regurgitation is trace. There is no mitral valve stenosis. Tricuspid Valve The tricuspid valve leaflets are mildly thickened. Mild tricuspid regurgitation. Pulmonic Valve Pulmonic valve is not well visualized. There is trace pulmonic valvular regurgitation. Great Vessels The aortic root is normal in size. The ascending aorta is normal in size. The IVC is normal in size and collapses >50% with inspiration. Pericardium No pericardial effusion. Conclusion The LVEF is > 55%. Stage II, diastolic dysfunction. The right ventricle is mildly dilated. The left atrium is mildly dilated. The right atrium is moderately dilated. DICTATED BY: YUDY CORRAL MD DATE: 04/09/251423 ELECTRONICALLY SIGNED BY: YUDY CORRAL MD DATE: 04/09/252127 PATIENT: MADISON EUBANKS MR#: [id number] : 1960 SEX: M AGE: 64 LOCATION: [facility] ORDER 0749 STATUS: ADM IN [facility] REPORT#: [id number] SERVICE 0748 REASON: Chest pain ORDERING PHYSICIAN: ASHLEY SALCIDO MD PROCEDURE: CARD ANGELITO - NM LEXISCAN CARDIOLITE APPROVED REPORT Height: 5 ft 8in Weight: 167 lbs TEST INDICATIONS Chest Pain The imaging protocol used to acquire images was Rest Tc-99m/stress Tc-99m 1 day Consent: The procedure was explained and understood by the patient. Informerd consent was witnessed by Riri Tyler RN First, low dose rest was performed then high dose stress. RESTING DATA: The resting ekg shows: NSR Rest SPECT myocardial perfusion imaging was performed in supine position minutes following the intravenous injection of 11 mCi of Tc-99 Sestamibi. Time of rest injection: 09:20: Date: 04/10/2025 PHARMACOLOGIC STRESS: Pharmacologic stress test was performed by injecting regadenoson 0.4 mg IV push followed by the intravenous injection of 30 mCi of Tc-99 Sestamibi. Time of stress injection: 11:17: Date: 04/10/2025 Heart Rate at time of stress injection: 67 bpm. Gated Stress SPECT was performed 60 minutes after stress injection. The images were gated to evaluate regional wall motion and calculate left ventricular ejection fraction. STRESS DETAILS Reason for Termination: Infusion complete Stress Symptoms: Dyspnea Max HR Achieved: 93 bpm % of APMHR Achieved: 70 Max Blood Pressure: 128/73 mmHg Stress ECG: NSR Conclusion No ischemia No infarct LV ejection fraction of 74% Normal LV size at rest and stress Normal LV wall motion No evidence of increased lung uptake DICTATED BY: ASHLEY SALCIDO MD DATE: 04/10/25 1027 ELECTRONICALLY SIGNED BY: ASHLEY SALCIDO MD DATE: 04/10/25 1839 PATIENT: MADISON EUBANKS MR#: [id number] : 1960 SEX: M AGE: 64 LOCATION: [facility] ORDER 16 STATUS: ADM IN REPORT#: [id number] SERVICE 14 REASON: Difficulty swallowing ORDERING PHYSICIAN: ROXANNE CHURCH MD PROCEDURE: UGI WO KUB - UPPER GI TRACT, WO KUB DOUBLE CONTRAST UPPER GI SERIES: Findings: The study was performed using provocative maneuvers After swallowing effervescent crystal and thick barium, there is no definite intrinsic or extrinsic lesion seen in the esophagus. Severe narrowing of the GE junction which is causing the esophagus to be distended. There is reflux grade 1. There is no hiatal hernia.. The stomach is normal in size, shape, and configuration. The rugal folds appear to be normal. The duodenal bulb, duodenal sweep, and upper jejunum appear to be normal. Fluoroscopy time: 1.2 minute. IMPRESSION: Severe narrowing of the GE junction which needs to be dilated.. There is grade 1 esophageal reflux. 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 Thomason, Multimedia Specialist Dr. Church, Luggage Maker Dr. Sanchez, Studio Hand Dr. Celestin, Sales Representative Facility Services FOLLOW UP APPOINTMENT(S) : f/u with PCP in one 2-3 days, f/u with Dr. Trenton Wadsworth in one week, Dr. Sandy Yang in 2-3 weeks, and Heydi Dunn in 2 weeks, and Dr. Amadou Franklin in 2 weeks PROCEDURES: IMAGING (S) : report attached to summary MICROBIOLOGY : report attached to summary ACTIVITY : ad rasta HOME MEDICATIONS : Continued Home Medications: Active Scripts Ondansetron (Ondansetron Odt) 4 Mg Tab.rapdis, 4 MG PO Q6HPRN PRN for nausea, #16 TAB 0 Refills Prov:CRYSTAL PADILLA MD 04/05/25 Reported Medications Lactobacillus Acidophilus (Acidophilus Lactobacilli) 500 Million Cell Capsule, 1 CAP PO BID for 30 Days, #60 CAP 0 Refills 04/08/25 Magnesium Gluconate (Magnesium Gluconate) 27.5 Mg Magnesium (500 Mg) Tablet, 1 TAB PO BID for 30 Days, #60 TAB 0 Refills 04/08/25 Ferrous Sulfate (Ferrous Sulfate) 325 Mg (65 Mg Iron) Ectab, 1 TAB PO BID for 30 Days, #60 TAB 0 Refills 04/08/25 Tiotropium Kidder (Spiriva) 18 Mcg Cap.w.dev, 18 MCG IH DAILY PRN for SHORTNESS OF BREATH/WHEEZING 03/21/25 Empagliflozin (Jardiance) 25 Mg Tablet, 25 MG PO DAILY, TAB 03/21/25 Fluticasone Propion/Salmeterol (Wixela 100-50 Inhub) 100 Mcg-50 Mcg/Dose Blst.w.dev, 1 PUFF IH DAILY for 30 Days, #60 EACH 0 Refills 03/21/25 Semaglutide (Ozempic) 1 Mg/0.75 Ml (4 Mg/3 Ml) Pen.injctr, 4 MG SQ QWEEK for 30 Days, #3 ML 0 Refills 03/21/25 Pantoprazole Sodium (Pantoprazole Sodium) 40 Mg Tablet.dr, 1 TAB PO DAILY for 30 Days, #30 TAB 0 Refills 12/25/24 Ropinirole HCl (Ropinirole HCl) 0.25 Mg Tablet, 0.25 MG PO TID, TAB 12/25/24 Metformin HCl (Metformin HCl) 1,000 Mg Tablet, 1 TAB PO BID for 30 Days, #60 TAB 0 Refills 12/25/24 Cyanocobalamin (Vitamin B-12) 250 Mcg Tab, 100 MCG PO DAILY, TAB 12/25/24 Gabapentin (Neurontin) 300 Mg Capsule, 300 MG PO BID, CAP 12/25/24 Losartan Potassium (Losartan Potassium) 50 Mg Tablet, 1 TAB PO DAILY for 30 Days, #30 TAB 0 Refills 12/25/24 Buspirone HCl (Buspirone HCl) 15 Mg Tablet, 1 TAB PO BID for 30 Days, #60 TAB 0 Refills 12/25/24 Folic Acid/Vitamin B Comp W-C (Yesenia-Madhav Tablet) 0.8 Mg Tablet, 1 TAB PO DAILY for 30 Days, #30 TAB 0 Refills 12/25/24 Folic Acid (Folvite) 1 Mg Tab, 1 TAB PO DAILY for 30 Days, #30 TAB 0 Refills 12/25/24 Clopidogrel Bisulfate (Clopidogrel) 75 Mg Tablet, 1 TAB PO DAILY for 30 Days, #30 TAB 0 Refills 12/25/24 Prednisone (Prednisone) 20 Mg Tablet, 1 TAB PO DAILY for 5 Days, #5 TAB 0 Refills 12/25/24 Rosuvastatin Calcium (Rosuvastatin Calcium) 40 Mg Tablet, 40 MG PO HS, TAB 12/25/24 Sertraline HCl (Sertraline HCl) 100 Mg Tablet, 1.5 TAB PO DAILY for 30 Days, #30 TAB 0 Refills 12/25/24 Metoprolol Succinate (Metoprolol Succinate) 50 Mg Tab.er.24h, 1 TAB PO DAILY for 30 Days, #30 TAB 0 Refills 12/25/24 Famotidine (Famotidine) 20 Mg Tablet, 20 MG PO DAILY PRN for HEARTBURN, TAB 12/25/24 New Medications: Insulin Glargine,Hum.rec.anlog (Lantus Solostar) 100 Unit/Ml (3 Ml) Insuln.pen 25 UNIT SQ HS for 30 Days, #3 ML 0 Refills Continued Medications: Buspirone HCl (Buspirone HCl) 15 Mg Tablet 1 TAB PO BID for 30 Days, #60 TAB 0 Refills Clopidogrel Bisulfate (Clopidogrel) 75 Mg Tablet 1 TAB PO DAILY for 30 Days, #30 TAB 0 Refills Cyanocobalamin (Vitamin B-12) 250 Mcg Tab 100 MCG PO DAILY, TAB Empagliflozin (Jardiance) 25 Mg Tablet 25 MG PO DAILY, TAB Famotidine (Famotidine) 20 Mg Tablet 20 MG PO DAILY PRN for HEARTBURN, TAB Ferrous Sulfate (Ferrous Sulfate) 325 Mg (65 Mg Iron) Ectab 1 TAB PO BID for 30 Days, #60 TAB 0 Refills Fluticasone Propion/Salmeterol (Wixela 100-50 Inhub) 100 Mcg-50 Mcg/Dose Blst.w.dev 1 PUFF IH DAILY for 30 Days, #60 EACH 0 Refills Folic Acid (Folvite) 1 Mg Tab 1 TAB PO DAILY for 30 Days, #30 TAB 0 Refills Folic Acid/Vitamin B Comp W-C (Yesenia-Madhav Tablet) 0.8 Mg Tablet 1 TAB PO DAILY for 30 Days, #30 TAB 0 Refills Gabapentin (Neurontin) 300 Mg Capsule 300 MG PO BID, CAP Lactobacillus Acidophilus (Acidophilus Lactobacilli) 500 Million Cell Capsule 1 CAP PO BID for 30 Days, #60 CAP 0 Refills Losartan Potassium (Losartan Potassium) 50 Mg Tablet 1 TAB PO DAILY for 30 Days, #30 TAB 0 Refills Magnesium Gluconate (Magnesium Gluconate) 27.5 Mg Magnesium (500 Mg) Tablet 1 TAB PO BID for 30 Days, #60 TAB 0 Refills Metformin HCl (Metformin HCl) 1,000 Mg Tablet 1 TAB PO BID for 30 Days, #60 TAB 0 Refills Metoprolol Succinate (Metoprolol Succinate) 50 Mg Tab.er.24h 1 TAB PO DAILY for 30 Days, #30 TAB 0 Refills Ondansetron (Ondansetron Odt) 4 Mg Tab.rapdis 4 MG PO Q6HPRN PRN for nausea, #16 TAB 0 Refills Pantoprazole Sodium (Pantoprazole Sodium) 40 Mg Tablet.dr 1 TAB PO DAILY for 30 Days, #30 TAB 0 Refills Prednisone (Prednisone) 20 Mg Tablet 1 TAB PO DAILY for 5 Days, #5 TAB 0 Refills Ropinirole HCl (Ropinirole HCl) 0.25 Mg Tablet 0.25 MG PO TID, TAB Rosuvastatin Calcium (Rosuvastatin Calcium) 40 Mg Tablet 40 MG PO HS, TAB Semaglutide (Ozempic) 1 Mg/0.75 Ml (4 Mg/3 Ml) Pen.injctr 4 MG SQ QWEEK for 30 Days, #3 ML 0 Refills Sertraline HCl (Sertraline HCl) 100 Mg Tablet 1.5 TAB PO DAILY for 30 Days, #30 TAB 0 Refills Tiotropium Kidder (Spiriva) 18 Mcg Cap.w.dev 18 MCG IH DAILY PRN for SHORTNESS OF BREATH/WHEEZING Time spent arranging discharge: 1-30 minutes ATTESTATION BY PHYSICIAN I have seen and examined the patient. I reviewed the documentation, medical decision making, and treatment plan as noted by the resident physician above. I agree with the findings and plan of care. HEATHER PINTO MD, HARSHAVARDHA MD Apr 13, 2025 10:46
[2025-04-13] MEDS ORDERED: INSU3INS3 SQ (11:26)
--- NOTE | 2025-04-13 11:31 | NUR ---
CANCELLING HOME O2 EVAL - PATIENT HAS HOME OXYGEN ACCORDING TO RT WHO DISCUSSED WITH PATIENT
[2025-04-13 12:00] VITALS: BP 112/60; PULSE 72; RESP 28; TEMP 97.7
--- NOTE | 2025-04-13 14:59 | NUR ---
DC INSTRUCTIONS ACKNOWLEDGED. IV REMOVED
== END 2025-04-13 15:30 | disposition home or self-care (01) | DRG 302 ==
LOC: EDH 15:26 → EDHIP 18:34 → 3CH 21:11
PROVIDERS: ADMIT Internal Medicine; ATTEND Internal Medicine
PROC: 4A02XM4 Measurement of Cardiac Total Activity, External Approach (ICD-10-PCS; principal; 2025-04-10)
PROC: 3E073KZ Introduction of Other Diagnostic Substance into Coronary Artery, Percutaneous Approach (ICD-10-PCS; 2025-04-10)
PROC: 0D758ZZ Dilation of Esophagus, Via Natural or Artificial Opening Endoscopic (ICD-10-PCS; 2025-04-12)
DX: I25.110 Atherosclerotic heart disease of native coronary artery with unstable angina pectoris (principal); N17.0 Acute kidney failure with tubular necrosis; E87.3 Alkalosis; I24.89 Other forms of acute ischemic heart disease; J44.1 Chronic obstructive pulmonary disease with (acute) exacerbation; D63.8 Anemia in other chronic diseases classified elsewhere; N30.00 Acute cystitis without hematuria; Z79.02 Long term (current) use of antithrombotics/antiplatelets; B95.5 Unspecified streptococcus as the cause of diseases classified elsewhere; E11.22 Type 2 diabetes mellitus with diabetic chronic kidney disease; I12.9 Hypertensive chronic kidney disease with stage 1 through stage 4 chronic kidney disease, or unspecified chronic kidney disease; E03.8 Other specified hypothyroidism; I70.0 Atherosclerosis of aorta; I34.0 Nonrheumatic mitral (valve) insufficiency; N18.31 Chronic kidney disease, stage 3a; K76.0 Fatty (change of) liver, not elsewhere classified; Z86.74 Personal history of sudden cardiac arrest; K22.2 Esophageal obstruction; D86.0 Sarcoidosis of lung; J43.2 Centrilobular emphysema; K21.9 Gastro-esophageal reflux disease without esophagitis; E07.81 Sick-euthyroid syndrome; K57.30 Diverticulosis of large intestine without perforation or abscess without bleeding; N28.1 Cyst of kidney, acquired; I45.10 Unspecified right bundle-branch block; K40.90 Unilateral inguinal hernia, without obstruction or gangrene, not specified as recurrent; K42.9 Umbilical hernia without obstruction or gangrene; E78.00 Pure hypercholesterolemia, unspecified; Z91.010 Allergy to peanuts; Z95.1 Presence of aortocoronary bypass graft; Z88.0 Allergy status to penicillin; Z86.711 Personal history of pulmonary embolism; Z79.84 Long term (current) use of oral hypoglycemic drugs; Z79.82 Long term (current) use of aspirin; Z79.4 Long term (current) use of insulin
CPT/HCPCS: 36415; 36600; 43249; 70450; 70551; 71045; 71250; 74240; 78452; 80048; 80076; 80400; 81001; 82164; 82533; 82550; 82803; 82948; 83001; 83002; 83735; 83880; 84100; 84146; 84402; 84403; 84439; 84443; 84481; 84484; 85025; 85027; 87086; 92610; 93005; 93017; 93306; 93356; 94664; 99285; A4606; A9500; G0378; J1650; J1815; J1956; J2003; J2704; J2785; J3475; J3490; J7030; A4215; A4222; A4223; A4620; C1726